=== PATIENT | female | born 1985 | race Caucasian/White ===

== ENCOUNTER 2020-12-30 22:20 | Inpatient (IN) | payer BC ==
--- NOTE | 2020-12-30 22:35 | EDM.PDOC ---
ED HPI GENERAL MEDICAL PROBLEM - General Chief Complaint: Gastrointestinal Problem Stated Complaint: THINKS HER LIVER IS FAILING Time Seen by Provider: 12/30/20 22:35 Source of Information: Reports: Patient History Limitations: Reports: No Limitations - History of Present Illness INITIAL COMMENTS - FREE TEXT/NARRATIVE: 35-year-old female presents to the ED for evaluation of diffuse abdominal discomfort particularly periumbilical right upper quadrant radiating into her back. States the back pain is 8 out of 10. Patient reports that she drinks large volumes of vodka on a daily basis and has been doing so since age 17 or so. She estimates that she drinks 20 to 30 ounces daily. She rarely drinks any other alcohols. She denies using any recreational drugs. She does smoke occasionally when she drinks usually 5 to 8 cigarettes at a time. She has been told that she has the beginnings of the cirrhosis of the liver and is on lisinopril/hydrochlorothiazide daily. She feels lightheaded dizzy and quite nauseated today with diffuse mid back pain. Lightheaded and dizzy upon standing. She states she did have a supper meal tonight which is stayed down. She usually vomits almost every morning when she first rises. She has not appreciated any hematemesis. She reports not having a bowel movement for the last 3 or 4 days. Denies any diarrhea. She has had previous bariatric surgery in 2016. She is to weigh 305 when she got down to around 145 pounds. She estimates that she has gained about 18 pounds of weight in the last 10 to 14 days. Onset: Gradual, Other (Neck daily alcohol user for almost 20 years. There is no doubt that she had would have early cirrhosis of the liver. She appreciates that her eyes are icteric.) Onset Date: 12/30/20 (Ports about 18 pound weight gain over the last 12 to 14 days) Duration: Chronic (alcoholism), Getting Worse Location: Reports: Abdomen Quality: Reports: Ache, Pressure, Other (Associated nausea) Severity: Moderate (818) Improves with: Reports: None Worsens with: Reports: Other (Significant GERD and heartburn evident.) Context: Reports: Other (Chronic alcoholic using vodka on a daily basis in high quantities 20 to 30 ounces. She is not sure if she is ever had pancreatitis.). Denies: Activity, Exercise, Lifting, Sick Contact, Trauma Associated Symptoms: Reports: Chest Pain, Cough (Retrosternal chest discomfort), Loss of Appetite, Malaise, Nausea/Vomiting. 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 Abdomen Pain Score (Numeric/FACES): 8 - Related Data Allergies Allergy/AdvReac Type Severity Reaction Status Date / Time morphine Allergy Severe Itching Verified 12/30/20 22:34 nitrofurantoin Allergy Severe Hives Verified 12/30/20 22:34 [From Macrobid] nitrofurantoin Allergy Severe Hives Verified 12/30/20 22:34 macrocrystalline [From Macrobid] tramadol AdvReac Severe Vomiting Verified 12/30/20 22:34 zolpidem tartrate AdvReac Severe Hallucinati Verified 12/30/20 22:34 [From Ambien] ons Home Meds: Home Meds Hydrochlorothiazide 25 mg PO DAILY 09/10/15 [History] Pantoprazole [ProTONIX] 40 mg PO DAILY 12/30/20 [History] clonazePAM [Clonazepam] 1 mg PO DAILY 12/30/20 [History] lisinopriL [Lisinopril] 20 mg PO DAILY 12/30/20 [History] Past Medical History - Past Health History Medical/Surgical History: Denies Medical/Surgical History Cardiovascular History: Reports: Hypertension Psychiatric History: Reports: Addiction (Chronic alcoholism.), Depression Social & Family History - Caffeine Use Caffeine Use: Reports: Soda - Living Situation & Occupation Living situation: Reports: Occupation: Unemployed ED ROS GENERAL - Review of Systems Review Of Systems: See Below Constitutional: Reports: Malaise, Weakness, Fatigue, Weight Gain (Meets 18 pound weight gain over the last 12 to 14 days.). Denies: Fever, Chills HEENT: Reports: Other (Appreciate scleral icterus.) Respiratory: Reports: Cough. Denies: Shortness of Breath, Wheezing, Pleuritic Chest Pain, Sputum, Hemoptysis (Occasional nonproductive cough) Cardiovascular: Reports: Chest Pain (Retrosternal chest discomfort from GERD.), Lightheadedness. Denies: Blood Pressure Problem, Claudication, Dyspnea on Exertion, Edema, Orthopnea, Palpitations Endocrine: Reports: Fatigue GI/Abdominal: Reports: Abdominal Pain (History of present illness.), Constipation (Good bowel movement for the last 4 days.), Decreased Appetite, Other (GERD with chronic heartburn). Denies: Diarrhea, Difficulty Swallowing : Reports: Frequency Musculoskeletal: Reports: No Symptoms Skin: Reports: Bruising, Other (He states that she bruises easily. Appreciates urine to be dark in color.) Neurological: Reports: Dizziness, Headache (Vaginal dizziness), Weakness. Denies: Confusion, Numbness, Paresthesia, Seizure, Syncope, Tingling ( occasional headaches), Tremors, Difficulty Walking, Change in Speech Psychiatric: Reports: Anxiety, Other (Chronic alcoholism.) Hematologic/Lymphatic: Reports: No Symptoms Immunologic: Reports: No Symptoms ED EXAM, GI/ABD - Physical Exam Exam: See Below Exam Limited By: No Limitations General Appearance: Alert, WD/WN, Mild Distress, Other (Patient does have scleral icterus. Mild blepharal pallor as well. Temperature is 36.0. Heart rate 109 is sinus at the bedside respiratory to 16 with O2 sats of 95% room air BP 81/58.) Eyes: Bilateral: Normal Appearance (Patient has bilateral scleral icterus and mild blepharal pallor.) Throat/Mouth: Other Head: Atraumatic (Tongue is mildly dry and coated), Normocephalic Neck: Normal Inspection, Supple, Non-Tender, Full Range of Motion. No: Lymphadenopathy (L), Lymphadenopathy (R) Respiratory/Chest: No Respiratory Distress, Lungs Clear, Normal Breath Sounds, No Accessory Muscle Use Cardiovascular: Normal Peripheral Pulses, No Edema, No Gallop, No Murmur, No Rub, Tachycardia (Sinus tachycardia at the bedside 110/min) GI/Abdominal Exam: Normal Bowel Sounds, Soft, Tender (Mild right upper quadrant of the abdomen), Other (No clinical evidence of ascites. Evidence of laparoscopic wounds from bariatric surgery.). No: Guarding, Rigid, Rebound Back Exam: Normal Inspection, Full Range of Motion. No: CVA Tenderness (L), CVA Tenderness (R) Extremities: Normal Inspection, Normal Range of Motion, Non-Tender, No Pedal Edema Neurological: Alert, Oriented, CN II-XII Intact, Normal Cognition, Normal Gait Psychiatric: Normal Affect, Normal Mood Skin Exam: Warm, Dry, Intact, Normal Color, Other (Skin has a very slight icteric tone to it.) #1 Interpretation EKG Date: 12/30/20 Time: 22:53 Rhythm: Other (Sinus tachycardia) Rate (Beats/Min): 103 [place]: Normal P-Wave: Present QRS: Normal ST-T: Other (Mild T wave flattening in leads V2 to V6 in leads III and aVF suspect metabolic abnormality) QT: Prolonged (Moderately prolonged) EKG Interpretation Comments: Abnormal ECG Course - Vital Signs Last Recorded V/S: Last Vital Signs Temp 36.0 C L 12/30/20 22:29 Pulse 99 12/31/20 06:34 Resp 16 12/31/20 06:34 BP 94/74 12/31/20 06:34 Pulse Ox 94 L 12/31/20 06:34 - Orders/Labs/Meds Orders: Active Orders 24 hr Category Date Time Status Blood Glucose Check, Bedside [RC] ONETIME Care 12/30/20 22:44 Active EKG Documentation Completion [RC] STAT Care 12/30/20 22:44 Active Abdomen Ltd [US] Stat Exams 12/31/20 05:48 Ordered Abdomen Pelvis wo Cont [CT] Stat Exams 12/30/20 22:43 Taken Chest 1V Frontal [CR] Stat Exams 12/30/20 22:46 Taken CBC WITH AUTO DIFF [HEME] Stat Lab 12/31/20 06:05 Results Dextrose 5%-0.9% NaCl [Dextrose 5%-Normal Saline] 1,000 Med 12/30/20 22:45 Active ml IV ASDIRECTED Dextrose 5%-Lactated Ringers 1,000 ml Med 12/31/20 03:30 Active IV ASDIRECTED Lactated Ringers [Ringers, Lactated] 1,000 ml Med 12/31/20 05:45 Active IV ASDIRECTED Sodium Chloride 0.9% [Normal Saline] 1,000 ml Med 12/31/20 01:30 Active IV ASDIRECTED Medication Orders Dextrose/Sodium Chloride (Dextrose 5%-Normal Saline) 1,000 mls @ 500 mls/hr IV ASDIRECTED KIAN Last Admin: 12/30/20 23:14 Dose: 500 mls/hr Documented by: FARIBAKAT Sodium Chloride (Normal Saline) 1,000 mls @ 500 mls/hr IV ASDIRECTED KIAN Last Admin: 12/31/20 01:38 Dose: 500 mls/hr Documented by: DEBI Dextrose/Lactated Ringer's (Dextrose 5%-Lactated Ringers) 1,000 mls @ 500 mls/hr IV ASDIRECTED [facility] Last Admin: 12/31/20 03:24 Dose: 500 mls/hr Documented by: DEBI Lactated Ringer's (Ringers, Lactated) 1,000 mls @ 999 mls/hr IV ASDIRECTED [facility] Last Admin: 12/31/20 06:31 Dose: 999 mls/hr Documented by: DEBI Labs: Laboratory Tests 12/30/20 12/30/20 12/30/20 Range/Units 22:30 22:30 22:30 WBC 15.70 H (3.98-10.04) K/mm3 RBC 2.56 L (3.98-5.22) M/mm3 Hgb 10.1 L D (11.2-15.7) gm/dl Hct 29.5 L (34.1-44.9) % MCV 115.2 H D (79.4-94.8) fl MCH 39.5 H (25.6-32.2) pg MCHC 34.2 (32.2-35.5) g/dl RDW Std Deviation 59.8 H (36.4-46.3) fL Plt Count 283 D (182-369) K/mm3 MPV 8.5 L (9.4-12.3) fl Neut % (Auto) 79.2 H (34.0-71.1) % Lymph % (Auto) 9.9 L (19.3-51.7) % [place] % (Auto) 10.0 (4.7-12.5) % Eos % (Auto) 0.2 L (0.7-5.8) Baso % (Auto) 0.3 (0.1-1.2) % Neut # (Auto) 12.44 H (1.56-6.13) K/mm3 Lymph # (Auto) 1.55 (1.18-3.74) K/mm3 [place] # (Auto) 1.57 H (0.24-0.36) K/mm3 Eos # (Auto) 0.03 L (0.04-0.36) K/mm3 Baso # (Auto) 0.04 (0.01-0.08) K/mm3 Manual Slide Review Abnormal smear PT 11.9 (9.7-12.0) SECONDS INR 1.11 APTT 29.7 (21.7-31.4) SECONDS Sodium 123 L D (136-145) mEq/L Potassium 3.1 L D (3.5-5.1) mEq/L Chloride 85 L D (98-107) mEq/L Carbon Dioxide 26 (21-32) mEq/L Anion Gap 15.1 H (5-15) BUN 6 L (7-18) mg/dL Creatinine 0.9 (0.55-1.02) mg/dL Est Cr Clr Drug Dosing 87.17 mL/min Estimated GFR (MDRD) > 60 (>60) mL/min BUN/Creatinine Ratio 6.7 L (14-18) Glucose 122 H (70-99) mg/dL Lactic Acid (0.4-2.0) mmol/L Calcium 8.6 (8.5-10.1) mg/dL Magnesium 2.0 (1.8-2.4) mg/dL Total Bilirubin 3.7 H (0.2-1.0) mg/dL AST 303 H (15-37) U/L ALT 84 H (14-59) U/L Alkaline Phosphatase 387 H (46-116) U/L Ammonia (11-32) umol/L C-Reactive Protein 12.5 H* (<1.0) mg/dL NT-Pro-B Natriuret Pep (0-125) pg/mL Total Protein 7.1 (6.4-8.2) g/dl Albumin 2.3 L (3.4-5.0) g/dl Globulin 4.8 gm/dL Albumin/Globulin Ratio 0.5 L (1-2) Lipase 73 (73-393) U/L HCG, Qual (NEGATIVE) Urine Color (Yellow) Urine Appearance (Clear) Urine pH (5.0-8.0) Ur Specific [place] (1.005-1.030) Urine Protein (Negative) Urine Glucose (UA) (Negative) Urine Ketones (Negative) Urine Occult Blood (Negative) Urine Nitrite (Negative) Urine Bilirubin (Negative) Urine Urobilinogen (0.2-1.0) Ur Leukocyte Esterase (Negative) Urine RBC (0-5) /hpf Urine WBC (0-5) /hpf Ur Squamous Epith Cells (0-5) /hpf Urine Bacteria (FEW) /hpf Urine Mucus (FEW) /hpf Urine Opiates Screen (QDLNFG=899) Ur Buprenorphine Scrn (CUTOFF=10) Ur Oxycodone Screen (VAO1MS=481) Urine Methadone Screen (CTIPPU=168) Ur Propoxyphene Screen (ARUYHM=022) Ur Barbiturates Screen (NWDPHU=428) Ur Tricyclics Screen (NOHNRK=419) Ur Phencyclidine Scrn (CUTOFF=25) Ur Amphetamine Screen (CJMLMC=776) U Methamphetamines Scrn (RPOVMZ=759) U Benzodiazepines Scrn (IAPPFP=494) U Cocaine Metab Screen (EVZLVN=457) U Marijuana (THC) Screen (CUTOFF=50) Ethyl Alcohol 0.19 (0.00) gm% Ketones (0.0-0.3) mM SARS-CoV-2 RNA (HUSSEIN) (NEGATIVE) 12/30/20 12/30/20 12/30/20 Range/Units 22:30 22:30 22:56 WBC (3.98-10.04) K/mm3 RBC (3.98-5.22) M/mm3 Hgb (11.2-15.7) gm/dl Hct (34.1-44.9) % MCV (79.4-94.8) fl MCH (25.6-32.2) pg MCHC (32.2-35.5) g/dl RDW Std Deviation (36.4-46.3) fL Plt Count (182-369) K/mm3 MPV (9.4-12.3) fl Neut % (Auto) (34.0-71.1) % Lymph % (Auto) (19.3-51.7) % [place] % (Auto) (4.7-12.5) % Eos % (Auto) (0.7-5.8) Baso % (Auto) (0.1-1.2) % Neut # (Auto) (1.56-6.13) K/mm3 Lymph # (Auto) (1.18-3.74) K/mm3 [place] # (Auto) (0.24-0.36) K/mm3 Eos # (Auto) (0.04-0.36) K/mm3 Baso # (Auto) (0.01-0.08) K/mm3 Manual Slide Review PT (9.7-12.0) SECONDS INR APTT (21.7-31.4) SECONDS Sodium (136-145) mEq/L Potassium (3.5-5.1) mEq/L Chloride (98-107) mEq/L Carbon Dioxide (21-32) mEq/L Anion Gap (5-15) BUN (7-18) mg/dL Creatinine (0.55-1.02) mg/dL Est Cr Clr Drug Dosing mL/min Estimated GFR (MDRD) (>60) mL/min BUN/Creatinine Ratio (14-18) Glucose (70-99) mg/dL Lactic Acid (0.4-2.0) mmol/L Calcium (8.5-10.1) mg/dL Magnesium (1.8-2.4) mg/dL Total Bilirubin (0.2-1.0) mg/dL AST (15-37) U/L ALT (14-59) U/L Alkaline Phosphatase (46-116) U/L Ammonia 30 (11-32) umol/L C-Reactive Protein (<1.0) mg/dL NT-Pro-B Natriuret Pep 285 H (0-125) pg/mL Total Protein (6.4-8.2) g/dl Albumin (3.4-5.0) g/dl Globulin gm/dL Albumin/Globulin Ratio (1-2) Lipase (73-393) U/L HCG, Qual Negative (NEGATIVE) Urine Color (Yellow) Urine Appearance (Clear) Urine pH (5.0-8.0) Ur Specific [place] (1.005-1.030) Urine Protein (Negative) Urine Glucose (UA) (Negative) Urine Ketones (Negative) Urine Occult Blood (Negative) Urine Nitrite (Negative) Urine Bilirubin (Negative) Urine Urobilinogen (0.2-1.0) Ur Leukocyte Esterase (Negative) Urine RBC (0-5) /hpf Urine WBC (0-5) /hpf Ur Squamous Epith Cells (0-5) /hpf Urine Bacteria (FEW) /hpf Urine Mucus (FEW) /hpf Urine Opiates Screen (MPEEXU=357) Ur Buprenorphine Scrn (CUTOFF=10) Ur Oxycodone Screen (PFC8VK=833) Urine Methadone Screen (LZNPLR=826) Ur Propoxyphene Screen (NGOPMD=138) Ur Barbiturates Screen (EZLKNK=526) Ur Tricyclics Screen (CRFZZL=568) Ur Phencyclidine Scrn (CUTOFF=25) Ur Amphetamine Screen (NQLWPA=383) U Methamphetamines Scrn (JHFWIA=014) U Benzodiazepines Scrn (WZMPQF=239) U Cocaine Metab Screen (AANCKH=783) U Marijuana (THC) Screen (CUTOFF=50) Ethyl Alcohol (0.00) gm% Ketones 1.54 (0.0-0.3) mM SARS-CoV-2 RNA (HUSSEIN) (NEGATIVE) 12/30/20 12/31/20 12/31/20 Range/Units 22:56 00:52 00:59 WBC (3.98-10.04) K/mm3 RBC (3.98-5.22) M/mm3 Hgb (11.2-15.7) gm/dl Hct (34.1-44.9) % MCV (79.4-94.8) fl MCH (25.6-32.2) pg MCHC (32.2-35.5) g/dl RDW Std Deviation (36.4-46.3) fL Plt Count (182-369) K/mm3 MPV (9.4-12.3) fl Neut % (Auto) (34.0-71.1) % Lymph % (Auto) (19.3-51.7) % [place] % (Auto) (4.7-12.5) % Eos % (Auto) (0.7-5.8) Baso % (Auto) (0.1-1.2) % Neut # (Auto) (1.56-6.13) K/mm3 Lymph # (Auto) (1.18-3.74) K/mm3 [place] # (Auto) (0.24-0.36) K/mm3 Eos # (Auto) (0.04-0.36) K/mm3 Baso # (Auto) (0.01-0.08) K/mm3 Manual Slide Review PT (9.7-12.0) SECONDS INR APTT (21.7-31.4) SECONDS Sodium (136-145) mEq/L Potassium (3.5-5.1) mEq/L Chloride (98-107) mEq/L Carbon Dioxide (21-32) mEq/L Anion Gap (5-15) BUN (7-18) mg/dL Creatinine (0.55-1.02) mg/dL Est Cr Clr Drug Dosing mL/min Estimated GFR (MDRD) (>60) mL/min BUN/Creatinine Ratio (14-18) Glucose (70-99) mg/dL Lactic Acid 2.7 H* (0.4-2.0) mmol/L Calcium (8.5-10.1) mg/dL Magnesium (1.8-2.4) mg/dL Total Bilirubin (0.2-1.0) mg/dL AST (15-37) U/L ALT (14-59) U/L Alkaline Phosphatase (46-116) U/L Ammonia (11-32) umol/L C-Reactive Protein (<1.0) mg/dL NT-Pro-B Natriuret Pep (0-125) pg/mL Total Protein (6.4-8.2) g/dl Albumin (3.4-5.0) g/dl Globulin gm/dL Albumin/Globulin Ratio (1-2) Lipase (73-393) U/L HCG, Qual (NEGATIVE) Urine Color Yellow (Yellow) Urine Appearance Slt cloudy H (Clear) Urine pH 6.5 (5.0-8.0) Ur Specific [place] 1.010 (1.005-1.030) Urine Protein Negative (Negative) Urine Glucose (UA) Negative (Negative) Urine Ketones Trace H (Negative) Urine Occult Blood Negative (Negative) Urine Nitrite Negative (Negative) Urine Bilirubin Negative (Negative) Urine Urobilinogen 1.0 (0.2-1.0) Ur Leukocyte Esterase Negative (Negative) Urine RBC 0-5 (0-5) /hpf Urine WBC 0-5 (0-5) /hpf Ur Squamous Epith Cells 0-5 (0-5) /hpf Urine Bacteria Moderate H (FEW) /hpf Urine Mucus Not seen (FEW) /hpf Urine Opiates Screen (NIVINO=366) Ur Buprenorphine Scrn (CUTOFF=10) Ur Oxycodone Screen (ZVB2QI=183) Urine Methadone Screen (WYKMXL=071) Ur Propoxyphene Screen (QKMXCK=391) Ur Barbiturates Screen (QLYLUD=377) Ur Tricyclics Screen (ZVZNRY=194) Ur Phencyclidine Scrn (CUTOFF=25) Ur Amphetamine Screen (DYGRKE=818) U Methamphetamines Scrn (EEPBTE=919) U Benzodiazepines Scrn (MWGLRA=656) U Cocaine Metab Screen (WEIDJJ=471) U Marijuana (THC) Screen (CUTOFF=50) Ethyl Alcohol (0.00) gm% Ketones (0.0-0.3) mM SARS-CoV-2 RNA (HUSSEIN) Negative (NEGATIVE) 12/31/20 12/31/20 12/31/20 Range/Units 00:59 01:20 04:06 WBC (3.98-10.04) K/mm3 RBC (3.98-5.22) M/mm3 Hgb (11.2-15.7) gm/dl Hct (34.1-44.9) % MCV (79.4-94.8) fl MCH (25.6-32.2) pg MCHC (32.2-35.5) g/dl RDW Std Deviation (36.4-46.3) fL Plt Count (182-369) K/mm3 MPV (9.4-12.3) fl Neut % (Auto) (34.0-71.1) % Lymph % (Auto) (19.3-51.7) % [place] % (Auto) (4.7-12.5) % Eos % (Auto) (0.7-5.8) Baso % (Auto) (0.1-1.2) % Neut # (Auto) (1.56-6.13) K/mm3 Lymph # (Auto) (1.18-3.74) K/mm3 [place] # (Auto) (0.24-0.36) K/mm3 Eos # (Auto) (0.04-0.36) K/mm3 Baso # (Auto) (0.01-0.08) K/mm3 Manual Slide Review PT (9.7-12.0) SECONDS INR APTT (21.7-31.4) SECONDS Sodium (136-145) mEq/L Potassium (3.5-5.1) mEq/L Chloride (98-107) mEq/L Carbon Dioxide (21-32) mEq/L Anion Gap (5-15) BUN (7-18) mg/dL Creatinine (0.55-1.02) mg/dL Est Cr Clr Drug Dosing mL/min Estimated GFR (MDRD) (>60) mL/min BUN/Creatinine Ratio (14-18) Glucose (70-99) mg/dL Lactic Acid 2.4 H* 2.8 H* (0.4-2.0) mmol/L Calcium (8.5-10.1) mg/dL Magnesium (1.8-2.4) mg/dL Total Bilirubin (0.2-1.0) mg/dL AST (15-37) U/L ALT (14-59) U/L Alkaline Phosphatase (46-116) U/L Ammonia (11-32) umol/L C-Reactive Protein (<1.0) mg/dL NT-Pro-B Natriuret Pep (0-125) pg/mL Total Protein (6.4-8.2) g/dl Albumin (3.4-5.0) g/dl Globulin gm/dL Albumin/Globulin Ratio (1-2) Lipase (73-393) U/L HCG, Qual (NEGATIVE) Urine Color (Yellow) Urine Appearance (Clear) Urine pH (5.0-8.0) Ur Specific [place] (1.005-1.030) Urine Protein (Negative) Urine Glucose (UA) (Negative) Urine Ketones (Negative) Urine Occult Blood (Negative) Urine Nitrite (Negative) Urine Bilirubin (Negative) Urine Urobilinogen (0.2-1.0) Ur Leukocyte Esterase (Negative) Urine RBC (0-5) /hpf Urine WBC (0-5) /hpf Ur Squamous Epith Cells (0-5) /hpf Urine Bacteria (FEW) /hpf Urine Mucus (FEW) /hpf Urine Opiates Screen Negative (YLJLNB=020) Ur Buprenorphine Scrn Negative (CUTOFF=10) Ur Oxycodone Screen Negative (CBT8SW=694) Urine Methadone Screen Negative (MJOSWG=523) Ur Propoxyphene Screen Negative (BEHXMI=162) Ur Barbiturates Screen Negative (WFTKHX=089) Ur Tricyclics Screen Negative (VTQGQI=619) Ur Phencyclidine Scrn Negative (CUTOFF=25) Ur Amphetamine Screen Negative (DSELNT=483) U Methamphetamines Scrn Negative (BZPHZM=405) U Benzodiazepines Scrn Negative (MMTZYM=944) U Cocaine Metab Screen Negative (FGSQOU=483) U Marijuana (THC) Screen Negative (CUTOFF=50) Ethyl Alcohol (0.00) gm% Ketones (0.0-0.3) mM SARS-CoV-2 RNA (HUSSEIN) (NEGATIVE) 12/31/20 12/31/20 12/31/20 Range/Units 06:05 06:05 06:05 WBC 10.42 H (3.98-10.04) K/mm3 RBC 2.02 L (3.98-5.22) M/mm3 Hgb 8.0 L D (11.2-15.7) gm/dl Hct 23.6 L (34.1-44.9) % MCV 116.8 H (79.4-94.8) fl MCH 39.6 H (25.6-32.2) pg MCHC 33.9 (32.2-35.5) g/dl RDW Std Deviation 59.7 H (36.4-46.3) fL Plt Count 206 D (182-369) K/mm3 MPV 8.4 L (9.4-12.3) fl Neut % (Auto) 78.4 H (34.0-71.1) % Lymph % (Auto) 10.7 L (19.3-51.7) % [place] % (Auto) 10.0 (4.7-12.5) % Eos % (Auto) 0.2 L (0.7-5.8) Baso % (Auto) 0.3 (0.1-1.2) % Neut # (Auto) 8.17 H (1.56-6.13) K/mm3 Lymph # (Auto) 1.12 L (1.18-3.74) K/mm3 [place] # (Auto) 1.04 H (0.24-0.36) K/mm3 Eos # (Auto) 0.02 L (0.04-0.36) K/mm3 Baso # (Auto) 0.03 (0.01-0.08) K/mm3 Manual Slide Review PT (9.7-12.0) SECONDS INR APTT (21.7-31.4) SECONDS Sodium 129 L (136-145) mEq/L Potassium 3.1 L (3.5-5.1) mEq/L Chloride 95 L (98-107) mEq/L Carbon Dioxide 23 (21-32) mEq/L Anion Gap 14.1 (5-15) BUN 4 L (7-18) mg/dL Creatinine 0.7 (0.55-1.02) mg/dL Est Cr Clr Drug Dosing 112.08 mL/min Estimated GFR (MDRD) > 60 (>60) mL/min BUN/Creatinine Ratio 5.7 L (14-18) Glucose 135 H (70-99) mg/dL Lactic Acid 3.2 H* (0.4-2.0) mmol/L Calcium 7.5 L (8.5-10.1) mg/dL Magnesium (1.8-2.4) mg/dL Total Bilirubin 2.6 H (0.2-1.0) mg/dL AST 211 H (15-37) U/L ALT 56 (14-59) U/L Alkaline Phosphatase 302 H (46-116) U/L Ammonia (11-32) umol/L C-Reactive Protein (<1.0) mg/dL NT-Pro-B Natriuret Pep (0-125) pg/mL Total Protein 5.8 L (6.4-8.2) g/dl Albumin 1.8 L (3.4-5.0) g/dl Globulin 4.0 gm/dL Albumin/Globulin Ratio 0.5 L (1-2) Lipase (73-393) U/L HCG, Qual (NEGATIVE) Urine Color (Yellow) Urine Appearance (Clear) Urine pH (5.0-8.0) Ur Specific [place] (1.005-1.030) Urine Protein (Negative) Urine Glucose (UA) (Negative) Urine Ketones (Negative) Urine Occult Blood (Negative) Urine Nitrite (Negative) Urine Bilirubin (Negative) Urine Urobilinogen (0.2-1.0) Ur Leukocyte Esterase (Negative) Urine RBC (0-5) /hpf Urine WBC (0-5) /hpf Ur Squamous Epith Cells (0-5) /hpf Urine Bacteria (FEW) /hpf Urine Mucus (FEW) /hpf Urine Opiates Screen (RMZQMJ=528) Ur Buprenorphine Scrn (CUTOFF=10) Ur Oxycodone Screen (HQD9RP=560) Urine Methadone Screen (CNZNXV=379) Ur Propoxyphene Screen (GLZVYR=935) Ur Barbiturates Screen (NIENKL=611) Ur Tricyclics Screen (OLWCVL=672) Ur Phencyclidine Scrn (CUTOFF=25) Ur Amphetamine Screen (AIGVSA=897) U Methamphetamines Scrn (SOXCAL=426) U Benzodiazepines Scrn (HBYPIK=037) U Cocaine Metab Screen (JSQKBT=668) U Marijuana (THC) Screen (CUTOFF=50) Ethyl Alcohol (0.00) gm% Ketones (0.0-0.3) mM SARS-CoV-2 RNA (HUSSEIN) (NEGATIVE) Meds: Medications Generic Name Dose Route Start Last Admin Trade Name Freq PRN Reason Stop Dose Admin Dextrose/Sodium Chloride 1,000 mls @ 500 mls/hr 12/30/20 22:45 12/30/20 23:14 Dextrose 5%-Normal Saline IV 500 mls/hr ASDIRECTED KIAN Administration Sodium Chloride 1,000 mls @ 500 mls/hr 12/31/20 01:30 12/31/20 01:38 Normal Saline IV 500 mls/hr ASDIRECTED KIAN Administration Dextrose/Lactated Ringer's 1,000 mls @ 500 mls/hr 12/31/20 03:30 12/31/20 03:24 Dextrose 5%-Lactated Ringers IV 500 mls/hr ASDIRECTED KIAN Administration Lactated Ringer's 1,000 mls @ 999 mls/hr 12/31/20 05:45 12/31/20 06:31 Ringers, Lactated IV 999 mls/hr ASDIRECTED KIAN Administration Discontinued Medications Generic Name Dose Route Start Last Admin Trade Name [place] PRN Reason Stop Dose Admin Acetaminophen 975 mg 12/31/20 01:25 12/31/20 01:40 Acetaminophen 325 Mg Tab PO 12/31/20 01:26 975 mg ONETIME ONE Administration Acetaminophen 975 mg 12/31/20 06:33 12/31/20 06:47 Acetaminophen 325 Mg Tab PO 12/31/20 06:34 975 mg ONETIME ONE Administration Al Hydroxide/Mg Hydroxide 30 ml 12/30/20 23:00 12/30/20 23:16 Aluminum Hydroxide/Magnesium Hydroxide/Simethicone Susp 30 Ml Cup PO 12/30/20 23:01 30 ml ONETIME ONE Administration Hydromorphone HCl 0.5 mg 12/30/20 22:42 12/30/20 23:15 Hydromorphone 0.5 Mg/0.5 Ml Syringe IVPUSH 12/30/20 22:43 0.5 mg ONETIME ONE Administration Hydromorphone HCl 0.5 mg 12/31/20 01:25 12/31/20 01:39 Hydromorphone 0.5 Mg/0.5 Ml Syringe IVPUSH 12/31/20 01:26 0.5 mg ONETIME ONE Administration Hydromorphone HCl 0.5 mg 12/31/20 06:33 12/31/20 06:46 Hydromorphone 0.5 Mg/0.5 Ml Syringe IVPUSH 12/31/20 06:34 0.5 mg ONETIME ONE Administration Potassium Chloride 10 meq/ 100 mls @ 100 mls/hr 12/31/20 00:15 12/31/20 02:54 Premix IV 12/31/20 03:14 100 mls/hr Q1H KIAN Administration Cefepime HCl 2 gm/ Premix 50 mls @ 100 mls/hr 12/31/20 00:58 12/31/20 01:15 IV 12/31/20 01:27 100 mls/hr ONETIME ONE Administration Metronidazole 500 mg/ Premix 100 mls @ 100 mls/hr 12/31/20 02:10 12/31/20 02:53 IV 12/31/20 03:09 100 mls/hr ONETIME ONE Administration Sodium Chloride 1,000 mls @ 999 mls/hr 12/31/20 02:40 12/31/20 03:24 Normal Saline IV 12/31/20 03:40 Not Given ONETIME ONE Lorazepam 1 mg 12/31/20 02:41 12/31/20 02:52 Lorazepam 2 Mg/Ml Sdv IVPUSH 12/31/20 02:42 1 mg ONETIME ONE Administration Metoclopramide HCl 7.5 mg 12/30/20 22:42 12/30/20 23:14 Metoclopramide 10 Mg/2 Ml Sdv IVPUSH 12/30/20 22:43 7.5 mg ONETIME ONE Administration Metoclopramide HCl 7.5 mg 12/31/20 06:34 12/31/20 06:46 Metoclopramide 10 Mg/2 Ml Sdv IVPUSH 12/31/20 06:35 7.5 mg ONETIME ONE Administration - Radiology Interpretation Free Text/Narrative:: 55-year-old female who is known to be a chronic alcoholic drinking usually 20 to 30 ounces of vodka daily. She states she drinks until she gets drunk. She drinks all day long. Usually has to drink first thing in the morning to stop the shakes. She usually vomits first thing in the morning denies hematemesis. She been told she has the beginnings of cirrhosis liver in the past. She comes to the ED tonight indicating she believes that her liver is sick. She appreciates scleral icterus. She did has diffuse epigastric abdominal pain rating through to her back concerning for possible pancreatitis. She offers no history of a pancreatitis problem. Appreciates that her urine is quite dark in color. Only abdominal surgery is that of bariatric surgery 5 years ago with weight coming down from [id number] 145 pounds. She has gained approximately 18 pounds of weight in the last 2 weeks suggestive of ascites. This is not apparent clinically. She has no peritoneal signs clinically. Plan routine labs including serum ammonia to be done. Coags to be done with serum lipase and magnesium. IV will be D5 normal saline at 500 mils an hour. Given Reglan 7.5 mg IV for nausea relief and this will be followed by 30 cc of Maalox p.o. for heartburn. Given Dilaudid 0.5 mg IV for abdominal pain rating through to her back. - Re-Assessments/Exams Free Text/Narrative Re-Assessment/Exam: 12/31/20 23:50: Chest x-ray done portably reveals an elevated right hemidiaphragm. Lung parenchyma is are clear. Cardiac silhouette normal. No pneumothorax. CT of the abdomen was completed with out any contrast. Liver appears to be enlarged with steatosis pattern. No significant intraductal dilatation. Pancreas appears normal. Spleen appears normal. Adrenal glands appear normal without any nodules. Previous gastric bypass surgery appreciated. Patient has an IUD in the uterus. There is free fluid in the pelvis compatible with mild ascites. Small and large bowels do not show anything definitive. Left kidney appears to be slightly hypertrophic in comparison to the right. No stones identified within either renal parenchyma with no ureteric obstruction. 12/31/20 00:13 White count is elevated at 15.70. There is a left shift of 79.2% neutrophils. Hemoglobin is 10.1 with hematocrit of 29.5. MCV is 115.2 compatible with chronic alcohol use. Platelet count 283,000. The smear reveals 2+ anisocytosis. 1+ micromacrocytosis and 1+ polychromasia. There is lymphopenia and monocytosis with a few neutrophilic bands cells seen. Moderate toxic granulation on the PMNs. PT is 11.9 with an INR of 1.11. PTT is 29.7. Sodium is low at 123 with a potassium of 3.1 and a chloride of 85. Bicarb is 26. Anion gap is 15.1. BUN is 6 with a creatinine of 0.9. GFR is greater than 60. Glucose is 122. Lactic acid is elevated at 2.7. Calcium is 8.6. Magnesium is 2.0. Bilirubin is elevated at 3.7 with an AST of 303 and ALT of 84. Alkaline phosphatase is 387. Serum ammonia level is is 30. C-reactive protein is elevated at 12.5. BNP elevated at 285. Total protein 7.1 with an albumin fraction of 2.3. Serum lipase is 73. hCG is negative. Blood alcohol is 0.19 g%. Serum ketones elevated 1.54. Clinically she has an infection. Awaiting a urinalysis. Will order K rider 10 mEq IV x3. Blood pressure is improved to 132 100. Heart rate is still 125 and sinus tachycardia. 12/31/20 01:24 patient has voided. I am going to go ahead and start her on antibiotic cefepime 2 g IV. Source of the infection is unclear. She is having increased back pain at this time will be repeat Dilaudid 0.5 mg IV. Has completed a liter of IV fluids and blood pressure is now 107/71. Next liter will be normal saline at 500 mils an hour. Patient has a definite fever on palpation of her facial cheeks at this time. We will give her 9 7 5 mg of Tylenol p.o. as well. 12/31/20 02:09 Analysis is slightly cloudy with trace of ketones and moderate bacteria appreciated but negative leukocyte esterase. COVID-19 screen is negative. 12/31/20 02:10 I will add Flagyl 500 mg IV to her antibiotic treatment plan until we know the source of her infection. Her gallbladder on CT exam revealed it to be contracted with thickened garcía and I thought the surrounding pericholecystic fluid would likely represented more of an ascites. No calcified stones identified. Tenderness appears to be more epigastric with no positive Rincon sign. 12/31/20 02:37 Vrad over read of her CT of the abdomen pelvis is now available. Liver shows hepatomegaly with diffuse fatty infiltration. Gallbladder wall thickening with pericholecystic inflammation evident no calcified gallstones are evident. Peripancreatic edema surrounding the head of the pancreas evident. The findings may represent acute pancreatitis. Peptic ulcer disease may also give this appearance. Please correlate with serum amylase and lipase levels. Spleen appears normal with no splenomegaly. Adrenal glands are normal with no masses. Kidneys and ureters are normal with no hydronephrosis. Colonic wall thickening involving the ascending colon hepatic flexure consistent with right- sided colitis. No evidence of appendicitis. Moderate free fluid evident in the pelvis. Unremarkable vasculature with no abdominal aortic aneurysm. Lymph nodes appear nonspecific in the retroperitoneal cavity. They measure between 1 to 1.5 cm adjacent to the head of the pancreas. Urinary bladder is unremarkable as visualized. Reproductive shows an enlarged fibroid uterus with an IUD in good position within the mid body of the uterus. Bones and joints appear unremarkable with no acute fracture. The appendix is mildly thickened measuring 9 mm. An early mild appendicitis cannot be ruled out although felt to be unlikely. The gallbladder appears minimally distended and therefore we will wait till later this morning to have his ultrasound done on her gallbladder. Plan will be to keep her in the ER overnight for IV fluids to improve her lactic acidosis and maintain her blood pressure which is currently 106 on 70. An ultrasound of her gallbladder will be ordered for later this morning. I will give her Ativan 1 mg IV to help facilitate some sleep while in the ED. Her friend will go home at this time. Her apparently will be available tomorrow when he gets off work. The plan will be to have her admitted to the hospital until source of infection has been identified. Free Text/Narrative Re-Assessment/Exam: 12/31/20 03:23 she has completed 2 L of IV fluid. Third liter will be D5 Ringer's lactate at 500 mils an hour. Current blood pressure is 103/71 with a mean arterial pressure of 81. Heart rate is 78 in sinus 12/31/20 05:40 Third lactic acid level returned at 2.8 higher than the initial lactic acid level which was 2.7. Patient has completed nearly 3 L of IV fluids. Current blood pressure is 108 on 78. Unclear of the accuracy of the lactic acid level. Fourth liter of IV fluids will be Ringer's lactate at open. Of no te the patient does have some fluid in her pelvis compared with mild ascites from cirrhosis of the liver. I will put in an order for ultrasound of the gallbladder at this time. 12/31/20 06:25: Once again she is quite uncomfortable with abdominal pain which she still states is mostly epigastric and left upper quadrant of the abdomen. I could not generate a positive Rincon sign. She once again also is starting to feel febrile and I can still smell ketones on her breath. She is currently on her fourth liter of IV fluids. Blood pressure is currently 94/74. Mean arterial pressure is 79. At this time it is unclear as to the etiology of her abdominal pain but I suspect she is third spacing good portion of the intravenous fluids we are providing her. She may well require CT of the abdomen pelvis with oral and IV contrast if gallbladder ultrasound does not identify any obvious source for infection. Does once again feel febrile. Will give Tylenol 9 7 5 mg p.o. Awaiting commercial service technician to come in at 7 and hopefully for perform her ultrasound on her gallbladder. 12/31/20 07:06 Repeat lactate labs done at 0600 hrs. and will reveal an improvement in her white count from 15.7 down to 10.42. Hemoglobin is also dropped from 10.1-8.0 and may well be dilutional after 4 L of crystalloid. Hematocrit is also down to 23.6 from 29.5. Platelet count is currently 106,000. Auto differential shows 78.4% neutrophils. Sodium is improved from 1 23-1 29. Potassium remains the same at 3.1 even after 3K riders. Chloride is improved from 85-95. Bicarb is 23. Anion gap is 14.1. Renal function remains unchanged. Her repeat lactic acid however is elevated to 3.2 which I cannot explain. Calcium is lower at 7.5 dilutional. Total bilirubin is improved from 3.7-2.6 AST is 211 ALT is 56 alkaline phosphatase improved from 387 to 382. I have spoken with Dr. Sergio Patino on-call hospitalist and he has accepted care of this patient to the [facility] surgery floor. Departure - Departure Time of Disposition: 07:07 Disposition: Admitted As Inpatient 65 Condition: Fair Clinical Impression: Chronic alcoholism, Lactic acidosis, Alcoholic ketosis, Hyponatremia, Acute febrile illness, Neutrophilic leukocytosis Abdominal pain Qualifiers: Abdominal location: left upper quadrant Qualified Code(s): R10.12 - Left upper quadrant pain Ascites Qualifiers: Ascites type: due to alcoholic cirrhosis Qualified Code(s): K70.31 - Alcoholic cirrhosis of liver with ascites Anemia Qualifiers: Anemia type: other cause - Discharge Information *PRESCRIPTION DRUG MONITORING PROGRAM REVIEWED*: Not Applicable *COPY OF PRESCRIPTION DRUG MONITORING REPORT IN PATIENT EDEN: Not Applicable Instructions: Dehydration, Adult, [id number] Referrals: Sidra Paz NP [Primary Care Provider] - Forms: ED Department Discharge Sepsis Event Note (ED) - Evaluation Sepsis Screening Result: No Definite Risk - Focused Exam Vital Signs: Vital Signs Temp Pulse Resp BP Pulse Ox 12/31/20 06:34 99 16 94/74 94 L 12/31/20 05:30 87 16 106/66 93 L 12/31/20 04:30 88 16 100/70 94 L 12/31/20 03:26 91 16 103/71 93 L 12/31/20 03:00 88 16 108/71 93 L 12/31/20 02:15 92 16 109/76 92 L 12/31/20 02:00 98 16 101/63 92 L 12/31/20 01:45 107 H 16 108/68 91 L 12/31/20 01:00 92 16 115/76 93 L 12/31/20 00:00 99 16 112/73 93 L 12/30/20 23:00 108 H 16 102/76 95 12/30/20 22:29 36.0 C L 109 H 16 81/58 L 94 L - My Orders Last 24 Hours: My Active Orders 12/30/20 22:43 Abdomen Pelvis wo Cont [CT] Stat 12/30/20 22:44 Blood Glucose Check, Bedside [RC] ONETIME EKG Documentation Completion [RC] STAT 12/30/20 22:45 Dextrose 5%-0.9% NaCl [Dextrose 5%-Normal Saline] 1,000 ml IV ASDIRECTED 12/30/20 22:46 Chest 1V Frontal [CR] Stat 12/31/20 01:30 Sodium Chloride 0.9% [Normal Saline] 1,000 ml IV ASDIRECTED 12/31/20 03:30 Dextrose 5%-Lactated Ringers 1,000 ml IV ASDIRECTED 12/31/20 05:45 Lactated Ringers [Ringers, Lactated] 1,000 ml IV ASDIRECTED 12/31/20 05:48 Abdomen Ltd [US] Stat 12/31/20 06:05 CBC WITH AUTO DIFF [HEME] Stat - Assessment/Plan Last 24 Hours: My Active Orders 12/30/20 22:43 Abdomen Pelvis wo Cont [CT] Stat 12/30/20 22:44 Blood Glucose Check, Bedside [RC] ONETIME EKG Documentation Completion [RC] STAT 12/30/20 22:45 Dextrose 5%-0.9% NaCl [Dextrose 5%-Normal Saline] 1,000 ml IV ASDIRECTED 12/30/20 22:46 Chest 1V Frontal [CR] Stat 12/31/20 01:30 Sodium Chloride 0.9% [Normal Saline] 1,000 ml IV ASDIRECTED 12/31/20 03:30 Dextrose 5%-Lactated Ringers 1,000 ml IV ASDIRECTED 12/31/20 05:45 Lactated Ringers [Ringers, Lactated] 1,000 ml IV ASDIRECTED 12/31/20 05:48 Abdomen Ltd [US] Stat 12/31/20 06:05 CBC WITH AUTO DIFF [HEME] Stat
[2020-12-30] MEDS ORDERED: HYDROmorphone 0.5 MG/0.5 ML Syringe IVPUSH ONE (22:42)
[2020-12-30] MEDS ORDERED: Metoclopramide 10 MG/2 ML SDV IVPUSH ONE (22:42)
[2020-12-30] MEDS ORDERED: Dextrose 5%-0.9% NaCl 1,000 ML IV SCH (22:45)
[2020-12-30] MEDS ORDERED: Aluminum Hydroxide/Magnesium Hydroxide/Simethicone Susp 30 ML Cup PO ONE (23:00)
[2020-12-31] MEDS: Potassium Chloride 10 MEQ in Premix Bag 1 BAG IV SCH ×3 (00:21→02:54)
[2020-12-31] MEDS ORDERED: Cefepime 2 GM in Premix Bag 1 BAG IV ONE (00:58)
[2020-12-31] MEDS ORDERED: Acetaminophen 325 MG Tab PO ONE ×2 (01:25→06:33)
[2020-12-31] MEDS ORDERED: HYDROmorphone 0.5 MG/0.5 ML Syringe IVPUSH ONE ×2 (01:25→06:33)
[2020-12-31] MEDS ORDERED: Sodium Chloride 0.9% 1,000 ML IV SCH (01:30)
[2020-12-31] MEDS ORDERED: metroNIDAZOLE/Normal Saline 500 MG in Premix Bag 1 BAG IV ONE (02:10)
[2020-12-31] MEDS ORDERED: Sodium Chloride 0.9% 1,000 ML IV ONE (02:40)
[2020-12-31] MEDS ORDERED: LORazepam 2 MG/ML SDV IVPUSH ONE (02:41)
[2020-12-31] MEDS ORDERED: Dextrose 5%-Lactated Ringers 1,000 ML IV SCH (03:30)
[2020-12-31] MEDS ORDERED: Lactated Ringers 1,000 ML IV SCH (05:45)
[2020-12-31] MEDS ORDERED: Metoclopramide 10 MG/2 ML SDV IVPUSH ONE (06:34)
--- NOTE | 2020-12-31 07:31 | CR ---
Chest: Frontal view of the chest was obtained. Comparison: Prior chest x-ray of 04/27/15. Heart size and mediastinum are normal. Elevated right hemidiaphragm is seen which appears to be chronic. Lungs are clear with no acute parenchymal change. Bony structures show nothing acute. Impression: 1. Nothing acute is seen on frontal chest x-ray. Diagnostic code #1
[2020-12-31] MEDS ORDERED: LORazepam 2 MG/ML SDV IV PRN (07:35)
[2020-12-31] MEDS ORDERED: Acetaminophen 325 MG Tab PO PRN (07:35)
[2020-12-31] MEDS ORDERED: Ketorolac 30 MG/ML SDV IV PRN (07:35)
--- NOTE | 2020-12-31 07:39 | CT ---
CT abdomen and pelvis Technique: Multiple axial sections were obtained from slightly below the top of the liver inferiorly through the pubic symphysis. Intravenous and oral contrast were not utilized. Reconstructed coronal and sagittal images were obtained. Comparison: No prior abdominal pelvic CT study is available. Visualized lung bases show either slight linear atelectasis or scarring. Liver shows prominent fatty infiltration and is increased in size. Gallbladder shows very slight haziness either incidental or due to minimal inflammation. Spleen size is normal. Prior gastric surgery is noted. There is an area of accessory splenic tissue noted off the anterior spleen. Adrenal glands show no nodule. Minimal inflammatory change is noted between the pancreatic head and duodenum. Kidneys show no abnormal calcifications. No hydronephrosis is noted. Abdominal aorta shows atherosclerotic change without aneurysm. Atherosclerotic change continues into the iliac vessels. Small retroperitoneal lymph nodes are seen which are believed to be within normal limits at this time. There is a fair amount of fluid being seen within the pelvis. IUD is noted within the endometrial cavity. Fibroid is noted off the uterus measuring approximately 2.3 cm. Appendix appears to be shortened. Appendix measures about 1.1 cm in size. Difficult at this point to exclude appendicitis if patient has correlating symptoms. There is slight inflammatory change being seen around this area although this inflammation appears to be more distal than usually expected for appendicitis. There is diffuse bowel wall thickening within the right colon and proximal transverse colon. Bone window settings were reviewed which shows mild degenerative change. No acute osseous abnormality is appreciated. Impression: 1. Thickened appendix with inflammatory change as described above. Difficult to completely exclude appendicitis. Please correlate with patient's symptoms. 2. Fair amount of nonspecific fluid within the pelvis. 3. Wall thickening within the right colon and proximal transverse colon compatible with nonspecific colitis. 4. Prominent fatty infiltration within the liver with mild enlargement. 5. Slight inflammatory change between the pancreatic head and duodenum. This may be incidental but difficult to exclude either mild pancreatitis or peptic ulcer disease. Please correlate clinically. 6. Equivocal inflammatory change around the gallbladder. Again please correlate if further imaging is needed. Diagnostic code #3 I agree with preliminary report from [facility] finalized on 12/31/20, 1:34 AM CDT, Code 1
[2020-12-31] MEDS ORDERED: Dextrose 5%-0.9% NaCl 1,000 ML IV SCH (07:45)
--- NOTE | 2020-12-31 08:07 | US ---
Limited abdominal ultrasound: Multiple real-time images of the upper right abdomen were obtained. Comparison: Prior CT abdomen and pelvis study of 12/30/20. Findings: Liver is hyperechoic compatible with fatty infiltration. Liver is also mildly enlarged. Gallbladder is not well distended. No shadowing gallstones are seen. No gallbladder wall thickening or biliary duct dilatation is seen. Right kidney shows no hydronephrosis or mass. Right kidney has a length of 11.0 cm. There is a small amount of free fluid seen next to the liver. Pancreas is poorly seen due to bowel gas. Inferior vena cava is patent. Main portal vein is difficult to visualize. Impression: 1. Fatty infiltration within the liver. 2. Mild ascites is seen next to the inferior liver. 3. No gallbladder abnormality is appreciated. 4. Pancreas is poorly seen due to bowel gas. Diagnostic code #3
[2020-12-31] MEDS ORDERED: Enoxaparin 30 MG/0.3 ML Syringe SUBCUT SCH (09:00)
[2020-12-31] MEDS: Folic Acid 1 MG Tab PO SCH (09:46)
[2020-12-31] MEDS: cefTRIAXone 2 GM in Sodium Chloride 0.9% 100 ML IV SCH (09:47)
[2020-12-31] MEDS: HYDROmorphone 0.5 MG/0.5 ML Syringe IVPUSH PRN ×4 (09:54→21:57)
[2020-12-31] MEDS: Ondansetron 4 MG Tab.DIS PO PRN (09:55)
[2020-12-31] MEDS: Sodium Chloride 0.9% 1,000 ML IV SCH ×2 (10:22→17:29)
--- NOTE | 2020-12-31 11:30 | PCM.HP.2 ---
<Stephon Gerardo M - Last Filed: 12/31/20 12:02> H&P History of Present Illness - General Date of Service: 12/31/20 Admit Problem/Dx: Admission Diagnosis/Problem Admission Diagnosis/Problem Leukocytosis Source of Information: Patient, Provider History Limitations: Reports: No Limitations - History of Present Illness Initial Comments - Free Text/Narative: 85-year-old female presents to the ER with complaints of generalized abdominal discomfort particularly in the right and left upper quadrants that radiates around her abdomen and radiating into her back. States this has been going on for the past couple of days. She states she has also noted increased abdominal distention that started about 2 days ago. She reported that her back pain was 8 out of 10. Of note, the patient does have a significant history of alcohol consumption. She states that she drinks large volumes of vodka on a daily basis as an been doing so since age of 17. She estimates that she drinks 20 to 30 ounces daily. She rarely drinks any other alcohol and denies any recreational drug use. She does smoke occasionally when she drinks which is usually 5 to 8 cigarettes at a time, so this would likely be daily. 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 She states that she does generally vomit every morning when she wakes up. However over the course the past couple of days she has had consistent nausea and vomiting throughout the day. Her appetite has been down over the course the past couple of days. She has not noted any hematemesis. She has not had a bowel movement for about 3 to 4 days. Of note, she has had previous bariatric surgery in 2016. Her initial weight was 305 and then got down to around 145 pounds however she states over the past 10 to 14 days she has gained about 18 pounds. Initial vital signs in the emergency department showed a temperature of 36.0, heart rate 109, respiratory rate 16, blood pressure 81/58 and O2 saturations 95% on room air. Labs in the ED reveal a WBC of 15.70, hemoglobin 10.1, hematocrit 29.5, MCV 115.2, platelet count 283, neutrophil percentage 79.2, pro time 11.9, INR 1.11 PTT 29.7, sodium 123, potassium 3.1, chloride 85, carbon dioxide 26, anion gap 15.1, BUN 6, creatinine 0.9, GFR greater than 60, glucose 122, magnesium 2.0, total bilirubin 3.7, AST 303, ALT 84, alk phos 387, C-reactive protein 12.5, ammonia 30, proBNP 285, lactic acid 2.7,, ketones 0.19, urinalysis reveals trace of ketones, nitrite negative, leukocyte Estrace negative, urine test was negative, Covid test is negative The patient did receive almost 4 L of IV fluids while in the emergency department and 40 mEq of potassium IV. She also received Reglan for nausea and Dilaudid for abdominal pain. Radiologist impression portable view of the chest: Nothing acute is appreciated on frontal view of the chest. The patient was started on cefepime 2 g IV as the source of infection was unclear. She was also given Flagyl [address] of the abdomen was completed. Radiologist impression:1. Thickened appendix with some inflammatory changes described. Difficult to completely exclude appendicitis. Please correlate with patient's symptoms. 2. Fair amount of nonspecific fluid within the pelvis. 3. Wall thickening within the right colon and proximal transverse colon compatible with nonspecific colitis. 4. Prominent fatty infiltration within the liver with mild enlargement. 5. Slight inflammatory change between the pancreatic head and duodenum. This may be incidental but difficult to exclude either mild pancreatitis or peptic ulcer disease. Please correlate clinically. 6. Equivocal inflammatory change around the gallbladder. Again please correlate if further imaging is needed. Subsequently, an ultrasound of the abdomen was completed to rule out gallbladder disease. Radiologist impression:1. Fatty infiltration within the liver. 2. Mild ascites is seen next to the inferior liver. 3. No gallbladder abnormality is appreciated. 4. Pancreas is poorly seen due to bowel gas. Repeat labs were done at 0600 and show WBC down to 10.42, hemoglobin down to 10.8 which is likely delusional after 4 L of fluid, hematocrit also down to 23.6. Platelet count 106,000, auto differential shows 78.4% neutrophils. Sodium has improved to 129 and potassium remains the same at 3.1. Chloride is 95 and bicarb 23. Anion gap 14.1. Renal function remains unchanged. Repeat lactic acid however is elevated to 3.2. Calcium is lower at 7.5 likely delusional. Total bilirubin is improved from 3.7-2.6, AST is 211, ALT is 56, alkaline phos improved from 3 87-3 82. Patient will be admitted to the intensive care unit at it is likely that she will go through DTs due to excessive alcohol consumption. The surgeon on-call, , will be consulted. Of note, the patient is on her menstrual cycle however she denies any retained tampons and states she is good about changing these out every few hours. Abdomen Pain Score (Numeric/FACES): 7 - Related Data Allergies/Adverse Reactions: Allergies Allergy/AdvReac Type Severity Reaction Status Date / Time nitrofurantoin Allergy Intermediate Hives Verified 12/31/20 12:52 [From Macrobid] nitrofurantoin Allergy Intermediate Hives Verified 12/31/20 12:52 macrocrystalline [From Macrobid] morphine Allergy Mild Itching Verified 12/31/20 12:52 zolpidem tartrate AdvReac Intermediate Hallucinati Verified 12/31/20 12:52 [From Ambien] ons tramadol AdvReac Mild Vomiting Verified 12/31/20 12:52 Home Medications: Home Meds Hydrochlorothiazide 25 mg PO DAILY 09/10/15 [History] Pantoprazole [ProTONIX] 40 mg PO DAILY 12/30/20 [History] clonazePAM [Clonazepam] 1 mg PO DAILY 12/30/20 [History] lisinopriL [Lisinopril] 20 mg PO DAILY 12/30/20 [History] Past Medical History - Past Health History Medical/Surgical History: Denies Medical/Surgical History HEENT History: Reports: Other (See Below) Other HEENT History: wears glasses Cardiovascular History: Reports: Hypertension Gastrointestinal History: Reports: GERD, Other (See Below) Other Gastrointestinal History: gastric sleeve Psychiatric History: Reports: Addiction, Depression Social & Family History - Tobacco Use Tobacco Use Status *Q: Light Tobacco User Years of Tobacco use: 5 Packs/Tins Daily: 0.1 Used Tobacco, but Quit: No - Caffeine Use Caffeine Use: Reports: Coffee - Alcohol Use Days Per Week of Alcohol Use: 1 Number of Drinks Per Day: 5 Total Drinks Per Week: 5 Date of Last Drink: 12/30/20 Time of Last Drink: 16:00 - Recreational Drug Use Recreational Drug Use: No - Living Situation & Occupation Living situation: Reports: Occupation: Unemployed H&P Review of Systems - Review of Systems: Review Of Systems: See Below General: Reports: Chills, Decreased Appetite, Weight Gain. Denies: Fever HEENT: Reports: No Symptoms Pulmonary: Reports: No Symptoms Cardiovascular: Reports: No Symptoms Gastrointestinal: Reports: Abdominal Pain, Constipation, Decreased Appetite, Distension, Nausea, Vomiting. Denies: Diarrhea, Hematemesis, Hematochezia Genitourinary: Reports: No Symptoms Musculoskeletal: Reports: Back Pain (Patient reports pain in the middle of her back for the past 2 days) Skin: Reports: No Symptoms Psychiatric: Reports: No Symptoms Neurological: Reports: Headache Hematologic/Lymphatic: Reports: No Symptoms Immunologic: Reports: No Symptoms Exam - Exam Exam: See Below - Vital Signs Vital Signs: Last Vital Signs Temp 97.0 F 12/31/20 10:15 Pulse 116 H 12/31/20 10:15 Resp 20 12/31/20 10:15 BP 124/74 12/31/20 10:15 Pulse Ox 90 L 12/31/20 10:15 Weight: 78.245 kg - Exam Quality Assessment: DVT Prophylaxis (Lovenox). No: Supplemental Oxygen General: Alert, Oriented, Cooperative, Mild Distress HEENT: Hearing Intact, Mucosa Moist & [place], Pupils Equal, Scleral Icterus Neck: Supple, Trachea Midline Lungs: Clear to Auscultation, Normal Respiratory Effort Cardiovascular: Regular Rate, Regular Rhythm, Normal S1, Normal S2 GI/Abdominal Exam: Non-Tender, Distended, Abnormal Bowel Sounds (Hyperactive), Other (Semifirm) (Female) Exam: Deferred Rectal (Female) Exam: Deferred Back Exam: Normal Inspection, Full Range of Motion Extremities: Normal Inspection, Normal Range of Motion, Non-Tender, No Pedal Edema, Normal Capillary Refill Peripheral Pulses: 2+: Radial (L), Radial (R) Skin: Warm, Dry, Intact Neuro Extensive - Mental Status: Alert, Oriented x3, Normal Mood/Affect, Normal Cognition, Memory Intact Psychiatric: Alert, Normal Affect, Normal Mood - Patient Data Lab Results Last 24 hrs: Laboratory Results - last 24 hr 12/30/20 12/30/20 12/30/20 Range/Units 22:30 22:30 22:30 WBC 15.70 H (3.98-10.04) K/mm3 RBC 2.56 L (3.98-5.22) M/mm3 Hgb 10.1 L D (11.2-15.7) gm/dl Hct 29.5 L (34.1-44.9) % MCV 115.2 H D (79.4-94.8) fl MCH 39.5 H (25.6-32.2) pg MCHC 34.2 (32.2-35.5) g/dl RDW Std Deviation 59.8 H (36.4-46.3) fL Plt Count 283 D (182-369) K/mm3 MPV 8.5 L (9.4-12.3) fl Neut % (Auto) 79.2 H (34.0-71.1) % Lymph % (Auto) 9.9 L (19.3-51.7) % [place] % (Auto) 10.0 (4.7-12.5) % Eos % (Auto) 0.2 L (0.7-5.8) Baso % (Auto) 0.3 (0.1-1.2) % Neut # (Auto) 12.44 H (1.56-6.13) K/mm3 Lymph # (Auto) 1.55 (1.18-3.74) K/mm3 [place] # (Auto) 1.57 H (0.24-0.36) K/mm3 Eos # (Auto) 0.03 L (0.04-0.36) K/mm3 Baso # (Auto) 0.04 (0.01-0.08) K/mm3 Manual Slide Review Abnormal smear PT 11.9 (9.7-12.0) SECONDS INR 1.11 APTT 29.7 (21.7-31.4) SECONDS Sodium 123 L D (136-145) mEq/L Potassium 3.1 L D (3.5-5.1) mEq/L Chloride 85 L D (98-107) mEq/L Carbon Dioxide 26 (21-32) mEq/L Anion Gap 15.1 H (5-15) BUN 6 L (7-18) mg/dL Creatinine 0.9 (0.55-1.02) mg/dL Est Cr Clr Drug Dosing 87.17 mL/min Estimated GFR (MDRD) > 60 (>60) mL/min BUN/Creatinine Ratio 6.7 L (14-18) Glucose 122 H (70-99) mg/dL Lactic Acid (0.4-2.0) mmol/L Calcium 8.6 (8.5-10.1) mg/dL Magnesium 2.0 (1.8-2.4) mg/dL Total Bilirubin 3.7 H (0.2-1.0) mg/dL GGT (5-55) U/L AST 303 H (15-37) U/L ALT 84 H (14-59) U/L Alkaline Phosphatase 387 H (46-116) U/L Ammonia (11-32) umol/L C-Reactive Protein 12.5 H* (<1.0) mg/dL NT-Pro-B Natriuret Pep (0-125) pg/mL Total Protein 7.1 (6.4-8.2) g/dl Albumin 2.3 L (3.4-5.0) g/dl Globulin 4.8 gm/dL Albumin/Globulin Ratio 0.5 L (1-2) Lipase 73 (73-393) U/L HCG, Qual (NEGATIVE) Urine Color (Yellow) Urine Appearance (Clear) Urine pH (5.0-8.0) Ur Specific [place] (1.005-1.030) Urine Protein (Negative) Urine Glucose (UA) (Negative) Urine Ketones (Negative) Urine Occult Blood (Negative) Urine Nitrite (Negative) Urine Bilirubin (Negative) Urine Urobilinogen (0.2-1.0) Ur Leukocyte Esterase (Negative) Urine RBC (0-5) /hpf Urine WBC (0-5) /hpf Ur Squamous Epith Cells (0-5) /hpf Urine Bacteria (FEW) /hpf Urine Mucus (FEW) /hpf Urine Opiates Screen (QVNMAX=092) Ur Buprenorphine Scrn (CUTOFF=10) Ur Oxycodone Screen (WFD6FJ=808) Urine Methadone Screen (JKVHHT=901) Ur Propoxyphene Screen (TTXZIC=342) Ur Barbiturates Screen (EVSSIN=397) Ur Tricyclics Screen (ZAGUYS=629) Ur Phencyclidine Scrn (CUTOFF=25) Ur Amphetamine Screen (IAKEJH=025) U Methamphetamines Scrn (ZAMOOH=324) U Benzodiazepines Scrn (VNDTGW=047) U Cocaine Metab Screen (YMEZAU=546) U Marijuana (THC) Screen (CUTOFF=50) Ethyl Alcohol 0.19 (0.00) gm% Ketones (0.0-0.3) mM SARS-CoV-2 RNA (HUSSEIN) (NEGATIVE) 12/30/20 12/30/20 12/30/20 Range/Units 22:30 22:30 22:56 WBC (3.98-10.04) K/mm3 RBC (3.98-5.22) M/mm3 Hgb (11.2-15.7) gm/dl Hct (34.1-44.9) % MCV (79.4-94.8) fl MCH (25.6-32.2) pg MCHC (32.2-35.5) g/dl RDW Std Deviation (36.4-46.3) fL Plt Count (182-369) K/mm3 MPV (9.4-12.3) fl Neut % (Auto) (34.0-71.1) % Lymph % (Auto) (19.3-51.7) % [place] % (Auto) (4.7-12.5) % Eos % (Auto) (0.7-5.8) Baso % (Auto) (0.1-1.2) % Neut # (Auto) (1.56-6.13) K/mm3 Lymph # (Auto) (1.18-3.74) K/mm3 [place] # (Auto) (0.24-0.36) K/mm3 Eos # (Auto) (0.04-0.36) K/mm3 Baso # (Auto) (0.01-0.08) K/mm3 Manual Slide Review PT (9.7-12.0) SECONDS INR APTT (21.7-31.4) SECONDS Sodium (136-145) mEq/L Potassium (3.5-5.1) mEq/L Chloride (98-107) mEq/L Carbon Dioxide (21-32) mEq/L Anion Gap (5-15) BUN (7-18) mg/dL Creatinine (0.55-1.02) mg/dL Est Cr Clr Drug Dosing mL/min Estimated GFR (MDRD) (>60) mL/min BUN/Creatinine Ratio (14-18) Glucose (70-99) mg/dL Lactic Acid (0.4-2.0) mmol/L Calcium (8.5-10.1) mg/dL Magnesium (1.8-2.4) mg/dL Total Bilirubin (0.2-1.0) mg/dL GGT (5-55) U/L AST (15-37) U/L ALT (14-59) U/L Alkaline Phosphatase (46-116) U/L Ammonia 30 (11-32) umol/L C-Reactive Protein (<1.0) mg/dL NT-Pro-B Natriuret Pep 285 H (0-125) pg/mL Total Protein (6.4-8.2) g/dl Albumin (3.4-5.0) g/dl Globulin gm/dL Albumin/Globulin Ratio (1-2) Lipase (73-393) U/L HCG, Qual Negative (NEGATIVE) Urine Color (Yellow) Urine Appearance (Clear) Urine pH (5.0-8.0) Ur Specific [place] (1.005-1.030) Urine Protein (Negative) Urine Glucose (UA) (Negative) Urine Ketones (Negative) Urine Occult Blood (Negative) Urine Nitrite (Negative) Urine Bilirubin (Negative) Urine Urobilinogen (0.2-1.0) Ur Leukocyte Esterase (Negative) Urine RBC (0-5) /hpf Urine WBC (0-5) /hpf Ur Squamous Epith Cells (0-5) /hpf Urine Bacteria (FEW) /hpf Urine Mucus (FEW) /hpf Urine Opiates Screen (JAEBFB=096) Ur Buprenorphine Scrn (CUTOFF=10) Ur Oxycodone Screen (YCR3FJ=489) Urine Methadone Screen (PDSSAO=913) Ur Propoxyphene Screen (NTAAIE=050) Ur Barbiturates Screen (LQFSMD=317) Ur Tricyclics Screen (FAVHEF=016) Ur Phencyclidine Scrn (CUTOFF=25) Ur Amphetamine Screen (MQMUVN=214) U Methamphetamines Scrn (WKBQNG=925) U Benzodiazepines Scrn (TVZUDC=056) U Cocaine Metab Screen (GVGLSG=817) U Marijuana (THC) Screen (CUTOFF=50) Ethyl Alcohol (0.00) gm% Ketones 1.54 (0.0-0.3) mM SARS-CoV-2 RNA (HUSSEIN) (NEGATIVE) 12/30/20 12/31/20 12/31/20 Range/Units 22:56 00:52 00:59 WBC (3.98-10.04) K/mm3 RBC (3.98-5.22) M/mm3 Hgb (11.2-15.7) gm/dl Hct (34.1-44.9) % MCV (79.4-94.8) fl MCH (25.6-32.2) pg MCHC (32.2-35.5) g/dl RDW Std Deviation (36.4-46.3) fL Plt Count (182-369) K/mm3 MPV (9.4-12.3) fl Neut % (Auto) (34.0-71.1) % Lymph % (Auto) (19.3-51.7) % [place] % (Auto) (4.7-12.5) % Eos % (Auto) (0.7-5.8) Baso % (Auto) (0.1-1.2) % Neut # (Auto) (1.56-6.13) K/mm3 Lymph # (Auto) (1.18-3.74) K/mm3 [place] # (Auto) (0.24-0.36) K/mm3 Eos # (Auto) (0.04-0.36) K/mm3 Baso # (Auto) (0.01-0.08) K/mm3 Manual Slide Review PT (9.7-12.0) SECONDS INR APTT (21.7-31.4) SECONDS Sodium (136-145) mEq/L Potassium (3.5-5.1) mEq/L Chloride (98-107) mEq/L Carbon Dioxide (21-32) mEq/L Anion Gap (5-15) BUN (7-18) mg/dL Creatinine (0.55-1.02) mg/dL Est Cr Clr Drug Dosing mL/min Estimated GFR (MDRD) (>60) mL/min BUN/Creatinine Ratio (14-18) Glucose (70-99) mg/dL Lactic Acid 2.7 H* (0.4-2.0) mmol/L Calcium (8.5-10.1) mg/dL Magnesium (1.8-2.4) mg/dL Total Bilirubin (0.2-1.0) mg/dL GGT (5-55) U/L AST (15-37) U/L ALT (14-59) U/L Alkaline Phosphatase (46-116) U/L Ammonia (11-32) umol/L C-Reactive Protein (<1.0) mg/dL NT-Pro-B Natriuret Pep (0-125) pg/mL Total Protein (6.4-8.2) g/dl Albumin (3.4-5.0) g/dl Globulin gm/dL Albumin/Globulin Ratio (1-2) Lipase (73-393) U/L HCG, Qual (NEGATIVE) Urine Color Yellow (Yellow) Urine Appearance Slt cloudy H (Clear) Urine pH 6.5 (5.0-8.0) Ur Specific [place] 1.010 (1.005-1.030) Urine Protein Negative (Negative) Urine Glucose (UA) Negative (Negative) Urine Ketones Trace H (Negative) Urine Occult Blood Negative (Negative) Urine Nitrite Negative (Negative) Urine Bilirubin Negative (Negative) Urine Urobilinogen 1.0 (0.2-1.0) Ur Leukocyte Esterase Negative (Negative) Urine RBC 0-5 (0-5) /hpf Urine WBC 0-5 (0-5) /hpf Ur Squamous Epith Cells 0-5 (0-5) /hpf Urine Bacteria Moderate H (FEW) /hpf Urine Mucus Not seen (FEW) /hpf Urine Opiates Screen (DNYOTK=312) Ur Buprenorphine Scrn (CUTOFF=10) Ur Oxycodone Screen (ACF8QP=783) Urine Methadone Screen (SMMXFB=327) Ur Propoxyphene Screen (SSBRON=233) Ur Barbiturates Screen (WPJKVL=461) Ur Tricyclics Screen (LGNDKE=728) Ur Phencyclidine Scrn (CUTOFF=25) Ur Amphetamine Screen (NIAGJH=415) U Methamphetamines Scrn (RGDORY=714) U Benzodiazepines Scrn (GWSZVA=694) U Cocaine Metab Screen (AJIIWK=127) U Marijuana (THC) Screen (CUTOFF=50) Ethyl Alcohol (0.00) gm% Ketones (0.0-0.3) mM SARS-CoV-2 RNA (HUSSEIN) Negative (NEGATIVE) 12/31/20 12/31/20 12/31/20 Range/Units 00:59 01:20 04:06 WBC (3.98-10.04) K/mm3 RBC (3.98-5.22) M/mm3 Hgb (11.2-15.7) gm/dl Hct (34.1-44.9) % MCV (79.4-94.8) fl MCH (25.6-32.2) pg MCHC (32.2-35.5) g/dl RDW Std Deviation (36.4-46.3) fL Plt Count (182-369) K/mm3 MPV (9.4-12.3) fl Neut % (Auto) (34.0-71.1) % Lymph % (Auto) (19.3-51.7) % [place] % (Auto) (4.7-12.5) % Eos % (Auto) (0.7-5.8) Baso % (Auto) (0.1-1.2) % Neut # (Auto) (1.56-6.13) K/mm3 Lymph # (Auto) (1.18-3.74) K/mm3 [place] # (Auto) (0.24-0.36) K/mm3 Eos # (Auto) (0.04-0.36) K/mm3 Baso # (Auto) (0.01-0.08) K/mm3 Manual Slide Review PT (9.7-12.0) SECONDS INR APTT (21.7-31.4) SECONDS Sodium (136-145) mEq/L Potassium (3.5-5.1) mEq/L Chloride (98-107) mEq/L Carbon Dioxide (21-32) mEq/L Anion Gap (5-15) BUN (7-18) mg/dL Creatinine (0.55-1.02) mg/dL Est Cr Clr Drug Dosing mL/min Estimated GFR (MDRD) (>60) mL/min BUN/Creatinine Ratio (14-18) Glucose (70-99) mg/dL Lactic Acid 2.4 H* 2.8 H* (0.4-2.0) mmol/L Calcium (8.5-10.1) mg/dL Magnesium (1.8-2.4) mg/dL Total Bilirubin (0.2-1.0) mg/dL GGT (5-55) U/L AST (15-37) U/L ALT (14-59) U/L Alkaline Phosphatase (46-116) U/L Ammonia (11-32) umol/L C-Reactive Protein (<1.0) mg/dL NT-Pro-B Natriuret Pep (0-125) pg/mL Total Protein (6.4-8.2) g/dl Albumin (3.4-5.0) g/dl Globulin gm/dL Albumin/Globulin Ratio (1-2) Lipase (73-393) U/L HCG, Qual (NEGATIVE) Urine Color (Yellow) Urine Appearance (Clear) Urine pH (5.0-8.0) Ur Specific [place] (1.005-1.030) Urine Protein (Negative) Urine Glucose (UA) (Negative) Urine Ketones (Negative) Urine Occult Blood (Negative) Urine Nitrite (Negative) Urine Bilirubin (Negative) Urine Urobilinogen (0.2-1.0) Ur Leukocyte Esterase (Negative) Urine RBC (0-5) /hpf Urine WBC (0-5) /hpf Ur Squamous Epith Cells (0-5) /hpf Urine Bacteria (FEW) /hpf Urine Mucus (FEW) /hpf Urine Opiates Screen Negative (CZHXDE=514) Ur Buprenorphine Scrn Negative (CUTOFF=10) Ur Oxycodone Screen Negative (MUL4RL=412) Urine Methadone Screen Negative (EABPDW=923) Ur Propoxyphene Screen Negative (XKVDRJ=648) Ur Barbiturates Screen Negative (MYFYEB=071) Ur Tricyclics Screen Negative (DPWBUI=174) Ur Phencyclidine Scrn Negative (CUTOFF=25) Ur Amphetamine Screen Negative (FKXYHK=792) U Methamphetamines Scrn Negative (YOUTQU=186) U Benzodiazepines Scrn Negative (CZGPYM=843) U Cocaine Metab Screen Negative (DNNZHE=303) U Marijuana (THC) Screen Negative (CUTOFF=50) Ethyl Alcohol (0.00) gm% Ketones (0.0-0.3) mM SARS-CoV-2 RNA (HUSSEIN) (NEGATIVE) 12/31/20 12/31/20 12/31/20 Range/Units 06:05 06:05 06:05 WBC 10.42 H (3.98-10.04) K/mm3 RBC 2.02 L (3.98-5.22) M/mm3 Hgb 8.0 L D (11.2-15.7) gm/dl Hct 23.6 L (34.1-44.9) % MCV 116.8 H (79.4-94.8) fl MCH 39.6 H (25.6-32.2) pg MCHC 33.9 (32.2-35.5) g/dl RDW Std Deviation 59.7 H (36.4-46.3) fL Plt Count 206 D (182-369) K/mm3 MPV 8.4 L (9.4-12.3) fl Neut % (Auto) 78.4 H (34.0-71.1) % Lymph % (Auto) 10.7 L (19.3-51.7) % [place] % (Auto) 10.0 (4.7-12.5) % Eos % (Auto) 0.2 L (0.7-5.8) Baso % (Auto) 0.3 (0.1-1.2) % Neut # (Auto) 8.17 H (1.56-6.13) K/mm3 Lymph # (Auto) 1.12 L (1.18-3.74) K/mm3 [place] # (Auto) 1.04 H (0.24-0.36) K/mm3 Eos # (Auto) 0.02 L (0.04-0.36) K/mm3 Baso # (Auto) 0.03 (0.01-0.08) K/mm3 Manual Slide Review Abnormal smear PT (9.7-12.0) SECONDS INR APTT (21.7-31.4) SECONDS Sodium 129 L (136-145) mEq/L Potassium 3.1 L (3.5-5.1) mEq/L Chloride 95 L (98-107) mEq/L Carbon Dioxide 23 (21-32) mEq/L Anion Gap 14.1 (5-15) BUN 4 L (7-18) mg/dL Creatinine 0.7 (0.55-1.02) mg/dL Est Cr Clr Drug Dosing 112.08 mL/min Estimated GFR (MDRD) > 60 (>60) mL/min BUN/Creatinine Ratio 5.7 L (14-18) Glucose 135 H (70-99) mg/dL Lactic Acid 3.2 H* (0.4-2.0) mmol/L Calcium 7.5 L (8.5-10.1) mg/dL Magnesium (1.8-2.4) mg/dL Total Bilirubin 2.6 H (0.2-1.0) mg/dL GGT (5-55) U/L AST 211 H (15-37) U/L ALT 56 (14-59) U/L Alkaline Phosphatase 302 H (46-116) U/L Ammonia (11-32) umol/L C-Reactive Protein (<1.0) mg/dL NT-Pro-B Natriuret Pep (0-125) pg/mL Total Protein 5.8 L (6.4-8.2) g/dl Albumin 1.8 L (3.4-5.0) g/dl Globulin 4.0 gm/dL Albumin/Globulin Ratio 0.5 L (1-2) Lipase (73-393) U/L HCG, Qual (NEGATIVE) Urine Color (Yellow) Urine Appearance (Clear) Urine pH (5.0-8.0) Ur Specific [place] (1.005-1.030) Urine Protein (Negative) Urine Glucose (UA) (Negative) Urine Ketones (Negative) Urine Occult Blood (Negative) Urine Nitrite (Negative) Urine Bilirubin (Negative) Urine Urobilinogen (0.2-1.0) Ur Leukocyte Esterase (Negative) Urine RBC (0-5) /hpf Urine WBC (0-5) /hpf Ur Squamous Epith Cells (0-5) /hpf Urine Bacteria (FEW) /hpf Urine Mucus (FEW) /hpf Urine Opiates Screen (DFROFR=203) Ur Buprenorphine Scrn (CUTOFF=10) Ur Oxycodone Screen (IHZ1DQ=854) Urine Methadone Screen (HRGKRP=886) Ur Propoxyphene Screen (TDWDAJ=500) Ur Barbiturates Screen (ZQWKNC=645) Ur Tricyclics Screen (UWTDXN=182) Ur Phencyclidine Scrn (CUTOFF=25) Ur Amphetamine Screen (SCJRUO=005) U Methamphetamines Scrn (EGWSSX=383) U Benzodiazepines Scrn (LUREQS=759) U Cocaine Metab Screen (JVULNV=240) U Marijuana (THC) Screen (CUTOFF=50) Ethyl Alcohol (0.00) gm% Ketones (0.0-0.3) mM SARS-CoV-2 RNA (HUSSEIN) (NEGATIVE) 12/31/20 12/31/20 12/31/20 Range/Units 06:05 09:12 09:12 WBC 13.88 H (3.98-10.04) K/mm3 RBC 2.33 L (3.98-5.22) M/mm3 Hgb 9.2 L (11.2-15.7) gm/dl Hct 27.4 L (34.1-44.9) % MCV 117.6 H (79.4-94.8) fl MCH 39.5 H (25.6-32.2) pg MCHC 33.6 (32.2-35.5) g/dl RDW Std Deviation 61.9 H (36.4-46.3) fL Plt Count 264 (182-369) K/mm3 MPV 8.7 L (9.4-12.3) fl Neut % (Auto) 76.9 H (34.0-71.1) % Lymph % (Auto) 13.3 L (19.3-51.7) % [place] % (Auto) 9.1 (4.7-12.5) % Eos % (Auto) 0.2 L (0.7-5.8) Baso % (Auto) 0.2 (0.1-1.2) % Neut # (Auto) 10.66 H (1.56-6.13) K/mm3 Lymph # (Auto) 1.85 (1.18-3.74) K/mm3 [place] # (Auto) 1.27 H (0.24-0.36) K/mm3 Eos # (Auto) 0.03 L (0.04-0.36) K/mm3 Baso # (Auto) 0.03 (0.01-0.08) K/mm3 Manual Slide Review Abnormal smear PT (9.7-12.0) SECONDS INR APTT (21.7-31.4) SECONDS Sodium 130 L (136-145) mEq/L Potassium 3.0 L (3.5-5.1) mEq/L Chloride 93 L (98-107) mEq/L Carbon Dioxide 27 (21-32) mEq/L Anion Gap 13.0 (5-15) BUN 4 L (7-18) mg/dL Creatinine 0.8 (0.55-1.02) mg/dL Est Cr Clr Drug Dosing 98.07 mL/min Estimated GFR (MDRD) > 60 (>60) mL/min BUN/Creatinine Ratio 5.0 L (14-18) Glucose 125 H (70-99) mg/dL Lactic Acid (0.4-2.0) mmol/L Calcium 8.3 L (8.5-10.1) mg/dL Magnesium (1.8-2.4) mg/dL Total Bilirubin 4.0 H (0.2-1.0) mg/dL GGT 1644 H (5-55) U/L AST 240 H (15-37) U/L ALT 68 H (14-59) U/L Alkaline Phosphatase 368 H (46-116) U/L Ammonia (11-32) umol/L C-Reactive Protein (<1.0) mg/dL NT-Pro-B Natriuret Pep (0-125) pg/mL Total Protein 7.2 (6.4-8.2) g/dl Albumin 2.4 L (3.4-5.0) g/dl Globulin 4.8 gm/dL Albumin/Globulin Ratio 0.5 L (1-2) Lipase (73-393) U/L HCG, Qual (NEGATIVE) Urine Color (Yellow) Urine Appearance (Clear) Urine pH (5.0-8.0) Ur Specific [place] (1.005-1.030) Urine Protein (Negative) Urine Glucose (UA) (Negative) Urine Ketones (Negative) Urine Occult Blood (Negative) Urine Nitrite (Negative) Urine Bilirubin (Negative) Urine Urobilinogen (0.2-1.0) Ur Leukocyte Esterase (Negative) Urine RBC (0-5) /hpf Urine WBC (0-5) /hpf Ur Squamous Epith Cells (0-5) /hpf Urine Bacteria (FEW) /hpf Urine Mucus (FEW) /hpf Urine Opiates Screen (DKZPTE=195) Ur Buprenorphine Scrn (CUTOFF=10) Ur Oxycodone Screen (SAG4IA=894) Urine Methadone Screen (WYCLFX=851) Ur Propoxyphene Screen (RGRAJU=474) Ur Barbiturates Screen (UFTAFB=627) Ur Tricyclics Screen (CDKUGB=270) Ur Phencyclidine Scrn (CUTOFF=25) Ur Amphetamine Screen (VGUZCN=948) U Methamphetamines Scrn (FWXIRU=542) U Benzodiazepines Scrn (ZJBWLQ=968) U Cocaine Metab Screen (TGBSSV=537) U Marijuana (THC) Screen (CUTOFF=50) Ethyl Alcohol (0.00) gm% Ketones (0.0-0.3) mM SARS-CoV-2 RNA (HUSSEIN) (NEGATIVE) 12/31/20 Range/Units 09:12 WBC (3.98-10.04) K/mm3 RBC (3.98-5.22) M/mm3 Hgb (11.2-15.7) gm/dl Hct (34.1-44.9) % MCV (79.4-94.8) fl MCH (25.6-32.2) pg MCHC (32.2-35.5) g/dl RDW Std Deviation (36.4-46.3) fL Plt Count (182-369) K/mm3 MPV (9.4-12.3) fl Neut % (Auto) (34.0-71.1) % Lymph % (Auto) (19.3-51.7) % [place] % (Auto) (4.7-12.5) % Eos % (Auto) (0.7-5.8) Baso % (Auto) (0.1-1.2) % Neut # (Auto) (1.56-6.13) K/mm3 Lymph # (Auto) (1.18-3.74) K/mm3 [place] # (Auto) (0.24-0.36) K/mm3 Eos # (Auto) (0.04-0.36) K/mm3 Baso # (Auto) (0.01-0.08) K/mm3 Manual Slide Review PT (9.7-12.0) SECONDS INR APTT (21.7-31.4) SECONDS Sodium (136-145) mEq/L Potassium (3.5-5.1) mEq/L Chloride (98-107) mEq/L Carbon Dioxide (21-32) mEq/L Anion Gap (5-15) BUN (7-18) mg/dL Creatinine (0.55-1.02) mg/dL Est Cr Clr Drug Dosing mL/min Estimated GFR (MDRD) (>60) mL/min BUN/Creatinine Ratio (14-18) Glucose (70-99) mg/dL Lactic Acid 3.2 H* (0.4-2.0) mmol/L Calcium (8.5-10.1) mg/dL Magnesium (1.8-2.4) mg/dL Total Bilirubin (0.2-1.0) mg/dL GGT (5-55) U/L AST (15-37) U/L ALT (14-59) U/L Alkaline Phosphatase (46-116) U/L Ammonia (11-32) umol/L C-Reactive Protein (<1.0) mg/dL NT-Pro-B Natriuret Pep (0-125) pg/mL Total Protein (6.4-8.2) g/dl Albumin (3.4-5.0) g/dl Globulin gm/dL Albumin/Globulin Ratio (1-2) Lipase (73-393) U/L HCG, Qual (NEGATIVE) Urine Color (Yellow) Urine Appearance (Clear) Urine pH (5.0-8.0) Ur Specific [place] (1.005-1.030) Urine Protein (Negative) Urine Glucose (UA) (Negative) Urine Ketones (Negative) Urine Occult Blood (Negative) Urine Nitrite (Negative) Urine Bilirubin (Negative) Urine Urobilinogen (0.2-1.0) Ur Leukocyte Esterase (Negative) Urine RBC (0-5) /hpf Urine WBC (0-5) /hpf Ur Squamous Epith Cells (0-5) /hpf Urine Bacteria (FEW) /hpf Urine Mucus (FEW) /hpf Urine Opiates Screen (YNNMHA=321) Ur Buprenorphine Scrn (CUTOFF=10) Ur Oxycodone Screen (GFC4JC=635) Urine Methadone Screen (MLSNCL=431) Ur Propoxyphene Screen (VNFRSY=241) Ur Barbiturates Screen (UEZKYE=793) Ur Tricyclics Screen (XWAFTD=487) Ur Phencyclidine Scrn (CUTOFF=25) Ur Amphetamine Screen (EEIGWE=497) U Methamphetamines Scrn (JCXGOE=406) U Benzodiazepines Scrn (ISBDXA=510) U Cocaine Metab Screen (GKVMDK=463) U Marijuana (THC) Screen (CUTOFF=50) Ethyl Alcohol (0.00) gm% Ketones (0.0-0.3) mM SARS-CoV-2 RNA (HUSSEIN) (NEGATIVE) Result Diagrams: 12/31/20 09:12 12/31/20 09:12 Sepsis Event Note - Evaluation Sepsis Screening Result: No Definite Risk - Focused Exam Vital Signs: Vital Signs Temp Pulse Resp BP Pulse Ox Pulse Ox 12/31/20 10:15 97.0 F 116 H 20 124/74 90 L 90 L 12/31/20 06:34 99 16 94/74 94 L 12/31/20 05:30 87 16 106/66 93 L 12/31/20 04:30 88 16 100/70 94 L 12/31/20 03:26 91 16 103/71 93 L 12/31/20 03:00 88 16 108/71 93 L 12/31/20 02:15 92 16 109/76 92 L 12/31/20 02:00 98 16 101/63 92 L 12/31/20 01:45 107 H 16 108/68 91 L 12/31/20 01:00 92 16 115/76 93 L 12/31/20 00:00 99 16 112/73 93 L - Problem List (1) Transaminitis SNOMED Code(s): 827560853, 176087714 ICD Code: R74.01 - ELEVATION OF LEVELS OF LIVER TRANSAMINASE LEVELS Status: Acute Priority: High Current Visit: Yes (2) Abdominal pain SNOMED Code(s): 51951649 ICD Code: R10.9 - UNSPECIFIED ABDOMINAL PAIN Status: Acute Priority: High Current Visit: Yes Qualifiers: Abdominal location: left upper quadrant Qualified Code(s): R10.12 - Left upper quadrant pain (3) Ascites SNOMED Code(s): 712305519 ICD Code: R18.8 - OTHER ASCITES Status: Acute Priority: High Current Visit: Yes Qualifiers: Ascites type: due to alcoholic cirrhosis Qualified Code(s): K70.31 - Alcoholic cirrhosis of liver with ascites (4) Chronic alcoholism SNOMED Code(s): 1511725 ICD Code: F10.20 - ALCOHOL DEPENDENCE, UNCOMPLICATED Status: Acute Priority: High Current Visit: Yes (5) Hyponatremia SNOMED Code(s): 68167709 ICD Code: E87.1 - HYPO-OSMOLALITY AND HYPONATREMIA Status: Acute Priority: High Current Visit: Yes (6) Lactic acidosis SNOMED Code(s): 74610228 ICD Code: E87.2 - ACIDOSIS Status: Acute Priority: High Current Visit: Yes (7) Neutrophilic leukocytosis SNOMED Code(s): 266660125, 752249101 ICD Code: D72.9 - DISORDER OF WHITE BLOOD CELLS, UNSPECIFIED Status: Acute Priority: High Current Visit: Yes (8) Back pain SNOMED Code(s): 800081850 ICD Code: M54.9 - DORSALGIA, UNSPECIFIED Status: Acute Priority: High Current Visit: Yes Qualifiers: Back pain location: thoracic back pain Chronicity: acute Back pain laterality: bilateral Qualified Code(s): M54.6 - Pain in thoracic spine Problem List Initiated/Reviewed/Updated: Yes Orders Last 24hrs: Active Orders 24 hr Category Date Time Status Patient Status [ADT] Routine ADT 12/31/20 07:35 Active Blood Glucose Check, Bedside [RC] ONETIME Care 12/30/20 22:44 Active Cardiac Monitoring [RC] CONTINUOUS Care 12/31/20 07:38 Active EKG Documentation Completion [RC] STAT Care 12/30/20 22:44 Active Height and Weight [RC] DAILY Care 12/31/20 07:35 Active Intake and Output [RC] QSHIFT Care 12/31/20 07:38 Active Notify Provider Consults [RC] ASDIRECTED Care 12/31/20 09:18 Active Oxygen Therapy [RC] PRN Care 12/31/20 07:35 Active Up ad Patricia [RC] ASDIRECTED Care 12/31/20 07:35 Active VTE/DVT Education [RC] Care 12/31/20 07:35 Active Vital Signs [RC] Q4HR Care 12/31/20 07:35 Active Consult to Case Management/Art Coordinator [CONS] Cons 12/31/20 07:35 Active Routine Consult to Physician [CONS] Routine Cons 12/31/20 09:17 Active NPO [Nothing Per Oral Diet] [DIET] Diet 12/31/20 Lunch Active BASIC METABOLIC PANEL,BMP [CHEM] Q4H Lab 12/31/20 12:00 Ordered BASIC METABOLIC PANEL,BMP [CHEM] Q4H Lab 12/31/20 16:00 Ordered BASIC METABOLIC PANEL,BMP [CHEM] Q4H Lab 12/31/20 20:00 Ordered BASIC METABOLIC PANEL,BMP [CHEM] Q4H Lab 01/01/21 00:00 Ordered BASIC METABOLIC PANEL,BMP [CHEM] Q4H Lab 01/01/21 04:00 Ordered BASIC METABOLIC PANEL,BMP [CHEM] Q4H Lab 01/01/21 08:00 Ordered BASIC METABOLIC PANEL,BMP [CHEM] Q4H Lab 01/01/21 12:00 Ordered BASIC METABOLIC PANEL,BMP [CHEM] Q4H Lab 01/01/21 16:00 Ordered BASIC METABOLIC PANEL,BMP [CHEM] Q4H Lab 01/01/21 20:00 Ordered BASIC METABOLIC PANEL,BMP [CHEM] Q4H Lab 01/02/21 00:00 Ordered BASIC METABOLIC PANEL,BMP [CHEM] Q4H Lab 01/02/21 04:00 Ordered BASIC METABOLIC PANEL,BMP [CHEM] Q4H Lab 01/02/21 08:00 Ordered BASIC METABOLIC PANEL,BMP [CHEM] Q4H Lab 01/02/21 12:00 Ordered BASIC METABOLIC PANEL,BMP [CHEM] Q4H Lab 01/02/21 16:00 Ordered BASIC METABOLIC PANEL,BMP [CHEM] Q4H Lab 01/02/21 20:00 Ordered BASIC METABOLIC PANEL,BMP [CHEM] Q4H Lab 01/03/21 00:00 Ordered BASIC METABOLIC PANEL,BMP [CHEM] Q4H Lab 01/03/21 04:00 Ordered BASIC METABOLIC PANEL,BMP [CHEM] Q4 Lab 01/03/21 08:00 Ordered BASIC METABOLIC PANEL,BMP [CHEM] Q4 Lab 01/03/21 12:00 Ordered BASIC METABOLIC PANEL,BMP [CHEM] Q4 Lab 01/03/21 16:00 Ordered BLOOD CULTURE [MREF] Stat Lab 12/31/20 09:22 Received BLOOD CULTURE [MREF] Stat Lab 12/31/20 09:22 Received CBC W/O DIFF,HEMOGRAM [HEME] AM Lab 01/01/21 05:11 Ordered CBC W/O DIFF,HEMOGRAM [HEME] AM Lab 01/02/21 05:11 Ordered CBC W/O DIFF,HEMOGRAM [HEME] AM Lab 01/03/21 05:11 Ordered COMPREHENSIVE METABOLIC PN,CMP [CHEM] DAILY Lab 01/01/21 05:11 Ordered COMPREHENSIVE METABOLIC PN,CMP [CHEM] DAILY Lab 01/02/21 05:11 Ordered COMPREHENSIVE METABOLIC PN,CMP [CHEM] DAILY Lab 01/03/21 05:11 Ordered CRP [C-REACTIVE PROTEIN] [CHEM] AM Lab 01/01/21 05:11 Ordered LACTIC ACID [CHEM] Q4 Lab 12/31/20 12:00 Ordered LACTIC ACID [CHEM] Q4 Lab 12/31/20 16:00 Ordered LACTIC ACID [CHEM] Q4 Lab 12/31/20 20:00 Ordered LACTIC ACID [CHEM] Q4 Lab 01/01/21 00:00 Ordered LACTIC ACID [CHEM] Q4 Lab 01/01/21 04:00 Ordered LACTIC ACID [CHEM] Q4 Lab 01/01/21 08:00 Ordered LACTIC ACID [CHEM] Q4 Lab 01/01/21 12:00 Ordered LACTIC ACID [CHEM] Q4 Lab 01/01/21 16:00 Ordered LACTIC ACID [CHEM] Q4 Lab 01/01/21 20:00 Ordered LACTIC ACID [CHEM] Q4 Lab 01/02/21 00:00 Ordered LACTIC ACID [CHEM] Q4 Lab 01/02/21 04:00 Ordered LACTIC ACID [CHEM] Q4 Lab 01/02/21 08:00 Ordered LACTIC ACID [CHEM] Q4 Lab 01/02/21 12:00 Ordered LACTIC ACID [CHEM] Q4 Lab 01/02/21 16:00 Ordered LACTIC ACID [CHEM] Q4 Lab 01/02/21 20:00 Ordered LACTIC ACID [CHEM] Q4 Lab 01/03/21 00:00 Ordered LACTIC ACID [CHEM] Q4 Lab 01/03/21 04:00 Ordered LACTIC ACID [CHEM] Q4 Lab 01/03/21 08:00 Ordered LACTIC ACID [CHEM] Q4 Lab 01/03/21 12:00 Ordered LACTIC ACID [CHEM] Q4 Lab 01/03/21 16:00 Ordered MAGNESIUM [CHEM] Q4 Lab 12/31/20 12:00 Ordered MAGNESIUM [CHEM] Q4 Lab 12/31/20 16:00 Ordered MAGNESIUM [CHEM] Q4 Lab 12/31/20 20:00 Ordered MAGNESIUM [CHEM] Q4 Lab 01/01/21 00:00 Ordered MAGNESIUM [CHEM] Q4 Lab 01/01/21 04:00 Ordered MAGNESIUM [CHEM] Q4 Lab 01/01/21 08:00 Ordered MAGNESIUM [CHEM] Q4 Lab 01/01/21 12:00 Ordered MAGNESIUM [CHEM] Q4 Lab 01/01/21 16:00 Ordered MAGNESIUM [CHEM] Q4 Lab 01/01/21 20:00 Ordered MAGNESIUM [CHEM] Q4 Lab 01/02/21 00:00 Ordered MAGNESIUM [CHEM] Q4 Lab 01/02/21 04:00 Ordered MAGNESIUM [CHEM] Q4 Lab 01/02/21 08:00 Ordered MAGNESIUM [CHEM] Q4 Lab 01/02/21 12:00 Ordered MAGNESIUM [CHEM] Q4 Lab 01/02/21 16:00 Ordered MAGNESIUM [CHEM] Q4 Lab 01/02/21 20:00 Ordered MAGNESIUM [CHEM] Q4 Lab 01/03/21 00:00 Ordered MAGNESIUM [CHEM] Q4 Lab 01/03/21 04:00 Ordered MAGNESIUM [CHEM] Q4 Lab 01/03/21 08:00 Ordered MAGNESIUM [CHEM] Q4 Lab 01/03/21 12:00 Ordered MAGNESIUM [CHEM] Q4 Lab 01/03/21 16:00 Ordered PHOSPHORUS [CHEM] Q4 Lab 12/31/20 12:00 Ordered PHOSPHORUS [CHEM] Q4 Lab 12/31/20 16:00 Ordered PHOSPHORUS [CHEM] Q4 Lab 12/31/20 20:00 Ordered PHOSPHORUS [CHEM] Q4 Lab 01/01/21 00:00 Ordered PHOSPHORUS [CHEM] Q4 Lab 01/01/21 04:00 Ordered PHOSPHORUS [CHEM] Q4 Lab 01/01/21 08:00 Ordered PHOSPHORUS [CHEM] Q4 Lab 01/01/21 12:00 Ordered PHOSPHORUS [CHEM] Q4 Lab 01/01/21 16:00 Ordered PHOSPHORUS [CHEM] Q4 Lab 01/01/21 20:00 Ordered PHOSPHORUS [CHEM] Q4 Lab 01/02/21 00:00 Ordered PHOSPHORUS [CHEM] Q4 Lab 01/02/21 04:00 Ordered PHOSPHORUS [CHEM] Q4 Lab 01/02/21 08:00 Ordered PHOSPHORUS [CHEM] Q4 Lab 01/02/21 12:00 Ordered PHOSPHORUS [CHEM] Q4 Lab 01/02/21 16:00 Ordered PHOSPHORUS [CHEM] Q4 Lab 01/02/21 20:00 Ordered PHOSPHORUS [CHEM] Q4 Lab 01/03/21 00:00 Ordered PHOSPHORUS [CHEM] Q4 Lab 01/03/21 04:00 Ordered PHOSPHORUS [CHEM] Q4 Lab 01/03/21 08:00 Ordered PHOSPHORUS [CHEM] Q4 Lab 01/03/21 12:00 Ordered PHOSPHORUS [CHEM] Q4 Lab 01/03/21 16:00 Ordered Acetaminophen [TylenoL] Med 12/31/20 07:35 Active 650 mg PO Q4H PRN Enoxaparin [Lovenox] Med 01/01/21 09:00 Active 40 mg SUBCUT DAILY Folic Acid Med 12/31/20 09:30 Active 1 mg PO DAILY HYDROmorphone [Dilaudid] Med 12/31/20 07:35 Active 0.5 mg IVPUSH Q2H PRN Ketorolac [Toradol] Med 12/31/20 07:35 Active 30 mg IV Q6H PRN LORazepam [Ativan] Med 12/31/20 07:35 Active 1 mg IV Q2H PRN Ondansetron [Zofran ODT] Med 12/31/20 07:35 Active 4 mg PO Q6H PRN Ondansetron [Zofran] Med 12/31/20 07:35 Active 4 mg IV Q6H PRN Sodium Chloride 0.9% [Normal Saline] 1,000 ml Med 12/31/20 10:15 Active IV ASDIRECTED Thiamine [Vitamin B-1] Med 12/31/20 21:00 Active 100 mg PO BEDTIME cefTRIAXone [Rocephin] 2 gm Med 12/31/20 10:00 Active Sodium Chloride 0.9% [Normal Saline] 100 ml IV Q24H chlordiazePOXIDE [Librium] Med 12/31/20 15:00 Active 25 mg PO TID metroNIDAZOLE/Normal Saline [Flagyl in NS 500 MG/100 ML Med 12/31/20 12:00 Active ] 500 mg Premix Bag 1 bag IV Q8H Blood Culture x2 Reflex Set [OM.PC] Stat Oth 12/31/20 07:47 Ordered Resuscitation Status Routine Resus Stat 12/31/20 07:35 Ordered Medication Orders Acetaminophen (Acetaminophen 325 Mg Tab) 650 mg PO Q4H PRN PRN Reason: Pain (Mild 1-3)/fever Chlordiazepoxide HCl (Chlordiazepoxide 25 Mg Cap) 25 mg PO TID [facility] Enoxaparin Sodium (Enoxaparin 40 Mg/0.4 Ml Syringe) 40 mg SUBCUT DAILY [facility] Folic Acid (Folic Acid 1 Mg Tab) 1 mg PO DAILY [facility] Last Admin: 12/31/20 09:46 Dose: 1 mg Documented by: CASS Hydromorphone HCl (Hydromorphone 0.5 Mg/0.5 Ml Syringe) 0.5 mg IVPUSH Q2H PRN PRN Reason: Pain (severe 7-10) Last Admin: 12/31/20 09:54 Dose: 0.5 mg Documented by: CASS Ceftriaxone Sodium 2 gm/ (Sodium Chloride) 100 mls @ 200 mls/hr IV Q24H [facility] Last Admin: 12/31/20 09:47 Dose: 200 mls/hr Documented by: CASS Sodium Chloride (Normal Saline) 1,000 mls @ 125 mls/hr IV ASDIRECTED [facility] Last Admin: 12/31/20 10:22 Dose: 125 mls/hr Documented by: CASS Metronidazole 500 mg/ Premix 100 mls @ 100 mls/hr IV Q8H [facility] Ketorolac Tromethamine (Ketorolac 30 Mg/Ml Sdv) 30 mg IV Q6H PRN PRN Reason: Pain (moderate 4-6) Lorazepam (Lorazepam 2 Mg/Ml Sdv) 1 mg IV Q2H PRN PRN Reason: Other Ondansetron HCl (Ondansetron 4 Mg Tab.Dis) 4 mg PO Q6H PRN PRN Reason: nausea, able to take PO Last Admin: 12/31/20 09:55 Dose: 4 mg Documented by: CASS Ondansetron HCl (Ondansetron 4 Mg/2 Ml Sdv) 4 mg IV Q6H PRN PRN Reason: Nausea/Vomiting Thiamine HCl (Thiamine 100 Mg Tab) 100 mg PO BEDTIME [facility] Assessment/Plan Comment:: 35-year-old female who presents the ER with complaints of abdominal pain and distention with associated nausea and vomiting. She denies any recent fever or chills. She has had a headache. She has had decreased appetite over the past 2 days. Complains of thoracic back pain associated with the abdominal pain. States the abdominal pain is right and left upper quadrant radiating around her abdomen like a belt. She states she has not had a bowel movement in about 3 to 4 days. 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 Labs were completed in the emergency department which did show neutrophilic leukocytosis, elevated lactic acid level, elevated liver functions and low potassium. CT scan of the abdomen and ultrasound of the abdomen were completed. It did show significant amount of inflammation and free fluid however nothing specific. Patient was given almost 4 L of IV fluids while in the emergency department as well as Reglan and Dilaudid. Patient was subsequently admitted to ICU as she is likely going to go into DTs. I have ordered for Dr. Sandoval, the surgeon on-call to consult. The patient was started on Rocephin 2 g IV every 24 hours. I have also ordered a repeat of labs to be drawn at 9 AM. Repeat labs at 9 AM reveal a WBC of 13.88, hemoglobin 9.2, hematocrit 27.4, MCV 117.6, platelet count 264, neutrophil percentage 76.9 Chemistry reveals a sodium of 130, potassium 3.0, chloride 93, carbon dioxide 27, anion gap 13.0, BUN 4, creatinine 0.8, GFR greater than 60, glucose 125, lactic acid 3.2, calcium 8.3, total bilirubin 4.0, GGT 1644, AST 240, ALT T 68, alkaline phosphatase 368 Patient will be started on maintenance fluids of normal saline at 125 mL's per hour. She will get daily folic acid and thiamine. I have ordered Ativan 1 mg IV as needed every 2 hours as patient likely will go into DTs. She will also receive Librium 25 mg 3 times daily. She will receive Lovenox for DVT prophylaxis. She will remain n.p.o. We will give her another 40 mEq of potassium IV over the next 4 hours. Cultures x2 have also been ordered and collected. - Mortality Measure Prognosis:: Good <Sergio Patino - Last Filed: 12/31/20 15:30> H&P History of Present Illness - General Admit Problem/Dx: Admission Diagnosis/Problem Admission Diagnosis/Problem Leukocytosis Exam - Vital Signs Vital Signs: Last Vital Signs Temp 36.2 C 12/31/20 12:00 Pulse 107 H 12/31/20 12:00 Resp 19 12/31/20 12:00 BP 106/74 12/31/20 12:00 Pulse Ox 90 L 12/31/20 12:00 - Patient Data Lab Results Last 24 hrs: Laboratory Results - last 24 hr 12/30/20 12/30/20 12/30/20 Range/Units 22:30 22:30 22:30 WBC 15.70 H (3.98-10.04) K/mm3 RBC 2.56 L (3.98-5.22) M/mm3 Hgb 10.1 L D (11.2-15.7) gm/dl Hct 29.5 L (34.1-44.9) % MCV 115.2 H D (79.4-94.8) fl MCH 39.5 H (25.6-32.2) pg MCHC 34.2 (32.2-35.5) g/dl RDW Std Deviation 59.8 H (36.4-46.3) fL Plt Count 283 D (182-369) K/mm3 MPV 8.5 L (9.4-12.3) fl Neut % (Auto) 79.2 H (34.0-71.1) % Lymph % (Auto) 9.9 L (19.3-51.7) % [place] % (Auto) 10.0 (4.7-12.5) % Eos % (Auto) 0.2 L (0.7-5.8) Baso % (Auto) 0.3 (0.1-1.2) % Neut # (Auto) 12.44 H (1.56-6.13) K/mm3 Lymph # (Auto) 1.55 (1.18-3.74) K/mm3 [place] # (Auto) 1.57 H (0.24-0.36) K/mm3 Eos # (Auto) 0.03 L (0.04-0.36) K/mm3 Baso # (Auto) 0.04 (0.01-0.08) K/mm3 Manual Slide Review Abnormal smear PT 11.9 (9.7-12.0) SECONDS INR 1.11 APTT 29.7 (21.7-31.4) SECONDS Sodium 123 L D (136-145) mEq/L Potassium 3.1 L D (3.5-5.1) mEq/L Chloride 85 L D (98-107) mEq/L Carbon Dioxide 26 (21-32) mEq/L Anion Gap 15.1 H (5-15) BUN 6 L (7-18) mg/dL Creatinine 0.9 (0.55-1.02) mg/dL Est Cr Clr Drug Dosing 87.17 mL/min Estimated GFR (MDRD) > 60 (>60) mL/min BUN/Creatinine Ratio 6.7 L (14-18) Glucose 122 H (70-99) mg/dL Lactic Acid (0.4-2.0) mmol/L Calcium 8.6 (8.5-10.1) mg/dL Phosphorus (2.6-4.7) mg/dL Magnesium 2.0 (1.8-2.4) mg/dL Total Bilirubin 3.7 H (0.2-1.0) mg/dL GGT (5-55) U/L AST 303 H (15-37) U/L ALT 84 H (14-59) U/L Alkaline Phosphatase 387 H (46-116) U/L Ammonia (11-32) umol/L C-Reactive Protein 12.5 H* (<1.0) mg/dL NT-Pro-B Natriuret Pep (0-125) pg/mL Total Protein 7.1 (6.4-8.2) g/dl Albumin 2.3 L (3.4-5.0) g/dl Globulin 4.8 gm/dL Albumin/Globulin Ratio 0.5 L (1-2) Lipase 73 (73-393) U/L HCG, Qual (NEGATIVE) Urine Color (Yellow) Urine Appearance (Clear) Urine pH (5.0-8.0) Ur Specific [place] (1.005-1.030) Urine Protein (Negative) Urine Glucose (UA) (Negative) Urine Ketones (Negative) Urine Occult Blood (Negative) Urine Nitrite (Negative) Urine Bilirubin (Negative) Urine Urobilinogen (0.2-1.0) Ur Leukocyte Esterase (Negative) Urine RBC (0-5) /hpf Urine WBC (0-5) /hpf Ur Squamous Epith Cells (0-5) /hpf Urine Bacteria (FEW) /hpf Urine Mucus (FEW) /hpf Urine Opiates Screen (ALGXUC=573) Ur Buprenorphine Scrn (CUTOFF=10) Ur Oxycodone Screen (RHT3NK=025) Urine Methadone Screen (OZEFLY=892) Ur Propoxyphene Screen (BZLSVY=725) Ur Barbiturates Screen (CFRANM=667) Ur Tricyclics Screen (IDJIVD=843) Ur Phencyclidine Scrn (CUTOFF=25) Ur Amphetamine Screen (XYDAHV=934) U Methamphetamines Scrn (YISZMX=268) U Benzodiazepines Scrn (YMVDLR=138) U Cocaine Metab Screen (ZOJRGO=546) U Marijuana (THC) Screen (CUTOFF=50) Ethyl Alcohol 0.19 (0.00) gm% Ketones (0.0-0.3) mM SARS-CoV-2 RNA (HUSSEIN) (NEGATIVE) 12/30/20 12/30/20 12/30/20 Range/Units 22:30 22:30 22:56 WBC (3.98-10.04) K/mm3 RBC (3.98-5.22) M/mm3 Hgb (11.2-15.7) gm/dl Hct (34.1-44.9) % MCV (79.4-94.8) fl MCH (25.6-32.2) pg MCHC (32.2-35.5) g/dl RDW Std Deviation (36.4-46.3) fL Plt Count (182-369) K/mm3 MPV (9.4-12.3) fl Neut % (Auto) (34.0-71.1) % Lymph % (Auto) (19.3-51.7) % [place] % (Auto) (4.7-12.5) % Eos % (Auto) (0.7-5.8) Baso % (Auto) (0.1-1.2) % Neut # (Auto) (1.56-6.13) K/mm3 Lymph # (Auto) (1.18-3.74) K/mm3 [place] # (Auto) (0.24-0.36) K/mm3 Eos # (Auto) (0.04-0.36) K/mm3 Baso # (Auto) (0.01-0.08) K/mm3 Manual Slide Review PT (9.7-12.0) SECONDS INR APTT (21.7-31.4) SECONDS Sodium (136-145) mEq/L Potassium (3.5-5.1) mEq/L Chloride (98-107) mEq/L Carbon Dioxide (21-32) mEq/L Anion Gap (5-15) BUN (7-18) mg/dL Creatinine (0.55-1.02) mg/dL Est Cr Clr Drug Dosing mL/min Estimated GFR (MDRD) (>60) mL/min BUN/Creatinine Ratio (14-18) Glucose (70-99) mg/dL Lactic Acid (0.4-2.0) mmol/L Calcium (8.5-10.1) mg/dL Phosphorus (2.6-4.7) mg/dL Magnesium (1.8-2.4) mg/dL Total Bilirubin (0.2-1.0) mg/dL GGT (5-55) U/L AST (15-37) U/L ALT (14-59) U/L Alkaline Phosphatase (46-116) U/L Ammonia 30 (11-32) umol/L C-Reactive Protein (<1.0) mg/dL NT-Pro-B Natriuret Pep 285 H (0-125) pg/mL Total Protein (6.4-8.2) g/dl Albumin (3.4-5.0) g/dl Globulin gm/dL Albumin/Globulin Ratio (1-2) Lipase (73-393) U/L HCG, Qual Negative (NEGATIVE) Urine Color (Yellow) Urine Appearance (Clear) Urine pH (5.0-8.0) Ur Specific [place] (1.005-1.030) Urine Protein (Negative) Urine Glucose (UA) (Negative) Urine Ketones (Negative) Urine Occult Blood (Negative) Urine Nitrite (Negative) Urine Bilirubin (Negative) Urine Urobilinogen (0.2-1.0) Ur Leukocyte Esterase (Negative) Urine RBC (0-5) /hpf Urine WBC (0-5) /hpf Ur Squamous Epith Cells (0-5) /hpf Urine Bacteria (FEW) /hpf Urine Mucus (FEW) /hpf Urine Opiates Screen (EKQTDU=915) Ur Buprenorphine Scrn (CUTOFF=10) Ur Oxycodone Screen (ZQD5SL=433) Urine Methadone Screen (IMGJPV=967) Ur Propoxyphene Screen (KKVTSV=901) Ur Barbiturates Screen (RIMPCO=973) Ur Tricyclics Screen (YOVGDB=394) Ur Phencyclidine Scrn (CUTOFF=25) Ur Amphetamine Screen (QVWKWC=481) U Methamphetamines Scrn (VCSZDW=155) U Benzodiazepines Scrn (OIZJBI=710) U Cocaine Metab Screen (OLKYAS=060) U Marijuana (THC) Screen (CUTOFF=50) Ethyl Alcohol (0.00) gm% Ketones 1.54 (0.0-0.3) mM SARS-CoV-2 RNA (HUSSEIN) (NEGATIVE) 12/30/20 12/31/20 12/31/20 Range/Units 22:56 00:52 00:59 WBC (3.98-10.04) K/mm3 RBC (3.98-5.22) M/mm3 Hgb (11.2-15.7) gm/dl Hct (34.1-44.9) % MCV (79.4-94.8) fl MCH (25.6-32.2) pg MCHC (32.2-35.5) g/dl RDW Std Deviation (36.4-46.3) fL Plt Count (182-369) K/mm3 MPV (9.4-12.3) fl Neut % (Auto) (34.0-71.1) % Lymph % (Auto) (19.3-51.7) % [place] % (Auto) (4.7-12.5) % Eos % (Auto) (0.7-5.8) Baso % (Auto) (0.1-1.2) % Neut # (Auto) (1.56-6.13) K/mm3 Lymph # (Auto) (1.18-3.74) K/mm3 [place] # (Auto) (0.24-0.36) K/mm3 Eos # (Auto) (0.04-0.36) K/mm3 Baso # (Auto) (0.01-0.08) K/mm3 Manual Slide Review PT (9.7-12.0) SECONDS INR APTT (21.7-31.4) SECONDS Sodium (136-145) mEq/L Potassium (3.5-5.1) mEq/L Chloride (98-107) mEq/L Carbon Dioxide (21-32) mEq/L Anion Gap (5-15) BUN (7-18) mg/dL Creatinine (0.55-1.02) mg/dL Est Cr Clr Drug Dosing mL/min Estimated GFR (MDRD) (>60) mL/min BUN/Creatinine Ratio (14-18) Glucose (70-99) mg/dL Lactic Acid 2.7 H* (0.4-2.0) mmol/L Calcium (8.5-10.1) mg/dL Phosphorus (2.6-4.7) mg/dL Magnesium (1.8-2.4) mg/dL Total Bilirubin (0.2-1.0) mg/dL GGT (5-55) U/L AST (15-37) U/L ALT (14-59) U/L Alkaline Phosphatase (46-116) U/L Ammonia (11-32) umol/L C-Reactive Protein (<1.0) mg/dL NT-Pro-B Natriuret Pep (0-125) pg/mL Total Protein (6.4-8.2) g/dl Albumin (3.4-5.0) g/dl Globulin gm/dL Albumin/Globulin Ratio (1-2) Lipase (73-393) U/L HCG, Qual (NEGATIVE) Urine Color Yellow (Yellow) Urine Appearance Slt cloudy H (Clear) Urine pH 6.5 (5.0-8.0) Ur Specific [place] 1.010 (1.005-1.030) Urine Protein Negative (Negative) Urine Glucose (UA) Negative (Negative) Urine Ketones Trace H (Negative) Urine Occult Blood Negative (Negative) Urine Nitrite Negative (Negative) Urine Bilirubin Negative (Negative) Urine Urobilinogen 1.0 (0.2-1.0) Ur Leukocyte Esterase Negative (Negative) Urine RBC 0-5 (0-5) /hpf Urine WBC 0-5 (0-5) /hpf Ur Squamous Epith Cells 0-5 (0-5) /hpf Urine Bacteria Moderate H (FEW) /hpf Urine Mucus Not seen (FEW) /hpf Urine Opiates Screen (SNQIPG=638) Ur Buprenorphine Scrn (CUTOFF=10) Ur Oxycodone Screen (RFD2PB=588) Urine Methadone Screen (QHLIEY=818) Ur Propoxyphene Screen (QHDBRE=983) Ur Barbiturates Screen (YDCUTI=569) Ur Tricyclics Screen (UYLMLA=943) Ur Phencyclidine Scrn (CUTOFF=25) Ur Amphetamine Screen (WJTPCS=910) U Methamphetamines Scrn (CFIWRN=531) U Benzodiazepines Scrn (DXWANK=676) U Cocaine Metab Screen (GQNHHT=659) U Marijuana (THC) Screen (CUTOFF=50) Ethyl Alcohol (0.00) gm% Ketones (0.0-0.3) mM SARS-CoV-2 RNA (HUSSEIN) Negative (NEGATIVE) 12/31/20 12/31/20 12/31/20 Range/Units 00:59 01:20 04:06 WBC (3.98-10.04) K/mm3 RBC (3.98-5.22) M/mm3 Hgb (11.2-15.7) gm/dl Hct (34.1-44.9) % MCV (79.4-94.8) fl MCH (25.6-32.2) pg MCHC (32.2-35.5) g/dl RDW Std Deviation (36.4-46.3) fL Plt Count (182-369) K/mm3 MPV (9.4-12.3) fl Neut % (Auto) (34.0-71.1) % Lymph % (Auto) (19.3-51.7) % [place] % (Auto) (4.7-12.5) % Eos % (Auto) (0.7-5.8) Baso % (Auto) (0.1-1.2) % Neut # (Auto) (1.56-6.13) K/mm3 Lymph # (Auto) (1.18-3.74) K/mm3 [place] # (Auto) (0.24-0.36) K/mm3 Eos # (Auto) (0.04-0.36) K/mm3 Baso # (Auto) (0.01-0.08) K/mm3 Manual Slide Review PT (9.7-12.0) SECONDS INR APTT (21.7-31.4) SECONDS Sodium (136-145) mEq/L Potassium (3.5-5.1) mEq/L Chloride (98-107) mEq/L Carbon Dioxide (21-32) mEq/L Anion Gap (5-15) BUN (7-18) mg/dL Creatinine (0.55-1.02) mg/dL Est Cr Clr Drug Dosing mL/min Estimated GFR (MDRD) (>60) mL/min BUN/Creatinine Ratio (14-18) Glucose (70-99) mg/dL Lactic Acid 2.4 H* 2.8 H* (0.4-2.0) mmol/L Calcium (8.5-10.1) mg/dL Phosphorus (2.6-4.7) mg/dL Magnesium (1.8-2.4) mg/dL Total Bilirubin (0.2-1.0) mg/dL GGT (5-55) U/L AST (15-37) U/L ALT (14-59) U/L Alkaline Phosphatase (46-116) U/L Ammonia (11-32) umol/L C-Reactive Protein (<1.0) mg/dL NT-Pro-B Natriuret Pep (0-125) pg/mL Total Protein (6.4-8.2) g/dl Albumin (3.4-5.0) g/dl Globulin gm/dL Albumin/Globulin Ratio (1-2) Lipase (73-393) U/L HCG, Qual (NEGATIVE) Urine Color (Yellow) Urine Appearance (Clear) Urine pH (5.0-8.0) Ur Specific [place] (1.005-1.030) Urine Protein (Negative) Urine Glucose (UA) (Negative) Urine Ketones (Negative) Urine Occult Blood (Negative) Urine Nitrite (Negative) Urine Bilirubin (Negative) Urine Urobilinogen (0.2-1.0) Ur Leukocyte Esterase (Negative) Urine RBC (0-5) /hpf Urine WBC (0-5) /hpf Ur Squamous Epith Cells (0-5) /hpf Urine Bacteria (FEW) /hpf Urine Mucus (FEW) /hpf Urine Opiates Screen Negative (DQXWZE=179) Ur Buprenorphine Scrn Negative (CUTOFF=10) Ur Oxycodone Screen Negative (ZXM5BI=210) Urine Methadone Screen Negative (PXWRUV=446) Ur Propoxyphene Screen Negative (JNAKJF=209) Ur Barbiturates Screen Negative (GDYGPX=903) Ur Tricyclics Screen Negative (MGPGFZ=540) Ur Phencyclidine Scrn Negative (CUTOFF=25) Ur Amphetamine Screen Negative (CSLCJV=890) U Methamphetamines Scrn Negative (ZOMIDH=134) U Benzodiazepines Scrn Negative (AESOHW=199) U Cocaine Metab Screen Negative (CMSWZM=403) U Marijuana (THC) Screen Negative (CUTOFF=50) Ethyl Alcohol (0.00) gm% Ketones (0.0-0.3) mM SARS-CoV-2 RNA (HUSSEIN) (NEGATIVE) 12/31/20 12/31/20 12/31/20 Range/Units 06:05 06:05 06:05 WBC 10.42 H (3.98-10.04) K/mm3 RBC 2.02 L (3.98-5.22) M/mm3 Hgb 8.0 L D (11.2-15.7) gm/dl Hct 23.6 L (34.1-44.9) % MCV 116.8 H (79.4-94.8) fl MCH 39.6 H (25.6-32.2) pg MCHC 33.9 (32.2-35.5) g/dl RDW Std Deviation 59.7 H (36.4-46.3) fL Plt Count 206 D (182-369) K/mm3 MPV 8.4 L (9.4-12.3) fl Neut % (Auto) 78.4 H (34.0-71.1) % Lymph % (Auto) 10.7 L (19.3-51.7) % [place] % (Auto) 10.0 (4.7-12.5) % Eos % (Auto) 0.2 L (0.7-5.8) Baso % (Auto) 0.3 (0.1-1.2) % Neut # (Auto) 8.17 H (1.56-6.13) K/mm3 Lymph # (Auto) 1.12 L (1.18-3.74) K/mm3 [place] # (Auto) 1.04 H (0.24-0.36) K/mm3 Eos # (Auto) 0.02 L (0.04-0.36) K/mm3 Baso # (Auto) 0.03 (0.01-0.08) K/mm3 Manual Slide Review Abnormal smear PT (9.7-12.0) SECONDS INR APTT (21.7-31.4) SECONDS Sodium 129 L (136-145) mEq/L Potassium 3.1 L (3.5-5.1) mEq/L Chloride 95 L (98-107) mEq/L Carbon Dioxide 23 (21-32) mEq/L Anion Gap 14.1 (5-15) BUN 4 L (7-18) mg/dL Creatinine 0.7 (0.55-1.02) mg/dL Est Cr Clr Drug Dosing 112.08 mL/min Estimated GFR (MDRD) > 60 (>60) mL/min BUN/Creatinine Ratio 5.7 L (14-18) Glucose 135 H (70-99) mg/dL Lactic Acid 3.2 H* (0.4-2.0) mmol/L Calcium 7.5 L (8.5-10.1) mg/dL Phosphorus (2.6-4.7) mg/dL Magnesium (1.8-2.4) mg/dL Total Bilirubin 2.6 H (0.2-1.0) mg/dL GGT (5-55) U/L AST 211 H (15-37) U/L ALT 56 (14-59) U/L Alkaline Phosphatase 302 H (46-116) U/L Ammonia (11-32) umol/L C-Reactive Protein (<1.0) mg/dL NT-Pro-B Natriuret Pep (0-125) pg/mL Total Protein 5.8 L (6.4-8.2) g/dl Albumin 1.8 L (3.4-5.0) g/dl Globulin 4.0 gm/dL Albumin/Globulin Ratio 0.5 L (1-2) Lipase (73-393) U/L HCG, Qual (NEGATIVE) Urine Color (Yellow) Urine Appearance (Clear) Urine pH (5.0-8.0) Ur Specific [place] (1.005-1.030) Urine Protein (Negative) Urine Glucose (UA) (Negative) Urine Ketones (Negative) Urine Occult Blood (Negative) Urine Nitrite (Negative) Urine Bilirubin (Negative) Urine Urobilinogen (0.2-1.0) Ur Leukocyte Esterase (Negative) Urine RBC (0-5) /hpf Urine WBC (0-5) /hpf Ur Squamous Epith Cells (0-5) /hpf Urine Bacteria (FEW) /hpf Urine Mucus (FEW) /hpf Urine Opiates Screen (ZRUQKI=252) Ur Buprenorphine Scrn (CUTOFF=10) Ur Oxycodone Screen (PFS1XK=713) Urine Methadone Screen (NBYQGQ=457) Ur Propoxyphene Screen (JSPSIB=484) Ur Barbiturates Screen (GTHRPY=595) Ur Tricyclics Screen (MOJDOV=367) Ur Phencyclidine Scrn (CUTOFF=25) Ur Amphetamine Screen (RPXQWS=477) U Methamphetamines Scrn (GODDSU=160) U Benzodiazepines Scrn (SXIVXO=781) U Cocaine Metab Screen (CIOECU=815) U Marijuana (THC) Screen (CUTOFF=50) Ethyl Alcohol (0.00) gm% Ketones (0.0-0.3) mM SARS-CoV-2 RNA (HUSSEIN) (NEGATIVE) 12/31/20 12/31/20 12/31/20 Range/Units 06:05 09:12 09:12 WBC 13.88 H (3.98-10.04) K/mm3 RBC 2.33 L (3.98-5.22) M/mm3 Hgb 9.2 L (11.2-15.7) gm/dl Hct 27.4 L (34.1-44.9) % MCV 117.6 H (79.4-94.8) fl MCH 39.5 H (25.6-32.2) pg MCHC 33.6 (32.2-35.5) g/dl RDW Std Deviation 61.9 H (36.4-46.3) fL Plt Count 264 (182-369) K/mm3 MPV 8.7 L (9.4-12.3) fl Neut % (Auto) 76.9 H (34.0-71.1) % Lymph % (Auto) 13.3 L (19.3-51.7) % [place] % (Auto) 9.1 (4.7-12.5) % Eos % (Auto) 0.2 L (0.7-5.8) Baso % (Auto) 0.2 (0.1-1.2) % Neut # (Auto) 10.66 H (1.56-6.13) K/mm3 Lymph # (Auto) 1.85 (1.18-3.74) K/mm3 [place] # (Auto) 1.27 H (0.24-0.36) K/mm3 Eos # (Auto) 0.03 L (0.04-0.36) K/mm3 Baso # (Auto) 0.03 (0.01-0.08) K/mm3 Manual Slide Review Abnormal smear PT (9.7-12.0) SECONDS INR APTT (21.7-31.4) SECONDS Sodium 130 L (136-145) mEq/L Potassium 3.0 L (3.5-5.1) mEq/L Chloride 93 L (98-107) mEq/L Carbon Dioxide 27 (21-32) mEq/L Anion Gap 13.0 (5-15) BUN 4 L (7-18) mg/dL Creatinine 0.8 (0.55-1.02) mg/dL Est Cr Clr Drug Dosing 98.07 mL/min Estimated GFR (MDRD) > 60 (>60) mL/min BUN/Creatinine Ratio 5.0 L (14-18) Glucose 125 H (70-99) mg/dL Lactic Acid (0.4-2.0) mmol/L Calcium 8.3 L (8.5-10.1) mg/dL Phosphorus (2.6-4.7) mg/dL Magnesium (1.8-2.4) mg/dL Total Bilirubin 4.0 H (0.2-1.0) mg/dL GGT 1644 H (5-55) U/L AST 240 H (15-37) U/L ALT 68 H (14-59) U/L Alkaline Phosphatase 368 H (46-116) U/L Ammonia (11-32) umol/L C-Reactive Protein (<1.0) mg/dL NT-Pro-B Natriuret Pep (0-125) pg/mL Total Protein 7.2 (6.4-8.2) g/dl Albumin 2.4 L (3.4-5.0) g/dl Globulin 4.8 gm/dL Albumin/Globulin Ratio 0.5 L (1-2) Lipase (73-393) U/L HCG, Qual (NEGATIVE) Urine Color (Yellow) Urine Appearance (Clear) Urine pH (5.0-8.0) Ur Specific [place] (1.005-1.030) Urine Protein (Negative) Urine Glucose (UA) (Negative) Urine Ketones (Negative) Urine Occult Blood (Negative) Urine Nitrite (Negative) Urine Bilirubin (Negative) Urine Urobilinogen (0.2-1.0) Ur Leukocyte Esterase (Negative) Urine RBC (0-5) /hpf Urine WBC (0-5) /hpf Ur Squamous Epith Cells (0-5) /hpf Urine Bacteria (FEW) /hpf Urine Mucus (FEW) /hpf Urine Opiates Screen (BGFDQJ=698) Ur Buprenorphine Scrn (CUTOFF=10) Ur Oxycodone Screen (PGX4BE=480) Urine Methadone Screen (EHBPRU=767) Ur Propoxyphene Screen (WSXAZO=706) Ur Barbiturates Screen (UEAPDX=166) Ur Tricyclics Screen (QOHXIZ=022) Ur Phencyclidine Scrn (CUTOFF=25) Ur Amphetamine Screen (WKIEPK=208) U Methamphetamines Scrn (KHENXM=892) U Benzodiazepines Scrn (KOUSSH=385) U Cocaine Metab Screen (RPIGBB=026) U Marijuana (THC) Screen (CUTOFF=50) Ethyl Alcohol (0.00) gm% Ketones (0.0-0.3) mM SARS-CoV-2 RNA (HUSSEIN) (NEGATIVE) 12/31/20 12/31/20 12/31/20 Range/Units 09:12 12:11 12:11 WBC (3.98-10.04) K/mm3 RBC (3.98-5.22) M/mm3 Hgb (11.2-15.7) gm/dl Hct (34.1-44.9) % MCV (79.4-94.8) fl MCH (25.6-32.2) pg MCHC (32.2-35.5) g/dl RDW Std Deviation (36.4-46.3) fL Plt Count (182-369) K/mm3 MPV (9.4-12.3) fl Neut % (Auto) (34.0-71.1) % Lymph % (Auto) (19.3-51.7) % [place] % (Auto) (4.7-12.5) % Eos % (Auto) (0.7-5.8) Baso % (Auto) (0.1-1.2) % Neut # (Auto) (1.56-6.13) K/mm3 Lymph # (Auto) (1.18-3.74) K/mm3 [place] # (Auto) (0.24-0.36) K/mm3 Eos # (Auto) (0.04-0.36) K/mm3 Baso # (Auto) (0.01-0.08) K/mm3 Manual Slide Review PT (9.7-12.0) SECONDS INR APTT (21.7-31.4) SECONDS Sodium 131 L (136-145) mEq/L Potassium 3.6 (3.5-5.1) mEq/L Chloride 94 L (98-107) mEq/L Carbon Dioxide 26 (21-32) mEq/L Anion Gap 14.6 (5-15) BUN 3 L (7-18) mg/dL Creatinine 0.7 (0.55-1.02) mg/dL Est Cr Clr Drug Dosing 112.08 mL/min Estimated GFR (MDRD) > 60 (>60) mL/min BUN/Creatinine Ratio 4.3 L (14-18) Glucose 159 H (70-99) mg/dL Lactic Acid 3.2 H* 2.3 H* (0.4-2.0) mmol/L Calcium 7.8 L (8.5-10.1) mg/dL Phosphorus 2.4 L (2.6-4.7) mg/dL Magnesium 1.6 L (1.8-2.4) mg/dL Total Bilirubin (0.2-1.0) mg/dL GGT (5-55) U/L AST (15-37) U/L ALT (14-59) U/L Alkaline Phosphatase (46-116) U/L Ammonia (11-32) umol/L C-Reactive Protein (<1.0) mg/dL NT-Pro-B Natriuret Pep (0-125) pg/mL Total Protein (6.4-8.2) g/dl Albumin (3.4-5.0) g/dl Globulin gm/dL Albumin/Globulin Ratio (1-2) Lipase (73-393) U/L HCG, Qual (NEGATIVE) Urine Color (Yellow) Urine Appearance (Clear) Urine pH (5.0-8.0) Ur Specific [place] (1.005-1.030) Urine Protein (Negative) Urine Glucose (UA) (Negative) Urine Ketones (Negative) Urine Occult Blood (Negative) Urine Nitrite (Negative) Urine Bilirubin (Negative) Urine Urobilinogen (0.2-1.0) Ur Leukocyte Esterase (Negative) Urine RBC (0-5) /hpf Urine WBC (0-5) /hpf Ur Squamous Epith Cells (0-5) /hpf Urine Bacteria (FEW) /hpf Urine Mucus (FEW) /hpf Urine Opiates Screen (AOYBFX=049) Ur Buprenorphine Scrn (CUTOFF=10) Ur Oxycodone Screen (WBU5MH=351) Urine Methadone Screen (ZSYAZY=040) Ur Propoxyphene Screen (VCDZJY=013) Ur Barbiturates Screen (JANDBA=468) Ur Tricyclics Screen (XZOGDT=830) Ur Phencyclidine Scrn (CUTOFF=25) Ur Amphetamine Screen (BHVEDH=340) U Methamphetamines Scrn (GASBCX=156) U Benzodiazepines Scrn (RAGJSI=072) U Cocaine Metab Screen (CEWNUA=342) U Marijuana (THC) Screen (CUTOFF=50) Ethyl Alcohol (0.00) gm% Ketones (0.0-0.3) mM SARS-CoV-2 RNA (HUSSEIN) (NEGATIVE) Result Diagrams: 12/31/20 09:12 12/31/20 12:11 Sepsis Event Note - Focused Exam Vital Signs: Vital Signs Temp Pulse Resp BP Pulse Ox Pulse Ox 12/31/20 12:00 36.2 C 107 H 19 106/74 90 L 12/31/20 10:15 36.1 C 116 H 20 124/74 90 L 90 L 12/31/20 06:34 99 16 94/74 94 L 12/31/20 05:30 87 16 106/66 93 L 12/31/20 04:30 88 16 100/70 94 L Orders Last 24hrs: Active Orders 24 hr Category Date Time Status Patient Status [ADT] Routine ADT 12/31/20 07:35 Active Cardiac Monitoring [RC] CONTINUOUS Care 12/31/20 07:38 Active Height and Weight [RC] 0400 Care 12/31/20 07:35 Active Intake and Output [RC] 04,16 Care 12/31/20 07:38 Active Oxygen Therapy [RC] PRN Care 12/31/20 07:35 Active Up ad [place]irc[place] [RC] ASDIRECTED Care 12/31/20 07:35 Active VTE/DVT Education [RC] Care 12/31/20 07:35 Active Vital Signs [RC] Q4HR Care 12/31/20 07:35 Active Consult to Case Management/Art Coordinator [CONS] Cons 12/31/20 07:35 Active Routine Consult to Physician [CONS] Routine Cons 12/31/20 09:17 Active Clear Liquid Diet [DIET] Diet 12/31/20 Dinner Active NPO [Nothing Per Oral Diet] [DIET] Diet 12/31/20 Lunch Active BASIC METABOLIC PANEL,BMP [CHEM] Q4H Lab 12/31/20 16:00 Ordered BASIC METABOLIC PANEL,BMP [CHEM] Q4H Lab 12/31/20 20:00 Ordered BASIC METABOLIC PANEL,BMP [CHEM] Q4H Lab 01/01/21 00:00 Ordered BASIC METABOLIC PANEL,BMP [CHEM] Q4H Lab 01/01/21 04:00 Ordered BASIC METABOLIC PANEL,BMP [CHEM] Q4H Lab 01/01/21 08:00 Ordered BASIC METABOLIC PANEL,BMP [CHEM] Q4H Lab 01/01/21 12:00 Ordered BASIC METABOLIC PANEL,BMP [CHEM] Q4H Lab 01/01/21 16:00 Ordered BASIC METABOLIC PANEL,BMP [CHEM] Q4H Lab 01/01/21 20:00 Ordered BASIC METABOLIC PANEL,BMP [CHEM] Q4H Lab 01/02/21 00:00 Ordered BASIC METABOLIC PANEL,BMP [CHEM] Q4H Lab 01/02/21 04:00 Ordered BASIC METABOLIC PANEL,BMP [CHEM] Q4H Lab 01/02/21 08:00 Ordered BASIC METABOLIC PANEL,BMP [CHEM] Q4H Lab 01/02/21 12:00 Ordered BASIC METABOLIC PANEL,BMP [CHEM] Q4H Lab 01/02/21 16:00 Ordered BASIC METABOLIC PANEL,BMP [CHEM] Q4H Lab 01/02/21 20:00 Ordered BASIC METABOLIC PANEL,BMP [CHEM] Q4H Lab 01/03/21 00:00 Ordered BASIC METABOLIC PANEL,BMP [CHEM] Q4H Lab 01/03/21 04:00 Ordered BASIC METABOLIC PANEL,BMP [CHEM] Q4H Lab 01/03/21 08:00 Ordered BASIC METABOLIC PANEL,BMP [CHEM] Q4H Lab 01/03/21 12:00 Ordered BASIC METABOLIC PANEL,BMP [CHEM] Q4 Lab 01/03/21 16:00 Ordered BLOOD CULTURE [MREF] Stat Lab 12/31/20 09:12 Received BLOOD CULTURE [MREF] Stat Lab 12/31/20 09:22 Received CBC W/O DIFF,HEMOGRAM [HEME] AM Lab 01/01/21 05:11 Ordered CBC W/O DIFF,HEMOGRAM [HEME] AM Lab 01/02/21 05:11 Ordered CBC W/O DIFF,HEMOGRAM [HEME] AM Lab 01/03/21 05:11 Ordered COMPREHENSIVE METABOLIC PN,CMP [CHEM] DAILY Lab 01/01/21 05:11 Ordered COMPREHENSIVE METABOLIC PN,CMP [CHEM] DAILY Lab 01/02/21 05:11 Ordered COMPREHENSIVE METABOLIC PN,CMP [CHEM] DAILY Lab 01/03/21 05:11 Ordered CRP [C-REACTIVE PROTEIN] [CHEM] AM Lab 01/01/21 05:11 Ordered LACTIC ACID [CHEM] Q4H Lab 12/31/20 16:00 Ordered LACTIC ACID [CHEM] Q4H Lab 12/31/20 20:00 Ordered LACTIC ACID [CHEM] Q4 Lab 01/01/21 00:00 Ordered LACTIC ACID [CHEM] Q4 Lab 01/01/21 04:00 Ordered LACTIC ACID [CHEM] Q4 Lab 01/01/21 08:00 Ordered LACTIC ACID [CHEM] Q4 Lab 01/01/21 12:00 Ordered LACTIC ACID [CHEM] Q4 Lab 01/01/21 16:00 Ordered LACTIC ACID [CHEM] Q4 Lab 01/01/21 20:00 Ordered LACTIC ACID [CHEM] Q4 Lab 01/02/21 00:00 Ordered LACTIC ACID [CHEM] Q4 Lab 01/02/21 04:00 Ordered LACTIC ACID [CHEM] Q4 Lab 01/02/21 08:00 Ordered LACTIC ACID [CHEM] Q4 Lab 01/02/21 12:00 Ordered LACTIC ACID [CHEM] Q4 Lab 01/02/21 16:00 Ordered LACTIC ACID [CHEM] Q4 Lab 01/02/21 20:00 Ordered LACTIC ACID [CHEM] Q4 Lab 01/03/21 00:00 Ordered LACTIC ACID [CHEM] Q4 Lab 01/03/21 04:00 Ordered LACTIC ACID [CHEM] Q4 Lab 01/03/21 08:00 Ordered LACTIC ACID [CHEM] Q4 Lab 01/03/21 12:00 Ordered LACTIC ACID [CHEM] Q4 Lab 01/03/21 16:00 Ordered MAGNESIUM [CHEM] Q4 Lab 12/31/20 16:00 Ordered MAGNESIUM [CHEM] Q4 Lab 12/31/20 20:00 Ordered MAGNESIUM [CHEM] Q4 Lab 01/01/21 00:00 Ordered MAGNESIUM [CHEM] Q4 Lab 01/01/21 04:00 Ordered MAGNESIUM [CHEM] Q4 Lab 01/01/21 08:00 Ordered MAGNESIUM [CHEM] Q4 Lab 01/01/21 12:00 Ordered MAGNESIUM [CHEM] Q4 Lab 01/01/21 16:00 Ordered MAGNESIUM [CHEM] Q4 Lab 01/01/21 20:00 Ordered MAGNESIUM [CHEM] Q4 Lab 01/02/21 00:00 Ordered MAGNESIUM [CHEM] Q4 Lab 01/02/21 04:00 Ordered MAGNESIUM [CHEM] Q4 Lab 01/02/21 08:00 Ordered MAGNESIUM [CHEM] Q4 Lab 01/02/21 12:00 Ordered MAGNESIUM [CHEM] Q4 Lab 01/02/21 16:00 Ordered MAGNESIUM [CHEM] Q4 Lab 01/02/21 20:00 Ordered MAGNESIUM [CHEM] Q4 Lab 01/03/21 00:00 Ordered MAGNESIUM [CHEM] Q4 Lab 01/03/21 04:00 Ordered MAGNESIUM [CHEM] Q4 Lab 01/03/21 08:00 Ordered MAGNESIUM [CHEM] Q4 Lab 01/03/21 12:00 Ordered MAGNESIUM [CHEM] Q4 Lab 01/03/21 16:00 Ordered PHOSPHORUS [CHEM] Q4 Lab 12/31/20 16:00 Ordered PHOSPHORUS [CHEM] Q4 Lab 12/31/20 20:00 Ordered PHOSPHORUS [CHEM] Q4 Lab 01/01/21 00:00 Ordered PHOSPHORUS [CHEM] Q4 Lab 01/01/21 04:00 Ordered PHOSPHORUS [CHEM] Q4 Lab 01/01/21 08:00 Ordered PHOSPHORUS [CHEM] Q4 Lab 01/01/21 12:00 Ordered PHOSPHORUS [CHEM] Q4 Lab 01/01/21 16:00 Ordered PHOSPHORUS [CHEM] Q4 Lab 01/01/21 20:00 Ordered PHOSPHORUS [CHEM] Q4 Lab 01/02/21 00:00 Ordered PHOSPHORUS [CHEM] Q4 Lab 01/02/21 04:00 Ordered PHOSPHORUS [CHEM] Q4 Lab 01/02/21 08:00 Ordered PHOSPHORUS [CHEM] Q4 Lab 01/02/21 12:00 Ordered PHOSPHORUS [CHEM] Q4 Lab 01/02/21 16:00 Ordered PHOSPHORUS [CHEM] Q4 Lab 01/02/21 20:00 Ordered PHOSPHORUS [CHEM] Q4 Lab 01/03/21 00:00 Ordered PHOSPHORUS [CHEM] Q4 Lab 01/03/21 04:00 Ordered PHOSPHORUS [CHEM] Q4 Lab 01/03/21 08:00 Ordered PHOSPHORUS [CHEM] Q4 Lab 01/03/21 12:00 Ordered PHOSPHORUS [CHEM] Q4 Lab 01/03/21 16:00 Ordered Acetaminophen [TylenoL] Med 12/31/20 07:35 Active 650 mg PO Q4H PRN Enoxaparin [Lovenox] Med 01/01/21 09:00 Active 40 mg SUBCUT DAILY Folic Acid Med 12/31/20 09:30 Active 1 mg PO DAILY HYDROmorphone [Dilaudid] Med 12/31/20 07:35 Active 0.5 mg IVPUSH Q2H PRN Ketorolac [Toradol] Med 12/31/20 07:35 Active 30 mg IV Q6H PRN LORazepam [Ativan] Med 12/31/20 07:35 Active 1 mg IV Q2H PRN Magnesium Sulfate/Water [Magnesium Sulfate in Water 4 Med 12/31/20 13:30 Active GM/50 ML] 4 gm Premix Bag 1 bag IV ONETIME Ondansetron [Zofran ODT] Med 12/31/20 07:35 Active 4 mg PO Q6H PRN Ondansetron [Zofran] Med 12/31/20 07:35 Active 4 mg IV Q6H PRN Pantoprazole [ProTONIX IV] Med 12/31/20 21:00 Active 40 mg IVPUSH BID Sodium Chloride 0.9% [Normal Saline] 1,000 ml Med 12/31/20 10:15 Active IV ASDIRECTED Thiamine [Vitamin B-1] Med 12/31/20 21:00 Active 100 mg PO BEDTIME cefTRIAXone [Rocephin] 2 gm Med 12/31/20 10:00 Active Sodium Chloride 0.9% [Normal Saline] 100 ml IV Q24H chlordiazePOXIDE [Librium] Med 12/31/20 15:00 Active 25 mg PO TID metroNIDAZOLE/Normal Saline [Flagyl in NS 500 MG/100 ML Med 12/31/20 12:00 Active ] 500 mg Premix Bag 1 bag IV Q8H Blood Culture x2 Reflex Set [OM.PC] Stat Oth 12/31/20 07:47 Ordered Resuscitation Status Routine Resus Stat 12/31/20 07:35 Ordered Medication Orders Acetaminophen (Acetaminophen 325 Mg Tab) 650 mg PO Q4H PRN PRN Reason: Pain (Mild 1-3)/fever Chlordiazepoxide HCl (Chlordiazepoxide 25 Mg Cap) 25 mg PO TID [facility] Last Admin: 12/31/20 14:45 Dose: 25 mg Documented by: CASS Enoxaparin Sodium (Enoxaparin 40 Mg/0.4 Ml Syringe) 40 mg SUBCUT DAILY [facility] Folic Acid (Folic Acid 1 Mg Tab) 1 mg PO DAILY [facility] Last Admin: 12/31/20 09:46 Dose: 1 mg Documented by: CASS Hydromorphone HCl (Hydromorphone 0.5 Mg/0.5 Ml Syringe) 0.5 mg IVPUSH Q2H PRN PRN Reason: Pain (severe 7-10) Last Admin: 12/31/20 14:46 Dose: 0.5 mg Documented by: Admin: 12/31/20 09:54 Dose: 0.5 mg Documented by: CASS Ceftriaxone Sodium 2 gm/ (Sodium Chloride) 100 mls @ 200 mls/hr IV Q24H [facility] Last Admin: 12/31/20 09:47 Dose: 200 mls/hr Documented by: CASS Sodium Chloride (Normal Saline) 1,000 mls @ 125 mls/hr IV ASDIRECTED [facility] Last Admin: 12/31/20 10:22 Dose: 125 mls/hr Documented by: CASS Metronidazole 500 mg/ Premix 100 mls @ 100 mls/hr IV Q8H [facility] Last Admin: 12/31/20 11:50 Dose: 100 mls/hr Documented by: CASS Magnesium Sulfate 4 gm/ Premix 50 mls @ 12.5 mls/hr IV ONETIME ONE Stop: 12/31/20 17:29 Last Admin: 12/31/20 13:04 Dose: 12.5 mls/hr Documented by: CASS Ketorolac Tromethamine (Ketorolac 30 Mg/Ml Sdv) 30 mg IV Q6H PRN PRN Reason: Pain (moderate 4-6) Lorazepam (Lorazepam 2 Mg/Ml Sdv) 1 mg IV Q2H PRN PRN Reason: Other Ondansetron HCl (Ondansetron 4 Mg Tab.Dis) 4 mg PO Q6H PRN PRN Reason: nausea, able to take PO Last Admin: 12/31/20 09:55 Dose: 4 mg Documented by: CASS Ondansetron HCl (Ondansetron 4 Mg/2 Ml Sdv) 4 mg IV Q6H PRN PRN Reason: Nausea/Vomiting Pantoprazole Sodium (Pantoprazole 40 Mg Vial) 40 mg IVPUSH BID [facility] Thiamine HCl (Thiamine 100 Mg Tab) 100 mg PO BEDTIME [facility] Assessment/Plan Comment:: I have seen and examined the patient independently of Stephon Gerardo CNP, and I have discussed the case with her. I have reviewed the plan of care for this patient as outlined by her. Please see orders.
[2020-12-31] MEDS: metroNIDAZOLE/Normal Saline 500 MG in Premix Bag 1 BAG IV SCH ×2 (11:50→19:58)
[2020-12-31] MEDS ORDERED: Potassium Chloride 10 MEQ in Premix Bag 1 BAG IV SCH ×2 (12:00→13:00)
--- NOTE | 2020-12-31 12:44 | PCM.CONS ---
H&P History of Present Illness - General Date of Service: 12/31/20 Admit Problem/Dx: Admission Diagnosis/Problem Admission Diagnosis/Problem Leukocytosis Source of Information: Patient, Provider History Limitations: Reports: No Limitations - History of Present Illness Initial Comments - Free Text/Narative: The patient is a 35 y/o lady who presents for her abdominal concerns. She states she has "not been feeling good for a while," described as general malaise with nausea/ vomiting and food intolerance for the last few months. She had abdominal bloating in the last 3-4 days, with new pain. She presented to the ED for fear of liver failure. She has been Vomiting in am daily, small amount. She reports having aq subjective fever 1 day ago, also dyspnea due to abdominal fullness. She has a history of a sleeve gastrectomy 4 y ago, and drinks a large quantity of ETOH daily. she reports her last BM was small and passed yesterday. She denies any hematochezia/melena Abdomen Pain Score (Numeric/FACES): 5 - Related Data Allergies/Adverse Reactions: Allergies Allergy/AdvReac Type Severity Reaction Status Date / Time nitrofurantoin Allergy Intermediate Hives Verified 12/31/20 12:52 [From Macrobid] nitrofurantoin Allergy Intermediate Hives Verified 12/31/20 12:52 macrocrystalline [From Macrobid] morphine Allergy Mild Itching Verified 12/31/20 12:52 zolpidem tartrate AdvReac Intermediate Hallucinati Verified 12/31/20 12:52 [From Ambien] ons tramadol AdvReac Mild Vomiting Verified 12/31/20 12:52 Home Medications: Home Meds Hydrochlorothiazide 25 mg PO DAILY 09/10/15 [History] Pantoprazole [ProTONIX] 40 mg PO DAILY 12/30/20 [History] clonazePAM [Clonazepam] 1 mg PO DAILY 12/30/20 [History] lisinopriL [Lisinopril] 20 mg PO DAILY 12/30/20 [History] Past Medical History - Past Health History Medical/Surgical History: Denies Medical/Surgical History HEENT History: Reports: Other (See Below) Other HEENT History: wears glasses Cardiovascular History: Reports: Hypertension Gastrointestinal History: Reports: GERD, Other (See Below) Other Gastrointestinal History: gastric sleeve Psychiatric History: Reports: Addiction - Past Surgical History Other GI Surgeries/Procedures: sleeve gastrectomy 2017 Social & Family History - Family History Cardiac: Reports: Hypertension Psychiatric: Reports: Anxiety, Depression - Tobacco Use Tobacco Use Status *Q: Light Tobacco User Years of Tobacco use: 5 Packs/Tins Daily: 0.1 Used Tobacco, but Quit: No - Caffeine Use Caffeine Use: Reports: Coffee - Alcohol Use Days Per Week of Alcohol Use: 1 Number of Drinks Per Day: 5 Total Drinks Per Week: 5 Date of Last Drink: 12/30/20 Time of Last Drink: 16:00 - Recreational Drug Use Recreational Drug Use: No - Living Situation & Occupation Living situation: Reports: Occupation: Unemployed H&P Review of Systems - Review of Systems: Review Of Systems: See Below General: Reports: Fever (subjective), Weakness, Fatigue HEENT: Reports: No Symptoms, Glasses Pulmonary: Reports: Shortness of Breath, Cough (dry, started 3-4d ago) Cardiovascular: Reports: Chest Pain Gastrointestinal: Reports: Abdominal Pain Genitourinary: Reports: No Symptoms Musculoskeletal: Reports: No Symptoms Skin: Reports: No Symptoms Neurological: Reports: Headache Hematologic/Lymphatic: Reports: No Symptoms Exam - Exam Exam: See Below - Vital Signs Vital Signs: Last Vital Signs Temp 36.2 C 12/31/20 12:00 Pulse 107 H 12/31/20 12:00 Resp 19 12/31/20 12:00 BP 106/74 12/31/20 12:00 Pulse Ox 90 L 12/31/20 12:00 Weight: 78.245 kg - Patient Data Lab Results Last 24 hrs: Laboratory Results - last 24 hr 12/30/20 12/30/20 12/30/20 Range/Units 22:30 22:30 22:30 WBC 15.70 H (3.98-10.04) K/mm3 RBC 2.56 L (3.98-5.22) M/mm3 Hgb 10.1 L D (11.2-15.7) gm/dl Hct 29.5 L (34.1-44.9) % MCV 115.2 H D (79.4-94.8) fl MCH 39.5 H (25.6-32.2) pg MCHC 34.2 (32.2-35.5) g/dl RDW Std Deviation 59.8 H (36.4-46.3) fL Plt Count 283 D (182-369) K/mm3 MPV 8.5 L (9.4-12.3) fl Neut % (Auto) 79.2 H (34.0-71.1) % Lymph % (Auto) 9.9 L (19.3-51.7) % [facility] % (Auto) 10.0 (4.7-12.5) % Eos % (Auto) 0.2 L (0.7-5.8) Baso % (Auto) 0.3 (0.1-1.2) % Neut # (Auto) 12.44 H (1.56-6.13) K/mm3 Lymph # (Auto) 1.55 (1.18-3.74) K/mm3 [facility] # (Auto) 1.57 H (0.24-0.36) K/mm3 Eos # (Auto) 0.03 L (0.04-0.36) K/mm3 Baso # (Auto) 0.04 (0.01-0.08) K/mm3 Manual Slide Review Abnormal smear PT 11.9 (9.7-12.0) SECONDS INR 1.11 APTT 29.7 (21.7-31.4) SECONDS Sodium 123 L D (136-145) mEq/L Potassium 3.1 L D (3.5-5.1) mEq/L Chloride 85 L D (98-107) mEq/L Carbon Dioxide 26 (21-32) mEq/L Anion Gap 15.1 H (5-15) BUN 6 L (7-18) mg/dL Creatinine 0.9 (0.55-1.02) mg/dL Est Cr Clr Drug Dosing 87.17 mL/min Estimated GFR (MDRD) > 60 (>60) mL/min BUN/Creatinine Ratio 6.7 L (14-18) Glucose 122 H (70-99) mg/dL Lactic Acid (0.4-2.0) mmol/L Calcium 8.6 (8.5-10.1) mg/dL Magnesium 2.0 (1.8-2.4) mg/dL Total Bilirubin 3.7 H (0.2-1.0) mg/dL GGT (5-55) U/L AST 303 H (15-37) U/L ALT 84 H (14-59) U/L Alkaline Phosphatase 387 H (46-116) U/L Ammonia (11-32) umol/L C-Reactive Protein 12.5 H* (<1.0) mg/dL NT-Pro-B Natriuret Pep (0-125) pg/mL Total Protein 7.1 (6.4-8.2) g/dl Albumin 2.3 L (3.4-5.0) g/dl Globulin 4.8 gm/dL Albumin/Globulin Ratio 0.5 L (1-2) Lipase 73 (73-393) U/L HCG, Qual (NEGATIVE) Urine Color (Yellow) Urine Appearance (Clear) Urine pH (5.0-8.0) Ur Specific [place] (1.005-1.030) Urine Protein (Negative) Urine Glucose (UA) (Negative) Urine Ketones (Negative) Urine Occult Blood (Negative) Urine Nitrite (Negative) Urine Bilirubin (Negative) Urine Urobilinogen (0.2-1.0) Ur Leukocyte Esterase (Negative) Urine RBC (0-5) /hpf Urine WBC (0-5) /hpf Ur Squamous Epith Cells (0-5) /hpf Urine Bacteria (FEW) /hpf Urine Mucus (FEW) /hpf Urine Opiates Screen (HRRYSW=223) Ur Buprenorphine Scrn (CUTOFF=10) Ur Oxycodone Screen (LSR6CR=884) Urine Methadone Screen (UXUVSB=590) Ur Propoxyphene Screen (RUESRB=311) Ur Barbiturates Screen (RFGINS=565) Ur Tricyclics Screen (UXOTWN=337) Ur Phencyclidine Scrn (CUTOFF=25) Ur Amphetamine Screen (IGWQEW=259) U Methamphetamines Scrn (MSFPTX=138) U Benzodiazepines Scrn (BNUYRS=678) U Cocaine Metab Screen (OXTGEH=792) U Marijuana (THC) Screen (CUTOFF=50) Ethyl Alcohol 0.19 (0.00) gm% Ketones (0.0-0.3) mM SARS-CoV-2 RNA (HUSSEIN) (NEGATIVE) 12/30/20 12/30/20 12/30/20 Range/Units 22:30 22:30 22:56 WBC (3.98-10.04) K/mm3 RBC (3.98-5.22) M/mm3 Hgb (11.2-15.7) gm/dl Hct (34.1-44.9) % MCV (79.4-94.8) fl MCH (25.6-32.2) pg MCHC (32.2-35.5) g/dl RDW Std Deviation (36.4-46.3) fL Plt Count (182-369) K/mm3 MPV (9.4-12.3) fl Neut % (Auto) (34.0-71.1) % Lymph % (Auto) (19.3-51.7) % [facility] % (Auto) (4.7-12.5) % Eos % (Auto) (0.7-5.8) Baso % (Auto) (0.1-1.2) % Neut # (Auto) (1.56-6.13) K/mm3 Lymph # (Auto) (1.18-3.74) K/mm3 [facility] # (Auto) (0.24-0.36) K/mm3 Eos # (Auto) (0.04-0.36) K/mm3 Baso # (Auto) (0.01-0.08) K/mm3 Manual Slide Review PT (9.7-12.0) SECONDS INR APTT (21.7-31.4) SECONDS Sodium (136-145) mEq/L Potassium (3.5-5.1) mEq/L Chloride (98-107) mEq/L Carbon Dioxide (21-32) mEq/L Anion Gap (5-15) BUN (7-18) mg/dL Creatinine (0.55-1.02) mg/dL Est Cr Clr Drug Dosing mL/min Estimated GFR (MDRD) (>60) mL/min BUN/Creatinine Ratio (14-18) Glucose (70-99) mg/dL Lactic Acid (0.4-2.0) mmol/L Calcium (8.5-10.1) mg/dL Magnesium (1.8-2.4) mg/dL Total Bilirubin (0.2-1.0) mg/dL GGT (5-55) U/L AST (15-37) U/L ALT (14-59) U/L Alkaline Phosphatase (46-116) U/L Ammonia 30 (11-32) umol/L C-Reactive Protein (<1.0) mg/dL NT-Pro-B Natriuret Pep 285 H (0-125) pg/mL Total Protein (6.4-8.2) g/dl Albumin (3.4-5.0) g/dl Globulin gm/dL Albumin/Globulin Ratio (1-2) Lipase (73-393) U/L HCG, Qual Negative (NEGATIVE) Urine Color (Yellow) Urine Appearance (Clear) Urine pH (5.0-8.0) Ur Specific [place] (1.005-1.030) Urine Protein (Negative) Urine Glucose (UA) (Negative) Urine Ketones (Negative) Urine Occult Blood (Negative) Urine Nitrite (Negative) Urine Bilirubin (Negative) Urine Urobilinogen (0.2-1.0) Ur Leukocyte Esterase (Negative) Urine RBC (0-5) /hpf Urine WBC (0-5) /hpf Ur Squamous Epith Cells (0-5) /hpf Urine Bacteria (FEW) /hpf Urine Mucus (FEW) /hpf Urine Opiates Screen (PRFPYB=732) Ur Buprenorphine Scrn (CUTOFF=10) Ur Oxycodone Screen (HZH4AY=015) Urine Methadone Screen (BTDYOG=078) Ur Propoxyphene Screen (KTNQMG=019) Ur Barbiturates Screen (ERZOJZ=407) Ur Tricyclics Screen (MMKWVN=118) Ur Phencyclidine Scrn (CUTOFF=25) Ur Amphetamine Screen (VQZNQL=228) U Methamphetamines Scrn (EOETID=508) U Benzodiazepines Scrn (KTWIFV=739) U Cocaine Metab Screen (YCDCFI=456) U Marijuana (THC) Screen (CUTOFF=50) Ethyl Alcohol (0.00) gm% Ketones 1.54 (0.0-0.3) mM SARS-CoV-2 RNA (HUSSEIN) (NEGATIVE) 12/30/20 12/31/20 12/31/20 Range/Units 22:56 00:52 00:59 WBC (3.98-10.04) K/mm3 RBC (3.98-5.22) M/mm3 Hgb (11.2-15.7) gm/dl Hct (34.1-44.9) % MCV (79.4-94.8) fl MCH (25.6-32.2) pg MCHC (32.2-35.5) g/dl RDW Std Deviation (36.4-46.3) fL Plt Count (182-369) K/mm3 MPV (9.4-12.3) fl Neut % (Auto) (34.0-71.1) % Lymph % (Auto) (19.3-51.7) % [facility] % (Auto) (4.7-12.5) % Eos % (Auto) (0.7-5.8) Baso % (Auto) (0.1-1.2) % Neut # (Auto) (1.56-6.13) K/mm3 Lymph # (Auto) (1.18-3.74) K/mm3 [facility] # (Auto) (0.24-0.36) K/mm3 Eos # (Auto) (0.04-0.36) K/mm3 Baso # (Auto) (0.01-0.08) K/mm3 Manual Slide Review PT (9.7-12.0) SECONDS INR APTT (21.7-31.4) SECONDS Sodium (136-145) mEq/L Potassium (3.5-5.1) mEq/L Chloride (98-107) mEq/L Carbon Dioxide (21-32) mEq/L Anion Gap (5-15) BUN (7-18) mg/dL Creatinine (0.55-1.02) mg/dL Est Cr Clr Drug Dosing mL/min Estimated GFR (MDRD) (>60) mL/min BUN/Creatinine Ratio (14-18) Glucose (70-99) mg/dL Lactic Acid 2.7 H* (0.4-2.0) mmol/L Calcium (8.5-10.1) mg/dL Magnesium (1.8-2.4) mg/dL Total Bilirubin (0.2-1.0) mg/dL GGT (5-55) U/L AST (15-37) U/L ALT (14-59) U/L Alkaline Phosphatase (46-116) U/L Ammonia (11-32) umol/L C-Reactive Protein (<1.0) mg/dL NT-Pro-B Natriuret Pep (0-125) pg/mL Total Protein (6.4-8.2) g/dl Albumin (3.4-5.0) g/dl Globulin gm/dL Albumin/Globulin Ratio (1-2) Lipase (73-393) U/L HCG, Qual (NEGATIVE) Urine Color Yellow (Yellow) Urine Appearance Slt cloudy H (Clear) Urine pH 6.5 (5.0-8.0) Ur Specific [place] 1.010 (1.005-1.030) Urine Protein Negative (Negative) Urine Glucose (UA) Negative (Negative) Urine Ketones Trace H (Negative) Urine Occult Blood Negative (Negative) Urine Nitrite Negative (Negative) Urine Bilirubin Negative (Negative) Urine Urobilinogen 1.0 (0.2-1.0) Ur Leukocyte Esterase Negative (Negative) Urine RBC 0-5 (0-5) /hpf Urine WBC 0-5 (0-5) /hpf Ur Squamous Epith Cells 0-5 (0-5) /hpf Urine Bacteria Moderate H (FEW) /hpf Urine Mucus Not seen (FEW) /hpf Urine Opiates Screen (KHCNBQ=101) Ur Buprenorphine Scrn (CUTOFF=10) Ur Oxycodone Screen (DTB8GR=302) Urine Methadone Screen (MWGTPQ=631) Ur Propoxyphene Screen (BGXVJB=458) Ur Barbiturates Screen (JLFVBH=940) Ur Tricyclics Screen (SWOQNX=764) Ur Phencyclidine Scrn (CUTOFF=25) Ur Amphetamine Screen (IVAVPG=585) U Methamphetamines Scrn (CQBTSD=378) U Benzodiazepines Scrn (UNXMZN=646) U Cocaine Metab Screen (JCEMCR=239) U Marijuana (THC) Screen (CUTOFF=50) Ethyl Alcohol (0.00) gm% Ketones (0.0-0.3) mM SARS-CoV-2 RNA (HUSSEIN) Negative (NEGATIVE) 12/31/20 12/31/20 12/31/20 Range/Units 00:59 01:20 04:06 WBC (3.98-10.04) K/mm3 RBC (3.98-5.22) M/mm3 Hgb (11.2-15.7) gm/dl Hct (34.1-44.9) % MCV (79.4-94.8) fl MCH (25.6-32.2) pg MCHC (32.2-35.5) g/dl RDW Std Deviation (36.4-46.3) fL Plt Count (182-369) K/mm3 MPV (9.4-12.3) fl Neut % (Auto) (34.0-71.1) % Lymph % (Auto) (19.3-51.7) % [facility] % (Auto) (4.7-12.5) % Eos % (Auto) (0.7-5.8) Baso % (Auto) (0.1-1.2) % Neut # (Auto) (1.56-6.13) K/mm3 Lymph # (Auto) (1.18-3.74) K/mm3 [facility] # (Auto) (0.24-0.36) K/mm3 Eos # (Auto) (0.04-0.36) K/mm3 Baso # (Auto) (0.01-0.08) K/mm3 Manual Slide Review PT (9.7-12.0) SECONDS INR APTT (21.7-31.4) SECONDS Sodium (136-145) mEq/L Potassium (3.5-5.1) mEq/L Chloride (98-107) mEq/L Carbon Dioxide (21-32) mEq/L Anion Gap (5-15) BUN (7-18) mg/dL Creatinine (0.55-1.02) mg/dL Est Cr Clr Drug Dosing mL/min Estimated GFR (MDRD) (>60) mL/min BUN/Creatinine Ratio (14-18) Glucose (70-99) mg/dL Lactic Acid 2.4 H* 2.8 H* (0.4-2.0) mmol/L Calcium (8.5-10.1) mg/dL Magnesium (1.8-2.4) mg/dL Total Bilirubin (0.2-1.0) mg/dL GGT (5-55) U/L AST (15-37) U/L ALT (14-59) U/L Alkaline Phosphatase (46-116) U/L Ammonia (11-32) umol/L C-Reactive Protein (<1.0) mg/dL NT-Pro-B Natriuret Pep (0-125) pg/mL Total Protein (6.4-8.2) g/dl Albumin (3.4-5.0) g/dl Globulin gm/dL Albumin/Globulin Ratio (1-2) Lipase (73-393) U/L HCG, Qual (NEGATIVE) Urine Color (Yellow) Urine Appearance (Clear) Urine pH (5.0-8.0) Ur Specific [place] (1.005-1.030) Urine Protein (Negative) Urine Glucose (UA) (Negative) Urine Ketones (Negative) Urine Occult Blood (Negative) Urine Nitrite (Negative) Urine Bilirubin (Negative) Urine Urobilinogen (0.2-1.0) Ur Leukocyte Esterase (Negative) Urine RBC (0-5) /hpf Urine WBC (0-5) /hpf Ur Squamous Epith Cells (0-5) /hpf Urine Bacteria (FEW) /hpf Urine Mucus (FEW) /hpf Urine Opiates Screen Negative (GOYXFB=347) Ur Buprenorphine Scrn Negative (CUTOFF=10) Ur Oxycodone Screen Negative (DEV6JD=742) Urine Methadone Screen Negative (CCEFSO=706) Ur Propoxyphene Screen Negative (MKHTKC=036) Ur Barbiturates Screen Negative (NDPJZQ=289) Ur Tricyclics Screen Negative (OCLXSX=309) Ur Phencyclidine Scrn Negative (CUTOFF=25) Ur Amphetamine Screen Negative (EXDKXW=395) U Methamphetamines Scrn Negative (YWQWAM=357) U Benzodiazepines Scrn Negative (JDSMTK=077) U Cocaine Metab Screen Negative (UIIHKD=644) U Marijuana (THC) Screen Negative (CUTOFF=50) Ethyl Alcohol (0.00) gm% Ketones (0.0-0.3) mM SARS-CoV-2 RNA (HUSSEIN) (NEGATIVE) 12/31/20 12/31/20 12/31/20 Range/Units 06:05 06:05 06:05 WBC 10.42 H (3.98-10.04) K/mm3 RBC 2.02 L (3.98-5.22) M/mm3 Hgb 8.0 L D (11.2-15.7) gm/dl Hct 23.6 L (34.1-44.9) % MCV 116.8 H (79.4-94.8) fl MCH 39.6 H (25.6-32.2) pg MCHC 33.9 (32.2-35.5) g/dl RDW Std Deviation 59.7 H (36.4-46.3) fL Plt Count 206 D (182-369) K/mm3 MPV 8.4 L (9.4-12.3) fl Neut % (Auto) 78.4 H (34.0-71.1) % Lymph % (Auto) 10.7 L (19.3-51.7) % [facility] % (Auto) 10.0 (4.7-12.5) % Eos % (Auto) 0.2 L (0.7-5.8) Baso % (Auto) 0.3 (0.1-1.2) % Neut # (Auto) 8.17 H (1.56-6.13) K/mm3 Lymph # (Auto) 1.12 L (1.18-3.74) K/mm3 [facility] # (Auto) 1.04 H (0.24-0.36) K/mm3 Eos # (Auto) 0.02 L (0.04-0.36) K/mm3 Baso # (Auto) 0.03 (0.01-0.08) K/mm3 Manual Slide Review Abnormal smear PT (9.7-12.0) SECONDS INR APTT (21.7-31.4) SECONDS Sodium 129 L (136-145) mEq/L Potassium 3.1 L (3.5-5.1) mEq/L Chloride 95 L (98-107) mEq/L Carbon Dioxide 23 (21-32) mEq/L Anion Gap 14.1 (5-15) BUN 4 L (7-18) mg/dL Creatinine 0.7 (0.55-1.02) mg/dL Est Cr Clr Drug Dosing 112.08 mL/min Estimated GFR (MDRD) > 60 (>60) mL/min BUN/Creatinine Ratio 5.7 L (14-18) Glucose 135 H (70-99) mg/dL Lactic Acid 3.2 H* (0.4-2.0) mmol/L Calcium 7.5 L (8.5-10.1) mg/dL Magnesium (1.8-2.4) mg/dL Total Bilirubin 2.6 H (0.2-1.0) mg/dL GGT (5-55) U/L AST 211 H (15-37) U/L ALT 56 (14-59) U/L Alkaline Phosphatase 302 H (46-116) U/L Ammonia (11-32) umol/L C-Reactive Protein (<1.0) mg/dL NT-Pro-B Natriuret Pep (0-125) pg/mL Total Protein 5.8 L (6.4-8.2) g/dl Albumin 1.8 L (3.4-5.0) g/dl Globulin 4.0 gm/dL Albumin/Globulin Ratio 0.5 L (1-2) Lipase (73-393) U/L HCG, Qual (NEGATIVE) Urine Color (Yellow) Urine Appearance (Clear) Urine pH (5.0-8.0) Ur Specific [place] (1.005-1.030) Urine Protein (Negative) Urine Glucose (UA) (Negative) Urine Ketones (Negative) Urine Occult Blood (Negative) Urine Nitrite (Negative) Urine Bilirubin (Negative) Urine Urobilinogen (0.2-1.0) Ur Leukocyte Esterase (Negative) Urine RBC (0-5) /hpf Urine WBC (0-5) /hpf Ur Squamous Epith Cells (0-5) /hpf Urine Bacteria (FEW) /hpf Urine Mucus (FEW) /hpf Urine Opiates Screen (IZCQTK=738) Ur Buprenorphine Scrn (CUTOFF=10) Ur Oxycodone Screen (XCS9TL=749) Urine Methadone Screen (GIUGYD=993) Ur Propoxyphene Screen (OQHXCP=436) Ur Barbiturates Screen (DBIJBR=035) Ur Tricyclics Screen (HMCDWM=539) Ur Phencyclidine Scrn (CUTOFF=25) Ur Amphetamine Screen (MVXUKH=476) U Methamphetamines Scrn (TGEQQH=567) U Benzodiazepines Scrn (OLIMLM=966) U Cocaine Metab Screen (RTBBDN=909) U Marijuana (THC) Screen (CUTOFF=50) Ethyl Alcohol (0.00) gm% Ketones (0.0-0.3) mM SARS-CoV-2 RNA (HUSSEIN) (NEGATIVE) 12/31/20 12/31/20 12/31/20 Range/Units 06:05 09:12 09:12 WBC 13.88 H (3.98-10.04) K/mm3 RBC 2.33 L (3.98-5.22) M/mm3 Hgb 9.2 L (11.2-15.7) gm/dl Hct 27.4 L (34.1-44.9) % MCV 117.6 H (79.4-94.8) fl MCH 39.5 H (25.6-32.2) pg MCHC 33.6 (32.2-35.5) g/dl RDW Std Deviation 61.9 H (36.4-46.3) fL Plt Count 264 (182-369) K/mm3 MPV 8.7 L (9.4-12.3) fl Neut % (Auto) 76.9 H (34.0-71.1) % Lymph % (Auto) 13.3 L (19.3-51.7) % [facility] % (Auto) 9.1 (4.7-12.5) % Eos % (Auto) 0.2 L (0.7-5.8) Baso % (Auto) 0.2 (0.1-1.2) % Neut # (Auto) 10.66 H (1.56-6.13) K/mm3 Lymph # (Auto) 1.85 (1.18-3.74) K/mm3 [facility] # (Auto) 1.27 H (0.24-0.36) K/mm3 Eos # (Auto) 0.03 L (0.04-0.36) K/mm3 Baso # (Auto) 0.03 (0.01-0.08) K/mm3 Manual Slide Review Abnormal smear PT (9.7-12.0) SECONDS INR APTT (21.7-31.4) SECONDS Sodium 130 L (136-145) mEq/L Potassium 3.0 L (3.5-5.1) mEq/L Chloride 93 L (98-107) mEq/L Carbon Dioxide 27 (21-32) mEq/L Anion Gap 13.0 (5-15) BUN 4 L (7-18) mg/dL Creatinine 0.8 (0.55-1.02) mg/dL Est Cr Clr Drug Dosing 98.07 mL/min Estimated GFR (MDRD) > 60 (>60) mL/min BUN/Creatinine Ratio 5.0 L (14-18) Glucose 125 H (70-99) mg/dL Lactic Acid (0.4-2.0) mmol/L Calcium 8.3 L (8.5-10.1) mg/dL Magnesium (1.8-2.4) mg/dL Total Bilirubin 4.0 H (0.2-1.0) mg/dL GGT 1644 H (5-55) U/L AST 240 H (15-37) U/L ALT 68 H (14-59) U/L Alkaline Phosphatase 368 H (46-116) U/L Ammonia (11-32) umol/L C-Reactive Protein (<1.0) mg/dL NT-Pro-B Natriuret Pep (0-125) pg/mL Total Protein 7.2 (6.4-8.2) g/dl Albumin 2.4 L (3.4-5.0) g/dl Globulin 4.8 gm/dL Albumin/Globulin Ratio 0.5 L (1-2) Lipase (73-393) U/L HCG, Qual (NEGATIVE) Urine Color (Yellow) Urine Appearance (Clear) Urine pH (5.0-8.0) Ur Specific [place] (1.005-1.030) Urine Protein (Negative) Urine Glucose (UA) (Negative) Urine Ketones (Negative) Urine Occult Blood (Negative) Urine Nitrite (Negative) Urine Bilirubin (Negative) Urine Urobilinogen (0.2-1.0) Ur Leukocyte Esterase (Negative) Urine RBC (0-5) /hpf Urine WBC (0-5) /hpf Ur Squamous Epith Cells (0-5) /hpf Urine Bacteria (FEW) /hpf Urine Mucus (FEW) /hpf Urine Opiates Screen (PBLHFW=772) Ur Buprenorphine Scrn (CUTOFF=10) Ur Oxycodone Screen (CJL5XE=699) Urine Methadone Screen (PWEQDJ=019) Ur Propoxyphene Screen (NEUCXV=205) Ur Barbiturates Screen (AKCAUF=755) Ur Tricyclics Screen (RCXTJC=181) Ur Phencyclidine Scrn (CUTOFF=25) Ur Amphetamine Screen (FPBRAN=458) U Methamphetamines Scrn (XKWQIV=685) U Benzodiazepines Scrn (XRSHRY=613) U Cocaine Metab Screen (ORUCGO=559) U Marijuana (THC) Screen (CUTOFF=50) Ethyl Alcohol (0.00) gm% Ketones (0.0-0.3) mM SARS-CoV-2 RNA (HUSSEIN) (NEGATIVE) 12/31/20 Range/Units 09:12 WBC (3.98-10.04) K/mm3 RBC (3.98-5.22) M/mm3 Hgb (11.2-15.7) gm/dl Hct (34.1-44.9) % MCV (79.4-94.8) fl MCH (25.6-32.2) pg MCHC (32.2-35.5) g/dl RDW Std Deviation (36.4-46.3) fL Plt Count (182-369) K/mm3 MPV (9.4-12.3) fl Neut % (Auto) (34.0-71.1) % Lymph % (Auto) (19.3-51.7) % [place] % (Auto) (4.7-12.5) % Eos % (Auto) (0.7-5.8) Baso % (Auto) (0.1-1.2) % Neut # (Auto) (1.56-6.13) K/mm3 Lymph # (Auto) (1.18-3.74) K/mm3 [place] # (Auto) (0.24-0.36) K/mm3 Eos # (Auto) (0.04-0.36) K/mm3 Baso # (Auto) (0.01-0.08) K/mm3 Manual Slide Review PT (9.7-12.0) SECONDS INR APTT (21.7-31.4) SECONDS Sodium (136-145) mEq/L Potassium (3.5-5.1) mEq/L Chloride (98-107) mEq/L Carbon Dioxide (21-32) mEq/L Anion Gap (5-15) BUN (7-18) mg/dL Creatinine (0.55-1.02) mg/dL Est Cr Clr Drug Dosing mL/min Estimated GFR (MDRD) (>60) mL/min BUN/Creatinine Ratio (14-18) Glucose (70-99) mg/dL Lactic Acid 3.2 H* (0.4-2.0) mmol/L Calcium (8.5-10.1) mg/dL Magnesium (1.8-2.4) mg/dL Total Bilirubin (0.2-1.0) mg/dL GGT (5-55) U/L AST (15-37) U/L ALT (14-59) U/L Alkaline Phosphatase (46-116) U/L Ammonia (11-32) umol/L C-Reactive Protein (<1.0) mg/dL NT-Pro-B Natriuret Pep (0-125) pg/mL Total Protein (6.4-8.2) g/dl Albumin (3.4-5.0) g/dl Globulin gm/dL Albumin/Globulin Ratio (1-2) Lipase (73-393) U/L HCG, Qual (NEGATIVE) Urine Color (Yellow) Urine Appearance (Clear) Urine pH (5.0-8.0) Ur Specific [place] (1.005-1.030) Urine Protein (Negative) Urine Glucose (UA) (Negative) Urine Ketones (Negative) Urine Occult Blood (Negative) Urine Nitrite (Negative) Urine Bilirubin (Negative) Urine Urobilinogen (0.2-1.0) Ur Leukocyte Esterase (Negative) Urine RBC (0-5) /hpf Urine WBC (0-5) /hpf Ur Squamous Epith Cells (0-5) /hpf Urine Bacteria (FEW) /hpf Urine Mucus (FEW) /hpf Urine Opiates Screen (ZRTWBA=435) Ur Buprenorphine Scrn (CUTOFF=10) Ur Oxycodone Screen (HYG2VA=202) Urine Methadone Screen (SCUKJW=041) Ur Propoxyphene Screen (PVXUAH=065) Ur Barbiturates Screen (HYMQZL=177) Ur Tricyclics Screen (UNPRXB=976) Ur Phencyclidine Scrn (CUTOFF=25) Ur Amphetamine Screen (JXDCNT=192) U Methamphetamines Scrn (QLTQLX=916) U Benzodiazepines Scrn (DKSPVZ=000) U Cocaine Metab Screen (CQLBJB=166) U Marijuana (THC) Screen (CUTOFF=50) Ethyl Alcohol (0.00) gm% Ketones (0.0-0.3) mM SARS-CoV-2 RNA (HUSSEIN) (NEGATIVE) Result Diagrams: 01/01/21 04:05 01/01/21 04:05 Sepsis Event Note - Evaluation Sepsis Screening Result: No Definite Risk - Focused Exam Vital Signs: Vital Signs Temp Pulse Resp BP Pulse Ox Pulse Ox 12/31/20 12:00 36.2 C 107 H 19 106/74 90 L 12/31/20 10:15 36.1 C 116 H 20 124/74 90 L 90 L 12/31/20 06:34 99 16 94/74 94 L 12/31/20 05:30 87 16 106/66 93 L 12/31/20 04:30 88 16 100/70 94 L 12/31/20 03:26 91 16 103/71 93 L 12/31/20 03:00 88 16 108/71 93 L 12/31/20 02:15 92 16 109/76 92 L 12/31/20 02:00 98 16 101/63 92 L 12/31/20 01:45 107 H 16 108/68 91 L 12/31/20 01:00 92 16 115/76 93 L *Q Meaningful Use (ADM) - VTE Risk Assess *Q Each Risk Factor Represents 1 Point: Obesity ( BMI > 25 kg/m2), Sepsis Total Score 1 Point Risk Factors: 2 Consult PN Assessment/Plan Procedures: Procedures ASSAY OF MAGNESIUM (07/14/14) ASSAY OF PHOSPHORUS (07/14/14) ASSAY OF SERUM POTASSIUM (07/14/14) ASSAY THYROID STIM HORMONE (04/17/16) C-REACTIVE PROTEIN (01/01/14) CHEST X-RAY 2VW FRONTAL&LATL (04/27/15) CHORIONIC GONADOTROPIN ASSAY (03/19/15) COMPLETE CBC W/AUTO DIFF WBC (04/17/16) COMPREHEN METABOLIC PANEL (04/17/16) ELECTROCARDIOGRAM TRACING (04/27/15) EMERGENCY DEPT VISIT (04/27/16) EMERGENCY DEPT VISIT (12/14/15) EMERGENCY DEPT VISIT (09/10/15) EMERGENCY DEPT VISIT (04/27/15) EMERGENCY DEPT VISIT (02/19/15) EMERGENCY DEPT VISIT (11/29/14) EMERGENCY DEPT VISIT (10/28/14) EMERGENCY DEPT VISIT (10/13/14) EMERGENCY DEPT VISIT (08/07/14) EMERGENCY DEPT VISIT (08/04/14) EMERGENCY DEPT VISIT (07/14/14) EMERGENCY DEPT VISIT (07/05/14) EMERGENCY DEPT VISIT (05/18/14) EXTREMITY STUDY (10/28/14) HYDRATE IV INFUSION ADD-ON (07/14/14) HYDRATION IV INFUSION INIT (07/14/14) METABOLIC PANEL TOTAL CA (11/29/14) MRI LUMBAR SPINE W/O DYE (02/17/14) NJX AA&/STRD TRIGEMINAL NRV (05/18/14) PROTHROMBIN TIME (10/28/14) ROUTINE VENIPUNCTURE (04/17/16) THER/PROPH/DIAG INJ IV PUSH (11/29/14) THER/PROPH/DIAG INJ SC/IM (04/27/16) URINALYSIS AUTO W/SCOPE (11/29/14) URINE TEST (11/29/14) US EXAM PELVIC COMPLETE (03/19/15) X-RAY EXAM OF ANKLE (10/20/14) X-RAY EXAM OF FOOT (10/20/14) (1) Colitis SNOMED Code(s): 07376466 Code(s): K52.9 - NONINFECTIVE GASTROENTERITIS AND COLITIS, UNSPECIFIED Current Visit: Yes (2) Abdominal pain SNOMED Code(s): 34308255 Code(s): R10.9 - UNSPECIFIED ABDOMINAL PAIN Priority: High Current Visit: Yes Qualifiers: Abdominal location: right upper quadrant Qualified Code(s): R10.11 - Right upper quadrant pain (3) Acute febrile illness SNOMED Code(s): 718788509 Code(s): R50.9 - FEVER, UNSPECIFIED Current Visit: Yes (4) Alcoholic ketosis SNOMED Code(s): 85872328 Code(s): E87.2 - ACIDOSIS Current Visit: Yes (5) Anemia SNOMED Code(s): 560849818 Code(s): D64.9 - ANEMIA, UNSPECIFIED Current Visit: Yes Qualifiers: Anemia type: folate deficiency Folate deficiency anemia type: other folate deficiency Qualified Code(s): D52.8 - Other folate deficiency anemias (6) Ascites SNOMED Code(s): 996790518 Code(s): R18.8 - OTHER ASCITES Priority: High Current Visit: Yes Qualifiers: Ascites type: due to alcoholic cirrhosis Qualified Code(s): K70.31 - Alcoholic cirrhosis of liver with ascites (7) Chronic alcoholism SNOMED Code(s): 5444782 Code(s): F10.20 - ALCOHOL DEPENDENCE, UNCOMPLICATED Priority: High Current Visit: Yes Problem List Initiated/Reviewed/Updated: Yes My Orders Last 24 Hours: My Active Orders 12/31/20 Lunch NPO [Nothing Per Oral Diet] [DIET] 12/31/20 12:00 metroNIDAZOLE/Normal Saline [Flagyl in NS 500 MG/100 ML] 500 mg Premix Bag 1 bag IV Q8H Plan: 35 y/o lady with multiple medical comorbidities, now with colitis on CT abdomen/pelvis - no acute surgical intervention. Recommend EGD and colonoscopy in 4-6wks - IV protonix for gastritis, possible marginal ulcer - IV ceftriaxone and metronidazole for colitis. Recommend continued medical treatment for colitis - medical management per primary - [place] assessments for ETOH withdrawal. No surgical intervention at this time. Please call with any surgical change in the patient's condition. Kaylin Casiano MD General surgery
[2020-12-31] MEDS ORDERED: Magnesium Sulfate/Water 4 GM in Premix Bag 1 BAG IV ONE (13:30)
[2020-12-31] MEDS: chlordiazePOXIDE 25 MG Cap PO SCH ×2 (14:45→20:05)
[2020-12-31] MEDS: Ondansetron 4 MG/2 ML SDV IV PRN (19:55)
[2020-12-31] MEDS: Thiamine 100 MG Tab PO SCH (20:04)
[2020-12-31] MEDS: Pantoprazole 40 MG Vial IVPUSH SCH (20:05)
[2020-12-31] MEDS: traZODone 50 MG Tab PO PRN (22:34)
[2021-01-01] MEDS: HYDROmorphone 0.5 MG/0.5 ML Syringe IVPUSH PRN ×4 (00:35→10:13)
[2021-01-01] MEDS: Sodium Chloride 0.9% 1,000 ML IV SCH (01:18)
[2021-01-01] MEDS: metroNIDAZOLE/Normal Saline 500 MG in Premix Bag 1 BAG IV SCH ×4 (04:10→19:54)
--- NOTE | 2021-01-01 06:59 | PCM.PN ---
- General Info Date of Service: 01/01/21 Admission Dx/Problem (Free Text): Admission Diagnosis/Problem Admission Diagnosis/Problem generalized abdominal pain, alcohol use Subjective Update: The patient is a 35-year-old lady who had presented to the emergency department complaining of diffuse abdominal discomfort that had radiated to her right upper quadrant and into her back. The patient is a heavy drinker of hard liquor and apparently drinks 1 L/day. The patient had been placed in the intensive care unit for close monitoring due to her possible withdrawal symptoms. The patient today says that she is feeling somewhat better she is still having abdominal pa in. She is breathing better. She has been on clear liquid diets and has been tolerating this. Her CIWA score was 0. Functional Status: Reports: Pain Controlled, Tolerating Diet (On clear liquids) - Review of Systems General: Reports: Weakness HEENT: Reports: No Symptoms Pulmonary: Reports: No Symptoms Cardiovascular: Reports: No Symptoms Gastrointestinal: Reports: Abdominal Pain, Nausea. Denies: Vomiting Genitourinary: Reports: No Symptoms Musculoskeletal: Reports: Back Pain Skin: Reports: No Symptoms Neurological: Reports: No Symptoms Psychiatric: Reports: No Symptoms - Patient Data Vitals - Most Recent: Last Vital Signs Temp 36.8 C 01/01/21 04:00 Pulse 103 H 12/31/20 16:00 Resp 18 01/01/21 04:00 BP 100/63 01/01/21 04:00 Pulse Ox 94 L 01/01/21 04:00 Weight - Most Recent: 77.7 kg I&O - Last 24 Hours: Intake & Output 12/31/20 12/31/20 01/01/21 14:59 22:59 06:59 Intake Total 1516 2585 Output Total 500 200 Balance 1016 0525 Lab Results Last 24 Hours: Laboratory Results - last 24 hr 12/31/20 12/31/20 12/31/20 Range/Units 06:05 06:05 09:12 WBC 13.88 H (3.98-10.04) K/mm3 RBC 2.33 L (3.98-5.22) M/mm3 Hgb 9.2 L (11.2-15.7) gm/dl Hct 27.4 L (34.1-44.9) % MCV 117.6 H (79.4-94.8) fl MCH 39.5 H (25.6-32.2) pg MCHC 33.6 (32.2-35.5) g/dl RDW Std Deviation 61.9 H (36.4-46.3) fL Plt Count 264 (182-369) K/mm3 MPV 8.7 L (9.4-12.3) fl Neut % (Auto) 76.9 H (34.0-71.1) % Lymph % (Auto) 13.3 L (19.3-51.7) % [place] % (Auto) 9.1 (4.7-12.5) % Eos % (Auto) 0.2 L (0.7-5.8) Baso % (Auto) 0.2 (0.1-1.2) % Neut # (Auto) 10.66 H (1.56-6.13) K/mm3 Lymph # (Auto) 1.85 (1.18-3.74) K/mm3 [place] # (Auto) 1.27 H (0.24-0.36) K/mm3 Eos # (Auto) 0.03 L (0.04-0.36) K/mm3 Baso # (Auto) 0.03 (0.01-0.08) K/mm3 Manual Slide Review Abnormal smear Abnormal smear Sodium (136-145) mEq/L Potassium (3.5-5.1) mEq/L Chloride (98-107) mEq/L Carbon Dioxide (21-32) mEq/L Anion Gap (5-15) BUN (7-18) mg/dL Creatinine (0.55-1.02) mg/dL Est Cr Clr Drug Dosing mL/min Estimated GFR (MDRD) (>60) mL/min BUN/Creatinine Ratio (14-18) Glucose (70-99) mg/dL Lactic Acid (0.4-2.0) mmol/L Calcium (8.5-10.1) mg/dL Phosphorus (2.6-4.7) mg/dL Magnesium (1.8-2.4) mg/dL Total Bilirubin (0.2-1.0) mg/dL GGT 1644 H (5-55) U/L AST (15-37) U/L ALT (14-59) U/L Alkaline Phosphatase (46-116) U/L C-Reactive Protein (<1.0) mg/dL Total Protein (6.4-8.2) g/dl Albumin (3.4-5.0) g/dl Globulin gm/dL Albumin/Globulin Ratio (1-2) 12/31/20 12/31/20 12/31/20 Range/Units 09:12 09:12 12:11 WBC (3.98-10.04) K/mm3 RBC (3.98-5.22) M/mm3 Hgb (11.2-15.7) gm/dl Hct (34.1-44.9) % MCV (79.4-94.8) fl MCH (25.6-32.2) pg MCHC (32.2-35.5) g/dl RDW Std Deviation (36.4-46.3) fL Plt Count (182-369) K/mm3 MPV (9.4-12.3) fl Neut % (Auto) (34.0-71.1) % Lymph % (Auto) (19.3-51.7) % [place] % (Auto) (4.7-12.5) % Eos % (Auto) (0.7-5.8) Baso % (Auto) (0.1-1.2) % Neut # (Auto) (1.56-6.13) K/mm3 Lymph # (Auto) (1.18-3.74) K/mm3 [place] # (Auto) (0.24-0.36) K/mm3 Eos # (Auto) (0.04-0.36) K/mm3 Baso # (Auto) (0.01-0.08) K/mm3 Manual Slide Review Sodium 130 L 131 L (136-145) mEq/L Potassium 3.0 L 3.6 (3.5-5.1) mEq/L Chloride 93 L 94 L (98-107) mEq/L Carbon Dioxide 27 26 (21-32) mEq/L Anion Gap 13.0 14.6 (5-15) BUN 4 L 3 L (7-18) mg/dL Creatinine 0.8 0.7 (0.55-1.02) mg/dL Est Cr Clr Drug Dosing 98.07 112.08 mL/min Estimated GFR (MDRD) > 60 > 60 (>60) mL/min BUN/Creatinine Ratio 5.0 L 4.3 L (14-18) Glucose 125 H 159 H (70-99) mg/dL Lactic Acid 3.2 H* (0.4-2.0) mmol/L Calcium 8.3 L 7.8 L (8.5-10.1) mg/dL Phosphorus 2.4 L (2.6-4.7) mg/dL Magnesium 1.6 L (1.8-2.4) mg/dL Total Bilirubin 4.0 H (0.2-1.0) mg/dL GGT (5-55) U/L AST 240 H (15-37) U/L ALT 68 H (14-59) U/L Alkaline Phosphatase 368 H (46-116) U/L C-Reactive Protein (<1.0) mg/dL Total Protein 7.2 (6.4-8.2) g/dl Albumin 2.4 L (3.4-5.0) g/dl Globulin 4.8 gm/dL Albumin/Globulin Ratio 0.5 L (1-2) 12/31/20 12/31/20 12/31/20 Range/Units 12:11 15:58 15:58 WBC (3.98-10.04) K/mm3 RBC (3.98-5.22) M/mm3 Hgb (11.2-15.7) gm/dl Hct (34.1-44.9) % MCV (79.4-94.8) fl MCH (25.6-32.2) pg MCHC (32.2-35.5) g/dl RDW Std Deviation (36.4-46.3) fL Plt Count (182-369) K/mm3 MPV (9.4-12.3) fl Neut % (Auto) (34.0-71.1) % Lymph % (Auto) (19.3-51.7) % [place] % (Auto) (4.7-12.5) % Eos % (Auto) (0.7-5.8) Baso % (Auto) (0.1-1.2) % Neut # (Auto) (1.56-6.13) K/mm3 Lymph # (Auto) (1.18-3.74) K/mm3 [place] # (Auto) (0.24-0.36) K/mm3 Eos # (Auto) (0.04-0.36) K/mm3 Baso # (Auto) (0.01-0.08) K/mm3 Manual Slide Review Sodium 132 L (136-145) mEq/L Potassium 3.6 (3.5-5.1) mEq/L Chloride 98 (98-107) mEq/L Carbon Dioxide 26 (21-32) mEq/L Anion Gap 11.6 (5-15) BUN 3 L (7-18) mg/dL Creatinine 0.8 (0.55-1.02) mg/dL Est Cr Clr Drug Dosing 98.07 mL/min Estimated GFR (MDRD) > 60 (>60) mL/min BUN/Creatinine Ratio 3.8 L (14-18) Glucose 161 H (70-99) mg/dL Lactic Acid 2.3 H* 2.4 H* (0.4-2.0) mmol/L Calcium 7.6 L (8.5-10.1) mg/dL Phosphorus 2.3 L (2.6-4.7) mg/dL Magnesium 2.9 H (1.8-2.4) mg/dL Total Bilirubin (0.2-1.0) mg/dL GGT (5-55) U/L AST (15-37) U/L ALT (14-59) U/L Alkaline Phosphatase (46-116) U/L C-Reactive Protein (<1.0) mg/dL Total Protein (6.4-8.2) g/dl Albumin (3.4-5.0) g/dl Globulin gm/dL Albumin/Globulin Ratio (1-2) 12/31/20 12/31/20 01/01/21 Range/Units 20:10 20:10 00:15 WBC (3.98-10.04) K/mm3 RBC (3.98-5.22) M/mm3 Hgb (11.2-15.7) gm/dl Hct (34.1-44.9) % MCV (79.4-94.8) fl MCH (25.6-32.2) pg MCHC (32.2-35.5) g/dl RDW Std Deviation (36.4-46.3) fL Plt Count (182-369) K/mm3 MPV (9.4-12.3) fl Neut % (Auto) (34.0-71.1) % Lymph % (Auto) (19.3-51.7) % [place] % (Auto) (4.7-12.5) % Eos % (Auto) (0.7-5.8) Baso % (Auto) (0.1-1.2) % Neut # (Auto) (1.56-6.13) K/mm3 Lymph # (Auto) (1.18-3.74) K/mm3 [place] # (Auto) (0.24-0.36) K/mm3 Eos # (Auto) (0.04-0.36) K/mm3 Baso # (Auto) (0.01-0.08) K/mm3 Manual Slide Review Sodium 132 L 133 L (136-145) mEq/L Potassium 3.5 3.4 L (3.5-5.1) mEq/L Chloride 99 99 (98-107) mEq/L Carbon Dioxide 25 27 (21-32) mEq/L Anion Gap 11.5 10.4 (5-15) BUN 3 L 3 L (7-18) mg/dL Creatinine 0.7 0.8 (0.55-1.02) mg/dL Est Cr Clr Drug Dosing 112.08 98.07 mL/min Estimated GFR (MDRD) > 60 > 60 (>60) mL/min BUN/Creatinine Ratio 4.3 L 3.8 L (14-18) Glucose 141 H 113 H (70-99) mg/dL Lactic Acid 2.6 H* (0.4-2.0) mmol/L Calcium 7.5 L 7.5 L (8.5-10.1) mg/dL Phosphorus 1.8 L 1.9 L (2.6-4.7) mg/dL Magnesium 2.8 H (1.8-2.4) mg/dL Total Bilirubin (0.2-1.0) mg/dL GGT (5-55) U/L AST (15-37) U/L ALT (14-59) U/L Alkaline Phosphatase (46-116) U/L C-Reactive Protein (<1.0) mg/dL Total Protein (6.4-8.2) g/dl Albumin (3.4-5.0) g/dl Globulin gm/dL Albumin/Globulin Ratio (1-2) 01/01/21 01/01/21 01/01/21 Range/Units 00:15 04:05 04:05 WBC 11.31 H (3.98-10.04) K/mm3 RBC 1.90 L (3.98-5.22) M/mm3 Hgb 7.5 L D (11.2-15.7) gm/dl Hct 23.2 L (34.1-44.9) % MCV 122.1 H D (79.4-94.8) fl MCH 39.5 H (25.6-32.2) pg MCHC 32.3 (32.2-35.5) g/dl RDW Std Deviation 68.1 H (36.4-46.3) fL Plt Count 199 (182-369) K/mm3 MPV 8.5 L (9.4-12.3) fl Neut % (Auto) (34.0-71.1) % Lymph % (Auto) (19.3-51.7) % [place] % (Auto) (4.7-12.5) % Eos % (Auto) (0.7-5.8) Baso % (Auto) (0.1-1.2) % Neut # (Auto) (1.56-6.13) K/mm3 Lymph # (Auto) (1.18-3.74) K/mm3 [place] # (Auto) (0.24-0.36) K/mm3 Eos # (Auto) (0.04-0.36) K/mm3 Baso # (Auto) (0.01-0.08) K/mm3 Manual Slide Review Sodium 134 L (136-145) mEq/L Potassium 3.5 (3.5-5.1) mEq/L Chloride 100 (98-107) mEq/L Carbon Dioxide 27 (21-32) mEq/L Anion Gap 10.5 (5-15) BUN 2 L (7-18) mg/dL Creatinine 0.6 (0.55-1.02) mg/dL Est Cr Clr Drug Dosing 130.76 mL/min Estimated GFR (MDRD) > 60 (>60) mL/min BUN/Creatinine Ratio 3.3 L (14-18) Glucose 112 H (70-99) mg/dL Lactic Acid 2.1 H* (0.4-2.0) mmol/L Calcium 7.4 L (8.5-10.1) mg/dL Phosphorus (2.6-4.7) mg/dL Magnesium (1.8-2.4) mg/dL Total Bilirubin 3.5 H (0.2-1.0) mg/dL GGT (5-55) U/L AST 158 H (15-37) U/L ALT 43 (14-59) U/L Alkaline Phosphatase 244 H (46-116) U/L C-Reactive Protein 12.6 H* (<1.0) mg/dL Total Protein 5.7 L (6.4-8.2) g/dl Albumin 1.8 L (3.4-5.0) g/dl Globulin 3.9 gm/dL Albumin/Globulin Ratio 0.5 L (1-2) 01/01/21 01/01/21 Range/Units 04:05 04:05 WBC (3.98-10.04) K/mm3 RBC (3.98-5.22) M/mm3 Hgb (11.2-15.7) gm/dl Hct (34.1-44.9) % MCV (79.4-94.8) fl MCH (25.6-32.2) pg MCHC (32.2-35.5) g/dl RDW Std Deviation (36.4-46.3) fL Plt Count (182-369) K/mm3 MPV (9.4-12.3) fl Neut % (Auto) (34.0-71.1) % Lymph % (Auto) (19.3-51.7) % [place] % (Auto) (4.7-12.5) % Eos % (Auto) (0.7-5.8) Baso % (Auto) (0.1-1.2) % Neut # (Auto) (1.56-6.13) K/mm3 Lymph # (Auto) (1.18-3.74) K/mm3 [place] # (Auto) (0.24-0.36) K/mm3 Eos # (Auto) (0.04-0.36) K/mm3 Baso # (Auto) (0.01-0.08) K/mm3 Manual Slide Review Sodium (136-145) mEq/L Potassium (3.5-5.1) mEq/L Chloride (98-107) mEq/L Carbon Dioxide (21-32) mEq/L Anion Gap (5-15) BUN (7-18) mg/dL Creatinine (0.55-1.02) mg/dL Est Cr Clr Drug Dosing mL/min Estimated GFR (MDRD) (>60) mL/min BUN/Creatinine Ratio (14-18) Glucose (70-99) mg/dL Lactic Acid 1.5 (0.4-2.0) mmol/L Calcium (8.5-10.1) mg/dL Phosphorus 1.7 L (2.6-4.7) mg/dL Magnesium (1.8-2.4) mg/dL Total Bilirubin (0.2-1.0) mg/dL GGT (5-55) U/L AST (15-37) U/L ALT (14-59) U/L Alkaline Phosphatase (46-116) U/L C-Reactive Protein (<1.0) mg/dL Total Protein (6.4-8.2) g/dl Albumin (3.4-5.0) g/dl Globulin gm/dL Albumin/Globulin Ratio (1-2) Med Orders - Current: Current Medications Acetaminophen (Acetaminophen 325 Mg Tab) 650 mg PO Q4H PRN PRN Reason: Pain (Mild 1-3)/fever Chlordiazepoxide HCl (Chlordiazepoxide 25 Mg Cap) 25 mg PO TID [facility] Last Admin: 12/31/20 20:05 Dose: 25 mg Documented by: Enoxaparin Sodium (Enoxaparin 40 Mg/0.4 Ml Syringe) 40 mg SUBCUT DAILY [facility] Folic Acid (Folic Acid 1 Mg Tab) 1 mg PO DAILY [facility] Last Admin: 12/31/20 09:46 Dose: 1 mg Documented by: Hydromorphone HCl (Hydromorphone 0.5 Mg/0.5 Ml Syringe) 0.5 mg IVPUSH Q2H PRN PRN Reason: Pain (severe 7-10) Last Admin: 01/01/21 04:06 Dose: 0.5 mg Documented by: Ceftriaxone Sodium 2 gm/ (Sodium Chloride) 100 mls @ 200 mls/hr IV Q24H [facility] Last Admin: 12/31/20 09:47 Dose: 200 mls/hr Documented by: Sodium Chloride (Normal Saline) 1,000 mls @ 125 mls/hr IV ASDIRECTED [facility] Last Admin: 01/01/21 01:18 Dose: 125 mls/hr Documented by: Metronidazole 500 mg/ Premix 100 mls @ 100 mls/hr IV Q8H [facility] Last Admin: 01/01/21 04:10 Dose: 100 mls/hr Documented by: Ketorolac Tromethamine (Ketorolac 30 Mg/Ml Sdv) 30 mg IV Q6H PRN PRN Reason: Pain (moderate 4-6) Lorazepam (Lorazepam 2 Mg/Ml Sdv) 1 mg IV Q2H PRN PRN Reason: Other Ondansetron HCl (Ondansetron 4 Mg Tab.Dis) 4 mg PO Q6H PRN PRN Reason: nausea, able to take PO Last Admin: 12/31/20 09:55 Dose: 4 mg Documented by: Ondansetron HCl (Ondansetron 4 Mg/2 Ml Sdv) 4 mg IV Q6H PRN PRN Reason: Nausea/Vomiting Last Admin: 12/31/20 19:55 Dose: 4 mg Documented by: Pantoprazole Sodium (Pantoprazole 40 Mg Vial) 40 mg IVPUSH BID [facility] Last Admin: 12/31/20 20:05 Dose: 40 mg Documented by: Thiamine HCl (Thiamine 100 Mg Tab) 100 mg PO BEDTIME [facility] Last Admin: 12/31/20 20:04 Dose: 100 mg Documented by: Trazodone HCl (Trazodone 50 Mg Tab) 50 mg PO BEDTIME PRN PRN Reason: Sleep Last Admin: 12/31/20 22:34 Dose: 50 mg Documented by: Discontinued Medications Acetaminophen (Acetaminophen 325 Mg Tab) 975 mg PO ONETIME ONE Stop: 12/31/20 01:26 Last Admin: 12/31/20 01:40 Dose: 975 mg Documented by: Acetaminophen (Acetaminophen 325 Mg Tab) 975 mg PO ONETIME ONE Stop: 12/31/20 06:34 Last Admin: 12/31/20 06:47 Dose: 975 mg Documented by: Al Hydroxide/Mg Hydroxide (Aluminum Hydroxide/Magnesium Hydroxide/Simethicone Susp 30 Ml Cup) 30 ml PO ONETIME ONE Stop: 12/30/20 23:01 Last Admin: 12/30/20 23:16 Dose: 30 ml Documented by: Enoxaparin Sodium (Enoxaparin 30 Mg/0.3 Ml Syringe) 30 mg SUBCUT DAILY [facility] Last Admin: 12/31/20 09:46 Dose: 30 mg Documented by: Hydromorphone HCl (Hydromorphone 0.5 Mg/0.5 Ml Syringe) 0.5 mg IVPUSH ONETIME ONE Stop: 12/30/20 22:43 Last Admin: 12/30/20 23:15 Dose: 0.5 mg Documented by: Hydromorphone HCl (Hydromorphone 0.5 Mg/0.5 Ml Syringe) 0.5 mg IVPUSH ONETIME ONE Stop: 12/31/20 01:26 Last Admin: 12/31/20 01:39 Dose: 0.5 mg Documented by: Hydromorphone HCl (Hydromorphone 0.5 Mg/0.5 Ml Syringe) 0.5 mg IVPUSH ONETIME ONE Stop: 12/31/20 06:34 Last Admin: 12/31/20 06:46 Dose: 0.5 mg Documented by: Dextrose/Sodium Chloride (Dextrose 5%-Normal Saline) 1,000 mls @ 500 mls/hr IV ASDIRECTED [facility] Last Admin: 12/30/20 23:14 Dose: 500 mls/hr Documented by: Potassium Chloride 10 meq/ (Premix) 100 mls @ 100 mls/hr IV Q1H [facility] Stop: 12/31/20 03:14 Last Admin: 12/31/20 02:54 Dose: 100 mls/hr Documented by: Cefepime HCl 2 gm/ Premix 50 mls @ 100 mls/hr IV ONETIME ONE Stop: 12/31/20 01:27 Last Admin: 12/31/20 01:15 Dose: 100 mls/hr Documented by: Sodium Chloride (Normal Saline) 1,000 mls @ 500 mls/hr IV ASDIRECTED [facility] Last Admin: 12/31/20 01:38 Dose: 500 mls/hr Documented by: Metronidazole 500 mg/ Premix 100 mls @ 100 mls/hr IV ONETIME ONE Stop: 12/31/20 03:09 Last Admin: 12/31/20 02:53 Dose: 100 mls/hr Documented by: Sodium Chloride (Normal Saline) 1,000 mls @ 999 mls/hr IV ONETIME ONE Stop: 12/31/20 03:40 Last Admin: 12/31/20 03:24 Dose: Not Given Documented by: Dextrose/Lactated Ringer's (Dextrose 5%-Lactated Ringers) 1,000 mls @ 500 mls/hr IV ASDIRECTED [facility] Last Admin: 12/31/20 03:24 Dose: 500 mls/hr Documented by: Lactated Ringer's (Ringers, Lactated) 1,000 mls @ 999 mls/hr IV ASDIRECTED [facility] Last Admin: 12/31/20 06:31 Dose: 999 mls/hr Documented by: Dextrose/Sodium Chloride (Dextrose 5%-Normal Saline) 1,000 mls @ 150 mls/hr IV ASDIRECTED [facility] Potassium Chloride 10 meq/ (Premix) 100 mls @ 100 mls/hr IV Q1H [facility] Stop: 12/31/20 16:59 Magnesium Sulfate 4 gm/ Premix 50 mls @ 12.5 mls/hr IV ONETIME ONE Stop: 12/31/20 17:29 Last Admin: 12/31/20 13:04 Dose: 12.5 mls/hr Documented by: Lorazepam (Lorazepam 2 Mg/Ml Sdv) 1 mg IVPUSH ONETIME ONE Stop: 12/31/20 02:42 Last Admin: 12/31/20 02:52 Dose: 1 mg Documented by: Metoclopramide HCl (Metoclopramide 10 Mg/2 Ml Sdv) 7.5 mg IVPUSH ONETIME ONE Stop: 12/30/20 22:43 Last Admin: 12/30/20 23:14 Dose: 7.5 mg Documented by: Metoclopramide HCl (Metoclopramide 10 Mg/2 Ml Sdv) 7.5 mg IVPUSH ONETIME ONE Stop: 12/31/20 06:35 Last Admin: 12/31/20 06:46 Dose: 7.5 mg Documented by: - Exam Quality Assessment: DVT Prophylaxis. No: Supplemental Oxygen General: Alert, Oriented, Cooperative, No Acute Distress HEENT: Pupils Equal, Pupils Reactive, EOMI, Mucous Membr. Moist/[place] Neck: Supple, Trachea Midline Lungs: Clear to Auscultation, Normal Respiratory Effort Cardiovascular: Regular Rate, Regular Rhythm GI/Abdominal Exam: Normal Bowel Sounds, Soft, Distended, Tender (Periumbilical right upper quadrant). No: Guarding, Rigid, Rebound (Female) Exam: Deferred Back Exam: Normal Inspection, Full Range of Motion Extremities: Normal Inspection, Normal Range of Motion, No Pedal Edema Skin: Warm, Dry, Intact Neurological: No New Focal Deficit Psy/Mental Status: Alert, Normal Affect, Normal Mood - Patient Data Lab Results Last 24 hrs: Laboratory Results - last 24 hr 12/31/20 12/31/20 12/31/20 Range/Units 06:05 06:05 09:12 WBC 13.88 H (3.98-10.04) K/mm3 RBC 2.33 L (3.98-5.22) M/mm3 Hgb 9.2 L (11.2-15.7) gm/dl Hct 27.4 L (34.1-44.9) % MCV 117.6 H (79.4-94.8) fl MCH 39.5 H (25.6-32.2) pg MCHC 33.6 (32.2-35.5) g/dl RDW Std Deviation 61.9 H (36.4-46.3) fL Plt Count 264 (182-369) K/mm3 MPV 8.7 L (9.4-12.3) fl Neut % (Auto) 76.9 H (34.0-71.1) % Lymph % (Auto) 13.3 L (19.3-51.7) % [place] % (Auto) 9.1 (4.7-12.5) % Eos % (Auto) 0.2 L (0.7-5.8) Baso % (Auto) 0.2 (0.1-1.2) % Neut # (Auto) 10.66 H (1.56-6.13) K/mm3 Lymph # (Auto) 1.85 (1.18-3.74) K/mm3 [place] # (Auto) 1.27 H (0.24-0.36) K/mm3 Eos # (Auto) 0.03 L (0.04-0.36) K/mm3 Baso # (Auto) 0.03 (0.01-0.08) K/mm3 Manual Slide Review Abnormal smear Abnormal smear Sodium (136-145) mEq/L Potassium (3.5-5.1) mEq/L Chloride (98-107) mEq/L Carbon Dioxide (21-32) mEq/L Anion Gap (5-15) BUN (7-18) mg/dL Creatinine (0.55-1.02) mg/dL Est Cr Clr Drug Dosing mL/min Estimated GFR (MDRD) (>60) mL/min BUN/Creatinine Ratio (14-18) Glucose (70-99) mg/dL Lactic Acid (0.4-2.0) mmol/L Calcium (8.5-10.1) mg/dL Phosphorus (2.6-4.7) mg/dL Magnesium (1.8-2.4) mg/dL Total Bilirubin (0.2-1.0) mg/dL GGT 1644 H (5-55) U/L AST (15-37) U/L ALT (14-59) U/L Alkaline Phosphatase (46-116) U/L C-Reactive Protein (<1.0) mg/dL Total Protein (6.4-8.2) g/dl Albumin (3.4-5.0) g/dl Globulin gm/dL Albumin/Globulin Ratio (1-2) 12/31/20 12/31/20 12/31/20 Range/Units 09:12 09:12 12:11 WBC (3.98-10.04) K/mm3 RBC (3.98-5.22) M/mm3 Hgb (11.2-15.7) gm/dl Hct (34.1-44.9) % MCV (79.4-94.8) fl MCH (25.6-32.2) pg MCHC (32.2-35.5) g/dl RDW Std Deviation (36.4-46.3) fL Plt Count (182-369) K/mm3 MPV (9.4-12.3) fl Neut % (Auto) (34.0-71.1) % Lymph % (Auto) (19.3-51.7) % [place] % (Auto) (4.7-12.5) % Eos % (Auto) (0.7-5.8) Baso % (Auto) (0.1-1.2) % Neut # (Auto) (1.56-6.13) K/mm3 Lymph # (Auto) (1.18-3.74) K/mm3 [place] # (Auto) (0.24-0.36) K/mm3 Eos # (Auto) (0.04-0.36) K/mm3 Baso # (Auto) (0.01-0.08) K/mm3 Manual Slide Review Sodium 130 L 131 L (136-145) mEq/L Potassium 3.0 L 3.6 (3.5-5.1) mEq/L Chloride 93 L 94 L (98-107) mEq/L Carbon Dioxide 27 26 (21-32) mEq/L Anion Gap 13.0 14.6 (5-15) BUN 4 L 3 L (7-18) mg/dL Creatinine 0.8 0.7 (0.55-1.02) mg/dL Est Cr Clr Drug Dosing 98.07 112.08 mL/min Estimated GFR (MDRD) > 60 > 60 (>60) mL/min BUN/Creatinine Ratio 5.0 L 4.3 L (14-18) Glucose 125 H 159 H (70-99) mg/dL Lactic Acid 3.2 H* (0.4-2.0) mmol/L Calcium 8.3 L 7.8 L (8.5-10.1) mg/dL Phosphorus 2.4 L (2.6-4.7) mg/dL Magnesium 1.6 L (1.8-2.4) mg/dL Total Bilirubin 4.0 H (0.2-1.0) mg/dL GGT (5-55) U/L AST 240 H (15-37) U/L ALT 68 H (14-59) U/L Alkaline Phosphatase 368 H (46-116) U/L C-Reactive Protein (<1.0) mg/dL Total Protein 7.2 (6.4-8.2) g/dl Albumin 2.4 L (3.4-5.0) g/dl Globulin 4.8 gm/dL Albumin/Globulin Ratio 0.5 L (1-2) 12/31/20 12/31/20 12/31/20 Range/Units 12:11 15:58 15:58 WBC (3.98-10.04) K/mm3 RBC (3.98-5.22) M/mm3 Hgb (11.2-15.7) gm/dl Hct (34.1-44.9) % MCV (79.4-94.8) fl MCH (25.6-32.2) pg MCHC (32.2-35.5) g/dl RDW Std Deviation (36.4-46.3) fL Plt Count (182-369) K/mm3 MPV (9.4-12.3) fl Neut % (Auto) (34.0-71.1) % Lymph % (Auto) (19.3-51.7) % [place] % (Auto) (4.7-12.5) % Eos % (Auto) (0.7-5.8) Baso % (Auto) (0.1-1.2) % Neut # (Auto) (1.56-6.13) K/mm3 Lymph # (Auto) (1.18-3.74) K/mm3 [place] # (Auto) (0.24-0.36) K/mm3 Eos # (Auto) (0.04-0.36) K/mm3 Baso # (Auto) (0.01-0.08) K/mm3 Manual Slide Review Sodium 132 L (136-145) mEq/L Potassium 3.6 (3.5-5.1) mEq/L Chloride 98 (98-107) mEq/L Carbon Dioxide 26 (21-32) mEq/L Anion Gap 11.6 (5-15) BUN 3 L (7-18) mg/dL Creatinine 0.8 (0.55-1.02) mg/dL Est Cr Clr Drug Dosing 98.07 mL/min Estimated GFR (MDRD) > 60 (>60) mL/min BUN/Creatinine Ratio 3.8 L (14-18) Glucose 161 H (70-99) mg/dL Lactic Acid 2.3 H* 2.4 H* (0.4-2.0) mmol/L Calcium 7.6 L (8.5-10.1) mg/dL Phosphorus 2.3 L (2.6-4.7) mg/dL Magnesium 2.9 H (1.8-2.4) mg/dL Total Bilirubin (0.2-1.0) mg/dL GGT (5-55) U/L AST (15-37) U/L ALT (14-59) U/L Alkaline Phosphatase (46-116) U/L C-Reactive Protein (<1.0) mg/dL Total Protein (6.4-8.2) g/dl Albumin (3.4-5.0) g/dl Globulin gm/dL Albumin/Globulin Ratio (1-2) 12/31/20 12/31/20 01/01/21 Range/Units 20:10 20:10 00:15 WBC (3.98-10.04) K/mm3 RBC (3.98-5.22) M/mm3 Hgb (11.2-15.7) gm/dl Hct (34.1-44.9) % MCV (79.4-94.8) fl MCH (25.6-32.2) pg MCHC (32.2-35.5) g/dl RDW Std Deviation (36.4-46.3) fL Plt Count (182-369) K/mm3 MPV (9.4-12.3) fl Neut % (Auto) (34.0-71.1) % Lymph % (Auto) (19.3-51.7) % [place] % (Auto) (4.7-12.5) % Eos % (Auto) (0.7-5.8) Baso % (Auto) (0.1-1.2) % Neut # (Auto) (1.56-6.13) K/mm3 Lymph # (Auto) (1.18-3.74) K/mm3 [place] # (Auto) (0.24-0.36) K/mm3 Eos # (Auto) (0.04-0.36) K/mm3 Baso # (Auto) (0.01-0.08) K/mm3 Manual Slide Review Sodium 132 L 133 L (136-145) mEq/L Potassium 3.5 3.4 L (3.5-5.1) mEq/L Chloride 99 99 (98-107) mEq/L Carbon Dioxide 25 27 (21-32) mEq/L Anion Gap 11.5 10.4 (5-15) BUN 3 L 3 L (7-18) mg/dL Creatinine 0.7 0.8 (0.55-1.02) mg/dL Est Cr Clr Drug Dosing 112.08 98.07 mL/min Estimated GFR (MDRD) > 60 > 60 (>60) mL/min BUN/Creatinine Ratio 4.3 L 3.8 L (14-18) Glucose 141 H 113 H (70-99) mg/dL Lactic Acid 2.6 H* (0.4-2.0) mmol/L Calcium 7.5 L 7.5 L (8.5-10.1) mg/dL Phosphorus 1.8 L 1.9 L (2.6-4.7) mg/dL Magnesium 2.8 H (1.8-2.4) mg/dL Total Bilirubin (0.2-1.0) mg/dL GGT (5-55) U/L AST (15-37) U/L ALT (14-59) U/L Alkaline Phosphatase (46-116) U/L C-Reactive Protein (<1.0) mg/dL Total Protein (6.4-8.2) g/dl Albumin (3.4-5.0) g/dl Globulin gm/dL Albumin/Globulin Ratio (1-2) 01/01/21 01/01/21 01/01/21 Range/Units 00:15 04:05 04:05 WBC 11.31 H (3.98-10.04) K/mm3 RBC 1.90 L (3.98-5.22) M/mm3 Hgb 7.5 L D (11.2-15.7) gm/dl Hct 23.2 L (34.1-44.9) % MCV 122.1 H D (79.4-94.8) fl MCH 39.5 H (25.6-32.2) pg MCHC 32.3 (32.2-35.5) g/dl RDW Std Deviation 68.1 H (36.4-46.3) fL Plt Count 199 (182-369) K/mm3 MPV 8.5 L (9.4-12.3) fl Neut % (Auto) (34.0-71.1) % Lymph % (Auto) (19.3-51.7) % [place] % (Auto) (4.7-12.5) % Eos % (Auto) (0.7-5.8) Baso % (Auto) (0.1-1.2) % Neut # (Auto) (1.56-6.13) K/mm3 Lymph # (Auto) (1.18-3.74) K/mm3 [place] # (Auto) (0.24-0.36) K/mm3 Eos # (Auto) (0.04-0.36) K/mm3 Baso # (Auto) (0.01-0.08) K/mm3 Manual Slide Review Sodium 134 L (136-145) mEq/L Potassium 3.5 (3.5-5.1) mEq/L Chloride 100 (98-107) mEq/L Carbon Dioxide 27 (21-32) mEq/L Anion Gap 10.5 (5-15) BUN 2 L (7-18) mg/dL Creatinine 0.6 (0.55-1.02) mg/dL Est Cr Clr Drug Dosing 130.76 mL/min Estimated GFR (MDRD) > 60 (>60) mL/min BUN/Creatinine Ratio 3.3 L (14-18) Glucose 112 H (70-99) mg/dL Lactic Acid 2.1 H* (0.4-2.0) mmol/L Calcium 7.4 L (8.5-10.1) mg/dL Phosphorus (2.6-4.7) mg/dL Magnesium (1.8-2.4) mg/dL Total Bilirubin 3.5 H (0.2-1.0) mg/dL GGT (5-55) U/L AST 158 H (15-37) U/L ALT 43 (14-59) U/L Alkaline Phosphatase 244 H (46-116) U/L C-Reactive Protein 12.6 H* (<1.0) mg/dL Total Protein 5.7 L (6.4-8.2) g/dl Albumin 1.8 L (3.4-5.0) g/dl Globulin 3.9 gm/dL Albumin/Globulin Ratio 0.5 L (1-2) 01/01/21 01/01/21 Range/Units 04:05 04:05 WBC (3.98-10.04) K/mm3 RBC (3.98-5.22) M/mm3 Hgb (11.2-15.7) gm/dl Hct (34.1-44.9) % MCV (79.4-94.8) fl MCH (25.6-32.2) pg MCHC (32.2-35.5) g/dl RDW Std Deviation (36.4-46.3) fL Plt Count (182-369) K/mm3 MPV (9.4-12.3) fl Neut % (Auto) (34.0-71.1) % Lymph % (Auto) (19.3-51.7) % [place] % (Auto) (4.7-12.5) % Eos % (Auto) (0.7-5.8) Baso % (Auto) (0.1-1.2) % Neut # (Auto) (1.56-6.13) K/mm3 Lymph # (Auto) (1.18-3.74) K/mm3 [place] # (Auto) (0.24-0.36) K/mm3 Eos # (Auto) (0.04-0.36) K/mm3 Baso # (Auto) (0.01-0.08) K/mm3 Manual Slide Review Sodium (136-145) mEq/L Potassium (3.5-5.1) mEq/L Chloride (98-107) mEq/L Carbon Dioxide (21-32) mEq/L Anion Gap (5-15) BUN (7-18) mg/dL Creatinine (0.55-1.02) mg/dL Est Cr Clr Drug Dosing mL/min Estimated GFR (MDRD) (>60) mL/min BUN/Creatinine Ratio (14-18) Glucose (70-99) mg/dL Lactic Acid 1.5 (0.4-2.0) mmol/L Calcium (8.5-10.1) mg/dL Phosphorus 1.7 L (2.6-4.7) mg/dL Magnesium (1.8-2.4) mg/dL Total Bilirubin (0.2-1.0) mg/dL GGT (5-55) U/L AST (15-37) U/L ALT (14-59) U/L Alkaline Phosphatase (46-116) U/L C-Reactive Protein (<1.0) mg/dL Total Protein (6.4-8.2) g/dl Albumin (3.4-5.0) g/dl Globulin gm/dL Albumin/Globulin Ratio (1-2) Result Diagrams: 01/01/21 04:05 01/01/21 04:05 Sepsis Event Note - Evaluation Sepsis Screening Result: Severe Sepsis Risk - Focused Exam Vital Signs: Vital Signs Temp Resp BP Pulse Ox 01/01/21 04:00 36.8 C 18 100/63 94 L 01/01/21 00:00 36.4 C 16 103/72 95 12/31/20 20:00 36.6 C 16 107/71 100 - Problem List & Annotations (1) Abdominal pain SNOMED Code(s): 83880049 Code(s): R10.9 - UNSPECIFIED ABDOMINAL PAIN Status: Acute Priority: High Current Visit: Yes Qualifiers: Abdominal location: right upper quadrant Qualified Code(s): R10.11 - Right upper quadrant pain (2) Anemia SNOMED Code(s): 795372492 Code(s): D64.9 - ANEMIA, UNSPECIFIED Status: Chronic Current Visit: Yes Qualifiers: Anemia type: folate deficiency Folate deficiency anemia type: other folate deficiency Qualified Code(s): D52.8 - Other folate deficiency anemias (3) Ascites SNOMED Code(s): 124554910 Code(s): R18.8 - OTHER ASCITES Status: Chronic Priority: High Current Visit: Yes Qualifiers: Ascites type: due to alcoholic cirrhosis Qualified Code(s): K70.31 - Alcoholic cirrhosis of liver with ascites (4) Chronic alcoholism SNOMED Code(s): 3738757 Code(s): F10.20 - ALCOHOL DEPENDENCE, UNCOMPLICATED Status: Chronic Priority: High Current Visit: Yes (5) Transaminitis SNOMED Code(s): 270607835, 059469119 Code(s): R74.01 - ELEVATION OF LEVELS OF LIVER TRANSAMINASE LEVELS Status: Chronic Priority: High Current Visit: Yes (6) Hypertension SNOMED Code(s): 46520615 Code(s): I10 - ESSENTIAL (PRIMARY) HYPERTENSION Status: Chronic Priority: Medium Current Visit: Yes Qualifiers: Hypertension type: primary hypertension Qualified Code(s): I10 - Essential (primary) hypertension - Problem List Review Problem List Initiated/Reviewed/Updated: Yes - My Orders Last 24 Hours: My Active Orders 12/31/20 10:15 Sodium Chloride 0.9% [Normal Saline] 1,000 ml IV ASDIRECTED 12/31/20 Dinner Clear Liquid Diet [DIET] 12/31/20 22:14 traZODone 50 mg PO BEDTIME PRN 01/01/21 08:00 BASIC METABOLIC PANEL,BMP [CHEM] Q4H LACTIC ACID [CHEM] Q4H 01/01/21 12:00 BASIC METABOLIC PANEL,BMP [CHEM] Q4H LACTIC ACID [CHEM] Q4H 01/01/21 16:00 BASIC METABOLIC PANEL,BMP [CHEM] Q4H LACTIC ACID [CHEM] Q4H 01/01/21 20:00 BASIC METABOLIC PANEL,BMP [CHEM] Q4H LACTIC ACID [CHEM] Q4H 01/02/21 00:00 BASIC METABOLIC PANEL,BMP [CHEM] Q4H LACTIC ACID [CHEM] Q4H 01/02/21 04:00 BASIC METABOLIC PANEL,BMP [CHEM] Q4H LACTIC ACID [CHEM] Q4H 01/02/21 08:00 BASIC METABOLIC PANEL,BMP [CHEM] Q4H LACTIC ACID [CHEM] Q4H 01/02/21 12:00 BASIC METABOLIC PANEL,BMP [CHEM] Q4H LACTIC ACID [CHEM] Q4H 01/02/21 16:00 BASIC METABOLIC PANEL,BMP [CHEM] Q4H LACTIC ACID [CHEM] Q4H 01/02/21 20:00 BASIC METABOLIC PANEL,BMP [CHEM] Q4H LACTIC ACID [CHEM] Q4H 01/03/21 00:00 BASIC METABOLIC PANEL,BMP [CHEM] Q4H LACTIC ACID [CHEM] Q4H 01/03/21 04:00 BASIC METABOLIC PANEL,BMP [CHEM] Q4H LACTIC ACID [CHEM] Q4H 01/03/21 08:00 BASIC METABOLIC PANEL,BMP [CHEM] Q4H LACTIC ACID [CHEM] Q4H 01/03/21 12:00 BASIC METABOLIC PANEL,BMP [CHEM] Q4H LACTIC ACID [CHEM] Q4H 01/03/21 16:00 BASIC METABOLIC PANEL,BMP [CHEM] Q4H LACTIC ACID [CHEM] Q4H - Assessment Assessment:: The patient has been doing well while in the intensive care unit. She has been downgraded from intensive care. The patient has had a drop in her hemoglobin down to 7.5 g/dL. The patient will be transfused if her hemoglobin continues to drop below 7.0 g/dL. I have advised the patient of the risk, alternatives and benefits of blood and blood products. The patient reportedly had been previously hypertensive but she will be monitored and her medications will be adjusted her blood pressure has remained on the low side ranging around 103 to 107 mmHg. Repeat laboratory studies have been ordered for the morning. She is currently on ceftriaxone and cultures are currently pending. The patient also has been on Librium and she has been tolerating this well. She is currently an ticoagulated with the use of Lovenox. The patient also has been started on folic acid and thiamine. The patient has been encouraged to ambulate. - Plan Plan:: I have seen and examined the patient independently of Stephon Gerardo CNP, and I have discussed the case with her. I have reviewed the plan of care for this patient as outlined by her. Please see orders.
[2021-01-01] MEDS ORDERED: Phosphorus #1 250 MG Tab PO ONE (07:11)
[2021-01-01] MEDS: Ondansetron 4 MG/2 ML SDV IV PRN ×2 (07:55→13:54)
[2021-01-01] MEDS: Folic Acid 1 MG Tab PO SCH (08:01)
[2021-01-01] MEDS: chlordiazePOXIDE 25 MG Cap PO SCH ×3 (08:02→20:03)
[2021-01-01] MEDS: Enoxaparin 40 MG/0.4 ML Syringe SUBCUT SCH (08:02)
[2021-01-01] MEDS: Pantoprazole 40 MG Vial IVPUSH SCH (08:02)
[2021-01-01] MEDS: cefTRIAXone 2 GM in Sodium Chloride 0.9% 100 ML IV SCH (10:08)
[2021-01-01] MEDS: oxyCODONE 5 MG Tab PO PRN ×2 (18:41→23:13)
[2021-01-01] MEDS: Ondansetron 4 MG Tab.DIS PO PRN (18:41)
[2021-01-01] MEDS: Thiamine 100 MG Tab PO SCH (20:03)
[2021-01-01] MEDS: traZODone 50 MG Tab PO PRN (20:03)
[2021-01-02] MEDS: oxyCODONE 5 MG Tab PO PRN ×4 (03:42→18:37)
[2021-01-02] MEDS: metroNIDAZOLE/Normal Saline 500 MG in Premix Bag 1 BAG IV SCH ×3 (03:43→19:57)
[2021-01-02] MEDS: Ondansetron 4 MG Tab.DIS PO PRN (08:04)
[2021-01-02] MEDS: Lisinopril 20 MG Tab PO SCH (08:05)
[2021-01-02] MEDS: Hydrochlorothiazide 25 MG Tab PO SCH (08:05)
[2021-01-02] MEDS: Folic Acid 1 MG Tab PO SCH (08:05)
[2021-01-02] MEDS: chlordiazePOXIDE 25 MG Cap PO SCH ×3 (08:05→20:10)
[2021-01-02] MEDS: Pantoprazole 40 MG Tab.CR PO SCH (08:05)
[2021-01-02] MEDS: Enoxaparin 40 MG/0.4 ML Syringe SUBCUT SCH (08:06)
--- NOTE | 2021-01-02 08:20 | PCM.PN ---
- General Info Date of Service: 01/02/21 Admission Dx/Problem (Free Text): Admission Diagnosis/Problem Admission Diagnosis/Problem Leukocytosis Subjective Update: The patient is a 35-year-old lady who had been admitted to the intensive care unit on December 31, 2020 due to generalized abdominal discomfort with leukocytosis and possible alcohol withdrawal. Patient has been on clear liquid diet. She does not feel she can go home. The patient also said that she has not been able to tolerate her diet. She still has abdominal pain but overall is improved. She has not had a bowel movement yet. Functional Status: Reports: Pain Controlled, Tolerating Diet - Review of Systems General: Reports: Weakness HEENT: Reports: No Symptoms Pulmonary: Reports: No Symptoms Cardiovascular: Reports: No Symptoms Gastrointestinal: Reports: Abdominal Pain Genitourinary: Reports: No Symptoms Musculoskeletal: Reports: No Symptoms Skin: Reports: No Symptoms Neurological: Reports: No Symptoms Psychiatric: Reports: No Symptoms - Patient Data Vitals - Most Recent: Last Vital Signs Temp 36.7 C 01/02/21 03:49 Pulse 116 H 01/01/21 04:17 Resp 18 01/02/21 03:49 BP 103/68 01/02/21 08:05 Pulse Ox 96 01/02/21 03:49 Weight - Most Recent: 79.288 kg I&O - Last 24 Hours: Intake & Output 01/01/21 01/02/21 01/02/21 22:59 06:59 14:59 Intake Total 1800 900 Balance 1800 900 Lab Results Last 24 Hours: Laboratory Results - last 24 hr 01/02/21 01/02/21 Range/Units 05:35 05:35 WBC 11.79 H (3.98-10.04) K/mm3 RBC 1.79 L (3.98-5.22) M/mm3 Hgb 8.0 L (11.2-15.7) gm/dl Hct 22.5 L (34.1-44.9) % MCV 125.7 H D (79.4-94.8) fl MCH 44.7 H (25.6-32.2) pg MCHC 35.6 H (32.2-35.5) g/dl RDW Std Deviation 71.7 H (36.4-46.3) fL Plt Count 176 L (182-369) K/mm3 MPV 8.8 L (9.4-12.3) fl Neut % (Auto) 68.8 (34.0-71.1) % Lymph % (Auto) 14.3 L (19.3-51.7) % Grimes % (Auto) 15.0 H (4.7-12.5) % Eos % (Auto) 1.2 (0.7-5.8) Baso % (Auto) 0.4 (0.1-1.2) % Neut # (Auto) 8.10 H (1.56-6.13) K/mm3 Lymph # (Auto) 1.69 (1.18-3.74) K/mm3 Grimes # (Auto) 1.77 H (0.24-0.36) K/mm3 Eos # (Auto) 0.14 (0.04-0.36) K/mm3 Baso # (Auto) 0.05 (0.01-0.08) K/mm3 Manual Slide Review Abnormal smear Sodium 135 L (136-145) mEq/L Potassium 3.8 (3.5-5.1) mEq/L Chloride 100 (98-107) mEq/L Carbon Dioxide 25 (21-32) mEq/L Anion Gap 13.8 (5-15) BUN 3 L (7-18) mg/dL Creatinine 0.7 (0.55-1.02) mg/dL Est Cr Clr Drug Dosing 112.08 mL/min Estimated GFR (MDRD) > 60 (>60) mL/min BUN/Creatinine Ratio 4.3 L (14-18) Glucose 98 (70-99) mg/dL Calcium 7.4 L (8.5-10.1) mg/dL Phosphorus 1.5 L (2.6-4.7) mg/dL Magnesium 2.4 (1.8-2.4) mg/dL Total Bilirubin 3.7 H (0.2-1.0) mg/dL AST 146 H (15-37) U/L ALT 38 (14-59) U/L Alkaline Phosphatase 213 H (46-116) U/L Total Protein 5.8 L (6.4-8.2) g/dl Albumin 1.8 L (3.4-5.0) g/dl Globulin 4.0 gm/dL Albumin/Globulin Ratio 0.5 L (1-2) Dc Results Last 24 Hours: Microbiology 12/31/20 09:22 Blood Culture - Preliminary Blood - Arm, Right 12/31/20 09:12 Blood Culture - Preliminary Blood - Arm, Left Med Orders - Current: Current Medications Acetaminophen (Acetaminophen 325 Mg Tab) 650 mg PO Q4H PRN PRN Reason: Pain (Mild 1-3)/fever Chlordiazepoxide HCl (Chlordiazepoxide 25 Mg Cap) 25 mg PO TID [facility] Last Admin: 01/02/21 08:05 Dose: 25 mg Documented by: Enoxaparin Sodium (Enoxaparin 40 Mg/0.4 Ml Syringe) 40 mg SUBCUT DAILY [facility] Last Admin: 01/02/21 08:06 Dose: 40 mg Documented by: Folic Acid (Folic Acid 1 Mg Tab) 1 mg PO DAILY [facility] Last Admin: 01/02/21 08:05 Dose: 1 mg Documented by: Hydrochlorothiazide (Hydrochlorothiazide 25 Mg Tab) 25 mg PO DAILY [facility] Last Admin: 01/02/21 08:05 Dose: 25 mg Documented by: Ceftriaxone Sodium 2 gm/ (Sodium Chloride) 100 mls @ 200 mls/hr IV Q24H [facility] Last Admin: 01/01/21 10:08 Dose: 200 mls/hr Documented by: Metronidazole 500 mg/ Premix 100 mls @ 100 mls/hr IV Q8H [facility] Last Admin: 01/02/21 03:43 Dose: 100 mls/hr Documented by: Ketorolac Tromethamine (Ketorolac 30 Mg/Ml Sdv) 30 mg IV Q6H PRN PRN Reason: Pain (moderate 4-6) Lisinopril (Lisinopril 20 Mg Tab) 20 mg PO DAILY [facility] Last Admin: 01/02/21 08:05 Dose: 20 mg Documented by: Lorazepam (Lorazepam 2 Mg/Ml Sdv) 1 mg IV Q2H PRN PRN Reason: Other Ondansetron HCl (Ondansetron 4 Mg Tab.Dis) 4 mg PO Q6H PRN PRN Reason: nausea, able to take PO Last Admin: 01/02/21 08:04 Dose: 4 mg Documented by: Ondansetron HCl (Ondansetron 4 Mg/2 Ml Sdv) 4 mg IV Q6H PRN PRN Reason: Nausea/Vomiting Last Admin: 01/01/21 13:54 Dose: 4 mg Documented by: Oxycodone HCl (Oxycodone 5 Mg Tab) 5 mg PO Q4H PRN PRN Reason: Pain (severe 7-10) Last Admin: 01/02/21 08:05 Dose: 5 mg Documented by: Pantoprazole Sodium (Pantoprazole 40 Mg Tab.Cr) 40 mg PO DAILY [facility] Last Admin: 01/02/21 08:05 Dose: 40 mg Documented by: Thiamine HCl (Thiamine 100 Mg Tab) 100 mg PO BEDTIME [facility] Last Admin: 01/01/21 20:03 Dose: 100 mg Documented by: Trazodone HCl (Trazodone 50 Mg Tab) 50 mg PO BEDTIME PRN PRN Reason: Sleep Last Admin: 01/01/21 20:03 Dose: 50 mg Documented by: Discontinued Medications Acetaminophen (Acetaminophen 325 Mg Tab) 975 mg PO ONETIME ONE Stop: 12/31/20 01:26 Last Admin: 12/31/20 01:40 Dose: 975 mg Documented by: Acetaminophen (Acetaminophen 325 Mg Tab) 975 mg PO ONETIME ONE Stop: 12/31/20 06:34 Last Admin: 12/31/20 06:47 Dose: 975 mg Documented by: Al Hydroxide/Mg Hydroxide (Aluminum Hydroxide/Magnesium Hydroxide/Simethicone Susp 30 Ml Cup) 30 ml PO ONETIME ONE Stop: 12/30/20 23:01 Last Admin: 12/30/20 23:16 Dose: 30 ml Documented by: Enoxaparin Sodium (Enoxaparin 30 Mg/0.3 Ml Syringe) 30 mg SUBCUT DAILY [facility] Last Admin: 12/31/20 09:46 Dose: 30 mg Documented by: Hydromorphone HCl (Hydromorphone 0.5 Mg/0.5 Ml Syringe) 0.5 mg IVPUSH ONETIME ONE Stop: 12/30/20 22:43 Last Admin: 12/30/20 23:15 Dose: 0.5 mg Documented by: Hydromorphone HCl (Hydromorphone 0.5 Mg/0.5 Ml Syringe) 0.5 mg IVPUSH ONETIME ONE Stop: 12/31/20 01:26 Last Admin: 12/31/20 01:39 Dose: 0.5 mg Documented by: Hydromorphone HCl (Hydromorphone 0.5 Mg/0.5 Ml Syringe) 0.5 mg IVPUSH ONETIME ONE Stop: 12/31/20 06:34 Last Admin: 12/31/20 06:46 Dose: 0.5 mg Documented by: Hydromorphone HCl (Hydromorphone 0.5 Mg/0.5 Ml Syringe) 0.5 mg IVPUSH Q2H PRN PRN Reason: Pain (severe 7-10) Last Admin: 01/01/21 10:13 Dose: 0.5 mg Documented by: Dextrose/Sodium Chloride (Dextrose 5%-Normal Saline) 1,000 mls @ 500 [facility]ls[facility] Last Admin: 12/30/20 23:14 Dose: 500 mls/hr Documented by: Potassium Chloride 10 meq/ (Premix) 100 mls @ 100 mls/hr IV Q1H [facility] Stop: 12/31/20 03:14 Last Admin: 12/31/20 02:54 Dose: 100 mls/hr Documented by: Cefepime HCl 2 gm/ Premix 50 mls @ 100 mls/hr IV ONETIME ONE Stop: 12/31/20 01:27 Last Admin: 12/31/20 01:15 Dose: 100 mls/hr Documented by: Sodium Chloride (Normal Saline) 1,000 mls @ 500 [facility] Last Admin: 12/31/20 01:38 Dose: 500 mls/hr Documented by: Metronidazole 500 mg/ Premix 100 mls @ 100 mls/hr IV ONETIME ONE Stop: 12/31/20 03:09 Last Admin: 12/31/20 02:53 Dose: 100 mls/hr Documented by: Sodium Chloride (Normal Saline) 1,000 mls @ 999 mls/hr IV ONETIME ONE Stop: 12/31/20 03:40 Last Admin: 12/31/20 03:24 Dose: Not Given Documented by: Dextrose/Lactated Ringer's (Dextrose 5%-Lactated Ringers) 1,000 mls @ 500 mls[facility] Last Admin: 12/31/20 03:24 Dose: 500 mls/hr Documented by: Lactated Ringer's (Ringers, Lactated) 1,000 mls @ 999 mls[facility] Last Admin: 12/31/20 06:31 Dose: 999 mls/hr Documented by: Dextrose/Sodium Chloride (Dextrose 5%-Normal Saline) 1,000 mls @ 150 mls/hr IV ASDIRECTED [facility] Sodium Chloride (Normal Saline) 1,000 mls @ 125 mls/hr IV ASDIRECTED [facility] Last Admin: 01/01/21 01:18 Dose: 125 mls/hr Documented by: Potassium Chloride 10 meq/ (Premix) 100 mls @ 100 mls/hr IV Q1H [facility] Stop: 12/31/20 16:59 Magnesium Sulfate 4 gm/ Premix 50 mls @ 12.5 mls/hr IV ONETIME ONE Stop: 12/31/20 17:29 Last Admin: 12/31/20 13:04 Dose: 12.5 mls/hr Documented by: Lorazepam (Lorazepam 2 Mg/Ml Sdv) 1 mg IVPUSH ONETIME ONE Stop: 12/31/20 02:42 Last Admin: 12/31/20 02:52 Dose: 1 mg Documented by: Metoclopramide HCl (Metoclopramide 10 Mg/2 Ml Sdv) 7.5 mg IVPUSH ONETIME ONE Stop: 12/30/20 22:43 Last Admin: 12/30/20 23:14 Dose: 7.5 mg Documented by: Metoclopramide HCl (Metoclopramide 10 Mg/2 Ml Sdv) 7.5 mg IVPUSH ONETIME ONE Stop: 12/31/20 06:35 Last Admin: 12/31/20 06:46 Dose: 7.5 mg Documented by: Pantoprazole Sodium (Pantoprazole 40 Mg Vial) 40 mg IVPUSH BID [facility] Last Admin: 01/01/21 08:02 Dose: 40 mg Documented by: Sodium Phosphate (Phosphorus #1 250 Mg Tab) 250 mg PO ONETIME ONE Stop: 01/01/21 07:12 Last Admin: 01/01/21 07:55 Dose: 250 mg Documented by: - Exam Quality Assessment: DVT Prophylaxis. No: Supplemental Oxygen General: Alert, Oriented, Cooperative HEENT: Pupils Equal, Pupils Reactive Neck: Supple, Trachea Midline Lungs: Clear to Auscultation, Normal Respiratory Effort Cardiovascular: Regular Rate, Regular Rhythm GI/Abdominal Exam: Normal Bowel Sounds, Tender (Lower abdomen), Other (Ascites) (Female) Exam: Deferred Back Exam: Normal Inspection, Full Range of Motion Extremities: Normal Inspection, No Pedal Edema Skin: Warm, Dry, Intact Neurological: No New Focal Deficit, Normal Gait Psy/Mental Status: Alert, Normal Affect, Normal Mood - Patient Data Lab Results Last 24 hrs: Laboratory Results - last 24 hr 01/02/21 01/02/21 Range/Units 05:35 05:35 WBC 11.79 H (3.98-10.04) K/mm3 RBC 1.79 L (3.98-5.22) M/mm3 Hgb 8.0 L (11.2-15.7) gm/dl Hct 22.5 L (34.1-44.9) % MCV 125.7 H D (79.4-94.8) fl MCH 44.7 H (25.6-32.2) pg MCHC 35.6 H (32.2-35.5) g/dl RDW Std Deviation 71.7 H (36.4-46.3) fL Plt Count 176 L (182-369) K/mm3 MPV 8.8 L (9.4-12.3) fl Neut % (Auto) 68.8 (34.0-71.1) % Lymph % (Auto) 14.3 L (19.3-51.7) % Grimes % (Auto) 15.0 H (4.7-12.5) % Eos % (Auto) 1.2 (0.7-5.8) Baso % (Auto) 0.4 (0.1-1.2) % Neut # (Auto) 8.10 H (1.56-6.13) K/mm3 Lymph # (Auto) 1.69 (1.18-3.74) K/mm3 Grimes # (Auto) 1.77 H (0.24-0.36) K/mm3 Eos # (Auto) 0.14 (0.04-0.36) K/mm3 Baso # (Auto) 0.05 (0.01-0.08) K/mm3 Manual Slide Review Abnormal smear Sodium 135 L (136-145) mEq/L Potassium 3.8 (3.5-5.1) mEq/L Chloride 100 (98-107) mEq/L Carbon Dioxide 25 (21-32) mEq/L Anion Gap 13.8 (5-15) BUN 3 L (7-18) mg/dL Creatinine 0.7 (0.55-1.02) mg/dL Est Cr Clr Drug Dosing 112.08 mL/min Estimated GFR (MDRD) > 60 (>60) mL/min BUN/Creatinine Ratio 4.3 L (14-18) Glucose 98 (70-99) mg/dL Calcium 7.4 L (8.5-10.1) mg/dL Phosphorus 1.5 L (2.6-4.7) mg/dL Magnesium 2.4 (1.8-2.4) mg/dL Total Bilirubin 3.7 H (0.2-1.0) mg/dL AST 146 H (15-37) U/L ALT 38 (14-59) U/L Alkaline Phosphatase 213 H (46-116) U/L Total Protein 5.8 L (6.4-8.2) g/dl Albumin 1.8 L (3.4-5.0) g/dl Globulin 4.0 gm/dL Albumin/Globulin Ratio 0.5 L (1-2) Result Diagrams: 01/02/21 05:35 01/02/21 05:35 Dc Results Last 24 hrs: Microbiology 12/31/20 09:22 Blood Culture - Preliminary Blood - Arm, Right 12/31/20 09:12 Blood Culture - Preliminary Blood - Arm, Left Sepsis Event Note - Evaluation Sepsis Screening Result: No Definite Risk - Focused Exam Vital Signs: Vital Signs Temp Resp BP BP Pulse Ox 01/02/21 08:05 103/68 01/02/21 03:49 36.7 C 18 101/64 96 01/01/21 23:19 36.5 C 16 105/72 96 - Problem List & Annotations (1) Abdominal pain SNOMED Code(s): 36512842 Code(s): R10.9 - UNSPECIFIED ABDOMINAL PAIN Status: Acute Priority: High Current Visit: Yes Qualifiers: Abdominal location: right upper quadrant Qualified Code(s): R10.11 - Right upper quadrant pain (2) Anemia SNOMED Code(s): 599985437 Code(s): D64.9 - ANEMIA, UNSPECIFIED Status: Chronic Current Visit: Yes Qualifiers: Anemia type: folate deficiency Folate deficiency anemia type: other folate deficiency Qualified Code(s): D52.8 - Other folate deficiency anemias (3) Ascites SNOMED Code(s): 412276427 Code(s): R18.8 - OTHER ASCITES Status: Chronic Priority: High Current Visit: Yes Qualifiers: Ascites type: due to alcoholic cirrhosis Qualified Code(s): K70.31 - Alcoholic cirrhosis of liver with ascites (4) Chronic alcoholism SNOMED Code(s): 5345839 Code(s): F10.20 - ALCOHOL DEPENDENCE, UNCOMPLICATED Status: Chronic Priority: High Current Visit: Yes (5) Transaminitis SNOMED Code(s): 399069084, 620663361 Code(s): R74.01 - ELEVATION OF LEVELS OF LIVER TRANSAMINASE LEVELS Status: Chronic Priority: High Current Visit: Yes (6) Hypertension SNOMED Code(s): 99723786 Code(s): I10 - ESSENTIAL (PRIMARY) HYPERTENSION Status: Chronic Priority: Medium Current Visit: Yes Qualifiers: Hypertension type: primary hypertension Qualified Code(s): I10 - Essential (primary) hypertension - Problem List Review Problem List Initiated/Reviewed/Updated: Yes - My Orders Last 24 Hours: My Active Orders 01/01/21 10:01 Patient Status [ADT] Routine 01/01/21 15:18 oxyCODONE 5 mg PO Q4H PRN 01/02/21 09:00 Pantoprazole [ProTONIX] 40 mg PO DAILY hydroCHLOROthiazide 25 mg PO DAILY lisinopriL [Prinivil] 20 mg PO DAILY - Assessment Assessment:: The patient has been doing well while in the intensive care unit. She has been downgraded from intensive care. The patient has had a drop in her hemoglobin down to 7.5 g/dL. The patient will be transfused if her hemoglobin continues to drop below 7.0 g/dL. I have advised the patient of the risk, alternatives and benefits of blood and blood products. The patient reportedly had been previously hypertensive but she will be monitored and her medications will be adjusted her blood pressure has remained on the low side ranging around 103 to 107 mmHg. Repeat laboratory studies have been ordered for the morning. She is currently on ceftriaxone and cultures are currently pending. The patient also has been on Librium and she has been tolerating this well. She is currently anticoagulated with the use of Lovenox. The patient also has been started on folic acid and thiamine. The patient has been encouraged to ambulate. 01/02/2021 The patient is a 35-year-old lady who was downgraded yesterday from ICU status. There was concern about her hemoglobin and this has risen to 8.0 g/dL. Transfusions will not be made necessary yet. Patient says that she does not feel like she can go home. She is currently on antibiotics and these will be continued. Patient has been DVT prophylaxis and has been ambulating. The patient also had been started on folic acid and thiamine due to her ma crocytosis. She has been recommended for discharge likely tomorrow. Repeat laboratory studies have also been ordered for the morning. - Plan Plan:: I have seen and examined the patient independently of Stephon Gerardo CNP, and I have discussed the case with her. I have reviewed the plan of care for this patient as outlined by her. Please see orders.
[2021-01-02] MEDS: cefTRIAXone 2 GM in Sodium Chloride 0.9% 100 ML IV SCH (09:39)
[2021-01-02] MEDS ORDERED: Polyethylene Glycol 3350 Powder 17 GM Packet PO PRN (11:08)
[2021-01-02] MEDS: Ondansetron 4 MG/2 ML SDV IV PRN (20:07)
[2021-01-02] MEDS: Thiamine 100 MG Tab PO SCH (20:10)
[2021-01-02] MEDS: traZODone 50 MG Tab PO PRN (20:10)
[2021-01-03] MEDS: oxyCODONE 5 MG Tab PO PRN ×2 (03:11→08:27)
[2021-01-03] MEDS: Ondansetron 4 MG/2 ML SDV IV PRN (03:12)
[2021-01-03] MEDS: metroNIDAZOLE/Normal Saline 500 MG in Premix Bag 1 BAG IV SCH ×2 (04:07→11:31)
[2021-01-03] MEDS: chlordiazePOXIDE 25 MG Cap PO SCH (08:26)
[2021-01-03] MEDS: Ondansetron 4 MG Tab.DIS PO PRN (08:27)
[2021-01-03] MEDS: Folic Acid 1 MG Tab PO SCH (08:28)
[2021-01-03] MEDS: Lisinopril 20 MG Tab PO SCH (08:28)
[2021-01-03] MEDS: Hydrochlorothiazide 25 MG Tab PO SCH (08:28)
[2021-01-03] MEDS: Enoxaparin 40 MG/0.4 ML Syringe SUBCUT SCH (08:29)
[2021-01-03] MEDS: Pantoprazole 40 MG Tab.CR PO SCH (08:29)
--- NOTE | 2021-01-03 08:40 | PCM.PN ---
- General Info Date of Service: 01/03/21 Admission Dx/Problem (Free Text): Admission Diagnosis/Problem Admission Diagnosis/Problem Leukocytosis - Patient Data Vitals - Most Recent: Last Vital Signs Temp 98 F 01/03/21 03:23 Pulse 88 01/03/21 03:23 Resp 16 01/03/21 03:23 BP 96/65 01/03/21 08:28 Pulse Ox 93 L 01/03/21 03:23 Weight - Most Recent: 174 lb 9.6 oz I&O - Last 24 Hours: Intake & Output 01/02/21 01/03/21 01/03/21 22:59 06:59 14:59 Intake Total 1420 700 Balance 1420 700 Lab Results Last 24 Hours: Laboratory Results - last 24 hr 01/03/21 01/03/21 01/03/21 Range/Units 05:00 05:00 07:26 WBC 13.00 H (3.98-10.04) K/mm3 RBC 2.02 L (3.98-5.22) M/mm3 Hgb 8.1 L (11.2-15.7) gm/dl Hct 25.6 L (34.1-44.9) % MCV 126.7 H (79.4-94.8) fl MCH 40.1 H (25.6-32.2) pg MCHC 31.6 L (32.2-35.5) g/dl RDW Std Deviation 76.4 H (36.4-46.3) fL Plt Count 229 (182-369) K/mm3 MPV 8.6 L (9.4-12.3) fl Neut % (Auto) 70.5 (34.0-71.1) % Lymph % (Auto) 12.8 L (19.3-51.7) % Ralls % (Auto) 14.2 H (4.7-12.5) % Eos % (Auto) 1.2 (0.7-5.8) Baso % (Auto) 0.5 (0.1-1.2) % Neut # (Auto) 9.16 H (1.56-6.13) K/mm3 Lymph # (Auto) 1.67 (1.18-3.74) K/mm3 Ralls # (Auto) 1.85 H (0.24-0.36) K/mm3 Eos # (Auto) 0.16 (0.04-0.36) K/mm3 Baso # (Auto) 0.06 (0.01-0.08) K/mm3 Manual Slide Review Abnormal smear PT 15.6 H D (9.7-12.0) SECONDS INR 1.47 Sodium 136 (136-145) mEq/L Potassium 3.5 (3.5-5.1) mEq/L Chloride 101 (98-107) mEq/L Carbon Dioxide 26 (21-32) mEq/L Anion Gap 12.5 (5-15) BUN 8 (7-18) mg/dL Creatinine 0.7 (0.55-1.02) mg/dL Est Cr Clr Drug Dosing 112.08 mL/min Estimated GFR (MDRD) > 60 (>60) mL/min BUN/Creatinine Ratio 11.4 L (14-18) Glucose 104 H (70-99) mg/dL Calcium 7.3 L (8.5-10.1) mg/dL Total Bilirubin 4.0 H (0.2-1.0) mg/dL AST 136 H (15-37) U/L ALT 34 (14-59) U/L Alkaline Phosphatase 202 H (46-116) U/L Total Protein 5.5 L (6.4-8.2) g/dl Albumin 1.6 L (3.4-5.0) g/dl Globulin 3.9 gm/dL Albumin/Globulin Ratio 0.4 L (1-2) Med Orders - Current: Current Medications Acetaminophen (Acetaminophen 325 Mg Tab) 650 mg PO Q4H PRN PRN Reason: Pain (Mild 1-3)/fever Chlordiazepoxide HCl (Chlordiazepoxide 25 Mg Cap) 25 mg PO TID [facility] Last Admin: 01/03/21 08:26 Dose: 25 mg Documented by: Enoxaparin Sodium (Enoxaparin 40 Mg/0.4 Ml Syringe) 40 mg SUBCUT DAILY [facility] Last Admin: 01/03/21 08:29 Dose: 40 mg Documented by: Folic Acid (Folic Acid 1 Mg Tab) 1 mg PO DAILY [facility] Last Admin: 01/03/21 08:28 Dose: 1 mg Documented by: Hydrochlorothiazide (Hydrochlorothiazide 25 Mg Tab) 25 mg PO DAILY [facility] Last Admin: 07/26/21 08:28 Dose: 25 mg Documented by: Ceftriaxone Sodium 2 gm/ (Sodium Chloride) 100 mls @ 200 mls/hr IV Q24H [facility] Last Admin: 01/02/21 09:39 Dose: 200 mls/hr Documented by: Metronidazole 500 mg/ Premix 100 mls @ 100 mls/hr IV Q8H [facility] Last Admin: 01/03/21 04:07 Dose: 100 mls/hr Documented by: Ketorolac Tromethamine (Ketorolac 30 Mg/Ml Sdv) 30 mg IV Q6H PRN PRN Reason: Pain (moderate 4-6) Lisinopril (Lisinopril 20 Mg Tab) 20 mg PO DAILY [facility] Last Admin: 01/03/21 08:28 Dose: Not Given Documented by: Lorazepam (Lorazepam 2 Mg/Ml Sdv) 1 mg IV Q2H PRN PRN Reason: Other Ondansetron HCl (Ondansetron 4 Mg Tab.Dis) 4 mg PO Q6H PRN PRN Reason: nausea, able to take PO Last Admin: 01/03/21 08:27 Dose: 4 mg Documented by: Ondansetron HCl (Ondansetron 4 Mg/2 Ml Sdv) 4 mg IV Q6H PRN PRN Reason: Nausea/Vomiting Last Admin: 01/03/21 03:12 Dose: 4 mg Documented by: Oxycodone HCl (Oxycodone 5 Mg Tab) 5 mg PO Q4H PRN PRN Reason: Pain (severe 7-10) Last Admin: 01/03/21 08:27 Dose: 5 mg Documented by: Pantoprazole Sodium (Pantoprazole 40 Mg Tab.Cr) 40 mg PO DAILY [facility] Last Admin: 01/03/21 08:29 Dose: 40 mg Documented by: Polyethylene Glycol (Polyethylene Glycol 3350 Powder 17 Gm Packet) 17 gm PO BID PRN PRN Reason: Constipation Last Admin: 01/02/21 11:13 Dose: 17 gm Documented by: Thiamine HCl (Thiamine 100 Mg Tab) 100 mg PO BEDTIME [facility] Last Admin: 01/02/21 20:10 Dose: 100 mg Documented by: Trazodone HCl (Trazodone 50 Mg Tab) 50 mg PO BEDTIME PRN PRN Reason: Sleep Last Admin: 01/02/21 20:10 Dose: 50 mg Documented by: Discontinued Medications Acetaminophen (Acetaminophen 325 Mg Tab) 975 mg PO ONETIME ONE Stop: 12/31/20 01:26 Last Admin: 12/31/20 01:40 Dose: 975 mg Documented by: Acetaminophen (Acetaminophen 325 Mg Tab) 975 mg PO ONETIME ONE Stop: 12/31/20 06:34 Last Admin: 12/31/20 06:47 Dose: 975 mg Documented by: Al Hydroxide/Mg Hydroxide (Aluminum Hydroxide/Magnesium Hydroxide/Simethicone Susp 30 Ml Cup) 30 ml PO ONETIME ONE Stop: 12/30/20 23:01 Last Admin: 12/30/20 23:16 Dose: 30 ml Documented by: Enoxaparin Sodium (Enoxaparin 30 Mg/0.3 Ml Syringe) 30 mg SUBCUT DAILY [facility] Last Admin: 12/31/20 09:46 Dose: 30 mg Documented by: Hydromorphone HCl (Hydromorphone 0.5 Mg/0.5 Ml Syringe) 0.5 mg IVPUSH ONETIME ONE Stop: 12/30/20 22:43 Last Admin: 12/30/20 23:15 Dose: 0.5 mg Documented by: Hydromorphone HCl (Hydromorphone 0.5 Mg/0.5 Ml Syringe) 0.5 mg IVPUSH ONETIME ONE Stop: 12/31/20 01:26 Last Admin: 12/31/20 01:39 Dose: 0.5 mg Documented by: Hydromorphone HCl (Hydromorphone 0.5 Mg/0.5 Ml Syringe) 0.5 mg IVPUSH ONETIME ONE Stop: 12/31/20 06:34 Last Admin: 12/31/20 06:46 Dose: 0.5 mg Documented by: Hydromorphone HCl (Hydromorphone 0.5 Mg/0.5 Ml Syringe) 0.5 mg IVPUSH Q2H PRN PRN Reason: Pain (severe 7-10) Last Admin: 01/01/21 10:13 Dose: 0.5 mg Documented by: Dextrose/Sodium Chloride (Dextrose 5%-Normal Saline) 1,000 mls @ 500 mls/hr IV ASDIRECTED [facility] Last Admin: 12/30/20 23:14 Dose: 500 mls/hr Documented by: Potassium Chloride 10 meq/ (Premix) 100 mls @ 100 mls/hr IV Q1H [facility] Stop: 12/31/20 03:14 Last Admin: 12/31/20 02:54 Dose: 100 mls/hr Documented by: Cefepime HCl 2 gm/ Premix 50 mls @ 100 mls/hr IV ONETIME ONE Stop: 12/31/20 01:27 Last Admin: 12/31/20 01:15 Dose: 100 mls/hr Documented by: Sodium Chloride (Normal Saline) 1,000 mls @ 500 mls/hr IV ASDIRECTED [facility] Last Admin: 12/31/20 01:38 Dose: 500 mls/hr Documented by: Metronidazole 500 mg/ Premix 100 mls @ 100 mls/hr IV ONETIME ONE Stop: 12/31/20 03:09 Last Admin: 12/31/20 02:53 Dose: 100 mls/hr Documented by: Sodium Chloride (Normal Saline) 1,000 mls @ 999 mls/hr IV ONETIME ONE Stop: 12/31/20 03:40 Last Admin: 12/31/20 03:24 Dose: Not Given Documented by: Dextrose/Lactated Ringer's (Dextrose 5%-Lactated Ringers) 1,000 mls @ 500 mls/hr IV ASDIRECTED [facility] Last Admin: 12/31/20 03:24 Dose: 500 mls/hr Documented by: Lactated Ringer's (Ringers, Lactated) 1,000 mls @ 999 mls/hr IV ASDIRECTED [facility] Last Admin: 12/31/20 06:31 Dose: 999 mls/hr Documented by: Dextrose/Sodium Chloride (Dextrose 5%-Normal Saline) 1,000 mls @ 150 mls/hr IV ASDIRECTED [facility] Sodium Chloride (Normal Saline) 1,000 mls @ 125 mls/hr IV ASDIRECTED [facility] Last Admin: 01/01/21 01:18 Dose: 125 mls/hr Documented by: Potassium Chloride 10 meq/ (Premix) 100 mls @ 100 mls/hr IV Q1H [facility] Stop: 12/31/20 16:59 Magnesium Sulfate 4 gm/ Premix 50 mls @ 12.5 mls/hr IV ONETIME ONE Stop: 12/31/20 17:29 Last Admin: 12/31/20 13:04 Dose: 12.5 mls/hr Documented by: Lorazepam (Lorazepam 2 Mg/Ml Sdv) 1 mg IVPUSH ONETIME ONE Stop: 12/31/20 02:42 Last Admin: 12/31/20 02:52 Dose: 1 mg Documented by: Metoclopramide HCl (Metoclopramide 10 Mg/2 Ml Sdv) 7.5 mg IVPUSH ONETIME ONE Stop: 12/30/20 22:43 Last Admin: 12/30/20 23:14 Dose: 7.5 mg Documented by: Metoclopramide HCl (Metoclopramide 10 Mg/2 Ml Sdv) 7.5 mg IVPUSH ONETIME ONE Stop: 12/31/20 06:35 Last Admin: 12/31/20 06:46 Dose: 7.5 mg Documented by: Pantoprazole Sodium (Pantoprazole 40 Mg Vial) 40 mg IVPUSH BID [facility] Last Admin: 01/01/21 08:02 Dose: 40 mg Documented by: Sodium Phosphate (Phosphorus #1 250 Mg Tab) 250 mg PO ONETIME ONE Stop: 01/01/21 07:12 Last Admin: 01/01/21 07:55 Dose: 250 mg Documented by: - Patient Data Lab Results Last 24 hrs: Laboratory Results - last 24 hr 01/03/21 01/03/21 01/03/21 Range/Units 05:00 05:00 07:26 WBC 13.00 H (3.98-10.04) K/mm3 RBC 2.02 L (3.98-5.22) M/mm3 Hgb 8.1 L (11.2-15.7) gm/dl Hct 25.6 L (34.1-44.9) % MCV 126.7 H (79.4-94.8) fl MCH 40.1 H (25.6-32.2) pg MCHC 31.6 L (32.2-35.5) g/dl RDW Std Deviation 76.4 H (36.4-46.3) fL Plt Count 229 (182-369) K/mm3 MPV 8.6 L (9.4-12.3) fl Neut % (Auto) 70.5 (34.0-71.1) % Lymph % (Auto) 12.8 L (19.3-51.7) % Ralls % (Auto) 14.2 H (4.7-12.5) % Eos % (Auto) 1.2 (0.7-5.8) Baso % (Auto) 0.5 (0.1-1.2) % Neut # (Auto) 9.16 H (1.56-6.13) K/mm3 Lymph # (Auto) 1.67 (1.18-3.74) K/mm3 Ralls # (Auto) 1.85 H (0.24-0.36) K/mm3 Eos # (Auto) 0.16 (0.04-0.36) K/mm3 Baso # (Auto) 0.06 (0.01-0.08) K/mm3 Manual Slide Review Abnormal smear PT 15.6 H D (9.7-12.0) SECONDS INR 1.47 Sodium 136 (136-145) mEq/L Potassium 3.5 (3.5-5.1) mEq/L Chloride 101 (98-107) mEq/L Carbon Dioxide 26 (21-32) mEq/L Anion Gap 12.5 (5-15) BUN 8 (7-18) mg/dL Creatinine 0.7 (0.55-1.02) mg/dL Est Cr Clr Drug Dosing 112.08 mL/min Estimated GFR (MDRD) > 60 (>60) mL/min BUN/Creatinine Ratio 11.4 L (14-18) Glucose 104 H (70-99) mg/dL Calcium 7.3 L (8.5-10.1) mg/dL Total Bilirubin 4.0 H (0.2-1.0) mg/dL AST 136 H (15-37) U/L ALT 34 (14-59) U/L Alkaline Phosphatase 202 H (46-116) U/L Total Protein 5.5 L (6.4-8.2) g/dl Albumin 1.6 L (3.4-5.0) g/dl Globulin 3.9 gm/dL Albumin/Globulin Ratio 0.4 L (1-2) Result Diagrams: 01/03/21 05:00 01/03/21 05:00 Sepsis Event Note - Evaluation Sepsis Screening Result: No Definite Risk - Focused Exam Vital Signs: Vital Signs Temp Pulse Resp BP BP Pulse Ox 01/03/21 08:28 96/65 01/03/21 03:23 98 F 88 16 100/66 93 L - Problem List Review Problem List Initiated/Reviewed/Updated: Yes - Assessment Assessment:: 12/31/2020 35-year-old female who presents the ER with complaints of abdominal pain and distention with associated nausea and vomiting. She denies any recent fever or chills. She has had a headache. She has had decreased appetite over the past 2 days. Complains of thoracic back pain associated with the abdominal pain. States the abdominal pain is right and left upper quadrant radiating around her abdomen like a belt. She states she has not had a bowel movement in about 3 to 4 days. 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 Labs were completed in the emergency department which did show neutrophilic leukocytosis, elevated lactic acid level, elevated liver functions and low potassium. CT scan of the abdomen and ultrasound of the abdomen were completed. It did show sig nificant amount of inflammation and free fluid however nothing specific. Patient was given almost 4 L of IV fluids while in the emergency department as well as Reglan and Dilaudid. Patient was subsequently admitted to ICU as she is likely going to go into DTs. I have ordered for Dr. Sandoval, the surgeon on-call to consult. The patient was started on Rocephin 2 g IV every 24 hours. I have also ordered a repeat of labs to be drawn at 9 AM. Repeat labs at 9 AM reveal a WBC of 13.88, hemoglobin 9.2, hematocrit 27.4, MCV 117.6, platelet count 264, neutrophil percentage 76.9 Chemistry reveals a sodium of 130, potassium 3.0, chloride 93, carbon dioxide 27, anion gap 13.0, BUN 4, creatinine 0.8, GFR greater than 60, glucose 125, lactic acid 3.2, calcium 8.3, total bilirubin 4.0, GGT 1644, AST 240, ALT T 68, alkaline phosphatase 368 Patient will be started on maintenance fluids of normal saline at 125 mL's per hour. She will get daily folic acid and thiamine. I have ordered Ativan 1 mg IV as needed every 2 hours as patient likely will go into DTs. She will also receive Librium 25 mg 3 times daily. She will receive Lovenox for DVT prophylaxis. She will remain n.p.o. We will give her another 40 mEq of potassium IV over the next 4 hours. Cultures x2 have also been ordered and co llected. 01/01/2021 The patient has been doing well while in the intensive care unit. She has been downgraded from intensive care. The patient has had a drop in her hemoglobin down to 7.5 g/dL. The patient will be transfused if her hemoglobin continues to drop below 7.0 g/dL. I have advised the patient of the risk, alternatives and benefits of blood and blood products. The patient reportedly had been previously hypertensive but she will be monitored and her medications will be adjusted her blood pressure has remained on the low side ranging around 103 to 107 mmHg. Repeat laboratory studies have been ordered for the morning. She is currently on ceftriaxone and cultures are currently pending. The patient also has been on Librium and she has been tolerating this well. She is currently anticoagulated with the use of Lovenox. The patient also has been started on folic acid and thiamine. The patient has been encouraged to ambulate. 01/02/2021 The patient is a 35-year-old lady who was downgraded yesterday from ICU status. There was concern about her hemoglobin and this has risen to 8.0 g/dL. Transfusions will not be made necessary yet. Patient says that she does not feel like she can go home. She is currently on antibiotics and these will be continued. Patient has been DVT prophylaxis and has been ambulating. The pat ient also had been started on folic acid and thiamine due to her macrocytosis. She has been recommended for discharge likely tomorrow. Repeat laboratory studies have also been ordered for the morning. 01/03/2021
[2021-01-03] MEDS: cefTRIAXone 2 GM in Sodium Chloride 0.9% 100 ML IV SCH (09:38)
--- NOTE | 2021-01-03 11:12 | PCM.DCSUM1 ---
<Mitul Ureña - Last Filed: 01/03/21 12:02> Discharge Summary - Hospital Course HPI Initial Comments: 35-year-old female presents to the ER with complaints of generalized abdominal discomfort particularly in the right and left upper quadrants that radiates around her abdomen and radiating into her back. States this has been going on for the past couple of days. She states she has also noted increased abdominal distention that started about 2 days ago. She reported that her back pain was 8 out of 10. Of note, the patient does have a significant history of alcohol consumption. She states that she drinks large volumes of vodka on a daily basis as an been doing so since age of 17. She estimates that she drinks 20 to 30 ounces daily. She rarely drinks any other alcohol and denies any recreational drug use. She does smoke occasionally when she drinks which is usually 5 to 8 cigarettes at a time, so this would likely be daily. 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 She states that she does generally vomit every morning when she wakes up. However over the course the past couple of days she has had consistent nausea and vomiting throughout the day. Her appetite has been down over the course the past couple of days. She has not noted any hematemesis. She has not had a bowel movement for about 3 to 4 days. Of note, she has had previous bariatric surgery in 2016. Her initial weight was 305 and then got down to around 145 pounds however she states over the past 10 to 14 days she has gained about 18 pounds. Initial vital signs in the emergency department showed a temperature of 36.0, heart rate 109, respiratory rate 16, blood pressure 81/58 and O2 saturations 95% on room air. Labs in the ED reveal a WBC of 15.70, hemoglobin 10.1, hematocrit 29.5, MCV 115.2, platelet count 283, neutrophil percentage 79.2, pro time 11.9, INR 1.11 PTT 29.7, sodium 123, potassium 3.1, chloride 85, carbon dioxide 26, anion gap 15.1, BUN 6, creatinine 0.9, GFR greater than 60, glucose 122, magnesium 2.0, total bilirubin 3.7, AST 303, ALT 84, alk phos 387, C-reactive protein 12.5, ammonia 30, proBNP 285, lactic acid 2.7,, ketones 0.19, urinalysis reveals trace of ketones, nitrite negative, leukocyte Estrace negative, urine test was negative, Covid test is negative The patient did receive almost 4 L of IV fluids while in the emergency department and 40 mEq of potassium IV. She also received Reglan for nausea and Dilaudid for abdominal pain. Radiologist impression portable view of the chest: Nothing acute is appreciated on frontal view of the chest. The patient was started on cefepime 2 g IV as the source of infection was unclear. She was also given Flagyl [address] of the abdomen was completed. Radiologist impression:1. Thickened appendix with some inflammatory changes described. Difficult to completely exclude appendicitis. Please correlate with patient's symptoms. 2. Fair amount of nonspecific fluid within the pelvis. 3. Wall thickening within the right colon and proximal transverse colon compatible with nonspecific colitis. 4. Prominent fatty infiltration within the liver with mild enlargement. 5. Slight inflammatory change between the pancreatic head and duodenum. This may be incidental but difficult to exclude either mild pancreatitis or peptic ulcer disease. Please correlate clinically. 6. Equivocal inflammatory change around the gallbladder. Again please correlate if further imaging is needed. Subsequently, an ultrasound of the abdomen was completed to rule out gallbladder disease. Radiologist impression:1. Fatty infiltration within the liver. 2. Mild ascites is seen next to the inferior liver. 3. No gallbladder abnormality is appreciated. 4. Pancreas is poorly seen due to bowel gas. Repeat labs were done at 0600 and show WBC down to 10.42, hemoglobin down to 10.8 which is likely delusional after 4 L of fluid, hematocrit also down to 23.6. Platelet count 106,000, auto differential shows 78.4% neutrophils. Sodium has improved to 129 and potassium remains the same at 3.1. Chloride is 95 and bicarb 23. Anion gap 14.1. Renal function remains unchanged. Repeat lactic acid however is elevated to 3.2. Calcium is lower at 7.5 likely delusional. Total bilirubin is improved from 3.7-2.6, AST is 211, ALT is 56, alkaline phos improved from 3 87-3 82. Patient will be admitted to the intensive care unit at it is likely that she will go through DTs due to excessive alcohol consumption. The surgeon on-call, , will be consulted. Of note, the patient is on her menstrual cycle however she denies any retained tampons and states she is good about changing these out every few hours. Diagnosis: Stroke: No - Discharge Data Discharge Date: 01/03/21 (Admit date: 12/31/2020) Discharge Disposition: Home, Self-Care 01 Condition: Good - Referral to Home Health Primary Care Physician: Sidra Paz PULMONARY FELLOW - Discharge Diagnosis/Problem(s) (1) Abdominal pain SNOMED Code(s): 90601695 ICD Code: R10.9 - UNSPECIFIED ABDOMINAL PAIN Status: Resolved Priority: High Current Visit: Yes Qualifiers: Abdominal location: right upper quadrant Qualified Code(s): R10.11 - Right upper quadrant pain (2) Anemia SNOMED Code(s): 126281303 ICD Code: D64.9 - ANEMIA, UNSPECIFIED Status: Chronic Current Visit: Yes Qualifiers: Anemia type: folate deficiency Folate deficiency anemia type: other folate deficiency Qualified Code(s): D52.8 - Other folate deficiency anemias (3) Ascites SNOMED Code(s): 651160871 ICD Code: R18.8 - OTHER ASCITES Status: Chronic Priority: High Current Visit: Yes Qualifiers: Ascites type: due to alcoholic cirrhosis Qualified Code(s): K70.31 - Alcoholic cirrhosis of liver with ascites (4) Chronic alcoholism SNOMED Code(s): 4428411 ICD Code: F10.20 - ALCOHOL DEPENDENCE, UNCOMPLICATED Status: Chronic Priority: High Current Visit: Yes (5) Hypertension SNOMED Code(s): 37349097 ICD Code: I10 - ESSENTIAL (PRIMARY) HYPERTENSION Status: Chronic Priority: Medium Current Visit: Yes Qualifiers: Hypertension type: primary hypertension Qualified Code(s): I10 - Essential (primary) hypertension (6) Transaminitis SNOMED Code(s): 075911337, 770804359 ICD Code: R74.01 - ELEVATION OF LEVELS OF LIVER TRANSAMINASE LEVELS Status: Chronic Priority: High Current Visit: Yes - Patient Summary/Data Consults: Consultations 12/31/20 07:35 Consult to Case Management/Hog Feeder [CONS] Routine 12/31/20 09:17 Consult to Physician [CONS] Routine Labs Pending at D/C: None Recommended Follow-up Testing/Procedures: Follow-up with primary care provider within 5 to 7 days of discharge, sooner if needed. * Patient was given a short 3-day course of Librium on discharge. * Patient was also given 5-day course of 300 mg every 6 hour clindamycin for SBP prophylaxis * Prescribed daily thiamine and folic acid supplementation. Please monitor this. * Patient reports she is a smoker and did request nicotine patches at discharge. Please follow-up with this. * Recommend repeat CBC, CMP, and magnesium at follow-up. Follow-up with Dr. Lawson, GI specialist, as scheduled. Recommend follow-up EGD/Colonoscopy within 4-6 weeks after discharge. Hospital Course: This is a 35-year-old female who presented to ED on 12-30-2020 with abdominal discomfort and 8 out of 10 pain. Patient is a alcoholic who drinks 20 to 30 ounces of vodka daily. She is on lisinopril and hydrochlorothiazide daily due to liver cirrhosis. She also occasionally smokes. She reports daily nausea and vomiting. She also has a history of bariatric surgery in 2016. She reports 18 pounds of weight gain over 1 to 2 weeks prior to admission. CT of the abdomen and pelvis was obtained which showed a thickened appendix with inflammatory change and nonspecific fluid within the pelvis. There is wall thickening within the right colon and proximal transverse colon compatible with nonspecific colitis and fatty infiltration within the liver with mild enlargement. There is inflammatory change noted between the pancreatic head and duodenum along with equivocal inflammatory change noted around the gallbladder. Chest x-ray is obtained showing nothing acute. Abdominal ultrasound was obtained showing fatty infiltration within the liver and mild ascites next to the inferior liver. There is no gallbladder abnormality appreciated and the pancreas was poorly visualized. She is admitted to the intensive care unit as there was concern that the patient may withdrawal from her chronic alcohol abuse. She was started on CIWA protocol and scheduled Librium was initiated. At her worst CIWA was 3 on admission and this did decrease to 0. She was noted to have lactic acidosis on admission and this resolved as well. She was started on cefepime in the ED and this was switched to metronidazole and Rocephin on the floor. She was seen by Dr. Sandoval, general surgeon who reported no acute surgical intervention is necessary but recommended EGD and colonoscopy in 4 to 6 weeks. Continue Protonix and antibiotics for colitis. Throughout her stay her abdominal pain has improved and her diet has been advanced without issue. Social work did meet with the patient and recommended treatment, however the patient is refusing this at this time and states she can do this herself. She was advised to follow-up with these facilities directly if she needs help after discharge. Will be discharged on 300 mg p.o. every 6 hours clindamycin. She was also started on 1 mg daily folic acid and 100 mg daily thiamine supplementation and this will be continued at discharge. We discussed her smoking and she stated that she would like nicotine patches at discharge. She reports she smokes intermittently 4 to 5 cigarettes a day I will prescribe 7 mg Transderm daily patches. PCP should follow-up with this. Patient was given contact information for [place] [facility] and the [facility] tobacco cessation program. She will be prescribed three 25 mg Librium tablets to take daily at discharge. While hospitalized attending hospitalist Dr. Patino did contact Dr. Lawson, specialist in [place] would like to see the patient in 2 weeks. Case management has arranged an appointment. Recommend patient follow-up with primary care provider within 5 to 7 days of discharge, sooner if needed. Recommend repeat CBC, CMP, and magnesium at that appointment. We did discuss abstinence and avoiding alcohol prior to discharge. Recommend patient follow-up with endoscopy as directed within 4-6 weeks. - Patient Instructions Diet: Usual Diet as Tolerated, No Alcoholic Beverages Activity: As Tolerated Driving: Do Not Drive Showering/Bathing: May Shower Notify Provider of: Fever, Increased Pain, Nausea and/or Vomiting Other/Special Instructions: Up with primary care provider within 5 to 7 days of discharge, sooner if needed. Follow-up with Dr. Lawson, GI specialist, as scheduled. You need to stop drinking alcohol. This will only further hurt your liver. As we discussed, we are recommending an inpatient treatment program for alcohol abuse, but you have been refusing. Should you find you are having difficulty at home with avoiding alcohol you may contact one of these treatment facilities yourself for admission into their program. You were prescribed a few days of Librium for withdrawal symptoms. You should take this daily. Do not take this while operating machinery or driving. You were prescribed an an tibiotic at discharge. Please take this as prescribed until completed, even if you feel 100% better. You were prescribed folic acid and thiamine supplementation at discharge. Please take these as prescribed. You were prescribed a nicotine patch at discharge. Apply this daily as directed. You will need to discuss this further with your primary care provider as dosing adjustments will be needed in the future. You were also provided contact information for cessation assistance services such as the [facility] tobacco cessation program and [place] [facility]. Please utilize these services if you are interested. Should symptoms return or worsen contact primary care provider return the emergency room. - Discharge Plan *PRESCRIPTION DRUG MONITORING PROGRAM REVIEWED*: Not Applicable *COPY OF PRESCRIPTION DRUG MONITORING REPORT IN PATIENT EDEN: Not Applicable Prescriptions/Med Rec: clindamycin HCL [Cleocin HCl] 300 mg PO Q6H #20 capsule Folic Acid 1 mg PO DAILY #20 tablet chlordiazePOXIDE [Librium] 25 mg PO DAILY #3 cap Nicotine [Nicoderm CQ] 7 mg TD DAILY #2 box Thiamine [Vitamin B-1] 100 mg PO BEDTIME #20 tablet Tobacco Cessation Medication: Prescription Given Home Medications: Home Meds Hydrochlorothiazide 25 mg PO DAILY 09/10/15 [History] Pantoprazole [ProTONIX] 40 mg PO DAILY 12/30/20 [History] clonazePAM [Clonazepam] 1 mg PO DAILY 12/30/20 [History] lisinopriL [Lisinopril] 20 mg PO DAILY 12/30/20 [History] Folic Acid 1 mg PO DAILY #20 tablet 01/03/21 [Rx] Nicotine [Nicoderm CQ] 7 mg TD DAILY #2 box 01/03/21 [Rx] Thiamine [Vitamin B-1] 100 mg PO BEDTIME #20 tablet 01/03/21 [Rx] chlordiazePOXIDE [Librium] 25 mg PO DAILY #3 cap 01/03/21 [Rx] clindamycin HCL [Cleocin HCl] 300 mg PO Q6H #20 capsule 01/03/21 [Rx] Oxygen Therapy Mode: Room Air Patient Handouts: Alcohol Use Disorder, Gastritis, Adult, [id number], Dehydration, Adult, [id number], Steps to Quit Smoking, Sepsis, Self Care, Adult Forms: ED Department Discharge Referrals: Sidra Paz NP [Primary Care Provider] - 01/13/21 11:30 am (this is your check in time for and 11:45 appointment. Discuss withyour provider the recommendation for an esophogastroduedonoscopy and colonoscopy) Ralf Lawson MD [Ordering Only Provider] - 02/09/21 9:00 am (Please arrive at least 15 minutes prior to the appointment. This time is [place] time) - Discharge Summary/Plan Comment DC Time >30 min.: Yes (45 mins ) - General Info Date of Service: 01/03/21 Admission Dx/Problem (Free Text: Admission Diagnosis/Problem Admission Diagnosis/Problem Leukocytosis Functional Status: Reports: Pain Controlled, Tolerating Diet, Ambulating, Urinating. Denies: New Symptoms - Review of Systems General: Reports: Weakness, Fatigue. Denies: Fever, Malaise, Chills HEENT: Reports: No Symptoms. Denies: Headaches, Sore Throat Pulmonary: Reports: No Symptoms. Denies: Shortness of Breath, Cough, Sputum, Wheezing Cardiovascular: Reports: No Symptoms. Denies: Chest Pain, Palpitations, Dyspnea on Exertion, Edema Gastrointestinal: Reports: Abdominal Pain (improved ). Denies: Constipation, Diarrhea, Nausea, Vomiting Genitourinary: Reports: No Symptoms. Denies: Pain Musculoskeletal: Reports: No Symptoms Skin: Reports: No Symptoms. Denies: Cyanosis Neurological: Reports: No Symptoms. Denies: Confusion Psychiatric: Reports: No Symptoms - Patient Data Vitals - Most Recent: Last Vital Signs Temp 96.9 F 01/03/21 09:18 Pulse 95 01/03/21 09:18 Resp 18 01/03/21 09:18 BP 96/65 01/03/21 09:18 Pulse Ox 99 01/03/21 09:18 Weight - Most Recent: 79.197 kg I&O - Last 24 hours: Intake & Output 01/02/21 01/03/21 01/03/21 22:59 06:59 14:59 Intake Total 1420 700 Balance 1420 700 Lab Results - Last 24 hrs: Laboratory Results - last 24 hr 01/03/21 01/03/21 01/03/21 Range/Units 05:00 05:00 : WBC 13.00 H (3.98-10.04) K/mm3 RBC 2.02 L (3.98-5.22) M/mm3 Hgb 8.1 L (11.2-15.7) gm/dl Hct 25.6 L (34.1-44.9) % MCV 126.7 H (79.4-94.8) fl MCH 40.1 H (25.6-32.2) pg MCHC 31.6 L (32.2-35.5) g/dl RDW Std Deviation 76.4 H (36.4-46.3) fL Plt Count 229 (182-369) K/mm3 MPV 8.6 L (9.4-12.3) fl Neut % (Auto) 70.5 (34.0-71.1) % Lymph % (Auto) 12.8 L (19.3-51.7) % Rolette % (Auto) 14.2 H (4.7-12.5) % Eos % (Auto) 1.2 (0.7-5.8) Baso % (Auto) 0.5 (0.1-1.2) % Neut # (Auto) 9.16 H (1.56-6.13) K/mm3 Lymph # (Auto) 1.67 (1.18-3.74) K/mm3 Rolette # (Auto) 1.85 H (0.24-0.36) K/mm3 Eos # (Auto) 0.16 (0.04-0.36) K/mm3 Baso # (Auto) 0.06 (0.01-0.08) K/mm3 Manual Slide Review Abnormal smear PT 15.6 H D (9.7-12.0) SECONDS INR 1.47 Sodium 136 (136-145) mEq/L Potassium 3.5 (3.5-5.1) mEq/L Chloride 101 (98-107) mEq/L Carbon Dioxide 26 (21-32) mEq/L Anion Gap 12.5 (5-15) BUN 8 (7-18) mg/dL Creatinine 0.7 (0.55-1.02) mg/dL Est Cr Clr Drug Dosing 112.08 mL/min Estimated GFR (MDRD) > 60 (>60) mL/min BUN/Creatinine Ratio 11.4 L (14-18) Glucose 104 H (70-99) mg/dL Calcium 7.3 L (8.5-10.1) mg/dL Total Bilirubin 4.0 H (0.2-1.0) mg/dL AST 136 H (15-37) U/L ALT 34 (14-59) U/L Alkaline Phosphatase 202 H (46-116) U/L Total Protein 5.5 L (6.4-8.2) g/dl Albumin 1.6 L (3.4-5.0) g/dl Globulin 3.9 gm/dL Albumin/Globulin Ratio 0.4 L (1-2) Med Orders - Current: Current Medications Acetaminophen (Acetaminophen 325 Mg Tab) 650 mg PO Q4H PRN PRN Reason: Pain (Mild 1-3)/fever Chlordiazepoxide HCl (Chlordiazepoxide 25 Mg Cap) 25 mg PO BID [facility] Enoxaparin Sodium (Enoxaparin 40 Mg/0.4 Ml Syringe) 40 mg SUBCUT DAILY [facility] Last Admin: 01/03/21 08:29 Dose: 40 mg Documented by: Folic Acid (Folic Acid 1 Mg Tab) 1 mg PO DAILY [facility] Last Admin: 01/03/21 08:28 Dose: 1 mg Documented by: Hydrochlorothiazide (Hydrochlorothiazide 25 Mg Tab) 25 mg PO DAILY [facility] Last Admin: 01/03/21 08:28 Dose: 25 mg Documented by: Ceftriaxone Sodium 2 gm/ (Sodium Chloride) 100 mls @ 200 mls/hr IV Q24H [facility] Last Admin: 01/03/21 09:38 Dose: 200 mls/hr Documented by: Metronidazole 500 mg/ Premix 100 mls @ 100 mls/hr IV Q8H [facility] Last Admin: 01/03/21 04:07 Dose: 100 mls/hr Documented by: Ketorolac Tromethamine (Ketorolac 30 Mg/Ml Sdv) 30 mg IV Q6H PRN PRN Reason: Pain (moderate 4-6) Lisinopril (Lisinopril 20 Mg Tab) 20 mg PO DAILY [facility] Last Admin: 01/03/21 08:28 Dose: Not Given Documented by: Lorazepam (Lorazepam 2 Mg/Ml Sdv) 1 mg IV Q2H PRN PRN Reason: Other Ondansetron HCl (Ondansetron 4 Mg Tab.Dis) 4 mg PO Q6H PRN PRN Reason: nausea, able to take PO Last Admin: 01/03/21 08:27 Dose: 4 mg Documented by: Ondansetron HCl (Ondansetron 4 Mg/2 Ml Sdv) 4 mg IV Q6H PRN PRN Reason: Nausea/Vomiting Last Admin: 01/03/21 03:12 Dose: 4 mg Documented by: Oxycodone HCl (Oxycodone 5 Mg Tab) 5 mg PO Q4H PRN PRN Reason: Pain (severe 7-10) Last Admin: 01/03/21 08:27 Dose: 5 mg Documented by: Pantoprazole Sodium (Pantoprazole 40 Mg Tab.Cr) 40 mg PO DAILY [facility] Last Admin: 01/03/21 08:29 Dose: 40 mg Documented by: Polyethylene Glycol (Polyethylene Glycol 3350 Powder 17 Gm Packet) 17 gm PO BID PRN PRN Reason: Constipation Last Admin: 01/02/21 11:13 Dose: 17 gm Documented by: Thiamine HCl (Thiamine 100 Mg Tab) 100 mg PO BEDTIME [facility] Last Admin: 01/02/21 20:10 Dose: 100 mg Documented by: Trazodone HCl (Trazodone 50 Mg Tab) 50 mg PO BEDTIME PRN PRN Reason: Sleep Last Admin: 01/02/21 20:10 Dose: 50 mg Documented by: Discontinued Medications Acetaminophen (Acetaminophen 325 Mg Tab) 975 mg PO ONETIME ONE Stop: 12/31/20 01:26 Last Admin: 12/31/20 01:40 Dose: 975 mg Documented by: Acetaminophen (Acetaminophen 325 Mg Tab) 975 mg PO ONETIME ONE Stop: 12/31/20 06:34 Last Admin: 12/31/20 06:47 Dose: 975 mg Documented by: Al Hydroxide/Mg Hydroxide (Aluminum Hydroxide/Magnesium Hydroxide/Simethicone Susp 30 Ml Cup) 30 ml PO ONETIME ONE Stop: 12/30/20 23:01 Last Admin: 12/30/20 23:16 Dose: 30 ml Documented by: Chlordiazepoxide HCl (Chlordiazepoxide 25 Mg Cap) 25 mg PO TID [facility] Last Admin: 01/03/21 08:26 Dose: 25 mg Documented by: Enoxaparin Sodium (Enoxaparin 30 Mg/0.3 Ml Syringe) 30 mg SUBCUT DAILY [facility] Last Admin: 12/31/20 09:46 Dose: 30 mg Documented by: Hydromorphone HCl (Hydromorphone 0.5 Mg/0.5 Ml Syringe) 0.5 mg IVPUSH ONETIME ONE Stop: 12/30/20 22:43 Last Admin: 12/30/20 23:15 Dose: 0.5 mg Documented by: Hydromorphone HCl (Hydromorphone 0.5 Mg/0.5 Ml Syringe) 0.5 mg IVPUSH ONETIME ONE Stop: 12/31/20 01:26 Last Admin: 12/31/20 01:39 Dose: 0.5 mg Documented by: Hydromorphone HCl (Hydromorphone 0.5 Mg/0.5 Ml Syringe) 0.5 mg IVPUSH ONETIME ONE Stop: 12/31/20 06:34 Last Admin: 12/31/20 06:46 Dose: 0.5 mg Documented by: Hydromorphone HCl (Hydromorphone 0.5 Mg/0.5 Ml Syringe) 0.5 mg IVPUSH Q2H PRN PRN Reason: Pain (severe 7-10) Last Admin: 01/01/21 10:13 Dose: 0.5 mg Documented by: Dextrose/Sodium Chloride (Dextrose 5%-Normal Saline) 1,000 mls @ 500 mls/hr IV ASDIRECTED [facility] Last Admin: 12/30/20 23:14 Dose: 500 mls/hr Documented by: Potassium Chloride 10 meq/ (Premix) 100 mls @ 100 mls/hr IV Q1H [facility] Stop: 12/31/20 03:14 Last Admin: 12/31/20 02:54 Dose: 100 mls/hr Documented by: Cefepime HCl 2 gm/ Premix 50 mls @ 100 mls/hr IV ONETIME ONE Stop: 12/31/20 01:27 Last Admin: 12/31/20 01:15 Dose: 100 mls/hr Documented by: Sodium Chloride (Normal Saline) 1,000 mls @ 500 mls/hr IV ASDIRECTED [facility] Last Admin: 12/31/20 01:38 Dose: 500 mls/hr Documented by: Metronidazole 500 mg/ Premix 100 mls @ 100 mls/hr IV ONETIME ONE Stop: 12/31/20 03:09 Last Admin: 12/31/20 02:53 Dose: 100 mls/hr Documented by: Sodium Chloride (Normal Saline) 1,000 mls @ 999 mls/hr IV ONETIME ONE Stop: 12/31/20 03:40 Last Admin: 12/31/20 03:24 Dose: Not Given Documented by: Dextrose/Lactated Ringer's (Dextrose 5%-Lactated Ringers) 1,000 mls @ 500 ml s/hr IV ASDIRECTED [facility] Last Admin: 12/31/20 03:24 Dose: 500 mls/hr Documented by: Lactated Ringer's (Ringers, Lactated) 1,000 mls @ 999 mls/hr IV ASDIRECTED [facility] Last Admin: 12/31/20 06:31 Dose: 999 mls/hr Documented by: Dextrose/Sodium Chloride (Dextrose 5%-Normal Saline) 1,000 mls @ 150 mls/hr IV ASDIRECTED [facility] Sodium Chloride (Normal Saline) 1,000 mls @ 125 mls/hr IV ASDIRECTED [facility] Last Admin: 01/01/21 01:18 Dose: 125 mls/hr Documented by: Potassium Chloride 10 meq/ (Premix) 100 mls @ 100 mls/hr IV Q1H [facility] Stop: 12/31/20 16:59 Magnesium Sulfate 4 gm/ Premix 50 mls @ 12.5 mls/hr IV ONETIME ONE Stop: 12/31/20 17:29 Last Admin: 12/31/20 13:04 Dose: 12.5 mls/hr Documented by: Lorazepam (Lorazepam 2 Mg/Ml Sdv) 1 mg IVPUSH ONETIME ONE Stop: 12/31/20 02:42 Last Admin: 12/31/20 02:52 Dose: 1 mg Documented by: Metoclopramide HCl (Metoclopramide 10 Mg/2 Ml Sdv) 7.5 mg IVPUSH ONETIME ONE Stop: 12/30/20 22:43 Last Admin: 12/30/20 23:14 Dose: 7.5 mg Documented by: Metoclopramide HCl (Metoclopramide 10 Mg/2 Ml Sdv) 7.5 mg IVPUSH ONETIME ONE Stop: 12/31/20 06:35 Last Admin: 12/31/20 06:46 Dose: 7.5 mg Documented by: Pantoprazole Sodium (Pantoprazole 40 Mg Vial) 40 mg IVPUSH BID [facility] Last Admin: 01/01/21 08:02 Dose: 40 mg Documented by: Sodium Phosphate (Phosphorus #1 250 Mg Tab) 250 mg PO ONETIME ONE Stop: 01/01/21 07:12 Last Admin: 01/01/21 07:55 Dose: 250 mg Documented by: - Exam Quality Assessment: Reports: DVT Prophylaxis. Denies: Supplemental Oxygen, Urine Catheter General: Reports: Alert, Oriented, Cooperative, No Acute Distress HEENT: Reports: Pupils Equal, Pupils Reactive, Mucous Membr. Moist/[place] Neck: Reports: Supple, Trachea Midline Lungs: Reports: Clear to Auscultation, Normal Respiratory Effort Cardiovascular: Reports: Regular Rate, Regular Rhythm GI/Abdominal Exam: Normal Bowel Sounds, Soft, Non-Tender, No Distention, Distended (mildly ), Other (Abdominal ascites noted) (Female) Exam: Deferred Rectal (Female) Exam: Deferred Back Exam: Reports: Normal Inspection, Full Range of Motion Extremities: Normal Inspection, Normal Range of Motion, Non-Tender, Normal Capillary Refill, Pedal Edema (Trace ) Skin: Reports: Warm, Dry, Intact Neurological: Reports: No New Focal Deficit Psy/Mental Status: Reports: Alert. Denies: Normal Affect (Flat affect) <CareySergio bagley - Last Filed: 01/03/21 14:57> Discharge Summary - Referral to [facility] Primary Care Physician: Sidra Paz NP - Discharge Diagnosis/Problem(s) (1) Abdominal pain SNOMED Code(s): 76897624 ICD Code: R10.9 - UNSPECIFIED ABDOMINAL PAIN Status: Resolved Priority: High Current Visit: Yes Qualifiers: Abdominal location: right upper quadrant Qualified Code(s): R10.11 - Right upper quadrant pain (2) Anemia SNOMED Code(s): 945746896 ICD Code: D64.9 - ANEMIA, UNSPECIFIED Status: Chronic Current Visit: Yes Qualifiers: Anemia type: folate deficiency Folate deficiency anemia type: other folate deficiency Qualified Code(s): D52.8 - Other folate deficiency anemias (3) Ascites SNOMED Code(s): 767212570 ICD Code: R18.8 - OTHER ASCITES Status: Chronic Priority: High Current Visit: Yes Qualifiers: Ascites type: due to alcoholic cirrhosis Qualified Code(s): K70.31 - Alcoholic cirrhosis of liver with ascites (4) Chronic alcoholism SNOMED Code(s): 2518262 ICD Code: F10.20 - ALCOHOL DEPENDENCE, UNCOMPLICATED Status: Chronic Priority: High Current Visit: Yes (5) Transaminitis SNOMED Code(s): 135927109, 846410252 ICD Code: R74.01 - ELEVATION OF LEVELS OF LIVER TRANSAMINASE LEVELS Status: Chronic Priority: High Current Visit: Yes (6) Hypertension SNOMED Code(s): 56246597 ICD Code: I10 - ESSENTIAL (PRIMARY) HYPERTENSION Status: Chronic Priority: Medium Current Visit: Yes Qualifiers: Hypertension type: primary hypertension Qualified Code(s): I10 - Essential (primary) hypertension - Patient Summary/Data Consults: Consultations 12/31/20 07:35 Consult to Case Management/Hog Feeder [CONS] Routine 12/31/20 09:17 Consult to Physician [CONS] Routine Hospital Course: I have seen and examined the patient independently of physician housing assistant property manager Mitul Ureña and have discussed the case with him. I have reviewed and agree with the plan of care as outlined by him for this patient. Please see orders. - Patient Data Vitals - Most Recent: Last Vital Signs Temp 36.1 C 01/03/21 09:18 Pulse 95 01/03/21 09:18 Resp 18 01/03/21 09:18 BP 96/65 01/03/21 09:18 Pulse Ox 99 01/03/21 09:18 I&O - Last 24 hours: Intake & Output 01/02/21 01/03/21 01/03/21 22:59 06:59 14:59 Intake Total 1420 700 Balance 1420 700 Lab Results - Last 24 hrs: Laboratory Results - last 24 hr 01/03/21 01/03/21 01/03/21 Range/Units 05:00 05:00 07:26 WBC 13.00 H (3.98-10.04) K/mm3 RBC 2.02 L (3.98-5.22) M/mm3 Hgb 8.1 L (11.2-15.7) gm/dl Hct 25.6 L (34.1-44.9) % MCV 126.7 H (79.4-94.8) fl MCH 40.1 H (25.6-32.2) pg MCHC 31.6 L (32.2-35.5) g/dl RDW Std Deviation 76.4 H (36.4-46.3) fL Plt Count 229 (182-369) K/mm3 MPV 8.6 L (9.4-12.3) fl Neut % (Auto) 70.5 (34.0-71.1) % Lymph % (Auto) 12.8 L (19.3-51.7) % Rolette % (Auto) 14.2 H (4.7-12.5) % Eos % (Auto) 1.2 (0.7-5.8) Baso % (Auto) 0.5 (0.1-1.2) % Neut # (Auto) 9.16 H (1.56-6.13) K/mm3 Lymph # (Auto) 1.67 (1.18-3.74) K/mm3 Rolette # (Auto) 1.85 H (0.24-0.36) K/mm3 Eos # (Auto) 0.16 (0.04-0.36) K/mm3 Baso # (Auto) 0.06 (0.01-0.08) K/mm3 Manual Slide Review Abnormal smear PT 15.6 H D (9.7-12.0) SECONDS INR 1.47 Sodium 136 (136-145) mEq/L Potassium 3.5 (3.5-5.1) mEq/L Chloride 101 (98-107) mEq/L Carbon Dioxide 26 (21-32) mEq/L Anion Gap 12.5 (5-15) BUN 8 (7-18) mg/dL Creatinine 0.7 (0.55-1.02) mg/dL Est Cr Clr Drug Dosing 112.08 mL/min Estimated GFR (MDRD) > 60 (>60) mL/min BUN/Creatinine Ratio 11.4 L (14-18) Glucose 104 H (70-99) mg/dL Calcium 7.3 L (8.5-10.1) mg/dL Total Bilirubin 4.0 H (0.2-1.0) mg/dL AST 136 H (15-37) U/L ALT 34 (14-59) U/L Alkaline Phosphatase 202 H (46-116) U/L Total Protein 5.5 L (6.4-8.2) g/dl Albumin 1.6 L (3.4-5.0) g/dl Globulin 3.9 gm/dL Albumin/Globulin Ratio 0.4 L (1-2) Med Orders - Current: Current Medications Acetaminophen (Acetaminophen 325 Mg Tab) 650 mg PO Q4H PRN PRN Reason: Pain (Mild 1-3)/fever Chlordiazepoxide HCl (Chlordiazepoxide 25 Mg Cap) 25 mg PO BID KIAN Enoxaparin Sodium (Enoxaparin 40 Mg/0.4 Ml Syringe) 40 mg SUBCUT DAILY [facility] Last Admin: 01/03/21 08:29 Dose: 40 mg Documented by: Folic Acid (Folic Acid 1 Mg Tab) 1 mg PO DAILY [facility] Last Admin: 01/03/21 08:28 Dose: 1 mg Documented by: Hydrochlorothiazide (Hydrochlorothiazide 25 Mg Tab) 25 mg PO DAILY [facility] Last Admin: 01/03/21 08:28 Dose: 25 mg Documented by: Ceftriaxone Sodium 2 gm/ (Sodium Chloride) 100 mls @ 200 mls/hr IV Q24H [facility] Last Admin: 01/03/21 09:38 Dose: 200 mls/hr Documented by: Metronidazole 500 mg/ Premix 100 mls @ 100 mls/hr IV Q8H [facility] Last Admin: 01/03/21 11:31 Dose: Not Given Documented by: Ketorolac Tromethamine (Ketorolac 30 Mg/Ml Sdv) 30 mg IV Q6H PRN PRN Reason: Pain (moderate 4-6) Lisinopril (Lisinopril 20 Mg Tab) 20 mg PO DAILY [facility] Last Admin: 01/03/21 08:28 Dose: Not Given Documented by: Lorazepam (Lorazepam 2 Mg/Ml Sdv) 1 mg IV Q2H PRN PRN Reason: Other Ondansetron HCl (Ondansetron 4 Mg Tab.Dis) 4 mg PO Q6H PRN PRN Reason: nausea, able to take PO Last Admin: 01/03/21 08:27 Dose: 4 mg Documented by: Ondansetron HCl (Ondansetron 4 Mg/2 Ml Sdv) 4 mg IV Q6H PRN PRN Reason: Nausea/Vomiting Last Admin: 01/03/21 03:12 Dose: 4 mg Documented by: Oxycodone HCl (Oxycodone 5 Mg Tab) 5 mg PO Q4H PRN PRN Reason: Pain (severe 7-10) Last Admin: 01/03/21 08:27 Dose: 5 mg Documented by: Pantoprazole Sodium (Pantoprazole 40 Mg Tab.Cr) 40 mg PO DAILY [facility] Last Admin: 01/03/21 08:29 Dose: 40 mg Documented by: Polyethylene Glycol (Polyethylene Glycol 3350 Powder 17 Gm Packet) 17 gm PO BID PRN PRN Reason: Constipation Last Admin: 01/02/21 11:13 Dose: 17 gm Documented by: Thiamine HCl (Thiamine 100 Mg Tab) 100 mg PO BEDTIME [facility] Last Admin: 01/02/21 20:10 Dose: 100 mg Documented by: Trazodone HCl (Trazodone 50 Mg Tab) 50 mg PO BEDTIME PRN PRN Reason: Sleep Last Admin: 01/02/21 20:10 Dose: 50 mg Documented by: Discontinued Medications Acetaminophen (Acetaminophen 325 Mg Tab) 975 mg PO ONETIME ONE Stop: 12/31/20 01:26 Last Admin: 12/31/20 01:40 Dose: 975 mg Documented by: Acetaminophen (Acetaminophen 325 Mg Tab) 975 mg PO ONETIME ONE Stop: 12/31/20 06:34 Last Admin: 12/31/20 06:47 Dose: 975 mg Documented by: Al Hydroxide/Mg Hydroxide (Aluminum Hydroxide/Magnesium Hydroxide/Simethicone Susp 30 Ml Cup) 30 ml PO ONETIME ONE Stop: 12/30/20 23:01 Last Admin: 12/30/20 23:16 Dose: 30 ml Documented by: Chlordiazepoxide HCl (Chlordiazepoxide 25 Mg Cap) 25 mg PO TID [facility] Last Admin: 01/03/21 08:26 Dose: 25 mg Documented by: Enoxaparin Sodium (Enoxaparin 30 Mg/0.3 Ml Syringe) 30 mg SUBCUT DAILY [facility] Last Admin: 12/31/20 09:46 Dose: 30 mg Documented by: Hydromorphone HCl (Hydromorphone 0.5 Mg/0.5 Ml Syringe) 0.5 mg IVPUSH ONETIME ONE Stop: 12/30/20 22:43 Last Admin: 12/30/20 23:15 Dose: 0.5 mg Documented by: Hydromorphone HCl (Hydromorphone 0.5 Mg/0.5 Ml Syringe) 0.5 mg IVPUSH ONETIME ONE Stop: 12/31/20 01:26 Last Admin: 12/31/20 01:39 Dose: 0.5 mg Documented by: Hydromorphone HCl (Hydromorphone 0.5 Mg/0.5 Ml Syringe) 0.5 mg IVPUSH ONETIME ONE Stop: 12/31/20 06:34 Last Admin: 12/31/20 06:46 Dose: 0.5 mg Documented by: Hydromorphone HCl (Hydromorphone 0.5 Mg/0.5 Ml Syringe) 0.5 mg IVPUSH Q2H PRN PRN Reason: Pain (severe 7-10) Last Admin: 01/01/21 10:13 Dose: 0.5 mg Documented by: Dextrose/Sodium Chloride (Dextrose 5%-Normal Saline) 1,000 mls @ 500 mls/hr IV ASDIRECTED [facility] Last Admin: 12/30/20 23:14 Dose: 500 mls/hr Documented by: Potassium Chloride 10 meq/ (Premix) 100 mls @ 100 mls/hr IV Q1H [facility] Stop: 12/31/20 03:14 Last Admin: 12/31/20 02:54 Dose: 100 mls/hr Documented by: Cefepime HCl 2 gm/ Premix 50 mls @ 100 mls/hr IV ONETIME ONE Stop: 12/31/20 01:27 Last Admin: 12/31/20 01:15 Dose: 100 mls/hr Documented by: Sodium Chloride (Normal Saline) 1,000 mls @ 500 mls/hr IV ASDIRECTED [facility] Last Admin: 12/31/20 01:38 Dose: 500 mls/hr Documented by: Metronidazole 500 mg/ Premix 100 mls @ 100 mls/hr IV ONETIME ONE Stop: 12/31/20 03:09 Last Admin: 12/31/20 02:53 Dose: 100 mls/hr Documented by: Sodium Chloride (Normal Saline) 1,000 mls @ 999 mls/hr IV ONETIME ONE Stop: 12/31/20 03:40 Last Admin: 12/31/20 03:24 Dose: Not Given Documented by: Dextrose/Lactated Ringer's (Dextrose 5%-Lactated Ringers) 1,000 mls @ 500 mls/hr IV ASDIRECTED [facility] Last Admin: 12/31/20 03:24 Dose: 500 mls/hr Documented by: Lactated Ringer's (Ringers, Lactated) 1,000 mls @ 999 mls/hr IV ASDIRECTED [facility] Last Admin: 12/31/20 06:31 Dose: 999 mls/hr Documented by: Dextrose/Sodium Chloride (Dextrose 5%-Normal Saline) 1,000 mls @ 150 mls/hr IV ASDIRECTED [facility] Sodium Chloride (Normal Saline) 1,000 mls @ 125 mls/hr IV ASDIRECTED [facility] Last Admin: 01/01/21 01:18 Dose: 125 mls/hr Documented by: Potassium Chloride 10 meq/ (Premix) 100 mls @ 100 mls/hr IV Q1H [facility] Stop: 12/31/20 16:59 Magnesium Sulfate 4 gm/ Premix 50 mls @ 12.5 mls/hr IV ONETIME ONE Stop: 12/31/20 17:29 Last Admin: 12/31/20 13:04 Dose: 12.5 mls/hr Documented by: Lorazepam (Lorazepam 2 Mg/Ml Sdv) 1 mg IVPUSH ONETIME ONE Stop: 12/31/20 02:42 Last Admin: 12/31/20 02:52 Dose: 1 mg Documented by: Metoclopramide HCl (Metoclopramide 10 Mg/2 Ml Sdv) 7.5 mg IVPUSH ONETIME ONE Stop: 12/30/20 22:43 Last Admin: 12/30/20 23:14 Dose: 7.5 mg Documented by: Metoclopramide HCl (Metoclopramide 10 Mg/2 Ml Sdv) 7.5 mg IVPUSH ONETIME ONE Stop: 12/31/20 06:35 Last Admin: 12/31/20 06:46 Dose: 7.5 mg Documented by: Pantoprazole Sodium (Pantoprazole 40 Mg Vial) 40 mg IVPUSH BID [facility] Last Admin: 01/01/21 08:02 Dose: 40 mg Documented by: Sodium Phosphate (Phosphorus #1 250 Mg Tab) 250 mg PO ONETIME ONE Stop: 01/01/21 07:12 Last Admin: 01/01/21 07:55 Dose: 250 mg Documented by:
[2021-01-03 16:07] VITALS: BP 95/67; PULSE 82
[2021-01-03] MEDS ORDERED: chlordiazePOXIDE 25 MG Cap PO SCH (21:00)
== END 2021-01-03 16:00 | disposition home or self-care (01) | DRG 280 ==
LOC: JD.ED 22:20 → JD.ICU 12-31 07:35
PROVIDERS: ADMIT Internal Medicine; ATTEND Internal Medicine
DX: K70.31 Alcoholic cirrhosis of liver with ascites (principal); F10.239 Alcohol dependence with withdrawal, unspecified; D52.8 Other folate deficiency anemias; I10 Essential (primary) hypertension; R74.01 Elevation of levels of liver transaminase levels; F17.210 Nicotine dependence, cigarettes, uncomplicated; E87.2 Acidosis; Z20.822 Contact with and (suspected) exposure to COVID-19; H54.7 Unspecified visual loss; K21.9 Gastro-esophageal reflux disease without esophagitis; F32.9 Major depressive disorder, single episode, unspecified; K52.9 Noninfective gastroenteritis and colitis, unspecified; E87.1 Hypo-osmolality and hyponatremia; Z98.84 Bariatric surgery status; Z79.899 Other long term (current) drug therapy; Z88.1 Allergy status to other antibiotic agents; Z88.8 Allergy status to other drugs, medicaments and biological substances; Z88.5 Allergy status to narcotic agent
CPT/HCPCS: 36415; 71045; 71045-26; 74176; 74176-26; 76705; 76705-26; 80048; 80053; 80306; 80307; 81001; 82009; 82140; 82977; 83605; 83690; 83735; 83880; 84100; 84703; 85025; 85027; 85610; 85730; 86140; 87040; 93005; 93010; 96365; 96367; 96368; 96375; 96376; 99222; 99233; 99239; 99285; 99285-25; A9270-GY; C9113; J0692; J0696; J1170; J1650; J2060; J2405; J2765; J3475; J3480; J3490; J7030; J7042; J7120; J7121; U0002

== ENCOUNTER 2021-01-08 14:54 | Emergency (ER) | payer BC ==
[2021-01-08 15:11] VITALS: BP 88/62; PULSE 93
[2021-01-08] MEDS ORDERED: Sodium Chloride 0.9% 10 ML Syringe FLUSH PRN (15:24)
[2021-01-08] MEDS ORDERED: Sodium Chloride 0.9% 1,000 ML IV ONE (15:26)
--- NOTE | 2021-01-08 15:34 | EDM.PDOC ---
ED HPI GENERAL MEDICAL PROBLEM - General Chief Complaint: Abdominal Pain Stated Complaint: SWELLING IN BOTH LEGS Time Seen by Provider: 01/08/21 15:06 Source of Information: Reports: Patient History Limitations: Reports: No Limitations - History of Present Illness INITIAL COMMENTS - FREE TEXT/NARRATIVE: 35-year-old female presents the emergency department today with complaints of worsening ascites and swelling to her bilateral feet. Of note patient was recently hospitalized here and discharged to home 4 days ago. At that time she was hospitalized for abdominal pain, anemia, ascites, chronic alcoholism, hypertension and transaminitis. Patient had been drinking large volumes of vodka since the age of 17 up to 20 to 30 ounces daily. She states that since being discharged from the hospital 4 days ago she has not drank any alcohol and has only been able to consume some Jell-O here and there. She states she has not had much of an appetite however she states she has been trying to drink plenty of water. She also is complaining of worsening abdominal distention, abdominal pain and low back pain. She denies any recent fever or chills, she denies nausea vomiting or diarrhea. She denies any urinary symptoms. She does have a friend at the bedside with her who informs us that the patient's children say that she has been much more confused over the last couple of days. Patient reports difficulty with ambulation as she states she feels so weak she can barely ambulate and when she does she is dizzy. Abdominal Pain Score (Numeric/FACES): 7 - Related Data Allergies Allergy/AdvReac Type Severity Reaction Status Date / Time nitrofurantoin Allergy Intermediate Hives Verified 01/08/21 15:11 [From Macrobid] nitrofurantoin Allergy Intermediate Hives Verified 01/08/21 15:11 macrocrystalline [From Macrobid] morphine Allergy Mild Itching Verified 01/08/21 15:11 zolpidem tartrate AdvReac Intermediate Hallucinati Verified 01/08/21 15:11 [From Ambien] ons tramadol AdvReac Mild Vomiting Verified 01/08/21 15:11 Home Meds: Home Meds Hydrochlorothiazide 25 mg PO DAILY 09/10/15 [History] Pantoprazole [ProTONIX] 40 mg PO DAILY 12/30/20 [History] clonazePAM [Clonazepam] 1 mg PO DAILY 12/30/20 [History] lisinopriL [Lisinopril] 20 mg PO DAILY 12/30/20 [History] Folic Acid 1 mg PO DAILY #20 tablet 01/03/21 [Rx] Nicotine [Nicoderm CQ] 7 mg TD DAILY #2 box 01/03/21 [Rx] Thiamine [Vitamin B-1] 100 mg PO BEDTIME #20 tablet 01/03/21 [Rx] chlordiazePOXIDE [Librium] 25 mg PO DAILY #3 cap 01/03/21 [Rx] clindamycin HCL [Cleocin HCl] 300 mg PO Q6H #20 capsule 01/03/21 [Rx] Past Medical History - Past Health History Medical/Surgical History: Denies Medical/Surgical History HEENT History: Reports: Other (See Below) Other HEENT History: wears glasses Cardiovascular History: Reports: Hypertension Gastrointestinal History: Reports: GERD, Other (See Below) Other Gastrointestinal History: gastric sleeve Psychiatric History: Reports: Addiction - Infectious Disease History Infectious Disease History: Reports: Chicken Pox - Past Surgical History Other GI Surgeries/Procedures: sleeve gastrectomy 2016 Social & Family History - Family History Cardiac: Reports: Hypertension Psychiatric: Reports: Anxiety, Depression - Tobacco Use Tobacco Use Status *Q: Former Tobacco User Used Tobacco, but Quit: Yes Month/Year Tobacco Last Used: 12/2020 - Caffeine Use Caffeine Use: Reports: None - Recreational Drug Use Recreational Drug Use: No - Living Situation & Occupation Living situation: Reports: Occupation: Unemployed ED ROS GENERAL - Review of Systems Review Of Systems: See Below Constitutional: Reports: Weakness, Decreased Appetite. Denies: Fever, Chills HEENT: Reports: No Symptoms Respiratory: Reports: Shortness of Breath. Denies: Pleuritic Chest Pain, Cough, Sputum Cardiovascular: Reports: Edema, Lightheadedness, Orthopnea. Denies: Chest Pain, Palpitations Endocrine: Reports: Fatigue GI/Abdominal: Reports: Abdominal Pain, Anorexia, Decreased Appetite, Distension. Denies: Black Stool, Bloody Stool, Nausea, Vomiting : Reports: No Symptoms Musculoskeletal: Reports: Back Pain (Lumbar) Skin: Reports: Jaundice Neurological: Reports: Confusion, Dizziness, Difficulty Walking, Weakness Psychiatric: Reports: Confusion Hematologic/Lymphatic: Reports: No Symptoms Immunologic: Reports: No Symptoms ED EXAM, GENERAL - Physical Exam Exam: See Below Exam Limited By: No Limitations General Appearance: Alert, Lethargic, Moderate Distress Eye Exam: Bilateral Eye: PERRL, Other (scleral icterus) Ears: Normal External Exam, Hearing Grossly Normal Nose: Normal Inspection Throat/Mouth: Normal Inspection, Normal Lips, Normal Voice, No Airway Compromise Head: Atraumatic Neck: Normal Inspection, Supple Respiratory/Chest: No Respiratory Distress, Lungs Clear, Normal Breath Sounds, No Accessory Muscle Use, Chest Non-Tender Cardiovascular: Normal Peripheral Pulses, Regular Rate, Rhythm, No Murmur. No: No Edema (2+ pitting) Peripheral Pulses: 2+: Radial (L), Radial (R), Dorsalis Pedis (L), Dorsalis Pedis (R) GI/Abdominal: Normal Bowel Sounds, Distended, Tender (Generalized tenderness with percussion), Other (Tympanic with percussion). No: Rigid (Semifirm) (Female) Exam: Deferred Rectal (Female) Exam: Deferred Back Exam: Normal Inspection, Full Range of Motion Extremities: Normal Inspection, Normal Range of Motion, Pedal Edema (2+ pitting) Neurological: Oriented, Slow to Respond, Abnormal Gait (Due to generalized weakness) Psychiatric: Flat Affect Lymphatic: No Adenopathy #1 Interpretation EKG Date: 01/08/21 Time: 16:40 Rhythm: NSR Rate (Beats/Min): 90 [place]: Normal P-Wave: Present QRS: Normal ST-T: Normal QT: Normal EKG Interpretation Comments: Per Dr. Harris interpretation: Sinus rhythm at 90 bpm; decreased voltage, precordial leads; otherwise normal EKG Course - Vital Signs Text/Narrative:: As stated above 35-year-old female presents with worsening ascites, confusion, worsening abdominal and lumbar back pain, decreased appetite and pedal edema. Patient was discharged from the hospital 4 days ago. She was to be taking clindamycin every 6 hours for colitis. She was also taking hydrochlorothiazide. Upon assessment the patient is lethargic but she is oriented. She does have jaundice and scleral icterus. States she is having difficulty walking due to weakness and dizziness. Abdomen is very distended and semifirm. Complains of tenderness with percussion. Denies any nausea or vomiting. Has not had diarrhea. Denies any urinary symptoms. She does have 2+ pitting edema to her bilateral feet. I have ordered labs to include a CBC, CMP, C-reactive protein, magnesium level, ammonia level, proBNP, lactic acid level, urinalysis with micro and culture if indicated. Will obtain a CT of the abdomen pelvis with IV contrast to evaluate ascites. We will insert an IV and give her a liter normal saline wide open as her systolic blood pressure at the time of triage was in the 80s. Patient is also requesting something for abdominal pain, will medicate her with half milligram Dilaudid IV once we obtain IV access and get some IV fluids started. Last Recorded V/S: Last Vital Signs Temp 97.3 F 01/08/21 15:07 Pulse 93 01/08/21 15:07 Resp 18 01/08/21 15:07 BP 88/62 L 01/08/21 15:07 Pulse Ox 93 L 01/08/21 15:07 - Orders/Labs/Meds Orders: Active Orders 24 hr Category Date Time Status EKG Documentation Completion [RC] STAT Care 01/08/21 15:24 Active Chest 1V Frontal [CR] Routine Exams 01/08/21 16:55 Ordered BLOOD CULTURE [MREF] Stat Lab 01/08/21 16:19 Received BLOOD CULTURE [MREF] Stat Lab 01/08/21 16:29 Received UA RFX YENNY AND CULT IF INDIC [URIN] Stat Lab 01/08/21 15:24 Ordered Sodium Chloride 0.9% [Saline Flush] Med 01/08/21 15:24 Active 10 ml FLUSH ASDIRECTED PRN Blood Culture x2 Reflex Set [OM.PC] Stat Oth 01/08/21 15:49 Ordered Saline Lock Insert [OM.PC] Stat Oth 01/08/21 15:24 Ordered Medication Orders Sodium Chloride (Sodium Chloride 0.9% 10 Ml Syringe) 10 ml FLUSH ASDIRECTED PRN PRN Reason: Keep Vein Open Last Admin: 01/08/21 15:38 Dose: 10 ml Documented by: HERMMIC Labs: Laboratory Tests 01/08/21 01/08/21 01/08/21 Range/Units 15:10 15:10 15:10 WBC 30.11 H (3.98-10.04) K/mm3 RBC 2.63 L (3.98-5.22) M/mm3 Hgb 10.4 L D (11.2-15.7) gm/dl Hct 32.1 L (34.1-44.9) % MCV 122.1 H D (79.4-94.8) fl MCH 39.5 H (25.6-32.2) pg MCHC 32.4 (32.2-35.5) g/dl RDW Std Deviation 79.9 H (36.4-46.3) fL Plt Count 391 H D (182-369) K/mm3 MPV 9.1 L (9.4-12.3) fl Neut % (Auto) 80.2 H (34.0-71.1) % Lymph % (Auto) 7.6 L (19.3-51.7) % [place] % (Auto) 9.1 (4.7-12.5) % Eos % (Auto) 0.5 L (0.7-5.8) Baso % (Auto) 0.4 (0.1-1.2) % Neut # (Auto) 24.14 H (1.56-6.13) K/mm3 Lymph # (Auto) 2.30 (1.18-3.74) K/mm3 [place] # (Auto) 2.73 H (0.24-0.36) K/mm3 Eos # (Auto) 0.16 (0.04-0.36) K/mm3 Baso # (Auto) 0.13 H (0.01-0.08) K/mm3 Manual Slide Review Abnormal smear Sodium 130 L (136-145) mEq/L Potassium 3.5 (3.5-5.1) mEq/L Chloride 95 L (98-107) mEq/L Carbon Dioxide 22 (21-32) mEq/L Anion Gap 16.5 H (5-15) BUN 38 H D (7-18) mg/dL Creatinine 2.5 H D (0.55-1.02) mg/dL Est Cr Clr Drug Dosing 31.38 mL/min Estimated GFR (MDRD) 22 (>60) mL/min BUN/Creatinine Ratio 15.2 (14-18) Glucose 117 H (70-99) mg/dL Lactic Acid (0.4-2.0) mmol/L Calcium 8.0 L (8.5-10.1) mg/dL Magnesium 3.1 H (1.8-2.4) mg/dL Total Bilirubin 7.8 H (0.2-1.0) mg/dL AST 194 H (15-37) U/L ALT 41 (14-59) U/L Alkaline Phosphatase 417 H (46-116) U/L Ammonia (11-32) umol/L C-Reactive Protein 14.8 H* (<1.0) mg/dL NT-Pro-B Natriuret Pep (0-125) pg/mL Total Protein 6.6 (6.4-8.2) g/dl Albumin 1.7 L (3.4-5.0) g/dl Globulin 4.9 gm/dL Albumin/Globulin Ratio 0.4 L (1-2) Amylase (25-115) U/L Lipase 25 L (73-393) U/L Ethyl Alcohol 0.00 (0.00) gm% SARS-CoV-2 RNA (HUSSEIN) (NEGATIVE) 01/08/21 01/08/21 01/08/21 Range/Units 15:10 15:10 15:10 WBC (3.98-10.04) K/mm3 RBC (3.98-5.22) M/mm3 Hgb (11.2-15.7) gm/dl Hct (34.1-44.9) % MCV (79.4-94.8) fl MCH (25.6-32.2) pg MCHC (32.2-35.5) g/dl RDW Std Deviation (36.4-46.3) fL Plt Count (182-369) K/mm3 MPV (9.4-12.3) fl Neut % (Auto) (34.0-71.1) % Lymph % (Auto) (19.3-51.7) % [place] % (Auto) (4.7-12.5) % Eos % (Auto) (0.7-5.8) Baso % (Auto) (0.1-1.2) % Neut # (Auto) (1.56-6.13) K/mm3 Lymph # (Auto) (1.18-3.74) K/mm3 [place] # (Auto) (0.24-0.36) K/mm3 Eos # (Auto) (0.04-0.36) K/mm3 Baso # (Auto) (0.01-0.08) K/mm3 Manual Slide Review Sodium (136-145) mEq/L Potassium (3.5-5.1) mEq/L Chloride (98-107) mEq/L Carbon Dioxide (21-32) mEq/L Anion Gap (5-15) BUN (7-18) mg/dL Creatinine (0.55-1.02) mg/dL Est Cr Clr Drug Dosing mL/min Estimated GFR (MDRD) (>60) mL/min BUN/Creatinine Ratio (14-18) Glucose (70-99) mg/dL Lactic Acid 1.0 (0.4-2.0) mmol/L Calcium (8.5-10.1) mg/dL Magnesium (1.8-2.4) mg/dL Total Bilirubin (0.2-1.0) mg/dL AST (15-37) U/L ALT (14-59) U/L Alkaline Phosphatase (46-116) U/L Ammonia (11-32) umol/L C-Reactive Protein (<1.0) mg/dL NT-Pro-B Natriuret Pep 714 H (0-125) pg/mL Total Protein (6.4-8.2) g/dl Albumin (3.4-5.0) g/dl Globulin gm/dL Albumin/Globulin Ratio (1-2) Amylase 26 (25-115) U/L Lipase (73-393) U/L Ethyl Alcohol (0.00) gm% SARS-CoV-2 RNA (HUSSEIN) (NEGATIVE) 01/08/21 01/08/21 Range/Units 15:27 15:48 WBC (3.98-10.04) K/mm3 RBC (3.98-5.22) M/mm3 Hgb (11.2-15.7) gm/dl Hct (34.1-44.9) % MCV (79.4-94.8) fl MCH (25.6-32.2) pg MCHC (32.2-35.5) g/dl RDW Std Deviation (36.4-46.3) fL Plt Count (182-369) K/mm3 MPV (9.4-12.3) fl Neut % (Auto) (34.0-71.1) % Lymph % (Auto) (19.3-51.7) % [place] % (Auto) (4.7-12.5) % Eos % (Auto) (0.7-5.8) Baso % (Auto) (0.1-1.2) % Neut # (Auto) (1.56-6.13) K/mm3 Lymph # (Auto) (1.18-3.74) K/mm3 [place] # (Auto) (0.24-0.36) K/mm3 Eos # (Auto) (0.04-0.36) K/mm3 Baso # (Auto) (0.01-0.08) K/mm3 Manual Slide Review Sodium (136-145) mEq/L Potassium (3.5-5.1) mEq/L Chloride (98-107) mEq/L Carbon Dioxide (21-32) mEq/L Anion Gap (5-15) BUN (7-18) mg/dL Creatinine (0.55-1.02) mg/dL Est Cr Clr Drug Dosing mL/min Estimated GFR (MDRD) (>60) mL/min BUN/Creatinine Ratio (14-18) Glucose (70-99) mg/dL Lactic Acid (0.4-2.0) mmol/L Calcium (8.5-10.1) mg/dL Magnesium (1.8-2.4) mg/dL Total Bilirubin (0.2-1.0) mg/dL AST (15-37) U/L ALT (14-59) U/L Alkaline Phosphatase (46-116) U/L Ammonia < 10 L (11-32) umol/L C-Reactive Protein (<1.0) mg/dL NT-Pro-B Natriuret Pep (0-125) pg/mL Total Protein (6.4-8.2) g/dl Albumin (3.4-5.0) g/dl Globulin gm/dL Albumin/Globulin Ratio (1-2) Amylase (25-115) U/L Lipase (73-393) U/L Ethyl Alcohol (0.00) gm% SARS-CoV-2 RNA (HUSSEIN) Negative (NEGATIVE) Meds: Medications Generic Name Dose Route Start Last Admin Trade Name Freq PRN Reason Stop Dose Admin Sodium Chloride 10 ml 01/08/21 15:24 01/08/21 15:38 Sodium Chloride 0.9% 10 Ml Syringe FLUSH 10 ml ASDIRECTED PRN Administration Keep Vein Open Discontinued Medications Generic Name Dose Route Start Last Admin Trade Name [place] PRN Reason Stop Dose Admin Sodium Chloride 1,000 mls @ 999 mls/hr 01/08/21 15:26 01/08/21 15:38 Normal Saline IV 01/08/21 16:26 999 mls/hr ONETIME ONE Administration Cefepime HCl 1 gm/ Premix 50 mls @ 100 mls/hr 01/08/21 16:14 01/08/21 16:31 IV 01/08/21 16:43 100 mls/hr ONETIME ONE Administration Albumin Human 12.5 gm in 50 mls @ 100 mls/hr 01/08/21 16:53 Flexbumin 25% IV 01/08/21 17:22 ONETIME ONE Albumin Human 12.5 gm in 50 mls @ 100 mls/hr 01/08/21 16:54 Flexbumin 25% IV 01/08/21 17:23 ONETIME ONE Ondansetron HCl 4 mg 01/08/21 17:04 01/08/21 17:25 Ondansetron 4 Mg/2 Ml Sdv IVPUSH 01/08/21 17:05 4 mg ONETIME ONE Administration - Re-Assessments/Exams Free Text/Narrative Re-Assessment/Exam: 01/08/21 15:54 Lab called to notify me that the patient's white blood cell count is 30,000. I have ordered blood cultures x2. After discussion with Dr. Harris I will start her on cefepime. 01/08/21 16:30 Hematology reveals a WBC of 30.11, hemoglobin 10.4, hematocrit 32.1, platelet count 391, neutrophil percentage 80.2 with 20% bands Chemistry reveals a sodium of 130, potassium 3.5, chloride 95, carbon dioxide 22, anion gap 16.5, BUN 38, creatinine 2.5, glucose 117, lactic acid 1.0, calcium 8.0, magnesium 3.1, total bilirubin 7.8, AST 194, ALT 41, alk phos 417, ammonia level less than 10, C-reactive protein 14.8, proBNP 714, total protein 6.6, albumin 1.7, amylase 26, lipase 25 Toxicology reveals an ethyl alcohol of 0.00 Serology reveals SARS Covid negative I have counseled the CT scan as the patient's renal function is so poor. I feel that this patient likely needs to be transported to [place] for specialty services. Discussed this with the patient and she requests that I send her to [facility] in [place]. I have paged them and spoken with the mortgage manager, Dr. Johnston, and he has accepted care of this patient. He requests that I stop the normal saline from infusing and start albumin 100 mL of 25%. Patient is requesting something for nausea so I have ordered for her to receive Zofran 4 mg IV. I have also ordered a CT of the chest to rule out pleural effusions. Departure - Departure Time of Disposition: 17:34 Disposition: DC/Tfer to [facility] 02 Condition: Fair Clinical Impression: Acute renal failure Qualifiers: Acute renal failure type: unspecified Qualified Code(s): N17.9 - Acute kidney failure, unspecified Hypotension Qualifiers: Hypotension type: unspecified hypotension type Qualified Code(s): I95.9 - Hypotension, unspecified Ascites Qualifiers: Ascites type: due to alcoholic cirrhosis Qualified Code(s): K70.31 - Alcoholic cirrhosis of liver with ascites - Discharge Information Referrals: Sidra Paz NP [Primary Care Provider] - Forms: ED Department Discharge Sepsis Event Note (ED) - Evaluation Sepsis Screening Result: No Definite Risk - Focused Exam Vital Signs: Vital Signs Temp Pulse Resp BP Pulse Ox 01/08/21 15:07 97.3 F 93 18 88/62 L 93 L - My Orders Last 24 Hours: My Active Orders 01/08/21 15:24 EKG Documentation Completion [RC] STAT UA RFX YENNY AND CULT IF INDIC [URIN] Stat Sodium Chloride 0.9% [Saline Flush] 10 ml FLUSH ASDIRECTED PRN Saline Lock Insert [OM.PC] Stat 01/08/21 15:49 Blood Culture x2 Reflex Set [OM.PC] Stat 01/08/21 16:19 BLOOD CULTURE [MREF] Stat 01/08/21 16:29 BLOOD CULTURE [MREF] Stat 01/08/21 16:55 Chest 1V Frontal [CR] Routine - Assessment/Plan Last 24 Hours: My Active Orders 01/08/21 15:24 EKG Documentation Completion [RC] STAT UA RFX YENNY AND CULT IF INDIC [URIN] Stat Sodium Chloride 0.9% [Saline Flush] 10 ml FLUSH ASDIRECTED PRN Saline Lock Insert [OM.PC] Stat 01/08/21 15:49 Blood Culture x2 Reflex Set [OM.PC] Stat 01/08/21 16:19 BLOOD CULTURE [MREF] Stat 01/08/21 16:29 BLOOD CULTURE [MREF] Stat 01/08/21 16:55 Chest 1V Frontal [CR] Routine
[2021-01-08] MEDS ORDERED: Cefepime 1 GM in Premix Bag 1 BAG IV ONE (16:14)
[2021-01-08] MEDS ORDERED: Albumin 25% 12.5 GM/50 ML BAG IV ONE ×2 (16:53→16:54)
[2021-01-08] MEDS ORDERED: Ondansetron 4 MG/2 ML SDV IVPUSH ONE (17:04)
--- NOTE | 2021-01-09 13:57 | CR ---
Chest: Portable view of the chest was obtained. Comparison: Prior chest x-ray of 12/30/20. Limited inspiratory effort is seen causing slight atelectasis within the left lung base. Lungs otherwise are grossly clear. Heart size and mediastinum are normal. Bony structures show nothing acute. Impression: 1. Poor inspiratory effort resulting in atelectasis within the left lung base. 2. Nothing acute is otherwise seen on portable chest x-ray. Diagnostic code #2
== END 2021-01-08 17:38 ==
LOC: JD.ED 14:54
DX: K70.31 Alcoholic cirrhosis of liver with ascites (principal); I95.9 Hypotension, unspecified; N17.9 Acute kidney failure, unspecified; K21.9 Gastro-esophageal reflux disease without esophagitis; I10 Essential (primary) hypertension; R60.0 Localized edema; Z87.891 Personal history of nicotine dependence; Z79.899 Other long term (current) drug therapy; Z88.5 Allergy status to narcotic agent; Z88.1 Allergy status to other antibiotic agents; Z20.822 Contact with and (suspected) exposure to COVID-19
CPT/HCPCS: 36415; 71045; 80053; 80307; 82140; 82150; 83605; 83690; 83735; 83880; 85025; 86140; 87040; 87635; 93005; 96365; 96375; 99285; J0692; J2405; J7030; P9047; 93010; U0002

== ENCOUNTER 2021-01-23 23:37 | Emergency (ER) | payer BC ==
[2021-01-23 23:57] VITALS: BP 124/86; PULSE 78
[2021-01-24] MEDS ORDERED: Sodium Chloride 0.9% 10 ML Syringe FLUSH PRN (00:12)
--- NOTE | 2021-01-24 00:12 | EDM.PDOC ---
ED HPI GENERAL MEDICAL PROBLEM - General Chief Complaint: General Stated Complaint: LEGS SWELLING Time Seen by Provider: 01/24/21 00:04 Source of Information: Reports: Patient History Limitations: Reports: No Limitations - History of Present Illness INITIAL COMMENTS - FREE TEXT/NARRATIVE: 35-year-old female presents to the ED with chief complaint of increased swelling abdomen and both lower extremities particularly below the knees. Of note the patient was seen here in the emergency room on January 08 with severe jaundice and a markedly elevated white blood cell count at 30,000 suggestive of an underlying infective process. Her CT of the abdomen pelvis at that time suggested there might be inflammation of the right and transverse colon combined with a nonspecific colitis. She had fluid within her pelvis. She was noted to have fatty liver disease and early signs of cirrhosis of the liver. She was transferred to [facility] in [place] where she has remained for 2 weeks getting out of the hospital on January 20. Most of her medications given in the hospital were IV. Since getting home she is appreciated a dramatic increase in the mild swelling particularily in her lower extremities. She was discharged on Lasix 40 mg daily and Aldactone 100 mg daily. She does not feel dyspneic. She states she cannot be very active due to the pain in her legs. She was up and about outside today for short period of time. She has not been drinking any alcohol for the last 2-1/2 weeks. She is on lactulose once daily and she states it will go through her very quickly causing her to have diarrhea and sometimes loss of bowel control. Denies any fever or chills. She is alert and oriented at this time. She states her weight while in hospital went from 1 45-170 and she did require paracentesis of 3 L of fluid on 3 separate occasions over the last 2 weeks. Onset: Gradual Onset Date: 01/20/21 (Since getting out of [facility] in [place] January 20) Duration: Day(s):, Constant, Getting Worse (Increased swelling both lower extremities up to the knees bilaterally.) Location: Reports: Abdomen (Increased abdominal distention), Lower Extremity, Left, Lower Extremity, Right (Increased dependent edema both lower extremities) Quality: Reports: Ache, Throbbing, Other (Tickly noted in both legs.) Severity: Moderate (70 8 out of 10) Improves with: Reports: None Worsens with: Reports: Other Context: Reports: Other (Made worse by activity such as walking. Alcoholic cirrhosis with development of ascites and marked lower extremity edema.). Denies: Activity, Exercise, Lifting, Sick Contact, Trauma Associated Symptoms: Reports: Loss of Appetite, Malaise, Nausea/Vomiting, Shortness of Breath, Weakness. Denies: Confusion, Chest Pain, Cough, cough w sputum, Diaphoresis, Fever/Chills, Headaches, Rash (Nausea at times.), Seizure, Syncope Treatments [employer]: Reports: Other (see below) Bilateral Leg Pain Score (Numeric/FACES): 8 - Related Data Allergies Allergy/AdvReac Type Severity Reaction Status Date / Time nitrofurantoin Allergy Intermediate Hives Verified 01/23/21 23:58 [From Macrobid] nitrofurantoin Allergy Intermediate Hives Verified 01/23/21 23:58 macrocrystalline [From Macrobid] morphine Allergy Mild Itching Verified 01/23/21 23:58 zolpidem tartrate AdvReac Intermediate Hallucinati Verified 01/23/21 23:58 [From Ambien] ons tramadol AdvReac Mild Vomiting Verified 01/23/21 23:58 Home Meds: Home Meds Cyanocobalamin (Vitamin B-12) [Vitamin B-12] 1,000 mcg PO DAILY 01/24/21 [History] Folic Acid 1 mg PO DAILY 01/24/21 [History] Furosemide 40 mg PO DAILY 01/24/21 [History] Furosemide [Lasix] 40 mg PO BID #60 tab 01/24/21 [Rx] Hydrocodone/Acetaminophen [HYDROcodone-Acetaminophen 5-325 MG] 1 tab PO Q6H PRN 01/24/21 [History] Lactulose [Chronulac] 30 ml PO DAILY 01/24/21 [History] Naloxone HCl [Narcan] 1 spray NS ASDIRECTED PRN 01/24/21 [History] Ondansetron [Zofran ODT] 4 mg PO Q6H PRN 01/24/21 [History] Pantoprazole [ProTONIX] 40 mg PO DAILY 01/24/21 [History] Rifaximin [Xifaxan] 550 mg PO BID 01/24/21 [History] Spironolactone [Aldactone] 100 mg PO DAILY 01/24/21 [History] Thiamine HCl [Vitamin B-1] 100 mg PO DAILY 01/24/21 [History] oxyCODONE HCl [Roxicodone] 5 mg PO Q6H PRN #24 tablet 01/24/21 [Rx] predniSONE [Prednisone] 40 mg PO DAILY 01/24/21 [History] Past Medical History - Past Health History Medical/Surgical History: Denies Medical/Surgical History HEENT History: Reports: Other (See Below) Other HEENT History: wears glasses Cardiovascular History: Reports: Hypertension Gastrointestinal History: Reports: Cirrhosis (Confirmation of diagnosis of the cirrhosis of the liver 01/08/2021 with need for paracentesis x3 from January 08 to 01/20/2021.), GERD, Other (See Below) Other Gastrointestinal History: gastric sleeve Psychiatric History: Reports: Addiction - Infectious Disease History Infectious Disease History: Reports: Chicken Pox - Past Surgical History GI Surgical History: Reports: Other (See Below) (Recent development of her current confirmation of development of cirrhosis of liver with ascites dev elopment. Paracentesis x3 while admitted to [facility] from July 11 01/20/2021.) Other GI Surgeries/Procedures: sleeve gastrectomy 2017 Social & Family History - Family History Cardiac: Reports: Hypertension Psychiatric: Reports: Anxiety, Depression - Caffeine Use Caffeine Use: Reports: None - Living Situation & Occupation Living situation: Reports: Occupation: Unemployed ED ROS GENERAL - Review of Systems Review Of Systems: See Below Constitutional: Reports: Malaise, Weakness, Fatigue, Decreased Appetite, Weight Gain (She has gained weight since discharge from the hospital I believe since switch from intravenous diuretics to orals.). Denies: Fever, Chills HEENT: Reports: No Symptoms Respiratory: Reports: Shortness of Breath, Cough. Denies: Wheezing, Pleuritic Chest Pain, Sputum, Hemoptysis Cardiovascular: Reports: Dyspnea on Exertion, Edema (Development of severe lower extremity edema bilaterally worsened since discharge from hospital 3 days ago.), Orthopnea. Denies: Chest Pain, Blood Pressure Problem, Claudication, Lightheadedness (Occasional orthopnea.), Palpitations Endocrine: Reports: Fatigue GI/Abdominal: Reports: Abdominal Pain (Diffuse abdominal discomfort due to ascites.), Diarrhea (Taking lactulose daily and has loose diarrhea stools sometimes without warning.) : Reports: Frequency Musculoskeletal: Reports: Back Pain, Other (Bilateral lower extremity pain.) Skin: Reports: No Symptoms Neurological: Reports: Dizziness (Occasional dizzy spells.). Denies: Confusion, Headache, Numbness, Tingling Psychiatric: Reports: Anxiety, Depression Hematologic/Lymphatic: Reports: No Symptoms Immunologic: Reports: No Symptoms ED EXAM, GENERAL - Physical Exam Exam: See Below Exam Limited By: No Limitations General Appearance: Alert, WD/WN, Mild Distress, Other (Her legs are very swollen. Temperature is 36.9 degrees. Heart rate 78 in sinus respiratory was 17 with O2 sats 100% room air. BP was 124/86) Eye Exam: Bilateral Eye: Normal Inspection (Patient has bilateral scleral icterus. No blepharal pallor.), PERRL (No nystagmus.) Throat/Mouth: Normal Inspection, Normal Lips, Normal Oropharynx, Other (Tongue is mildly dry.). No: Normal Teeth Head: Atraumatic, Normocephalic Neck: Normal Inspection, Supple, Non-Tender, Full Range of Motion. No: Carotid Bruit, Lymphadenopathy (L), Lymphadenopathy (R) Respiratory/Chest: No Respiratory Distress, Lungs Clear, Normal Breath Sounds, No Accessory Muscle Use. No: Rales, Rhonchi, Wheezing Cardiovascular: Normal Peripheral Pulses, Regular Rate, Rhythm, No Gallop, No Murmur, No Rub Peripheral Pulses: 0: Posterior Tibial (L) (Ulcers in her lower extremities are not able to be palpated due to severe dependent edema.), Posterior Tibial (R), Dorsalis Pedis (L), Dorsalis Pedis (R), 3+: Carotid (L), Carotid (R) GI/Abdominal: Normal Bowel Sounds, Soft, Non-Tender, No Organomegaly, No Mass, Pelvis Stable, Distended (She does have some distention particular lower abdomen and clinically has some degree of ascites. Puncture wounds evident from recent paracenteses.) Back Exam: Normal Inspection, Decreased Range of Motion, Vertebral Tenderness (Lumbar spine). No: Full Range of Motion, CVA Tenderness (L), CVA Tenderness (R) Extremities: Pedal Edema (Plus pitting edema both lower extremities up to her knees bilaterally. No effusions in the knees.) Neurological: Alert, Oriented ( No skin breakdown in the lower extremities), CN II-XII Intact, Normal Cognition Psychiatric: Other (She is frustrated by her current medical condition.) Skin Exam: Jaundice (Patient is diffusely jaundiced.) Course - Vital Signs Last Recorded V/S: Last Vital Signs Temp 36.9 C 01/23/21 23:55 Pulse 78 01/23/21 23:55 Resp 17 01/23/21 23:55 BP 124/86 01/23/21 23:55 Pulse Ox 100 01/23/21 23:55 - Orders/Labs/Meds Orders: Active Orders 24 hr Category Date Time Status Peripheral IV Care [RC] . DIRECTED Care 01/24/21 00:13 Active Sodium Chloride 0.9% [Saline Flush] Med 01/24/21 00:12 Active 10 ml FLUSH ASDIRECTED PRN Peripheral IV Insertion Adult [OM.PC] Stat Oth 01/24/21 00:12 Ordered Medication Orders Sodium Chloride (Sodium Chloride 0.9% 10 Ml Syringe) 10 ml FLUSH ASDIRECTED PRN PRN Reason: Keep Vein Open Last Admin: 01/24/21 00:56 Dose: 10 ml Documented by: ANA Labs: Laboratory Tests 01/24/21 01/24/21 01/24/21 Range/Units 00:55 00:55 00:55 WBC 28.75 H (3.98-10.04) K/mm3 RBC 2.35 L (3.98-5.22) M/mm3 Hgb 8.9 L D (11.2-15.7) gm/dl Hct 28.0 L (34.1-44.9) % MCV 119.1 H D (79.4-94.8) fl MCH 37.9 H (25.6-32.2) pg MCHC 31.8 L (32.2-35.5) g/dl RDW Std Deviation 65.9 H (36.4-46.3) fL Plt Count 295 D (182-369) K/mm3 MPV 9.3 L (9.4-12.3) fl Neut % (Auto) 86.0 H (34.0-71.1) % Lymph % (Auto) 5.8 L (19.3-51.7) % Jay % (Auto) 7.4 (4.7-12.5) % Eos % (Auto) 0.2 L (0.7-5.8) Baso % (Auto) 0.1 (0.1-1.2) % Neut # (Auto) 24.72 H (1.56-6.13) K/mm3 Lymph # (Auto) 1.68 (1.18-3.74) K/mm3 Jay # (Auto) 2.13 H (0.24-0.36) K/mm3 Eos # (Auto) 0.05 (0.04-0.36) K/mm3 Baso # (Auto) 0.02 (0.01-0.08) K/mm3 Manual Slide Review Abnormal smear PT 15.0 H (9.7-12.0) SECONDS INR 1.41 APTT 31.0 (21.7-31.4) SECONDS Sodium 137 (136-145) mEq/L Potassium 4.6 (3.5-5.1) mEq/L Chloride 101 (98-107) mEq/L Carbon Dioxide 26 (21-32) mEq/L Anion Gap 14.6 (5-15) BUN 14 (7-18) mg/dL Creatinine 0.7 D (0.55-1.02) mg/dL Est Cr Clr Drug Dosing 112.08 mL/min Estimated GFR (MDRD) > 60 (>60) mL/min BUN/Creatinine Ratio 20.0 H (14-18) Glucose 107 H (70-99) mg/dL Calcium 8.9 (8.5-10.1) mg/dL Magnesium 1.8 (1.8-2.4) mg/dL Total Bilirubin 3.2 H (0.2-1.0) mg/dL GGT 1244 H (5-55) U/L AST 131 H (15-37) U/L ALT 79 H (14-59) U/L Alkaline Phosphatase 502 H (46-116) U/L Total Protein 6.8 (6.4-8.2) g/dl Albumin 2.9 L (3.4-5.0) g/dl Globulin 3.9 gm/dL Albumin/Globulin Ratio 0.7 L (1-2) Meds: Medications Generic Name Dose Route Start Last Admin Trade Name Freq PRN Reason Stop Dose Admin Sodium Chloride 10 ml 01/24/21 00:12 01/24/21 00:56 Sodium Chloride 0.9% 10 Ml Syringe FLUSH 10 ml ASDIRECTED PRN Administration Keep Vein Open Discontinued Medications Generic Name Dose Route Start Last Admin Trade Name [place] PRN Reason Stop Dose Admin Furosemide 40 mg 01/24/21 00:13 01/24/21 00:44 Furosemide 40 Mg/4 Ml Vial IVPUSH 01/24/21 00:14 40 mg NOW ONE Administration Hydromorphone HCl 1 mg 01/24/21 00:13 01/24/21 00:42 Hydromorphone 1 Mg/Ml Syringe IVPUSH 01/24/21 00:14 1 mg ONETIME ONE Administration Albumin Human 12.5 gm in 50 mls @ 100 mls/hr 01/24/21 00:14 01/24/21 00:55 Flexbumin 25% IV 01/24/21 00:43 100 mls/hr ONETIME ONE Administration Ondansetron HCl 4 mg 01/24/21 00:13 01/24/21 00:40 Ondansetron 4 Mg/2 Ml Sdv IVPUSH 01/24/21 00:14 4 mg ONETIME ONE Administration - Radiology Interpretation Free Text/Narrative:: 35-year-old female presents to the ED in accompaniment of her friend. She was seen last here on January 08 with a markedly elevated white count of 30,[address] suggest that she may have a nonspecific colitis involving the right hemicolon and transverse colon. Associated large liver with marked hyperbilirubinemia and jaundice. Patient is known to be a chronic alcohol user and is felt to be in the early stages of cirrhosis of the liver. She did have some fluid within her pelvis compatible with ascites development. She was treated with cefepime 1 g intravenously here and was subsequently transferred to [facility] in [place] where she remained up until January 20. She reports that her weight went from 145 to 170 pounds while there. She did have paracentesis x3 done well there with removal of approximately 3 L of fluid on each occasion. She is no longer on hydrochlorothiazide and is currently on Lasix 40 mg daily in the morning and Aldactone 100 mg daily. Since getting out of the hospital she is appreciated increased swelling of her lower extremities to the point that the legs actually hurt. Difficulty walking. She is also aware of some increased swelling in her abdomen as well. This may be due from change from intravenous diuretics to orals. She is also on lactulose 20 g once daily. Plan she will have a saline lock started. Labs will be obtained. We she will be given Lasix 40 mg IV now and albumin 25gm per 50 mils IV. Nurses will try and motivate her with compression stockings. - Re-Assessments/Exams Free Text/Narrative Re-Assessment/Exam: 01/24/21 01:28 White count remains elevated at 28.75. Differential was 86% neutrophils. Hemoglobin is 8.9 with hematocrit of 28.0. MCV markedly elevated at 119.1 compatible with chronic alcohol use. Platelet count 295,000. Chemistry is pending. 01/24/21 01:46 PT is 15.0 with an INR of 1.41. PTT is 31.0. Sodium 137 with potassium of 4.6. Chloride 101 with a bicarb of 26. Anion gap is 14.6. BUN is 14 with a creatinine of 0.7. Estimated GFR is greater than 60. Glucose is 107 with a calcium of 8.9. Magnesium is 1.8. Total bilirubin is 3.2. GGT is 1244. AST is 131 with a ALT of 79 and an alkaline phosphatase of 502. Total protein is 6.8 with an albumin fraction of 2.9. The plan will be to increase her Lasix to 40 mg twice daily at least temporarily until we can get better control of fluid retention. I will not increase her Aldactone at this time but this certainly could be increased up to maximum 200 mg a day. I am going to give her Roxicodone 5 mg tablets to be used intermittently for pain relief. No Tylenol. Departure - Departure Time of Disposition: 01:50 Disposition: Home, Self-Care 01 Condition: Fair Clinical Impression: Dependent edema Cirrhosis of liver Qualifiers: Hepatic cirrhosis type: alcoholic cirrhosis Ascites presence: with ascites Qualified Code(s): K70.31 - Alcoholic cirrhosis of liver with ascites Chronic pain Qualifiers: Chronic pain type: other chronic pain Qualified Code(s): G89.29 - Other chronic pain - Discharge Information *PRESCRIPTION DRUG MONITORING PROGRAM REVIEWED*: Not Applicable *COPY OF PRESCRIPTION DRUG MONITORING REPORT IN PATIENT EDEN: Not Applicable Prescriptions: Furosemide [Lasix] 40 mg PO BID #60 tab oxyCODONE HCl [Roxicodone] 5 mg PO Q6H PRN #24 tablet PRN Reason: Pain relief Instructions: Cirrhosis Referrals: Sidra Paz NP [Primary Care Provider] - Forms: ED Department Discharge Additional Instructions: Evaluation in the emergency room tonight in regards to increasing swelling of both lower extremities and also in the abdomen due to fluid retention. The abdominal fluid retention is called ascites and is secondary to cirrhosis of the liver. The lower extremity edema is also due to cirrhosis which make you retain fluid due lack of the liver to function normally. The liver makes a protein called albumin which circulates in her bloodstream and helps keeps the fluid within the bloodstream keeps fluid from leaking out of the blood vessels into the abdominal cavity and your legs. The leg swell due to gravity effect. Wear compression stockings above knees bilaterally as placed in the ED. I did give you a dose of intravenous albumin or protein to help reduce fluid losses. You were given an extra dose of Lasix early this morning as well. Lab tests reveal it is okay for us to increase your Lasix dose to 40 mg twice daily morning and mid afternoon to help reduce fluid retention. Continue the spironolactone 100 mg every morning. This dosage may be increased in 5 days time to 50 mg in the afternoon if you are still continue to have increased swelling. If you can try and step on the scale at home every morning when you get up and write down the numbers so that we can tell if you were actually making some headway in terms of losing fluid weight. You may use Roxicodone tablets 5 mg strength 1 every 6 hours as necessary for pain relief. Follow-up with your primary care provider care provider later this week as planned. Sepsis Event Note (ED) - Focused Exam Vital Signs: Vital Signs Temp Pulse Resp BP Pulse Ox 01/23/21 23:55 36.9 C 78 17 124/86 100 - My Orders Last 24 Hours: My Active Orders 01/24/21 00:12 Sodium Chloride 0.9% [Saline Flush] 10 ml FLUSH ASDIRECTED PRN Peripheral IV Insertion Adult [OM.PC] Stat 01/24/21 00:13 Peripheral IV Care [RC] . DIRECTED - Assessment/Plan Last 24 Hours: My Active Orders 01/24/21 00:12 Sodium Chloride 0.9% [Saline Flush] 10 ml FLUSH ASDIRECTED PRN Peripheral IV Insertion Adult [OM.PC] Stat 01/24/21 00:13 Peripheral IV Care [RC] . DIRECTED
[2021-01-24] MEDS ORDERED: HYDROmorphone 1 MG/ML Syringe IVPUSH ONE (00:13)
[2021-01-24] MEDS ORDERED: Ondansetron 4 MG/2 ML SDV IVPUSH ONE (00:13)
[2021-01-24] MEDS ORDERED: Furosemide 40 MG/4 ML VIAL IVPUSH ONE (00:13)
[2021-01-24] MEDS ORDERED: Albumin 25% 12.5 GM/50 ML BAG IV ONE (00:14)
== END 2021-01-24 02:15 | disposition home or self-care (01) ==
LOC: JD.ED 23:37
DX: K70.31 Alcoholic cirrhosis of liver with ascites (principal); R60.0 Localized edema; I10 Essential (primary) hypertension; Z79.899 Other long term (current) drug therapy; Z88.1 Allergy status to other antibiotic agents; Z88.5 Allergy status to narcotic agent; Z88.8 Allergy status to other drugs, medicaments and biological substances
CPT/HCPCS: 36415; 80053; 82977; 83735; 85025; 85610; 85730; 96365; 96375; 99284; J1170; J1940; J2405; P9047

== ENCOUNTER 2021-04-14 20:34 | Emergency (ER) | payer BC ==
[2021-04-14 22:10] VITALS: BP 126/84; PULSE 83
[2021-04-14] MEDS ORDERED: Sodium Chloride 0.9% 10 ML Syringe FLUSH PRN (22:19)
[2021-04-14] MEDS ORDERED: LORazepam 2 MG/ML SDV IVPUSH ONE (22:21)
--- NOTE | 2021-04-15 01:01 | EDM.PDOCBH ---
ED HPI GENERAL MEDICAL PROBLEM - General Chief Complaint: Behavioral/Psych Stated Complaint: NOT WELL Time Seen by Provider: 04/14/21 22:08 Source of Information: Reports: Patient, Family History Limitations: Reports: Intoxication - History of Present Illness INITIAL COMMENTS - FREE TEXT/NARRATIVE: The patient presents for anxiety. She has a history of anxiety and alcohol depe ndence. She also has liver disease from the alcohol. She did get into some alcohol yesterday and today. She says her has her alprazolam locked up. He also has all the alcohol locked up. She got into it. She is slurring her words. She had to be hospitalized in [facility] for fluid on her abdomen and liver failure. She has no fever, chills or cough. She does have some left sided chest pain. Onset: Gradual Duration: Day(s): Severity: Moderate Improves with: Reports: None Worsens with: Reports: None Associated Symptoms: Reports: No Other Symptoms Generalized Pain Score (Numeric/FACES): 8 - Related Data Allergies Allergy/AdvReac Type Severity Reaction Status Date / Time nitrofurantoin Allergy Intermediate Hives Verified 01/23/21 23:58 [From Macrobid] nitrofurantoin Allergy Intermediate Hives Verified 01/23/21 23:58 macrocrystalline [From Macrobid] morphine Allergy Mild Itching Verified 01/23/21 23:58 zolpidem tartrate AdvReac Intermediate Hallucinati Verified 01/23/21 23:58 [From Ambien] ons tramadol AdvReac Mild Vomiting Verified 01/23/21 23:58 Home Meds: Home Meds Cyanocobalamin (Vitamin B-12) [Vitamin B-12] 1,000 mcg PO DAILY 01/24/21 [History] Folic Acid 1 mg PO DAILY 01/24/21 [History] Furosemide 40 mg PO DAILY 01/24/21 [History] Furosemide [Lasix] 40 mg PO BID #60 tab 01/24/21 [Rx] Hydrocodone/Acetaminophen [HYDROcodone-Acetaminophen 5-325 MG] 1 tab PO Q6H PRN 01/24/21 [History] Lactulose [Chronulac] 30 ml PO DAILY 01/24/21 [History] Naloxone HCl [Narcan] 1 spray NS ASDIRECTED PRN 01/24/21 [History] Ondansetron [Zofran ODT] 4 mg PO Q6H PRN 01/24/21 [History] Pantoprazole [ProTONIX] 40 mg PO DAILY 01/24/21 [History] Rifaximin [Xifaxan] 550 mg PO BID 01/24/21 [History] Spironolactone [Aldactone] 100 mg PO DAILY 01/24/21 [History] Thiamine HCl [Vitamin B-1] 100 mg PO DAILY 01/24/21 [History] oxyCODONE HCl [Roxicodone] 5 mg PO Q6H PRN #24 tablet 01/24/21 [Rx] predniSONE [Prednisone] 40 mg PO DAILY 01/24/21 [History] Past Medical History - Past Health History Medical/Surgical History: Denies Medical/Surgical History HEENT History: Reports: Other (See Below) Other HEENT History: wears glasses Cardiovascular History: Reports: Hypertension Gastrointestinal History: Reports: Cirrhosis, GERD, Other (See Below) Other Gastrointestinal History: gastric sleeve Psychiatric History: Reports: Addiction Other Psychiatric History: alcohol - Infectious Disease History Infectious Disease History: Reports: Chicken Pox - Past Surgical History GI Surgical History: Reports: Other (See Below) Other GI Surgeries/Procedures: sleeve gastrectomy 2017, paracentesis Social & Family History - Family History Cardiac: Reports: Hypertension Psychiatric: Reports: Anxiety, Depression - Tobacco Use Tobacco Use Status *Q: Current Every Day Tobacco User Years of Tobacco use: 10 Packs/Tins Daily: 0.2 - Caffeine Use Caffeine Use: Reports: None - Recreational Drug Use Recreational Drug Use: No - Living Situation & Occupation Living situation: Reports: Occupation: Unemployed ED ROS GENERAL - Review of Systems Review Of Systems: See Below Constitutional: Reports: No Symptoms HEENT: Reports: No Symptoms Respiratory: Reports: No Symptoms Cardiovascular: Reports: Chest Pain (left side) Endocrine: Reports: No Symptoms GI/Abdominal: Reports: No Symptoms : Reports: No Symptoms Musculoskeletal: Reports: No Symptoms ED EXAM, BEHAVIORAL HEALTH - Physical Exam Exam: See Below Exam Limited By: No Limitations General Appearance: Alert, No Apparent Distress Ears: Normal External Exam Nose: Normal Inspection Head: Atraumatic, Normocephalic Neck: Normal Inspection Respiratory/Chest: No Respiratory Distress, Lungs Clear, Normal Breath Sounds Cardiovascular: Regular Rate, Rhythm, No Edema, No Murmur GI/Abdominal: Soft, Non-Tender, No Organomegaly, No Mass Back Exam: Normal Inspection Extremities: Normal Inspection #1 Interpretation EKG Date: 04/14/21 Time: 22:36 Rhythm: NSR Rate (Beats/Min): 76 [place]: Normal P-Wave: Present QRS: Normal ST-T: Normal QT: Normal COURSE, BEHAVIORAL HEALTH COMP - Course Vital Signs: Last Vital Signs Temp 97.1 F 04/14/21 22:09 Pulse 83 04/14/21 22:09 Resp 20 04/14/21 22:09 BP 126/84 04/14/21 22:09 Pulse Ox 98 04/14/21 22:09 Orders, Labs, Meds: Active Orders 24 hr Category Date Time Status Cardiac Monitoring [RC] . DIRECTED Care 04/14/21 22:19 Active Peripheral IV Care [RC] . DIRECTED Care 04/14/21 22:20 Active Chest 1V Frontal [CR] Stat Exams 04/14/21 22:20 Taken Sodium Chloride 0.9% [Saline Flush] Med 04/14/21 22:19 Active 10 ml FLUSH ASDIRECTED PRN Peripheral IV Insertion Adult [OM.PC] Stat Oth 04/14/21 22:19 Ordered Medication Orders Sodium Chloride (Sodium Chloride 0.9% 10 Ml Syringe) 10 ml FLUSH ASDIRECTED PRN PRN Reason: Keep Vein Open Last Admin: 04/14/21 23:20 Dose: 10 ml Documented by: [id number] Laboratory Tests 04/14/21 04/14/21 04/14/21 Range/Units 23:15 23:15 23:15 WBC 13.57 H (3.98-10.04) K/mm3 RBC 3.80 L (3.98-5.22) M/mm3 Hgb 10.5 L D (11.2-15.7) gm/dl Hct 32.9 L (34.1-44.9) % MCV 86.6 D (79.4-94.8) fl MCH 27.6 (25.6-32.2) pg MCHC 31.9 L (32.2-35.5) g/dl RDW Std Deviation 73.9 H (36.4-46.3) fL Plt Count 89 L D (182-369) K/mm3 MPV 9.0 L (9.4-12.3) fl Neut % (Auto) 73.0 H (34.0-71.1) % Lymph % (Auto) 19.8 (19.3-51.7) % [place] % (Auto) 6.2 (4.7-12.5) % Eos % (Auto) 0.2 L (0.7-5.8) Baso % (Auto) 0.4 (0.1-1.2) % Neut # (Auto) 9.89 H (1.56-6.13) K/mm3 Lymph # (Auto) 2.69 (1.18-3.74) K/mm3 [place] # (Auto) 0.84 H (0.24-0.36) K/mm3 Eos # (Auto) 0.03 L (0.04-0.36) K/mm3 Baso # (Auto) 0.06 (0.01-0.08) K/mm3 Manual Slide Review Abnormal smear PT 13.1 H (9.7-12.0) SECONDS INR 1.19 APTT 29.4 (21.7-31.4) SECONDS Sodium 142 (136-145) mEq/L Potassium 3.6 (3.5-5.1) mEq/L Chloride 104 (98-107) mEq/L Carbon Dioxide 25 (21-32) mEq/L Anion Gap 16.6 H (5-15) BUN 1 L (7-18) mg/dL Creatinine 0.6 (0.55-1.02) mg/dL Est Cr Clr Drug Dosing 120.66 mL/min Estimated GFR (MDRD) > 60 (>60) mL/min BUN/Creatinine Ratio 1.7 L (14-18) Glucose 91 (70-99) mg/dL Calcium 8.4 L (8.5-10.1) mg/dL Magnesium 1.4 L (1.8-2.4) mg/dL Total Bilirubin 3.0 H (0.2-1.0) mg/dL AST 372 H (15-37) U/L ALT 48 (14-59) U/L Alkaline Phosphatase 388 H (46-116) U/L Troponin I < 0.017 (0.00-0.056) ng/mL Total Protein 8.7 H (6.4-8.2) g/dl Albumin 2.6 L (3.4-5.0) g/dl Globulin 6.1 gm/dL Albumin/Globulin Ratio 0.4 L (1-2) Ethyl Alcohol 0.40 (0.00) gm% Medications Generic Name Dose Route Start Last Admin Trade Name [employer] PRN Reason Stop Dose Admin Sodium Chloride 10 ml 04/14/21 22:19 04/14/21 23:20 Sodium Chloride 0.9% 10 Ml Syringe FLUSH 10 ml ASDIRECTED PRN Administration Keep Vein Open Discontinued Medications Generic Name Dose Route Start Last Admin Trade Name [employer] PRN Reason Stop Dose Admin Lorazepam 0.5 mg 04/14/21 22:21 04/14/21 23:18 Lorazepam 2 Mg/Ml Sdv IVPUSH 04/14/21 22:22 0.5 mg ONETIME ONE Administration Re-Assessment/Re-Exam: I ordered an IV saline lock, EKG, CXR and labs. I also ordered ativan 0.5mg IV. Her EKG shows a NSR with no acute changes. Her CXR looks good. Her WBC was elevated at 13.57. Her Hgb was low at 10.5. Her platelets were low at 84. Her PT was slightly elevated at 13.1. Her anion gap was elevated at 16.6. Her Ca was low at 8.4. Her magnesium was low at 1.4. Her AST was elevated at 372. Her ALT was normal. Her alk phos was elevated at 388. Her troponin is negative. Her ETOH was 0.4. I explained to her that she cannot drink any more. It will kill you. I will discharge her home. Departure - Departure Time of Disposition: 01:10 Disposition: Home, Self-Care 01 Condition: Good Clinical Impression: Elevated liver enzymes Alcohol intoxication Qualifiers: Complication of substance-induced condition: uncomplicated Qualified Code(s): F10.920 - Alcohol use, unspecified with intoxication, uncomplicated - Discharge Information *PRESCRIPTION DRUG MONITORING PROGRAM REVIEWED*: Not Applicable *COPY OF PRESCRIPTION DRUG MONITORING REPORT IN PATIENT EDEN: Not Applicable Referrals: Sidra Paz NP [Primary Care Provider] - 1 Week Additional Instructions: Go home and rest. Do not drink anymore alcohol. It will damage your liver more and you will of liver failure. Follow up with Shae Paz within a week. Please return if you are worse. Sepsis Event Note (ED) - Focused Exam Vital Signs: Vital Signs Temp Pulse Resp BP Pulse Ox 04/14/21 22:09 97.1 F 83 20 126/84 98 - My Orders Last 24 Hours: My Active Orders 04/14/21 22:19 Cardiac Monitoring [RC] . DIRECTED Sodium Chloride 0.9% [Saline Flush] 10 ml FLUSH ASDIRECTED PRN Peripheral IV Insertion Adult [OM.PC] Stat 04/14/21 22:20 Peripheral IV Care [RC] . DIRECTED Chest 1V Frontal [CR] Stat - Assessment/Plan Last 24 Hours: My Active Orders 04/14/21 22:19 Cardiac Monitoring [RC] . DIRECTED Sodium Chloride 0.9% [Saline Flush] 10 ml FLUSH ASDIRECTED PRN Peripheral IV Insertion Adult [OM.PC] Stat 04/14/21 22:20 Peripheral IV Care [RC] . DIRECTED Chest 1V Frontal [CR] Stat
--- NOTE | 2021-04-15 05:57 | CR ---
Chest: Portable view of the chest was obtained. Comparison: Prior chest x-ray of 01/08/21 and 12/30/20. Slight atelectasis is seen within the lateral left costophrenic angle. Lungs otherwise are clear with no acute parenchymal change. Heart size and mediastinum are normal. Bony structures show nothing acute. Impression: 1. Slight atelectasis within the left lateral costophrenic angle. 2. Nothing acute is otherwise seen on portable chest x-ray. Diagnostic code #2
== END 2021-04-15 01:35 | disposition home or self-care (01) ==
LOC: JD.ED 20:34
DX: F10.120 Alcohol abuse with intoxication, uncomplicated (principal); R74.8 Abnormal levels of other serum enzymes; I10 Essential (primary) hypertension; K21.9 Gastro-esophageal reflux disease without esophagitis; Y90.0 Blood alcohol level of less than 20 mg/100 ml; Z72.0 Tobacco use; Z88.1 Allergy status to other antibiotic agents; Z88.5 Allergy status to narcotic agent; Z88.8 Allergy status to other drugs, medicaments and biological substances; Z79.899 Other long term (current) drug therapy
CPT/HCPCS: 36415; 71045; 80053; 80307; 83735; 84484; 85025; 85610; 85730; 93005; 96374; 99285; J2060; 93010; 99284

== ENCOUNTER 2021-06-22 08:58 | Emergency (ER) | payer BC ==
[2021-06-22 09:20] VITALS: BP 135/75; PULSE 88
[2021-06-22] MEDS ORDERED: HYDROmorphone 1 MG/ML Syringe IM ONE (09:44)
[2021-06-22] MEDS ORDERED: Cyclobenzaprine 10 MG Tab PO ONE (09:46)
== END 2021-06-22 11:53 | disposition home or self-care (01) ==
LOC: JD.ED 08:58
DX: M54.6 Pain in thoracic spine (principal); I10 Essential (primary) hypertension; K21.9 Gastro-esophageal reflux disease without esophagitis; Z88.8 Allergy status to other drugs, medicaments and biological substances; Z88.5 Allergy status to narcotic agent; Z88.1 Allergy status to other antibiotic agents; Z79.899 Other long term (current) drug therapy
CPT/HCPCS: 72100; 72220; 96372; 99283; A9270; J1170; 99284

== ENCOUNTER 2021-07-16 07:08 | Emergency (ER) | payer BC ==
[2021-07-16 07:22] VITALS: BP 170/110; PULSE 92
[2021-07-16] MEDS ORDERED: LORazepam 1 MG Tab PO ONE (07:28)
[2021-07-16] MEDS ORDERED: Ondansetron 4 MG Tab.DIS PO ONE (07:29)
[2021-07-16] MEDS ORDERED: Acetaminophen 325 MG Tab PO ONE (08:08)
== END 2021-07-16 09:00 | disposition home or self-care (01) ==
LOC: JD.ED 07:08
DX: F10.129 Alcohol abuse with intoxication, unspecified (principal); E87.6 Hypokalemia; R11.0 Nausea; K21.9 Gastro-esophageal reflux disease without esophagitis; I10 Essential (primary) hypertension; Z88.1 Allergy status to other antibiotic agents; Z88.5 Allergy status to narcotic agent; Z88.8 Allergy status to other drugs, medicaments and biological substances
CPT/HCPCS: 36415; 80053; 83690; 85025; 85610; 85730; 99283; A9270; 99284

== ENCOUNTER 2022-01-24 10:38 | Inpatient (IN) | payer BC ==
[2022-01-24] MEDS ORDERED: Sodium Chloride 0.9% 10 ML Syringe FLUSH PRN (11:22)
[2022-01-24] MEDS ORDERED: Ondansetron 4 MG/2 ML SDV IVPUSH ONE (11:22)
[2022-01-24] MEDS ORDERED: LORazepam 2 MG/ML SDV IVPUSH ONE (11:27)
[2022-01-24] MEDS ORDERED: Sodium Chloride 0.9% 10 ML Syringe FLUSH ONE (11:29)
[2022-01-24] MEDS ORDERED: Iopamidol 612 MG/ML 100 ML Bottle IVPUSH ONE (11:29)
[2022-01-24] MEDS ORDERED: Sodium Chloride 0.9% 1,000 ML IV SCH (11:30)
[2022-01-24] MEDS ORDERED: Ketorolac 30 MG/ML SDV IVPUSH ONE (12:44)
[2022-01-24] MEDS ORDERED: Sodium Chloride 0.9% 1,000 ML IV ONE (13:06)
[2022-01-24] MEDS ORDERED: HYDROmorphone 0.5 MG/0.5 ML Syringe IVPUSH ONE (13:38)
[2022-01-24 14:26] LABS: CORONAVIRUS COVID-19 NAA NEGATIVE (NEGATIVE)
[2022-01-24] MEDS ORDERED: Thiamine 200 MG/2 ML MDV IVPUSH ONE (15:30)
[2022-01-24] MEDS ORDERED: Lactated Ringers 1,000 ML IV SCH (15:30)
[2022-01-24] MEDS ORDERED: Morphine 2 MG/ML SYRINGE IVPUSH PRN (15:30)
[2022-01-24] MEDS: cefTRIAXone 1 GM in Sodium Chloride 0.9% 100 ML IV SCH (15:59)
[2022-01-24] MEDS: Pantoprazole 40 MG Tab.CR PO SCH (16:00)
[2022-01-24] MEDS: Folic Acid 1 MG Tab PO SCH (16:00)
[2022-01-24] MEDS ORDERED: Thiamine 500 MG in Sodium Chloride 0.9% 100 ML IV ONE (16:00)
[2022-01-24] MEDS: LORazepam 2 MG/ML SDV IV SCH ×2 (16:19→17:19)
[2022-01-24] MEDS: Potassium Chloride 10 MEQ in Premix Bag 1 BAG IV SCH ×4 (16:43→20:00)
[2022-01-24] MEDS: Ketorolac 30 MG/ML SDV IVPUSH PRN (18:55)
[2022-01-24] MEDS: oxyCODONE 5 MG Tab PO PRN (20:28)
[2022-01-24] MEDS: Multivitamin Tab PO SCH (20:28)
[2022-01-24] MEDS ORDERED: traZODone 50 MG Tab PO ONE (22:57)
[2022-01-25] MEDS: oxyCODONE 5 MG Tab PO PRN ×4 (03:01→21:39)
[2022-01-25] MEDS: LORazepam 2 MG/ML SDV IV SCH ×9 (03:15→23:16)
[2022-01-25] MEDS: Thiamine 100 MG Tab PO SCH (08:02)
[2022-01-25] MEDS: Folic Acid 1 MG Tab PO SCH (08:02)
[2022-01-25] MEDS: Pantoprazole 40 MG Tab.CR PO SCH (08:02)
[2022-01-25] MEDS: Nicotine 14 MG/24 Hr Patch TRDERM SCH (08:03)
[2022-01-25] MEDS ORDERED: Magnesium Sulfate/Water 4 GM in Premix Bag 1 BAG IV ONE (09:00)
[2022-01-25] MEDS: busPIRone 5 MG Tab PO SCH (09:06)
[2022-01-25] MEDS: Lactulose Soln 10 GM/15 ML 30 ML UD Cup PO SCH ×2 (09:06→20:36)
[2022-01-25] MEDS: Cyanocobalamin (Vitamin B12) 1,000 MCG Tab PO SCH (09:07)
[2022-01-25] MEDS: Citalopram 20 MG Tab PO SCH (09:07)
[2022-01-25] MEDS: Ondansetron 4 MG/2 ML SDV IV PRN (09:17)
[2022-01-25] MEDS: Ketorolac 30 MG/ML SDV IVPUSH PRN ×2 (12:22→18:17)
[2022-01-25] MEDS ORDERED: Sodium Phosphate 30 MMOLE in Sodium Chloride 0.9% 250 ML IV ONE (13:00)
[2022-01-25] MEDS: cefTRIAXone 1 GM in Sodium Chloride 0.9% 100 ML IV SCH (16:08)
[2022-01-25] MEDS: Multivitamin Tab PO SCH (20:35)
[2022-01-26] MEDS: LORazepam 2 MG/ML SDV IV SCH ×5 (00:49→22:25)
[2022-01-26] MEDS: Ketorolac 30 MG/ML SDV IVPUSH PRN (05:20)
[2022-01-26] MEDS: Ondansetron 4 MG/2 ML SDV IV PRN (05:20)
[2022-01-26] MEDS: oxyCODONE 5 MG Tab PO PRN ×3 (06:22→18:38)
[2022-01-26] MEDS ORDERED: Magnesium Sulfate/Water 2 GM in Premix Bag 1 BAG IV ONE (08:00)
[2022-01-26] MEDS: busPIRone 5 MG Tab PO SCH (08:05)
[2022-01-26] MEDS: Thiamine 100 MG Tab PO SCH (08:05)
[2022-01-26] MEDS: Citalopram 20 MG Tab PO SCH (08:05)
[2022-01-26] MEDS: Lactulose Soln 10 GM/15 ML 30 ML UD Cup PO SCH ×2 (08:05→20:59)
[2022-01-26] MEDS: Cyanocobalamin (Vitamin B12) 1,000 MCG Tab PO SCH (08:05)
[2022-01-26] MEDS: Pantoprazole 40 MG Tab.CR PO SCH (08:05)
[2022-01-26] MEDS: Folic Acid 1 MG Tab PO SCH (08:05)
[2022-01-26] MEDS: Potassium Bicarbonate/Cit Ac 20 MEQ Effervescent Tab PO SCH ×2 (08:06→20:59)
[2022-01-26] MEDS: Nicotine 14 MG/24 Hr Patch TRDERM SCH (08:17)
[2022-01-26] MEDS ORDERED: Potassium Chloride 20 MEQ Tab.ER PO SCH (09:00)
[2022-01-26] MEDS ORDERED: Phytonadione 10 MG in Sodium Chloride 0.9% 50 ML IV ONE (10:15)
[2022-01-26] MEDS: cefTRIAXone 1 GM in Sodium Chloride 0.9% 100 ML IV SCH (15:30)
[2022-01-26] MEDS: Multivitamin Tab PO SCH (20:59)
[2022-01-27] MEDS: oxyCODONE 5 MG Tab PO PRN ×3 (02:06→18:26)
[2022-01-27] MEDS ORDERED: Sodium Chloride 0.9% 1,000 ML IV SCH (08:15)
[2022-01-27] MEDS: Lactulose Soln 10 GM/15 ML 30 ML UD Cup PO SCH ×3 (08:32→20:55)
[2022-01-27] MEDS: Potassium Chloride 10 MEQ in Premix Bag 1 BAG IV SCH ×4 (08:32→12:47)
[2022-01-27] MEDS: Magnesium Oxide 400 MG Tab PO SCH (08:33)
[2022-01-27] MEDS: Thiamine 100 MG Tab PO SCH (08:33)
[2022-01-27] MEDS: Cyanocobalamin (Vitamin B12) 1,000 MCG Tab PO SCH (08:33)
[2022-01-27] MEDS: Nicotine 14 MG/24 Hr Patch TRDERM SCH (08:35)
[2022-01-27] MEDS: Pantoprazole 40 MG Tab.CR PO SCH (08:35)
[2022-01-27] MEDS: busPIRone 5 MG Tab PO SCH (08:35)
[2022-01-27] MEDS: Citalopram 20 MG Tab PO SCH (08:35)
[2022-01-27] MEDS ORDERED: Phytonadione 5 MG in Sodium Chloride 0.9% 50 ML IV ONE (09:30)
[2022-01-27] MEDS: Ondansetron 4 MG/2 ML SDV IV PRN ×2 (11:33→18:26)
[2022-01-27] MEDS: cefTRIAXone 1 GM in Sodium Chloride 0.9% 100 ML IV SCH (15:07)
[2022-01-27] MEDS: Multivitamin Tab PO SCH (20:55)
[2022-01-28] MEDS: Ondansetron 4 MG/2 ML SDV IV PRN ×2 (01:22→14:32)
[2022-01-28] MEDS: oxyCODONE 5 MG Tab PO PRN ×3 (01:22→18:09)
[2022-01-28] MEDS: Lactulose Soln 10 GM/15 ML 30 ML UD Cup PO SCH ×3 (08:38→21:26)
[2022-01-28] MEDS: Pantoprazole 40 MG Tab.CR PO SCH (08:39)
[2022-01-28] MEDS: Magnesium Oxide 400 MG Tab PO SCH (08:39)
[2022-01-28] MEDS: Citalopram 20 MG Tab PO SCH (08:39)
[2022-01-28] MEDS: busPIRone 5 MG Tab PO SCH (08:39)
[2022-01-28] MEDS: Thiamine 100 MG Tab PO SCH (08:39)
[2022-01-28] MEDS: Nicotine 14 MG/24 Hr Patch TRDERM SCH (08:40)
[2022-01-28] MEDS: Cyanocobalamin (Vitamin B12) 1,000 MCG Tab PO SCH (08:40)
[2022-01-28] MEDS: cefTRIAXone 1 GM in Sodium Chloride 0.9% 100 ML IV SCH (14:34)
[2022-01-28] MEDS: LORazepam 0.5 MG Tab PO PRN (21:26)
[2022-01-28] MEDS: Multivitamin Tab PO SCH (21:26)
[2022-01-29] MEDS: oxyCODONE 5 MG Tab PO PRN ×3 (03:24→18:28)
[2022-01-29] MEDS: Lactulose Soln 10 GM/15 ML 30 ML UD Cup PO SCH ×3 (08:43→20:23)
[2022-01-29] MEDS: Ondansetron 4 MG/2 ML SDV IV PRN ×3 (08:44→20:21)
[2022-01-29] MEDS: Cyanocobalamin (Vitamin B12) 1,000 MCG Tab PO SCH (08:47)
[2022-01-29] MEDS: Citalopram 20 MG Tab PO SCH (08:47)
[2022-01-29] MEDS: Thiamine 100 MG Tab PO SCH (08:48)
[2022-01-29] MEDS: busPIRone 5 MG Tab PO SCH ×2 (08:48→20:21)
[2022-01-29] MEDS: Magnesium Oxide 400 MG Tab PO SCH (08:48)
[2022-01-29] MEDS: Pantoprazole 40 MG Tab.CR PO SCH (08:48)
[2022-01-29] MEDS: Nicotine 14 MG/24 Hr Patch TRDERM SCH (10:05)
[2022-01-29] MEDS ORDERED: Phytonadione 5 MG in Sodium Chloride 0.9% 50 ML IV ONE ×2 (10:16→11:30)
[2022-01-29] MEDS: Folic Acid 1 MG Tab PO SCH (10:19)
[2022-01-29] MEDS: Topiramate 25 MG Tab PO SCH ×2 (14:21→20:21)
[2022-01-29] MEDS: Multivitamin Tab PO SCH (20:21)
[2022-01-29] MEDS: QUEtiapine 25 MG Tab PO SCH (20:22)
[2022-01-30] MEDS: oxyCODONE 5 MG Tab PO PRN ×4 (00:17→20:41)
[2022-01-30] MEDS: Ondansetron 4 MG/2 ML SDV IV PRN (06:48)
[2022-01-30] MEDS: busPIRone 5 MG Tab PO SCH ×2 (08:50→20:41)
[2022-01-30] MEDS: Citalopram 20 MG Tab PO SCH (08:51)
[2022-01-30] MEDS: Folic Acid 1 MG Tab PO SCH (08:52)
[2022-01-30] MEDS: Lactulose Soln 10 GM/15 ML 30 ML UD Cup PO SCH ×3 (08:52→20:42)
[2022-01-30] MEDS: Magnesium Oxide 400 MG Tab PO SCH (08:53)
[2022-01-30] MEDS: Nicotine 14 MG/24 Hr Patch TRDERM SCH (08:53)
[2022-01-30] MEDS: Pantoprazole 40 MG Tab.CR PO SCH (08:54)
[2022-01-30] MEDS: Topiramate 25 MG Tab PO SCH ×3 (08:55→20:42)
[2022-01-30] MEDS: Thiamine 100 MG Tab PO SCH (08:56)
[2022-01-30] MEDS: Cyanocobalamin (Vitamin B12) 1,000 MCG Tab PO SCH (08:56)
[2022-01-30] MEDS ORDERED: Rifaximin 550 MG Tab PO SCH (09:00)
[2022-01-30] MEDS ORDERED: Dexamethasone 6 MG TABLET PO SCH (09:00)
[2022-01-30] MEDS ORDERED: Phytonadione 10 MG in Sodium Chloride 0.9% 50 ML IV ONE (10:00)
[2022-01-30] MEDS: prednisoLONE Soln 15 MG/5 ML UD Cup PO SCH (10:00)
[2022-01-30] MEDS: LORazepam 0.5 MG Tab PO PRN ×2 (10:15→21:47)
[2022-01-30] MEDS: Multivitamin Tab PO SCH (20:41)
[2022-01-30] MEDS: QUEtiapine 25 MG Tab PO SCH (20:41)
[2022-01-31] MEDS: oxyCODONE 5 MG Tab PO PRN ×3 (09:52→18:29)
[2022-01-31] MEDS: LORazepam 0.5 MG Tab PO PRN ×2 (09:53→21:30)
[2022-01-31] MEDS: prednisoLONE Soln 15 MG/5 ML UD Cup PO SCH (09:56)
[2022-01-31] MEDS: Lactulose Soln 10 GM/15 ML 30 ML UD Cup PO SCH ×3 (09:57→21:30)
[2022-01-31] MEDS: busPIRone 5 MG Tab PO SCH ×2 (09:58→21:30)
[2022-01-31] MEDS: Thiamine 100 MG Tab PO SCH (09:58)
[2022-01-31] MEDS: Cyanocobalamin (Vitamin B12) 1,000 MCG Tab PO SCH (09:58)
[2022-01-31] MEDS: Topiramate 25 MG Tab PO SCH ×3 (09:58→21:30)
[2022-01-31] MEDS: Pantoprazole 40 MG Tab.CR PO SCH (09:59)
[2022-01-31] MEDS: Citalopram 20 MG Tab PO SCH (09:59)
[2022-01-31] MEDS: Folic Acid 1 MG Tab PO SCH (09:59)
[2022-01-31] MEDS: Magnesium Oxide 400 MG Tab PO SCH (09:59)
[2022-01-31] MEDS: Nicotine 14 MG/24 Hr Patch TRDERM SCH (10:04)
[2022-01-31] MEDS ORDERED: Phytonadione 10 MG in Sodium Chloride 0.9% 50 ML IV ONE (13:00)
[2022-01-31] MEDS: Multivitamin Tab PO SCH (21:30)
[2022-01-31] MEDS: QUEtiapine 25 MG Tab PO SCH (21:30)
[2022-02-01] MEDS: oxyCODONE 5 MG Tab PO PRN ×3 (04:43→20:12)
[2022-02-01] MEDS: Citalopram 20 MG Tab PO SCH (08:22)
[2022-02-01] MEDS: Pantoprazole 40 MG Tab.CR PO SCH (08:22)
[2022-02-01] MEDS: Folic Acid 1 MG Tab PO SCH (08:22)
[2022-02-01] MEDS: Cyanocobalamin (Vitamin B12) 1,000 MCG Tab PO SCH (08:22)
[2022-02-01] MEDS: busPIRone 5 MG Tab PO SCH ×2 (08:22→20:11)
[2022-02-01] MEDS: Topiramate 25 MG Tab PO SCH ×3 (08:22→20:12)
[2022-02-01] MEDS: Thiamine 100 MG Tab PO SCH (08:22)
[2022-02-01] MEDS: Lactulose Soln 10 GM/15 ML 30 ML UD Cup PO SCH ×3 (08:22→20:11)
[2022-02-01] MEDS: Magnesium Oxide 400 MG Tab PO SCH (08:22)
[2022-02-01] MEDS: Nicotine 14 MG/24 Hr Patch TRDERM SCH ×2 (08:22→09:45)
[2022-02-01] MEDS: prednisoLONE Soln 15 MG/5 ML UD Cup PO SCH (08:23)
[2022-02-01] MEDS: Megestrol Susp 40 MG/ML 10 ML UD Cup PO SCH (12:42)
[2022-02-01] MEDS: Potassium Chloride 10 MEQ in Premix Bag 1 BAG IV SCH ×4 (15:03→18:09)
[2022-02-01] MEDS: LORazepam 0.5 MG Tab PO PRN ×2 (15:07→20:12)
[2022-02-01] MEDS ORDERED: Sodium Chloride 0.9% 1,000 ML ONE (15:11)
[2022-02-01] MEDS ORDERED: Sodium Chloride 0.9% 1,000 ML IV SCH (16:30)
[2022-02-01] MEDS: QUEtiapine 25 MG Tab PO SCH (20:11)
[2022-02-01] MEDS: Multivitamin Tab PO SCH (20:11)
[2022-02-02] MEDS: oxyCODONE 5 MG Tab PO PRN ×5 (03:05→21:37)
[2022-02-02] MEDS: LORazepam 0.5 MG Tab PO PRN (06:17)
[2022-02-02] MEDS: Thiamine 100 MG Tab PO SCH (08:00)
[2022-02-02] MEDS: busPIRone 5 MG Tab PO SCH ×2 (08:00→21:29)
[2022-02-02] MEDS: Magnesium Oxide 400 MG Tab PO SCH (08:00)
[2022-02-02] MEDS: Topiramate 25 MG Tab PO SCH ×3 (08:00→21:29)
[2022-02-02] MEDS: Folic Acid 1 MG Tab PO SCH (08:00)
[2022-02-02] MEDS: Pantoprazole 40 MG Tab.CR PO SCH (08:00)
[2022-02-02] MEDS: Cyanocobalamin (Vitamin B12) 1,000 MCG Tab PO SCH (08:00)
[2022-02-02] MEDS: Citalopram 20 MG Tab PO SCH (08:00)
[2022-02-02] MEDS: prednisoLONE Soln 15 MG/5 ML UD Cup PO SCH (08:01)
[2022-02-02] MEDS: Megestrol Susp 40 MG/ML 10 ML UD Cup PO SCH (08:01)
[2022-02-02] MEDS: Lactulose Soln 10 GM/15 ML 30 ML UD Cup PO SCH ×3 (08:01→21:29)
[2022-02-02] MEDS: Nicotine 14 MG/24 Hr Patch TRDERM SCH (08:05)
[2022-02-02] MEDS: Potassium Chloride 10 MEQ in Premix Bag 1 BAG IV SCH ×4 (08:15→12:15)
[2022-02-02] MEDS: QUEtiapine 25 MG Tab PO SCH (21:29)
[2022-02-02] MEDS: Multivitamin Tab PO SCH (21:29)
[2022-02-03] MEDS: oxyCODONE 5 MG Tab PO PRN ×3 (03:42→13:49)
[2022-02-03] MEDS: Megestrol Susp 40 MG/ML 10 ML UD Cup PO SCH (08:28)
[2022-02-03] MEDS: prednisoLONE Soln 15 MG/5 ML UD Cup PO SCH (08:29)
[2022-02-03] MEDS: Lactulose Soln 10 GM/15 ML 30 ML UD Cup PO SCH ×3 (08:29→21:09)
[2022-02-03] MEDS: Cyanocobalamin (Vitamin B12) 1,000 MCG Tab PO SCH (08:29)
[2022-02-03] MEDS: busPIRone 5 MG Tab PO SCH ×2 (08:29→21:08)
[2022-02-03] MEDS: Thiamine 100 MG Tab PO SCH (08:31)
[2022-02-03] MEDS: Citalopram 20 MG Tab PO SCH (08:31)
[2022-02-03] MEDS: Folic Acid 1 MG Tab PO SCH (08:31)
[2022-02-03] MEDS: Pantoprazole 40 MG Tab.CR PO SCH (08:31)
[2022-02-03] MEDS: Magnesium Oxide 400 MG Tab PO SCH (08:31)
[2022-02-03] MEDS: Topiramate 25 MG Tab PO SCH ×3 (08:31→21:10)
[2022-02-03] MEDS: Nicotine 14 MG/24 Hr Patch TRDERM SCH (08:39)
[2022-02-03] MEDS ORDERED: Phytonadione 10 MG in Sodium Chloride 0.9% 50 ML IV ONE (09:30)
[2022-02-03] MEDS: Potassium Chloride 10 MEQ in Premix Bag 1 BAG IV SCH ×4 (09:40→13:17)
[2022-02-03] MEDS: LORazepam 0.5 MG Tab PO PRN (13:49)
[2022-02-03] MEDS: QUEtiapine 25 MG Tab PO SCH (21:09)
[2022-02-03] MEDS: Multivitamin Tab PO SCH (21:10)
[2022-02-04] MEDS: oxyCODONE 5 MG Tab PO PRN ×3 (00:10→21:33)
[2022-02-04] MEDS: Pantoprazole 40 MG Tab.CR PO SCH (09:00)
[2022-02-04] MEDS: Folic Acid 1 MG Tab PO SCH (09:01)
[2022-02-04] MEDS: Magnesium Oxide 400 MG Tab PO SCH (09:01)
[2022-02-04] MEDS: Cyanocobalamin (Vitamin B12) 1,000 MCG Tab PO SCH (09:01)
[2022-02-04] MEDS: Topiramate 25 MG Tab PO SCH ×3 (09:02→21:31)
[2022-02-04] MEDS: Thiamine 100 MG Tab PO SCH (09:02)
[2022-02-04] MEDS: busPIRone 5 MG Tab PO SCH ×2 (09:03→21:32)
[2022-02-04] MEDS: LORazepam 0.5 MG Tab PO PRN (09:03)
[2022-02-04] MEDS: Citalopram 20 MG Tab PO SCH (09:03)
[2022-02-04] MEDS: prednisoLONE Soln 15 MG/5 ML UD Cup PO SCH (09:06)
[2022-02-04] MEDS: Megestrol Susp 40 MG/ML 10 ML UD Cup PO SCH (09:12)
[2022-02-04] MEDS: Lactulose Soln 10 GM/15 ML 30 ML UD Cup PO SCH ×3 (09:13→21:30)
[2022-02-04] MEDS: Nicotine 14 MG/24 Hr Patch TRDERM SCH (15:10)
[2022-02-04] MEDS: Multivitamin Tab PO SCH (21:30)
[2022-02-04] MEDS: QUEtiapine 25 MG Tab PO SCH (21:32)
[2022-02-05] MEDS: oxyCODONE 5 MG Tab PO PRN ×3 (05:46→20:26)
[2022-02-05] MEDS: Topiramate 25 MG Tab PO SCH ×3 (08:29→20:25)
[2022-02-05] MEDS: Magnesium Oxide 400 MG Tab PO SCH (08:29)
[2022-02-05] MEDS: Citalopram 20 MG Tab PO SCH (08:29)
[2022-02-05] MEDS: Cyanocobalamin (Vitamin B12) 1,000 MCG Tab PO SCH (08:29)
[2022-02-05] MEDS: busPIRone 5 MG Tab PO SCH ×2 (08:29→20:24)
[2022-02-05] MEDS: Pantoprazole 40 MG Tab.CR PO SCH (08:29)
[2022-02-05] MEDS: Thiamine 100 MG Tab PO SCH (08:29)
[2022-02-05] MEDS: Folic Acid 1 MG Tab PO SCH (08:29)
[2022-02-05] MEDS: prednisoLONE Soln 15 MG/5 ML UD Cup PO SCH (08:30)
[2022-02-05] MEDS: Lactulose Soln 10 GM/15 ML 30 ML UD Cup PO SCH ×3 (08:30→20:25)
[2022-02-05] MEDS: Megestrol Susp 40 MG/ML 10 ML UD Cup PO SCH (08:30)
[2022-02-05] MEDS ORDERED: Phytonadione 10 MG in Sodium Chloride 0.9% 50 ML IV ONE (08:35)
[2022-02-05] MEDS: LORazepam 0.5 MG Tab PO PRN (08:38)
[2022-02-05] MEDS: Multivitamin Tab PO SCH (20:24)
[2022-02-05] MEDS: QUEtiapine 25 MG Tab PO SCH (20:25)
[2022-02-06] MEDS: oxyCODONE 5 MG Tab PO PRN ×4 (04:40→20:45)
[2022-02-06] MEDS: LORazepam 0.5 MG Tab PO PRN (04:40)
[2022-02-06] MEDS: prednisoLONE Soln 15 MG/5 ML UD Cup PO SCH (08:16)
[2022-02-06] MEDS: Pantoprazole 40 MG Tab.CR PO SCH (08:17)
[2022-02-06] MEDS: Cyanocobalamin (Vitamin B12) 1,000 MCG Tab PO SCH (08:17)
[2022-02-06] MEDS: Topiramate 25 MG Tab PO SCH ×3 (08:17→20:39)
[2022-02-06] MEDS: Megestrol Susp 40 MG/ML 10 ML UD Cup PO SCH (08:17)
[2022-02-06] MEDS: busPIRone 5 MG Tab PO SCH ×2 (08:17→20:39)
[2022-02-06] MEDS: Lactulose Soln 10 GM/15 ML 30 ML UD Cup PO SCH ×3 (08:17→20:38)
[2022-02-06] MEDS: Folic Acid 1 MG Tab PO SCH (08:17)
[2022-02-06] MEDS: Citalopram 20 MG Tab PO SCH (08:17)
[2022-02-06] MEDS: Magnesium Oxide 400 MG Tab PO SCH (08:17)
[2022-02-06] MEDS: Thiamine 100 MG Tab PO SCH (08:17)
[2022-02-06] MEDS ORDERED: AA 5%/Calcium/D20W/Lytes 1,000 ML IV SCH (14:30)
[2022-02-06] MEDS: Fat Emulsion 500 ML IV SCH ×2 (14:32→23:20)
[2022-02-06] MEDS: QUEtiapine 25 MG Tab PO SCH (20:39)
[2022-02-06] MEDS: Multivitamin Tab PO SCH (20:39)
[2022-02-07] MEDS: oxyCODONE 5 MG Tab PO PRN ×3 (00:48→20:43)
[2022-02-07] MEDS ORDERED: Non-Formulary Medication 1 EACH ONE ×2 (02:30→14:30)
[2022-02-07 07:18] LABS: ESTIMATED GFR 114 mL/min (>60)
[2022-02-07] MEDS: Lactulose Soln 10 GM/15 ML 30 ML UD Cup PO SCH ×3 (08:30→20:44)
[2022-02-07] MEDS: Citalopram 20 MG Tab PO SCH (08:31)
[2022-02-07] MEDS: Folic Acid 1 MG Tab PO SCH (08:32)
[2022-02-07] MEDS: busPIRone 5 MG Tab PO SCH ×2 (08:32→20:41)
[2022-02-07] MEDS: Thiamine 100 MG Tab PO SCH (08:32)
[2022-02-07] MEDS: Cyanocobalamin (Vitamin B12) 1,000 MCG Tab PO SCH (08:33)
[2022-02-07] MEDS: Pantoprazole 40 MG Tab.CR PO SCH (08:33)
[2022-02-07] MEDS: Topiramate 25 MG Tab PO SCH ×3 (08:33→20:42)
[2022-02-07] MEDS: Magnesium Oxide 400 MG Tab PO SCH (08:33)
[2022-02-07] MEDS: Megestrol Susp 40 MG/ML 10 ML UD Cup PO SCH (08:34)
[2022-02-07] MEDS: prednisoLONE Soln 15 MG/5 ML UD Cup PO SCH (08:34)
[2022-02-07] MEDS: Potassium Chloride 10 MEQ in Premix Bag 1 BAG IV SCH ×4 (11:23→14:38)
[2022-02-07] MEDS ORDERED: Potassium Chloride 20 MEQ Tab.ER PO ONE (12:00)
[2022-02-07] MEDS: LORazepam 0.5 MG Tab PO PRN (14:00)
[2022-02-07] MEDS: Potassium Chloride 20 MEQ Tab.ER PO SCH ×2 (14:00→20:41)
[2022-02-07] MEDS ORDERED: AA 5%/Calcium/D20W/Lytes 1,000 ML IV SCH (14:30)
[2022-02-07] MEDS: Insulin Lispro 100 Unit/ML 3 ML KwikPen SUBCUT SCH ×2 (17:27→22:13)
[2022-02-07] MEDS: Multivitamin Tab PO SCH (20:42)
[2022-02-07] MEDS: QUEtiapine 25 MG Tab PO SCH (20:43)
[2022-02-08] MEDS ORDERED: Non-Formulary Medication 1 EACH ONE (02:30)
[2022-02-08] MEDS: Insulin Lispro 100 Unit/ML 3 ML KwikPen SUBCUT SCH ×4 (04:43→23:29)
[2022-02-08] MEDS: oxyCODONE 5 MG Tab PO PRN ×2 (06:33→23:28)
[2022-02-08] MEDS: Thiamine 100 MG Tab PO SCH (08:57)
[2022-02-08] MEDS: Folic Acid 1 MG Tab PO SCH (08:57)
[2022-02-08] MEDS: Pantoprazole 40 MG Tab.CR PO SCH (08:57)
[2022-02-08] MEDS: Citalopram 20 MG Tab PO SCH (08:58)
[2022-02-08] MEDS: Lactulose Soln 10 GM/15 ML 30 ML UD Cup PO SCH ×3 (08:58→20:41)
[2022-02-08] MEDS: Phosphorus #1 250 MG Tab PO SCH ×2 (08:58→20:40)
[2022-02-08] MEDS: Megestrol Susp 40 MG/ML 10 ML UD Cup PO SCH (08:58)
[2022-02-08] MEDS: busPIRone 5 MG Tab PO SCH ×2 (08:58→20:39)
[2022-02-08] MEDS: Magnesium Oxide 400 MG Tab PO SCH (08:58)
[2022-02-08] MEDS: Topiramate 25 MG Tab PO SCH ×3 (08:58→20:39)
[2022-02-08] MEDS: Cyanocobalamin (Vitamin B12) 1,000 MCG Tab PO SCH (08:58)
[2022-02-08] MEDS: prednisoLONE Soln 15 MG/5 ML UD Cup PO SCH (08:59)
[2022-02-08] MEDS ORDERED: Potassium Chloride 20 MEQ Tab.ER PO ONE (09:00)
[2022-02-08] MEDS: LORazepam 0.5 MG Tab PO PRN (10:18)
[2022-02-08] MEDS: AA 5%/Calcium/D20W/Lytes 1,000 ML IV SCH (10:23)
[2022-02-08] MEDS: Fat Emulsion 500 ML IV SCH (10:24)
[2022-02-08] MEDS: QUEtiapine 25 MG Tab PO SCH (20:38)
[2022-02-08] MEDS: Multivitamin Tab PO SCH (20:40)
[2022-02-09] MEDS: Insulin Lispro 100 Unit/ML 3 ML KwikPen SUBCUT SCH ×4 (04:42→22:58)
[2022-02-09] MEDS: AA 5%/Calcium/D20W/Lytes 1,000 ML IV SCH ×2 (04:48→23:48)
[2022-02-09] MEDS: Topiramate 25 MG Tab PO SCH ×4 (07:49→21:00)
[2022-02-09] MEDS: Cyanocobalamin (Vitamin B12) 1,000 MCG Tab PO SCH ×2 (07:49→08:02)
[2022-02-09] MEDS: busPIRone 5 MG Tab PO SCH ×3 (07:49→20:43)
[2022-02-09] MEDS: Folic Acid 1 MG Tab PO SCH ×2 (07:50→08:01)
[2022-02-09] MEDS: oxyCODONE 5 MG Tab PO PRN ×2 (07:50→16:14)
[2022-02-09] MEDS: Citalopram 20 MG Tab PO SCH ×2 (07:51→08:01)
[2022-02-09] MEDS: Thiamine 100 MG Tab PO SCH ×2 (07:51→08:02)
[2022-02-09] MEDS: Magnesium Oxide 400 MG Tab PO SCH ×2 (07:51→08:01)
[2022-02-09] MEDS: Pantoprazole 40 MG Tab.CR PO SCH ×2 (07:51→08:02)
[2022-02-09] MEDS: Megestrol Susp 40 MG/ML 10 ML UD Cup PO SCH ×2 (07:52→08:01)
[2022-02-09] MEDS: prednisoLONE Soln 15 MG/5 ML UD Cup PO SCH ×2 (07:54→08:02)
[2022-02-09] MEDS: Lactulose Soln 10 GM/15 ML 30 ML UD Cup PO SCH ×3 (08:03→20:44)
[2022-02-09] MEDS: Potassium Chloride 20 MEQ Tab.ER PO SCH ×2 (09:48→20:40)
[2022-02-09] MEDS: QUEtiapine 25 MG Tab PO SCH (20:43)
[2022-02-09] MEDS: Multivitamin Tab PO SCH (20:43)
[2022-02-10] MEDS: oxyCODONE 5 MG Tab PO PRN ×2 (00:04→17:17)
[2022-02-10] MEDS: Insulin Lispro 100 Unit/ML 3 ML KwikPen SUBCUT SCH ×4 (04:25→23:31)
[2022-02-10] MEDS ORDERED: Potassium Chloride 20 MEQ Tab.ER PO ONE (09:00)
[2022-02-10] MEDS: Folic Acid 1 MG Tab PO SCH (09:57)
[2022-02-10] MEDS: Thiamine 100 MG Tab PO SCH (09:57)
[2022-02-10] MEDS: Citalopram 20 MG Tab PO SCH (09:57)
[2022-02-10] MEDS: Magnesium Oxide 400 MG Tab PO SCH (09:58)
[2022-02-10] MEDS: busPIRone 5 MG Tab PO SCH ×2 (09:58→21:15)
[2022-02-10] MEDS: Topiramate 25 MG Tab PO SCH ×3 (09:59→21:15)
[2022-02-10] MEDS: Pantoprazole 40 MG Tab.CR PO SCH (10:00)
[2022-02-10] MEDS: Spironolactone 25 MG Tab PO SCH ×2 (10:00→21:11)
[2022-02-10] MEDS: Cyanocobalamin (Vitamin B12) 1,000 MCG Tab PO SCH (10:00)
[2022-02-10] MEDS: prednisoLONE Soln 15 MG/5 ML UD Cup PO SCH (10:02)
[2022-02-10] MEDS: Propranolol 10 MG Tab PO SCH ×2 (10:04→21:12)
[2022-02-10] MEDS: Megestrol Susp 40 MG/ML 10 ML UD Cup PO SCH (10:06)
[2022-02-10] MEDS: Lactulose Soln 10 GM/15 ML 30 ML UD Cup PO SCH ×3 (10:06→21:16)
[2022-02-10] MEDS: Fat Emulsion 500 ML IV SCH (10:07)
[2022-02-10] MEDS: LORazepam 0.5 MG Tab PO PRN (10:44)
[2022-02-10] MEDS: Dronabinol 2.5 MG Cap PO SCH ×2 (12:45→17:02)
[2022-02-10] MEDS: AA 5%/Calcium/D20W/Lytes 1,000 ML IV SCH (17:06)
[2022-02-10] MEDS: QUEtiapine 25 MG Tab PO SCH (21:11)
[2022-02-10] MEDS: Multivitamin Tab PO SCH (21:12)
[2022-02-11] MEDS: Insulin Lispro 100 Unit/ML 3 ML KwikPen SUBCUT SCH ×3 (05:34→17:54)
[2022-02-11] MEDS: Dronabinol 2.5 MG Cap PO SCH ×2 (05:35→17:41)
[2022-02-11] MEDS: LORazepam 0.5 MG Tab PO PRN ×2 (06:13→17:42)
[2022-02-11] MEDS ORDERED: Magnesium Sulfate/Water 2 GM in Premix Bag 1 BAG IV ONE (09:15)
[2022-02-11] MEDS ORDERED: Magnesium Sulfate (4.06 MEQ/ML) 5 GM/10 ML SDV IV ONE (10:00)
[2022-02-11] MEDS: Spironolactone 25 MG Tab PO SCH ×2 (10:27→21:17)
[2022-02-11] MEDS: Citalopram 20 MG Tab PO SCH (10:28)
[2022-02-11] MEDS: Pantoprazole 40 MG Tab.CR PO SCH (10:29)
[2022-02-11] MEDS: Magnesium Oxide 400 MG Tab PO SCH (10:30)
[2022-02-11] MEDS: Topiramate 25 MG Tab PO SCH ×3 (10:30→21:16)
[2022-02-11] MEDS: busPIRone 5 MG Tab PO SCH ×2 (10:30→21:16)
[2022-02-11] MEDS: Thiamine 100 MG Tab PO SCH (10:31)
[2022-02-11] MEDS: Propranolol 10 MG Tab PO SCH ×2 (10:31→21:27)
[2022-02-11] MEDS: Cyanocobalamin (Vitamin B12) 1,000 MCG Tab PO SCH (10:31)
[2022-02-11] MEDS: Lactulose Soln 10 GM/15 ML 30 ML UD Cup PO SCH ×3 (10:34→21:17)
[2022-02-11] MEDS: prednisoLONE Soln 15 MG/5 ML UD Cup PO SCH (10:41)
[2022-02-11] MEDS: Ondansetron 4 MG/2 ML SDV IV PRN ×2 (10:45→14:33)
[2022-02-11] MEDS: Folic Acid 1 MG Tab PO SCH (11:47)
[2022-02-11] MEDS: AA 5%/Calcium/D20W/Lytes 1,000 ML IV SCH (12:17)
[2022-02-11] MEDS ORDERED: Prochlorperazine 5 MG Tab PO PRN (14:30)
[2022-02-11] MEDS: oxyCODONE 5 MG Tab PO PRN ×2 (14:33→21:33)
[2022-02-11] MEDS ORDERED: Ondansetron 4 MG/2 ML SDV IV SCH (16:30)
[2022-02-11] MEDS: Ondansetron 8 MG in Sodium Chloride 0.9% 50 ML IV SCH (17:42)
[2022-02-11] MEDS: Multivitamin Tab PO SCH (21:17)
[2022-02-11] MEDS: QUEtiapine 25 MG Tab PO SCH (21:17)
[2022-02-12] MEDS: Insulin Lispro 100 Unit/ML 3 ML KwikPen SUBCUT SCH ×5 (00:48→22:11)
[2022-02-12] MEDS: AA 5%/Calcium/D20W/Lytes 1,000 ML IV SCH ×2 (05:45→23:39)
[2022-02-12] MEDS: Dronabinol 2.5 MG Cap PO SCH ×2 (06:29→17:09)
[2022-02-12] MEDS: Ondansetron 8 MG in Sodium Chloride 0.9% 50 ML IV SCH ×3 (06:29→17:11)
[2022-02-12] MEDS: Cyanocobalamin (Vitamin B12) 1,000 MCG Tab PO SCH (09:27)
[2022-02-12] MEDS: Citalopram 20 MG Tab PO SCH (09:27)
[2022-02-12] MEDS: Propranolol 10 MG Tab PO SCH ×2 (09:28→20:26)
[2022-02-12] MEDS: Magnesium Oxide 400 MG Tab PO SCH (09:28)
[2022-02-12] MEDS: busPIRone 5 MG Tab PO SCH ×2 (09:30→20:25)
[2022-02-12] MEDS: Pantoprazole 40 MG Tab.CR PO SCH (09:30)
[2022-02-12] MEDS: Thiamine 100 MG Tab PO SCH (09:30)
[2022-02-12] MEDS: Lactulose Soln 10 GM/15 ML 30 ML UD Cup PO SCH ×3 (09:30→20:26)
[2022-02-12] MEDS: Folic Acid 1 MG Tab PO SCH (09:30)
[2022-02-12] MEDS: prednisoLONE Soln 15 MG/5 ML UD Cup PO SCH (09:30)
[2022-02-12] MEDS: Spironolactone 25 MG Tab PO SCH ×2 (09:30→20:25)
[2022-02-12] MEDS: Topiramate 25 MG Tab PO SCH ×3 (09:30→20:25)
[2022-02-12] MEDS: oxyCODONE 5 MG Tab PO PRN (17:09)
[2022-02-12] MEDS: LORazepam 0.5 MG Tab PO PRN (17:09)
[2022-02-12] MEDS ORDERED: Ondansetron 8 MG in Sodium Chloride 0.9% 50 ML IV SCH (17:30)
[2022-02-12] MEDS: QUEtiapine 25 MG Tab PO SCH (20:25)
[2022-02-12] MEDS: Multivitamin Tab PO SCH (20:26)
[2022-02-13] MEDS: Insulin Lispro 100 Unit/ML 3 ML KwikPen SUBCUT SCH ×4 (05:13→23:08)
[2022-02-13] MEDS: Dronabinol 2.5 MG Cap PO SCH ×2 (05:14→15:07)
[2022-02-13] MEDS ORDERED: Magnesium Sulfate/Water 4 GM in Premix Bag 1 BAG IV ONE ×2 (07:45→08:30)
[2022-02-13] MEDS: Cyanocobalamin (Vitamin B12) 1,000 MCG Tab PO SCH (08:40)
[2022-02-13] MEDS: Thiamine 100 MG Tab PO SCH (08:41)
[2022-02-13] MEDS: busPIRone 5 MG Tab PO SCH ×2 (08:41→20:51)
[2022-02-13] MEDS: Propranolol 10 MG Tab PO SCH ×2 (08:41→20:51)
[2022-02-13] MEDS: Spironolactone 25 MG Tab PO SCH ×2 (08:41→20:52)
[2022-02-13] MEDS: Topiramate 25 MG Tab PO SCH ×3 (08:41→20:51)
[2022-02-13] MEDS: Folic Acid 1 MG Tab PO SCH (08:41)
[2022-02-13] MEDS: Pantoprazole 40 MG Tab.CR PO SCH (08:42)
[2022-02-13] MEDS: Citalopram 20 MG Tab PO SCH (08:42)
[2022-02-13] MEDS: prednisoLONE Soln 15 MG/5 ML UD Cup PO SCH (08:42)
[2022-02-13] MEDS: Magnesium Oxide 400 MG Tab PO SCH (08:42)
[2022-02-13] MEDS: Lactulose Soln 10 GM/15 ML 30 ML UD Cup PO SCH ×3 (08:42→20:50)
[2022-02-13] MEDS ORDERED: Magnesium Sulfate (4.06 MEQ/ML) 5 GM/10 ML SDV IV ONE (10:00)
[2022-02-13] MEDS: LORazepam 0.5 MG Tab PO PRN (11:25)
[2022-02-13] MEDS: Fat Emulsion 500 ML IV SCH (13:56)
[2022-02-13] MEDS: AA 5%/Calcium/D20W/Lytes 1,000 ML IV SCH (19:55)
[2022-02-13] MEDS: Multivitamin Tab PO SCH (20:51)
[2022-02-13] MEDS: QUEtiapine 25 MG Tab PO SCH (20:52)
[2022-02-13] MEDS: oxyCODONE 5 MG Tab PO PRN (22:20)
[2022-02-14] MEDS: Insulin Lispro 100 Unit/ML 3 ML KwikPen SUBCUT SCH ×4 (05:45→23:18)
[2022-02-14] MEDS: Dronabinol 2.5 MG Cap PO SCH (05:46)
[2022-02-14] MEDS: Cyanocobalamin (Vitamin B12) 1,000 MCG Tab PO SCH (09:32)
[2022-02-14] MEDS: Thiamine 100 MG Tab PO SCH (09:32)
[2022-02-14] MEDS: Magnesium Oxide 400 MG Tab PO SCH (09:32)
[2022-02-14] MEDS: Propranolol 10 MG Tab PO SCH ×2 (09:33→20:10)
[2022-02-14] MEDS: Topiramate 25 MG Tab PO SCH ×3 (09:34→20:10)
[2022-02-14] MEDS: Folic Acid 1 MG Tab PO SCH (09:35)
[2022-02-14] MEDS: busPIRone 5 MG Tab PO SCH ×2 (09:35→20:09)
[2022-02-14] MEDS: Pantoprazole 40 MG Tab.CR PO SCH (09:36)
[2022-02-14] MEDS: Spironolactone 25 MG Tab PO SCH ×2 (09:36→20:10)
[2022-02-14] MEDS: prednisoLONE Soln 15 MG/5 ML UD Cup PO SCH (09:36)
[2022-02-14] MEDS: Lactulose Soln 10 GM/15 ML 30 ML UD Cup PO SCH ×3 (09:39→20:09)
[2022-02-14] MEDS: Citalopram 20 MG Tab PO SCH (09:40)
[2022-02-14] MEDS: LORazepam 0.5 MG Tab PO PRN (14:21)
[2022-02-14] MEDS: AA 5%/Calcium/D20W/Lytes 1,000 ML IV SCH (14:22)
[2022-02-14] MEDS: Multivitamin Tab PO SCH (20:09)
[2022-02-14] MEDS: oxyCODONE 5 MG Tab PO PRN (20:10)
[2022-02-14] MEDS: QUEtiapine 25 MG Tab PO SCH (20:10)
[2022-02-15] MEDS: Insulin Lispro 100 Unit/ML 3 ML KwikPen SUBCUT SCH ×4 (05:06→22:21)
[2022-02-15] MEDS: busPIRone 5 MG Tab PO SCH ×2 (10:20→20:16)
[2022-02-15] MEDS: Topiramate 25 MG Tab PO SCH (10:21)
[2022-02-15] MEDS: Magnesium Oxide 400 MG Tab PO SCH (10:21)
[2022-02-15] MEDS: Citalopram 20 MG Tab PO SCH (10:21)
[2022-02-15] MEDS: Pantoprazole 40 MG Tab.CR PO SCH (10:21)
[2022-02-15] MEDS: Cyanocobalamin (Vitamin B12) 1,000 MCG Tab PO SCH (10:22)
[2022-02-15] MEDS: Spironolactone 25 MG Tab PO SCH ×2 (10:30→20:16)
[2022-02-15] MEDS: Folic Acid 1 MG Tab PO SCH (10:30)
[2022-02-15] MEDS: Propranolol 10 MG Tab PO SCH ×2 (10:31→20:16)
[2022-02-15] MEDS: Thiamine 100 MG Tab PO SCH (10:31)
[2022-02-15] MEDS: prednisoLONE Soln 15 MG/5 ML UD Cup PO SCH (10:32)
[2022-02-15] MEDS: Lactulose Soln 10 GM/15 ML 30 ML UD Cup PO SCH ×3 (10:33→20:17)
[2022-02-15] MEDS: AA 5%/Calcium/D20W/Lytes 1,000 ML IV SCH (11:32)
[2022-02-15] MEDS: oxyCODONE 5 MG Tab PO PRN (11:35)
[2022-02-15] MEDS ORDERED: Magnesium Sulfate/Water 2 GM in Premix Bag 1 BAG IV ONE (12:00)
[2022-02-15] MEDS ORDERED: Magnesium Oxide 400 MG Tab PO ONE (12:33)
[2022-02-15] MEDS: Fat Emulsion 500 ML IV SCH (13:09)
[2022-02-15] MEDS: LORazepam 0.5 MG Tab PO PRN (15:20)
[2022-02-15] MEDS: Multivitamin Tab PO SCH (20:16)
[2022-02-15] MEDS: QUEtiapine 25 MG Tab PO SCH (20:16)
[2022-02-16] MEDS: Insulin Lispro 100 Unit/ML 3 ML KwikPen SUBCUT SCH ×4 (04:28→23:16)
[2022-02-16] MEDS: LORazepam 0.5 MG Tab PO PRN (04:46)
[2022-02-16] MEDS: Magnesium Oxide 400 MG Tab PO SCH (08:56)
[2022-02-16] MEDS: Dronabinol 2.5 MG Cap PO SCH ×2 (08:56→15:13)
[2022-02-16] MEDS: Pantoprazole 40 MG Tab.CR PO SCH (08:57)
[2022-02-16] MEDS: Cyanocobalamin (Vitamin B12) 1,000 MCG Tab PO SCH (08:57)
[2022-02-16] MEDS: busPIRone 5 MG Tab PO SCH ×2 (08:57→20:48)
[2022-02-16] MEDS: Folic Acid 1 MG Tab PO SCH (08:57)
[2022-02-16] MEDS: Citalopram 20 MG Tab PO SCH (08:58)
[2022-02-16] MEDS: Thiamine 100 MG Tab PO SCH (08:58)
[2022-02-16] MEDS: prednisoLONE Soln 15 MG/5 ML UD Cup PO SCH (08:59)
[2022-02-16] MEDS: Propranolol 10 MG Tab PO SCH ×2 (08:59→20:49)
[2022-02-16] MEDS: Lactulose Soln 10 GM/15 ML 30 ML UD Cup PO SCH ×3 (09:00→20:49)
[2022-02-16] MEDS: Spironolactone 25 MG Tab PO SCH ×2 (09:01→20:48)
[2022-02-16] MEDS: AA 5%/Calcium/D20W/Lytes 1,000 ML IV SCH (09:34)
[2022-02-16] MEDS: oxyCODONE 5 MG Tab PO PRN (14:39)
[2022-02-16] MEDS: QUEtiapine 25 MG Tab PO SCH (20:48)
[2022-02-16] MEDS: Multivitamin Tab PO SCH (20:48)
[2022-02-17] MEDS: AA 5%/Calcium/D20W/Lytes 1,000 ML IV SCH ×2 (01:58→19:23)
[2022-02-17] MEDS: LORazepam 0.5 MG Tab PO PRN ×2 (02:17→20:15)
[2022-02-17] MEDS: Insulin Lispro 100 Unit/ML 3 ML KwikPen SUBCUT SCH ×4 (05:23→22:58)
[2022-02-17] MEDS: Dronabinol 2.5 MG Cap PO SCH (05:24)
[2022-02-17] MEDS: oxyCODONE 5 MG Tab PO PRN (07:42)
[2022-02-17] MEDS: Thiamine 100 MG Tab PO SCH (09:57)
[2022-02-17] MEDS: Pantoprazole 40 MG Tab.CR PO SCH (09:58)
[2022-02-17] MEDS: Propranolol 10 MG Tab PO SCH ×2 (09:58→20:14)
[2022-02-17] MEDS: Spironolactone 25 MG Tab PO SCH ×2 (09:58→20:15)
[2022-02-17] MEDS: Lactulose Soln 10 GM/15 ML 30 ML UD Cup PO SCH ×3 (10:00→20:11)
[2022-02-17] MEDS: Cyanocobalamin (Vitamin B12) 1,000 MCG Tab PO SCH (10:00)
[2022-02-17] MEDS: Folic Acid 1 MG Tab PO SCH (10:00)
[2022-02-17] MEDS: Magnesium Oxide 400 MG Tab PO SCH (10:00)
[2022-02-17] MEDS: Citalopram 20 MG Tab PO SCH (10:01)
[2022-02-17] MEDS: prednisoLONE Soln 15 MG/5 ML UD Cup PO SCH (10:01)
[2022-02-17] MEDS: busPIRone 5 MG Tab PO SCH ×2 (10:02→20:14)
[2022-02-17] MEDS ORDERED: Magnesium Oxide 400 MG Tab PO ONE (12:00)
[2022-02-17] MEDS: Fat Emulsion 500 ML IV SCH (14:17)
[2022-02-17] MEDS: Topiramate 25 MG Tab PO SCH ×2 (15:13→20:16)
[2022-02-17] MEDS: QUEtiapine 25 MG Tab PO SCH (20:16)
[2022-02-17] MEDS: Multivitamin Tab PO SCH (20:17)
[2022-02-18] MEDS: oxyCODONE 5 MG Tab PO PRN ×2 (04:44→21:22)
[2022-02-18] MEDS: Insulin Lispro 100 Unit/ML 3 ML KwikPen SUBCUT SCH ×3 (05:31→17:31)
[2022-02-18] MEDS: Thiamine 100 MG Tab PO SCH (10:48)
[2022-02-18] MEDS: Magnesium Oxide 400 MG Tab PO SCH (10:48)
[2022-02-18] MEDS: Pantoprazole 40 MG Tab.CR PO SCH (10:48)
[2022-02-18] MEDS: Spironolactone 25 MG Tab PO SCH ×2 (10:49→21:24)
[2022-02-18] MEDS: busPIRone 5 MG Tab PO SCH ×2 (10:50→21:23)
[2022-02-18] MEDS: Folic Acid 1 MG Tab PO SCH (10:50)
[2022-02-18] MEDS: Cyanocobalamin (Vitamin B12) 1,000 MCG Tab PO SCH (10:50)
[2022-02-18] MEDS: Topiramate 25 MG Tab PO SCH ×3 (10:51→21:23)
[2022-02-18] MEDS: Propranolol 10 MG Tab PO SCH ×2 (10:51→21:21)
[2022-02-18] MEDS: Citalopram 20 MG Tab PO SCH (10:51)
[2022-02-18] MEDS: Lactulose Soln 10 GM/15 ML 30 ML UD Cup PO SCH ×3 (10:53→21:24)
[2022-02-18] MEDS: prednisoLONE Soln 15 MG/5 ML UD Cup PO SCH (10:55)
[2022-02-18] MEDS: AA 5%/Calcium/D20W/Lytes 1,000 ML IV SCH (16:08)
[2022-02-18] MEDS: Multivitamin Tab PO SCH (21:23)
[2022-02-18] MEDS: QUEtiapine 25 MG Tab PO SCH (21:23)
[2022-02-19] MEDS: Insulin Lispro 100 Unit/ML 3 ML KwikPen SUBCUT SCH ×5 (00:17→23:58)
[2022-02-19] MEDS: oxyCODONE 5 MG Tab PO PRN ×3 (10:55→23:59)
[2022-02-19] MEDS: busPIRone 5 MG Tab PO SCH ×2 (10:55→20:12)
[2022-02-19] MEDS: Magnesium Oxide 400 MG Tab PO SCH (10:56)
[2022-02-19] MEDS: Folic Acid 1 MG Tab PO SCH (10:56)
[2022-02-19] MEDS: Pantoprazole 40 MG Tab.CR PO SCH (10:56)
[2022-02-19] MEDS: Cyanocobalamin (Vitamin B12) 1,000 MCG Tab PO SCH (10:57)
[2022-02-19] MEDS: Spironolactone 25 MG Tab PO SCH ×2 (10:57→20:13)
[2022-02-19] MEDS: Citalopram 20 MG Tab PO SCH (10:57)
[2022-02-19] MEDS: Thiamine 100 MG Tab PO SCH (10:58)
[2022-02-19] MEDS: Topiramate 25 MG Tab PO SCH ×3 (10:58→20:13)
[2022-02-19] MEDS: Propranolol 10 MG Tab PO SCH ×2 (11:07→20:11)
[2022-02-19] MEDS: Lactulose Soln 10 GM/15 ML 30 ML UD Cup PO SCH ×3 (16:08→20:14)
[2022-02-19] MEDS: prednisoLONE Soln 15 MG/5 ML UD Cup PO SCH (16:08)
[2022-02-19] MEDS: Multivitamin Tab PO SCH (20:13)
[2022-02-19] MEDS: QUEtiapine 25 MG Tab PO SCH (20:13)
[2022-02-20] MEDS: AA 5%/Calcium/D20W/Lytes 1,000 ML IV SCH ×2 (03:59→23:47)
[2022-02-20] MEDS: Insulin Lispro 100 Unit/ML 3 ML KwikPen SUBCUT SCH ×4 (05:49→22:54)
[2022-02-20] MEDS: Lactulose Soln 10 GM/15 ML 30 ML UD Cup PO SCH ×3 (09:47→20:59)
[2022-02-20] MEDS: busPIRone 5 MG Tab PO SCH ×2 (09:48→20:58)
[2022-02-20] MEDS: Pantoprazole 40 MG Tab.CR PO SCH (09:50)
[2022-02-20] MEDS: Propranolol 10 MG Tab PO SCH ×2 (09:50→20:58)
[2022-02-20] MEDS: Thiamine 100 MG Tab PO SCH (09:50)
[2022-02-20] MEDS: Citalopram 20 MG Tab PO SCH (09:50)
[2022-02-20] MEDS: Magnesium Oxide 400 MG Tab PO SCH (09:52)
[2022-02-20] MEDS: Cyanocobalamin (Vitamin B12) 1,000 MCG Tab PO SCH (09:53)
[2022-02-20] MEDS: Folic Acid 1 MG Tab PO SCH (09:53)
[2022-02-20] MEDS: Spironolactone 25 MG Tab PO SCH ×2 (09:53→20:58)
[2022-02-20] MEDS: prednisoLONE Soln 15 MG/5 ML UD Cup PO SCH (09:54)
[2022-02-20] MEDS: Topiramate 25 MG Tab PO SCH ×3 (09:55→20:58)
[2022-02-20] MEDS: Fat Emulsion 500 ML IV SCH (13:35)
[2022-02-20] MEDS: QUEtiapine 25 MG Tab PO SCH (20:58)
[2022-02-20] MEDS: Multivitamin Tab PO SCH (20:58)
[2022-02-21] MEDS: oxyCODONE 5 MG Tab PO PRN ×2 (02:34→14:54)
[2022-02-21] MEDS: Insulin Lispro 100 Unit/ML 3 ML KwikPen SUBCUT SCH ×4 (06:07→22:38)
[2022-02-21] MEDS: Folic Acid 1 MG Tab PO SCH (08:35)
[2022-02-21] MEDS: Magnesium Oxide 400 MG Tab PO SCH (08:35)
[2022-02-21] MEDS: Topiramate 25 MG Tab PO SCH ×3 (08:35→20:36)
[2022-02-21] MEDS: Thiamine 100 MG Tab PO SCH (08:35)
[2022-02-21] MEDS: Cyanocobalamin (Vitamin B12) 1,000 MCG Tab PO SCH (08:36)
[2022-02-21] MEDS: Spironolactone 25 MG Tab PO SCH ×2 (08:36→20:36)
[2022-02-21] MEDS: Citalopram 20 MG Tab PO SCH (08:36)
[2022-02-21] MEDS: busPIRone 5 MG Tab PO SCH ×2 (08:36→20:36)
[2022-02-21] MEDS: Propranolol 10 MG Tab PO SCH ×2 (08:36→20:37)
[2022-02-21] MEDS: Pantoprazole 40 MG Tab.CR PO SCH (08:36)
[2022-02-21] MEDS: Lactulose Soln 10 GM/15 ML 30 ML UD Cup PO SCH ×3 (08:37→20:39)
[2022-02-21] MEDS: prednisoLONE Soln 15 MG/5 ML UD Cup PO SCH (08:37)
[2022-02-21] MEDS: AA 5%/Calcium/D20W/Lytes 1,000 ML IV SCH (16:46)
[2022-02-21] MEDS: QUEtiapine 25 MG Tab PO SCH (20:36)
[2022-02-21] MEDS: Multivitamin Tab PO SCH (20:36)
[2022-02-21] MEDS: LORazepam 0.5 MG Tab PO PRN (20:49)
[2022-02-21] MEDS ORDERED: Insulin Glargine,Human Rec. Analog 100 Units/ML 3 ML Pen SUBCUT SCH (21:00)
[2022-02-22] MEDS: Insulin Lispro 100 Unit/ML 3 ML KwikPen SUBCUT SCH ×2 (04:32→11:17)
[2022-02-22] MEDS: oxyCODONE 5 MG Tab PO PRN (05:01)
[2022-02-22] MEDS: Magnesium Oxide 400 MG Tab PO SCH (09:03)
[2022-02-22] MEDS: Topiramate 25 MG Tab PO SCH (09:04)
[2022-02-22] MEDS: Citalopram 20 MG Tab PO SCH (09:04)
[2022-02-22] MEDS: Propranolol 10 MG Tab PO SCH (09:04)
[2022-02-22] MEDS: Cyanocobalamin (Vitamin B12) 1,000 MCG Tab PO SCH (09:04)
[2022-02-22] MEDS: Pantoprazole 40 MG Tab.CR PO SCH (09:04)
[2022-02-22] MEDS: Spironolactone 25 MG Tab PO SCH (09:04)
[2022-02-22] MEDS: busPIRone 5 MG Tab PO SCH (09:04)
[2022-02-22] MEDS: Lactulose Soln 10 GM/15 ML 30 ML UD Cup PO SCH (09:04)
[2022-02-22] MEDS: Folic Acid 1 MG Tab PO SCH (09:04)
[2022-02-22] MEDS: Thiamine 100 MG Tab PO SCH (09:04)
[2022-02-22] MEDS: prednisoLONE Soln 15 MG/5 ML UD Cup PO SCH (09:05)
[2022-02-22 10:23] VITALS: BP 112/58; PULSE 77
[2022-02-22] MEDS: AA 5%/Calcium/D20W/Lytes 1,000 ML IV SCH (11:13)
== END 2022-02-22 12:50 | DRG 280 ==
LOC: JD.ED 10:38 → JD.MS 14:06 → JD.OB 01-30 11:47 → JD.ICU 01-31 17:55 → JD.MS 02-02 09:08
PROVIDERS: ADMIT Internal Medicine; ATTEND Internal Medicine
PROC: 02H633Z Insertion of Infusion Device into Right Atrium, Percutaneous Approach (ICD-10-PCS; 2022-02-06)
PROC: 3E0336Z Introduction of Nutritional Substance into Peripheral Vein, Percutaneous Approach (ICD-10-PCS; 2022-02-06)
PROC: 0W9G3ZZ Drainage of Peritoneal Cavity, Percutaneous Approach (ICD-10-PCS; principal; 2022-02-17)
DX: K70.40 Alcoholic hepatic failure without coma (principal); K70.31 Alcoholic cirrhosis of liver with ascites; F10.288 Alcohol dependence with other alcohol-induced disorder; K70.11 Alcoholic hepatitis with ascites; G93.41 Metabolic encephalopathy; E43 Unspecified severe protein-calorie malnutrition; E83.42 Hypomagnesemia; Z20.822 Contact with and (suspected) exposure to COVID-19; D69.6 Thrombocytopenia, unspecified; E88.09 Other disorders of plasma-protein metabolism, not elsewhere classified; F41.9 Anxiety disorder, unspecified; E87.6 Hypokalemia; K21.9 Gastro-esophageal reflux disease without esophagitis; F10.229 Alcohol dependence with intoxication, unspecified; F10.232 Alcohol dependence with withdrawal with perceptual disturbance; E72.20 Disorder of urea cycle metabolism, unspecified; F28 Other psychotic disorder not due to a substance or known physiological condition; F17.200 Nicotine dependence, unspecified, uncomplicated; N30.01 Acute cystitis with hematuria; F41.1 Generalized anxiety disorder; M54.9 Dorsalgia, unspecified; G89.29 Other chronic pain; E83.39 Other disorders of phosphorus metabolism; I10 Essential (primary) hypertension; Z88.5 Allergy status to narcotic agent; Z79.899 Other long term (current) drug therapy
CPT/HCPCS: 0240U; 36415; 36569; 71045; 71045-26; 74177; 74177-26; 76705; 76705-26; 80048; 80053; 80061; 80306; 80307; 81001; 81025; 82140; 82248; 82947; 82977; 83690; 83735; 84100; 85025; 85610; 85730; 86140; 87040; 87086; 87088; 87186; 92523-GN; 94760; 96361; 96374; 96375; 97110-GO; 97110-GP; 97112-GP; 97116-GP; 97162-GP; 97166-GO; 97530-GO; 97530-GP; 97535-GO; 99284; 99285-25; A9270-GY; C1751; J0696; J1170; J1815; J1815-GY; J1885; J2060; J2405; J3411; J3430; J3475; J3480; J3490; J7030; J7050; J7120; Q0167; Q9967; U0002

== ENCOUNTER 2022-03-18 12:22 | Emergency (ER) | payer BC ==
[2022-03-18] MEDS ORDERED: Sodium Chloride 0.9% 10 ML Syringe FLUSH PRN (14:05)
[2022-03-18 14:14] LABS: CORONAVIRUS COVID-19 NAA NEGATIVE (NEGATIVE)
[2022-03-18 14:19] VITALS: BP 99/65; PULSE 74
[2022-03-18] MEDS ORDERED: Naloxone 2 MG/2 ML Syringe IV ONE (16:03)
== END 2022-03-18 18:20 | disposition home or self-care (01) ==
LOC: JD.ED 12:22
DX: F11.920 Opioid use, unspecified with intoxication, uncomplicated (principal); K21.9 Gastro-esophageal reflux disease without esophagitis; I10 Essential (primary) hypertension; Z79.4 Long term (current) use of insulin; Z88.5 Allergy status to narcotic agent; Z79.899 Other long term (current) drug therapy; Z20.822 Contact with and (suspected) exposure to COVID-19
CPT/HCPCS: 0240U; 36415; 70450; 71045; 80053; 80307; 82140; 83605; 83690; 83735; 85007; 85027; 85610; 86140; 87040; 96374; 99284; J2310; J3490

== ENCOUNTER 2022-04-18 16:23 | Emergency (ER) | payer BC ==
[2022-04-18] MEDS: Sodium Chloride 0.9% 10 ML Syringe FLUSH PRN ×2 (17:33→20:29)
[2022-04-18 17:55] LABS: ESTIMATED GFR 97 mL/min (>60)
[2022-04-18] MEDS ORDERED: cefTRIAXone 1 GM in Sodium Chloride 0.9% 100 ML IV ONE (18:57)
[2022-04-18] MEDS ORDERED: HYDROmorphone 0.5 MG/0.5 ML Syringe IVPUSH ONE (19:39)
[2022-04-18] MEDS ORDERED: Iopamidol 612 MG/ML 100 ML Bottle IVPUSH ONE (20:11)
[2022-04-18 20:31] LABS: CORONAVIRUS COVID-19 NAA NEGATIVE (NEGATIVE)
[2022-04-18] MEDS ORDERED: ALPRAZolam 0.25 MG Tab PO ONE (21:13)
[2022-04-18 21:21] VITALS: BP 103/67; PULSE 74
== END 2022-04-18 21:37 | disposition home or self-care (01) ==
LOC: JD.ED 16:23
DX: N30.01 Acute cystitis with hematuria (principal); R74.8 Abnormal levels of other serum enzymes; I10 Essential (primary) hypertension; K21.9 Gastro-esophageal reflux disease without esophagitis; F17.210 Nicotine dependence, cigarettes, uncomplicated; Z79.4 Long term (current) use of insulin; Z88.1 Allergy status to other antibiotic agents; Z88.5 Allergy status to narcotic agent; Z20.822 Contact with and (suspected) exposure to COVID-19
CPT/HCPCS: 0240U; 36415; 70450; 74177; 80053; 80306; 81001; 82140; 83690; 85025; 86140; 87086; 87088; 87186; 96365; 96375; 99284; A9270; J0696; J1170; J3490; Q9967

== ENCOUNTER 2022-09-02 15:10 | Emergency (ER) | payer BC ==
[2022-09-02 15:25] VITALS: PULSE 88
[2022-09-02] MEDS ORDERED: HYDROmorphone 1 MG/ML Syringe IM ONE (16:51)
[2022-09-02] MEDS ORDERED: cefTRIAXone 1 GM, Lidocaine 1% 2.1 ML IM ONE ×2 (16:51)
[2022-09-02 17:46] VITALS: BP 112/78
== END 2022-09-02 17:40 | disposition home or self-care (01) ==
LOC: JD.ED 15:10
DX: L03.311 Cellulitis of abdominal wall (principal); I10 Essential (primary) hypertension; K21.9 Gastro-esophageal reflux disease without esophagitis; Z88.1 Allergy status to other antibiotic agents; Z88.5 Allergy status to narcotic agent; Z88.8 Allergy status to other drugs, medicaments and biological substances; Z79.899 Other long term (current) drug therapy
CPT/HCPCS: 36415; 85025; 86140; 96372; 99284; J0696; J1170; J3490

== ENCOUNTER 2022-09-03 13:58 | Emergency (ER) | payer BC ==
[2022-09-03 14:16] VITALS: BP 120/67; PULSE 92
[2022-09-03] MEDS ORDERED: HYDROmorphone 1 MG/ML Syringe IVPUSH ONE ×2 (15:33→18:32)
[2022-09-03] MEDS ORDERED: Ondansetron 4 MG/2 ML SDV IVPUSH ONE (15:33)
[2022-09-03] MEDS ORDERED: Sodium Chloride 0.9% 1,000 ML IV SCH (15:45)
[2022-09-03] MEDS ORDERED: Bupivacaine 0.5% 10 ML SDV INJECT ONE (15:48)
[2022-09-03] MEDS ORDERED: Sodium Chloride 0.9% 10 ML Syringe FLUSH ONE ×2 (15:57→16:45)
[2022-09-03] MEDS ORDERED: Iopamidol 612 MG/ML 100 ML Bottle IVPUSH ONE (16:45)
== END 2022-09-03 19:00 | disposition home or self-care (01) ==
LOC: JD.ED 13:58
DX: K70.31 Alcoholic cirrhosis of liver with ascites (principal); I10 Essential (primary) hypertension; K21.9 Gastro-esophageal reflux disease without esophagitis; Z87.891 Personal history of nicotine dependence; Z88.1 Allergy status to other antibiotic agents; Z88.5 Allergy status to narcotic agent; Z88.8 Allergy status to other drugs, medicaments and biological substances; Z79.899 Other long term (current) drug therapy
CPT/HCPCS: 36415; 49083; 74177; 80053; 82042; 82150; 82945; 83615; 84157; 85007; 85027; 86140; 87070; 87075; 87205; 89050; 96361; 96374; 96375; 96376; 99284; J1170; J2405; J3490; J7030; Q9967; 49082

== ENCOUNTER 2022-09-09 18:23 | Inpatient (IN) | payer BC ==
[2022-09-09 19:47] LABS: ESTIMATED GFR 114 mL/min (>60)
[2022-09-09] MEDS ORDERED: HYDROmorphone 1 MG/ML Syringe IVPUSH ONE (20:13)
[2022-09-09] MEDS: Sodium Chloride 0.9% 1,000 ML IV SCH (21:30)
[2022-09-09] MEDS ORDERED: Morphine 2 MG/ML SYRINGE IVPUSH PRN (22:17)
[2022-09-09] MEDS ORDERED: Melatonin 3 MG Tab PO PRN (22:25)
[2022-09-09] MEDS ORDERED: hydrALAZINE 20 MG/ML SDV IVPUSH PRN (22:25)
[2022-09-09] MEDS ORDERED: LORazepam 2 MG/ML SDV IV PRN (22:36)
[2022-09-09] MEDS ORDERED: Multivitamin Tab PO ONE (22:36)
[2022-09-09] MEDS ORDERED: Lactulose Soln 10 GM/15 ML 30 ML UD Cup PO PRN (22:42)
[2022-09-09 23:11] LABS: CORONAVIRUS COVID-19 NAA NEGATIVE (NEGATIVE)
[2022-09-09] MEDS: Heparin Sodium 5,000 Units/ML Vial SUBCUT SCH (23:56)
[2022-09-09] MEDS: LORazepam 2 MG/ML SDV IVPUSH PRN (23:57)
[2022-09-10] MEDS: oxyCODONE 5 MG Tab PO PRN ×2 (01:39→06:58)
[2022-09-10] MEDS: Pantoprazole 40 MG Tab.CR PO SCH (06:58)
[2022-09-10] MEDS: Insulin Lispro 100 Unit/ML 3 ML KwikPen SUBCUT SCH ×4 (09:26→20:38)
[2022-09-10] MEDS: Heparin Sodium 5,000 Units/ML Vial SUBCUT SCH ×2 (09:39→20:38)
[2022-09-10] MEDS: Thiamine 200 MG/2 ML MDV IM SCH (09:40)
[2022-09-10] MEDS: LORazepam 2 MG/ML SDV IVPUSH PRN ×3 (09:43→23:38)
[2022-09-10] MEDS: Sodium Chloride 0.9% 1,000 ML IV SCH ×2 (09:47→20:39)
[2022-09-10] MEDS: Nicotine 14 MG/24 Hr Patch TRDERM SCH (09:47)
[2022-09-10] MEDS: Folic Acid 1 MG Tab PO SCH (09:47)
[2022-09-10] MEDS: HYDROmorphone 0.5 MG/0.5 ML Syringe IVPUSH PRN ×3 (10:09→20:36)
[2022-09-10] MEDS: Potassium Chloride 10 MEQ in Premix Bag 1 BAG IV SCH ×3 (12:49→16:44)
[2022-09-10] MEDS ORDERED: ALPRAZolam 0.5 MG Tab PO PRN (17:22)
[2022-09-10] MEDS: Spironolactone 25 MG Tab PO SCH (18:27)
[2022-09-10] MEDS: Propranolol 10 MG Tab PO SCH (20:37)
[2022-09-10] MEDS: Lactulose Soln 10 GM/15 ML 30 ML UD Cup PO SCH (20:38)
[2022-09-10] MEDS: Topiramate 25 MG Tab PO SCH (20:38)
[2022-09-10] MEDS: Ondansetron 4 MG Tab.DIS PO PRN (20:54)
[2022-09-11] MEDS: HYDROmorphone 0.5 MG/0.5 ML Syringe IVPUSH PRN (03:36)
[2022-09-11] MEDS: Pantoprazole 40 MG Tab.CR PO SCH ×2 (03:37→07:47)
[2022-09-11] MEDS: Sodium Chloride 0.9% 1,000 ML IV SCH (05:45)
[2022-09-11] MEDS: oxyCODONE 5 MG Tab PO PRN ×3 (05:46→22:40)
[2022-09-11] MEDS: LORazepam 2 MG/ML SDV IVPUSH PRN (05:47)
[2022-09-11] MEDS: Insulin Lispro 100 Unit/ML 3 ML KwikPen SUBCUT SCH (07:47)
[2022-09-11] MEDS: Thiamine 200 MG/2 ML MDV IM SCH (08:26)
[2022-09-11] MEDS: Heparin Sodium 5,000 Units/ML Vial SUBCUT SCH ×2 (08:26→20:47)
[2022-09-11] MEDS: Folic Acid 1 MG Tab PO SCH (08:27)
[2022-09-11] MEDS: Propranolol 10 MG Tab PO SCH ×2 (08:27→20:47)
[2022-09-11] MEDS: Citalopram 20 MG Tab PO SCH (08:27)
[2022-09-11] MEDS: Topiramate 25 MG Tab PO SCH ×3 (08:27→20:44)
[2022-09-11] MEDS: Spironolactone 25 MG Tab PO SCH (08:27)
[2022-09-11] MEDS: Nicotine 14 MG/24 Hr Patch TRDERM SCH (08:28)
[2022-09-11] MEDS: Lactulose Soln 10 GM/15 ML 30 ML UD Cup PO SCH ×3 (08:28→20:47)
[2022-09-11] MEDS: Cyanocobalamin (Vitamin B12) 1,000 MCG Tab PO SCH (08:28)
[2022-09-11] MEDS ORDERED: Pantoprazole 40 MG Tab.CR PO SCH (09:00)
[2022-09-11] MEDS ORDERED: Lidocaine 1% 10 ML MDV ONE (12:46)
[2022-09-11] MEDS ORDERED: Lidocaine 4% 1 each Patch TOP ONE (14:15)
[2022-09-11] MEDS: Albumin 25% 12.5 GM in Premix Bag 1 BAG IV SCH ×2 (14:39→15:37)
[2022-09-11] MEDS ORDERED: Magnesium Sulfate/Water 2 GM in Premix Bag 1 BAG IV ONE (14:46)
[2022-09-11] MEDS: Ondansetron 4 MG Tab.DIS PO PRN (20:44)
[2022-09-12] MEDS: oxyCODONE 5 MG Tab PO PRN (02:54)
[2022-09-12 04:32] VITALS: PULSE 73
[2022-09-12] MEDS: Pantoprazole 40 MG Tab.CR PO SCH (06:45)
[2022-09-12] MEDS ORDERED: oxyCODONE 5 MG Tab PO PRN (07:54)
[2022-09-12] MEDS ORDERED: LORazepam 1 MG Tab PO ONE (08:15)
[2022-09-12] MEDS: Spironolactone 25 MG Tab PO SCH (08:24)
[2022-09-12] MEDS: Topiramate 25 MG Tab PO SCH (08:24)
[2022-09-12] MEDS: Citalopram 20 MG Tab PO SCH (08:25)
[2022-09-12] MEDS: Propranolol 10 MG Tab PO SCH (08:26)
[2022-09-12] MEDS: Nicotine 14 MG/24 Hr Patch TRDERM SCH (08:29)
[2022-09-12] MEDS: Lactulose Soln 10 GM/15 ML 30 ML UD Cup PO SCH (08:30)
[2022-09-12 08:31] VITALS: BP 97/64
[2022-09-12] MEDS: Cyanocobalamin (Vitamin B12) 1,000 MCG Tab PO SCH (08:35)
[2022-09-12] MEDS: Ondansetron 4 MG Tab.DIS PO PRN (08:43)
[2022-09-12] MEDS ORDERED: Folic Acid 1 MG Tab PO SCH (09:00)
[2022-09-12] MEDS ORDERED: Lidocaine 4% 1 each Patch TOP SCH (09:00)
[2022-09-12] MEDS ORDERED: Potassium Chloride 20 MEQ Tab.ER PO SCH (09:00)
[2022-09-12] MEDS ORDERED: Thiamine 100 MG Tab PO SCH (09:00)
[2022-09-12] MEDS ORDERED: Furosemide 40 MG Tab PO SCH (09:00)
== END 2022-09-12 14:07 | disposition home or self-care (01) | DRG 280 ==
LOC: JD.ED 18:23 → JD.MS 21:42 → OBSVTOIN 09-10 17:54 → JD.MS 09-10 17:55
PROVIDERS: ADMIT Internal Medicine; ATTEND Internal Medicine
PROC: 0W9G3ZZ Drainage of Peritoneal Cavity, Percutaneous Approach (ICD-10-PCS; principal; 2022-09-11)
DX: K70.31 Alcoholic cirrhosis of liver with ascites (principal); K76.6 Portal hypertension; R16.1 Splenomegaly, not elsewhere classified; I85.10 Secondary esophageal varices without bleeding; G89.29 Other chronic pain; E87.6 Hypokalemia; E88.09 Other disorders of plasma-protein metabolism, not elsewhere classified; E72.20 Disorder of urea cycle metabolism, unspecified; E87.1 Hypo-osmolality and hyponatremia; F13.10 Sedative, hypnotic or anxiolytic abuse, uncomplicated; F14.10 Cocaine abuse, uncomplicated; Z20.822 Contact with and (suspected) exposure to COVID-19; I10 Essential (primary) hypertension; F41.9 Anxiety disorder, unspecified; F32.A Depression, unspecified; F10.239 Alcohol dependence with withdrawal, unspecified; E11.9 Type 2 diabetes mellitus without complications; M54.9 Dorsalgia, unspecified; E83.42 Hypomagnesemia; D52.8 Other folate deficiency anemias; K76.82 Hepatic encephalopathy; K72.10 Chronic hepatic failure without coma; K21.9 Gastro-esophageal reflux disease without esophagitis; D69.6 Thrombocytopenia, unspecified; Z79.899 Other long term (current) drug therapy; Z88.8 Allergy status to other drugs, medicaments and biological substances; Z87.440 Personal history of urinary (tract) infections; Z97.3 Presence of spectacles and contact lenses; Z90.3 Acquired absence of stomach [part of]; Z98.890 Other specified postprocedural states; Z98.84 Bariatric surgery status; Z87.891 Personal history of nicotine dependence; Z79.4 Long term (current) use of insulin
CPT/HCPCS: 0241U; 36415; 49083; 80053; 80306; 80307; 81001; 81025; 82140; 82947; 83690; 83735; 83880; 84100; 85025; 85610; 85730; 87040; 94762; 96361; 96365; 96366; 96367; 96372; 96374; 96375; 96376; 97110-GP; 97162-GP; 97166-GO; 97530-GP; 97535-GO; 99284; 99284-25; A9270-GY; G0378; J1170; J1644; J2060; J3411; J3475; J3480; J3490; J7030; P9047

== ENCOUNTER 2022-10-10 09:22 | Emergency (ER) | payer BC ==
[2022-10-10] MEDS ORDERED: HYDROmorphone 1 MG/ML Syringe IVPUSH ONE (11:26)
[2022-10-10] MEDS ORDERED: Ondansetron 4 MG/2 ML SDV IVPUSH ONE (11:36)
[2022-10-10 11:43] LABS: BASOPHILS ABSOLUTE AUTO 0.02 K/mm3 (0.01-0.08); BASOPHILS PERCENT AUTO 0.5 % (0.1-1.2); EOSINOPHILS ABSOLUTE AUTO 0.01 K/mm3 (0.04-0.36); EOSINOPHILS PERCENT AUTO 0.3 (0.7-5.8); HEMATOCRIT 28.7 % (34.1-44.9); HEMOGLOBIN 8.7 gm/dl (11.2-15.7); IMMATURE GRAN ABSOLUTE AUTO 0.01 K/mm3 (0.00-0.10); IMMATURE GRAN PERCENT AUTO 0.3 % (<=1.0); LYMPHOCYTES ABSOLUTE AUTO 0.66 K/mm3 (1.18-3.74); LYMPHOCYTES PERCENT AUTO 16.7 % (19.3-51.7); MEAN CORPUSCULAR HEMOGLOBIN 29.1 pg (25.6-32.2); MEAN CORPUSCULAR HGB CONC 30.3 g/dl (32.2-35.5); MEAN PLATELET VOLUME 10.4 fl (9.4-12.3); MONOCYTES ABSOLUTE AUTO 0.48 K/mm3 (0.24-0.36); MONOCYTES PERCENT AUTO 12.1 % (4.7-12.5); NEUTROPHILS ABSOLUTE AUTO 2.78 K/mm3 (1.56-6.13); NEUTROPHILS PERCENT AUTO 70.1 % (34.0-71.1); RED BLOOD CELL COUNT 2.99 M/mm3 (3.98-5.22); WHITE BLOOD CELL COUNT,WBC 3.96 K/mm3 (3.98-10.04)
[2022-10-10 11:50] LABS: A/G RATIO 0.4 (1-2); ALBUMIN 2.5 g/dl (3.4-5.0); ANION GAP 13.8 (5-15); BILIRUBIN TOTAL 7.6 mg/dL (0.2-1.0); CALCIUM 9.1 mg/dL (8.5-10.1); EST CRCL DRUG DOSING (CG) 124.84 mL/min; POTASSIUM,K 3.8 mEq/L (3.5-5.1)
[2022-10-10 11:52] LABS: CREATININE 0.6 mg/dL (0.55-1.02); PLATELET COUNT,PLT 46 K/mm3 (182-369); PROTEIN TOTAL,TP 8.2 g/dl (6.4-8.2)
[2022-10-10 13:09] LABS: SLIDE REVIEW ABNORMAL SMEAR
[2022-10-10 13:35] LABS: APPEARANCE,URINE CLOUDY (Clear); BILIRUBIN,URINE 3+ (Negative); COLOR,URINE AMBER (Yellow); GLUCOSE,URINE TRACE (Negative); KETONES,URINE 4+ (Negative); LEUKOCYTE ESTERASE,URINE 3+ (Negative); NITRITE,URINE POSITIVE (Negative); OCCULT BLOOD,URINE 1+ (Negative); PROTEIN,URINE 2+ (Negative); UROBILINOGEN,URINE >=8.0 (0.2-1.0)
[2022-10-10 13:54] LABS: RBC,URINE 0-5 /hpf (0-5); WBC,URINE 20-30 /hpf (0-5)
[2022-10-10 13:57] LABS: BACTERIA,URINE MANY /hpf (FEW); CALCIUM OXALATE CRYSTALS,URINE FEW; MUCUS,URINE NOT SEEN /hpf (FEW)
[2022-10-10] MEDS ORDERED: cefTRIAXone 1 GM Vial IM ONE (14:34)
[2022-10-10] MEDS ORDERED: cefTRIAXone 1 GM in Sodium Chloride 0.9% 100 ML IV ONE (15:05)
[2022-10-10] MEDS ORDERED: Acetaminophen/oxyCODONE 325-5 MG Tab PO ONE (16:44)
[2022-10-10] MEDS ORDERED: Albumin 25% 12.5 GM/50 ML BAG IV ONE (17:00)
[2022-10-10 18:57] VITALS: BP 141/93; PULSE 88
== END 2022-10-10 19:00 | disposition home or self-care (01) ==
LOC: JD.ED 09:22 → SUPCPDRO 09:22 → JD.ED 19:00
DX: K70.31 Alcoholic cirrhosis of liver with ascites (principal); N30.01 Acute cystitis with hematuria; I10 Essential (primary) hypertension; K21.9 Gastro-esophageal reflux disease without esophagitis; F17.210 Nicotine dependence, cigarettes, uncomplicated; Z88.5 Allergy status to narcotic agent; Z88.8 Allergy status to other drugs, medicaments and biological substances; Z88.1 Allergy status to other antibiotic agents; Z79.899 Other long term (current) drug therapy
CPT/HCPCS: 36415; 80053; 81001; 83690; 85025; 87086; 87088; 87186; 96365; 96367; 96375; 99284; A9270; J0696; J1170; J2405; J3490; P9047

== ENCOUNTER 2022-11-10 17:24 | Emergency (ER) | payer BC ==
[2022-11-10 19:36] LABS: BASOPHILS ABSOLUTE AUTO 0.06 K/mm3 (0.01-0.08); BASOPHILS PERCENT AUTO 0.5 % (0.1-1.2); EOSINOPHILS ABSOLUTE AUTO 0.03 K/mm3 (0.04-0.36); EOSINOPHILS PERCENT AUTO 0.3 (0.7-5.8); HEMATOCRIT 32.8 % (34.1-44.9); HEMOGLOBIN 10.3 gm/dl (11.2-15.7); IMMATURE GRAN ABSOLUTE AUTO 0.09 K/mm3 (0.00-0.10); IMMATURE GRAN PERCENT AUTO 0.8 % (<=1.0); LYMPHOCYTES ABSOLUTE AUTO 1.84 K/mm3 (1.18-3.74); LYMPHOCYTES PERCENT AUTO 16.2 % (19.3-51.7); MEAN CORPUSCULAR HEMOGLOBIN 27.9 pg (25.6-32.2); MEAN CORPUSCULAR HGB CONC 31.4 g/dl (32.2-35.5); MEAN CORPUSCULAR VOLUME 88.9 fl (79.4-94.8); MONOCYTES ABSOLUTE AUTO 0.71 K/mm3 (0.24-0.36); MONOCYTES PERCENT AUTO 6.2 % (4.7-12.5); NEUTROPHILS ABSOLUTE AUTO 8.65 K/mm3 (1.56-6.13); PLATELET COUNT,PLT 100 K/mm3 (182-369); RED BLOOD CELL COUNT 3.69 M/mm3 (3.98-5.22); WHITE BLOOD CELL COUNT,WBC 11.38 K/mm3 (3.98-10.04)
[2022-11-10 19:59] LABS: INR 1.37; PROTHROMBIN TIME 14.3 SECONDS (9.7-12.0)
[2022-11-10] MEDS ORDERED: LORazepam 2 MG/ML SDV IVPUSH ONE (20:03)
[2022-11-10 20:08] LABS: A/G RATIO 0.4 (1-2); ALBUMIN 2.2 g/dl (3.4-5.0); ANION GAP 18.1 (5-15); BILIRUBIN TOTAL 4.7 mg/dL (0.2-1.0); BUN/CREATININE RATIO 11.7 (14-18); CALCIUM 8.1 mg/dL (8.5-10.1); EST CRCL DRUG DOSING (CG) 114.91 mL/min; ETHANOL BLOOD MEDICAL 0.32 gm% (0.00); POTASSIUM,K 4.1 mEq/L (3.5-5.1); TSH 2.146 uIU/mL (0.358-3.74)
[2022-11-10 20:13] LABS: CREATININE 0.6 mg/dL (0.55-1.02)
[2022-11-10 20:14] LABS: PROTEIN TOTAL,TP 8.2 g/dl (6.4-8.2)
[2022-11-10 21:06] LABS: APPEARANCE,URINE CLEAR (Clear); BILIRUBIN,URINE 2+ (Negative); COLOR,URINE AMBER (Yellow); GLUCOSE,URINE NEGATIVE (Negative); KETONES,URINE 2+ (Negative); LEUKOCYTE ESTERASE,URINE NEGATIVE (Negative); NITRITE,URINE NEGATIVE (Negative); OCCULT BLOOD,URINE NEGATIVE (Negative); PROTEIN,URINE 2+ (Negative)
[2022-11-10 21:12] LABS: RBC,URINE 0-5 /hpf (0-5); WBC,URINE 0-5 /hpf (0-5)
[2022-11-10 21:13] LABS: BACTERIA,URINE MODERATE /hpf (FEW); MUCUS,URINE MANY /hpf (FEW)
[2022-11-10 21:14] LABS: BARBITURATE SCREEN,URINE NEGATIVE (CUTOFF=200); BENZODIAZEPINES SCREEN,URINE NEGATIVE (CUTOFF=150); BUPRENORPHINE SCREEN,URINE NEGATIVE (CUTOFF=10); METHADONE SCREEN, URINE NEGATIVE (CUTOFF=200); METHAMPHETAMINES SCREEN, URINE NEGATIVE (CUTOFF=500); OXYCODONE SCREEN,URINE NEGATIVE (CUT0FF=100); PROPOXYPHENE SCREEN,URINE NEGATIVE (CUTOFF=300); THC SCREEN,URINE 20 NG/ML NEGATIVE (CUTOFF=50)
[2022-11-10 21:18] LABS: AMPHETAMINES SCREEN, URINE NEGATIVE (CUTOFF=500)
[2022-11-11] MEDS ORDERED: LORazepam 1 MG Tab PO ONE ×2 (02:49→06:38)
[2022-11-11 06:25] VITALS: BP 121/73; PULSE 95
== END 2022-11-11 07:00 ==
LOC: JD.ED 17:24
DX: F10.20 Alcohol dependence, uncomplicated (principal); I10 Essential (primary) hypertension; K21.9 Gastro-esophageal reflux disease without esophagitis; Z88.1 Allergy status to other antibiotic agents; Z88.8 Allergy status to other drugs, medicaments and biological substances; Z88.5 Allergy status to narcotic agent; Z79.899 Other long term (current) drug therapy; Y90.1 Blood alcohol level of 20-39 mg/100 ml
CPT/HCPCS: 36415; 80053; 80143; 80179; 80306; 80307; 81001; 82140; 84443; 84703; 85025; 85610; 99285; A9270

== ENCOUNTER 2022-11-12 11:07 | Emergency (ER) | payer BC ==
[2022-11-12] MEDS ORDERED: Sodium Chloride 0.9% 1,000 ML IV STA (11:30)
[2022-11-12] MEDS ORDERED: HYDROmorphone 0.5 MG/0.5 ML Syringe IVPUSH ONE (11:30)
[2022-11-12] MEDS ORDERED: Sodium Chloride 0.9% 10 ML Syringe FLUSH PRN (11:36)
[2022-11-12 11:51] LABS: BASOPHILS ABSOLUTE AUTO 0.02 K/mm3 (0.01-0.08); BASOPHILS PERCENT AUTO 0.2 % (0.1-1.2); EOSINOPHILS ABSOLUTE AUTO 0.19 K/mm3 (0.04-0.36); EOSINOPHILS PERCENT AUTO 1.7 (0.7-5.8); HEMATOCRIT 26.9 % (34.1-44.9); HEMOGLOBIN 8.4 gm/dl (11.2-15.7); IMMATURE GRAN ABSOLUTE AUTO 0.04 K/mm3 (0.00-0.10); IMMATURE GRAN PERCENT AUTO 0.4 % (<=1.0); LYMPHOCYTES ABSOLUTE AUTO 1.28 K/mm3 (1.18-3.74); LYMPHOCYTES PERCENT AUTO 11.5 % (19.3-51.7); MEAN CORPUSCULAR HEMOGLOBIN 28.1 pg (25.6-32.2); MEAN CORPUSCULAR HGB CONC 31.2 g/dl (32.2-35.5); MEAN PLATELET VOLUME 9.4 fl (9.4-12.3); MONOCYTES ABSOLUTE AUTO 0.88 K/mm3 (0.24-0.36); MONOCYTES PERCENT AUTO 7.9 % (4.7-12.5); NEUTROPHILS ABSOLUTE AUTO 8.75 K/mm3 (1.56-6.13); NEUTROPHILS PERCENT AUTO 78.3 % (34.0-71.1); PLATELET COUNT,PLT 68 K/mm3 (182-369); RED BLOOD CELL COUNT 2.99 M/mm3 (3.98-5.22); WHITE BLOOD CELL COUNT,WBC 11.16 K/mm3 (3.98-10.04)
[2022-11-12] MEDS ORDERED: Lidocaine 1% with EPINEPHrine 1:100,000 20 ML MDV INJECT ONE (11:58)
[2022-11-12] MEDS ORDERED: Lidocaine 1% 20 ML MDV ONE (12:05)
[2022-11-12 12:11] LABS: A/G RATIO 0.4 (1-2); ALBUMIN 2.2 g/dl (3.4-5.0); ANION GAP 14.2 (5-15); BILIRUBIN TOTAL 6.3 mg/dL (0.2-1.0); BUN/CREATININE RATIO 5.7 (14-18); CALCIUM 8.3 mg/dL (8.5-10.1); EST CRCL DRUG DOSING (CG) 105.97 mL/min; POTASSIUM,K 3.2 mEq/L (3.5-5.1)
[2022-11-12 12:14] LABS: CREATININE 0.7 mg/dL (0.55-1.02); INR 1.59; PROTHROMBIN TIME 16.4 SECONDS (9.7-12.0)
[2022-11-12 12:37] LABS: SLIDE REVIEW ABNORMAL SMEAR
[2022-11-12 12:56] LABS: APPEARANCE,URINE CLEAR (Clear); BILIRUBIN,URINE NEGATIVE (Negative); COLOR,URINE YELLOW (Yellow); GLUCOSE,URINE NEGATIVE (Negative); KETONES,URINE NEGATIVE (Negative); LEUKOCYTE ESTERASE,URINE NEGATIVE (Negative); NITRITE,URINE NEGATIVE (Negative); OCCULT BLOOD,URINE NEGATIVE (Negative); PH,URINE 7.5 (5.0-8.0); PROTEIN,URINE NEGATIVE (Negative); UROBILINOGEN,URINE 0.2 (0.2-1.0)
[2022-11-12 13:51] VITALS: BP 118/78; PULSE 73
[2022-11-12 15:39] LABS: AMORPHOUS SEDIMENT,URINE FEW /hpf (NOT SEEN); BACTERIA,URINE FEW /hpf (FEW); MUCUS,URINE RARE /hpf (FEW); RBC,URINE 0-5 /hpf (0-5); SQUAMOUS EPITHELIAL CELLS,UR 0-5 /hpf (0-5); WBC,URINE 0-5 /hpf (0-5)
== END 2022-11-12 14:07 | disposition home or self-care (01) ==
LOC: JD.ED 11:07
DX: K70.31 Alcoholic cirrhosis of liver with ascites (principal); F10.939 Alcohol use, unspecified with withdrawal, unspecified; D64.9 Anemia, unspecified; R74.01 Elevation of levels of liver transaminase levels; E88.09 Other disorders of plasma-protein metabolism, not elsewhere classified; I10 Essential (primary) hypertension; K21.9 Gastro-esophageal reflux disease without esophagitis; Z88.1 Allergy status to other antibiotic agents; Z88.5 Allergy status to narcotic agent; Z88.8 Allergy status to other drugs, medicaments and biological substances; Z79.899 Other long term (current) drug therapy
CPT/HCPCS: 36415; 49083; 80053; 81001; 85025; 85610; 96361; 96374; 99284; J1170; J3490; J7030

== ENCOUNTER 2022-11-14 19:42 | Emergency (ER) | payer BC ==
[2022-11-14] MEDS ORDERED: Lidocaine 1% with EPINEPHrine 1:100,000 10 ML MDV INJECT ONE (20:09)
[2022-11-14 20:12] VITALS: PULSE 66
[2022-11-14] MEDS ORDERED: Lidocaine 2% with EPINEPHrine 1:200,000 20 ML SDV ONE (20:14)
[2022-11-14] MEDS ORDERED: Ibuprofen 600 MG Tab PO ONE (20:24)
[2022-11-14] MEDS ORDERED: Lidocaine 2% with EPINEPHrine 1:100,000 20 ML MDV INJECT ONE (21:10)
[2022-11-14 21:45] VITALS: BP 104/61
== END 2022-11-14 21:46 | disposition home or self-care (01) ==
LOC: JD.ED 19:42
DX: L76.22 Postprocedural hemorrhage of skin and subcutaneous tissue following other procedure (principal); K70.31 Alcoholic cirrhosis of liver with ascites; I10 Essential (primary) hypertension; Z88.1 Allergy status to other antibiotic agents; Z88.5 Allergy status to narcotic agent; Z88.8 Allergy status to other drugs, medicaments and biological substances; Z79.899 Other long term (current) drug therapy
CPT/HCPCS: 12001; 99283

== ENCOUNTER 2022-11-25 16:29 | Emergency (ER) | payer BC ==
[2022-11-25] MEDS ORDERED: HYDROmorphone 0.5 MG/0.5 ML Syringe IM ONE (17:02)
[2022-11-25] MEDS ORDERED: Ondansetron 4 MG Tab.DIS PO ONE (17:03)
[2022-11-25 17:54] VITALS: BP 105/63; PULSE 70
== END 2022-11-25 17:45 | disposition home or self-care (01) ==
LOC: JD.ED 16:29
DX: K70.31 Alcoholic cirrhosis of liver with ascites (principal); I10 Essential (primary) hypertension; Z88.1 Allergy status to other antibiotic agents; Z88.5 Allergy status to narcotic agent; Z88.8 Allergy status to other drugs, medicaments and biological substances
CPT/HCPCS: 96372; 99283; A9270; J1170; 99284

== ENCOUNTER 2023-04-01 22:52 | Emergency (ER) | payer BC ==
[2023-04-02 05:00] VITALS: BP 138/74; PULSE 92
== END 2023-04-02 05:34 ==
LOC: JD.ED 22:52
DX: F10.929 Alcohol use, unspecified with intoxication, unspecified (principal); G89.29 Other chronic pain; R45.851 Suicidal ideations; F17.210 Nicotine dependence, cigarettes, uncomplicated; K21.9 Gastro-esophageal reflux disease without esophagitis; Z79.899 Other long term (current) drug therapy; Z88.5 Allergy status to narcotic agent; Z88.6 Allergy status to analgesic agent; Z88.8 Allergy status to other drugs, medicaments and biological substances
CPT/HCPCS: 36415; 80307; 99283; 99285

== ENCOUNTER 2023-04-02 10:38 | Emergency (ER) | payer BC ==
[2023-04-02] MEDS ORDERED: LORazepam 2 MG/ML SDV IVPUSH ONE ×2 (11:21→13:49)
[2023-04-02] MEDS ORDERED: Ondansetron 4 MG/2 ML SDV IVPUSH ONE (11:21)
[2023-04-02] MEDS ORDERED: Thiamine 100 MG Tab PO ONE (11:28)
[2023-04-02] MEDS ORDERED: Folic Acid 1 MG Tab PO ONE (11:28)
[2023-04-02] MEDS ORDERED: Sodium Chloride 0.9% 1,000 ML IV SCH (11:30)
[2023-04-02 11:54] LABS: BARBITURATE SCREEN,URINE NEGATIVE (CUTOFF=200); BENZODIAZEPINES SCREEN,URINE NEGATIVE (CUTOFF=150); BUPRENORPHINE SCREEN,URINE NEGATIVE (CUTOFF=10); METHADONE SCREEN, URINE NEGATIVE (CUTOFF=200); METHAMPHETAMINES SCREEN, URINE NEGATIVE (CUTOFF=500); OXYCODONE SCREEN,URINE NEGATIVE (CUT0FF=100); PROPOXYPHENE SCREEN,URINE NEGATIVE (CUTOFF=300); THC SCREEN,URINE 20 NG/ML NEGATIVE (CUTOFF=50)
[2023-04-02 12:06] LABS: AMPHETAMINES SCREEN, URINE NEGATIVE (CUTOFF=500); APPEARANCE,URINE SLT CLOUDY (Clear); BILIRUBIN,URINE NEGATIVE (Negative); COLOR,URINE YELLOW (Yellow); GLUCOSE,URINE NEGATIVE (Negative); KETONES,URINE TRACE (Negative); LEUKOCYTE ESTERASE,URINE NEGATIVE (Negative); NITRITE,URINE NEGATIVE (Negative); OCCULT BLOOD,URINE NEGATIVE (Negative); PH,URINE 7.5 (5.0-8.0); PROTEIN,URINE TRACE (Negative)
[2023-04-02 12:11] LABS: BASOPHILS ABSOLUTE AUTO 0.1 K/mm3 (0.0-0.2); BASOPHILS PERCENT AUTO 0.9 % (0.0-1.0); EOSINOPHILS PERCENT AUTO 0.7 % (0.0-6.0); HEMATOCRIT 26.6 % (37.0-47.0); HEMOGLOBIN 8.1 gm/dl (12.0-16.0); IMMATURE GRAN ABSOLUTE AUTO 0.03 K/mm3 (0.00-0.05); IMMATURE GRAN PERCENT AUTO 0.5 % (0.0-0.4); LYMPHOCYTES ABSOLUTE AUTO 1.2 K/mm3 (1.0-4.8); LYMPHOCYTES PERCENT AUTO 21.3 % (24.0-44.0); MEAN CORPUSCULAR HEMOGLOBIN 22.1 pg (28.0-32.0); MEAN CORPUSCULAR HGB CONC 30.5 g/dl (32.0-36.0); MEAN CORPUSCULAR VOLUME 72.5 fl (83.0-99.0); MEAN PLATELET VOLUME 8.1 fl (9.4-12.3); MONOCYTES ABSOLUTE AUTO 0.7 K/mm3 (0.0-0.8); MONOCYTES PERCENT AUTO 11.3 % (0.0-8.0); NEUTROPHILS ABSOLUTE AUTO 3.7 K/mm3 (1.8-7.7); NEUTROPHILS PERCENT AUTO 65.3 % (41.0-71.0); PLATELET COUNT,PLT 119 K/mm3 (150-400); RED BLOOD CELL COUNT 3.67 M/mm3 (4.10-5.30); WHITE BLOOD CELL COUNT,WBC 5.73 K/mm3 (3.9-11.3)
[2023-04-02 12:20] LABS: A/G RATIO 0.6 (1-2); ALBUMIN 3.1 g/dl (3.4-5.0); ANION GAP 15.8 (5-15); BILIRUBIN TOTAL 1.2 mg/dL (0.2-1.0); CALCIUM 9.3 mg/dL (8.5-10.1); CREATININE 0.5 mg/dL (0.55-1.02); EST CRCL DRUG DOSING (CG) 148.35 mL/min; POTASSIUM,K 3.8 mEq/L (3.5-5.1); PROTEIN TOTAL,TP 8.5 g/dl (6.4-8.2)
[2023-04-02 12:29] LABS: BACTERIA,URINE MODERATE /hpf (FEW); MUCUS,URINE FEW /hpf (FEW); RBC,URINE 0-5 /hpf (0-5); WBC,URINE 0-5 /hpf (0-5)
[2023-04-02 19:32] VITALS: BP 146/91; PULSE 96
== END 2023-04-02 14:20 | disposition other institution (70) ==
LOC: JD.ED 10:38
DX: F10.129 Alcohol abuse with intoxication, unspecified (principal); K21.9 Gastro-esophageal reflux disease without esophagitis; I10 Essential (primary) hypertension; F17.210 Nicotine dependence, cigarettes, uncomplicated; G89.29 Other chronic pain; R45.851 Suicidal ideations; Z88.5 Allergy status to narcotic agent; Z88.8 Allergy status to other drugs, medicaments and biological substances; Z79.899 Other long term (current) drug therapy; Y90.4 Blood alcohol level of 80-99 mg/100 ml; Z88.6 Allergy status to analgesic agent
CPT/HCPCS: 36415; 80053; 80306; 80307; 81001; 85025; 96361; 96374; 96375; 96376; 99284; 99285; A9270; J2060; J2405; J7030; 99283

== ENCOUNTER 2023-04-04 10:47 | Emergency (ER) | payer BC ==
[2023-04-04] MEDS ORDERED: Sodium Chloride 0.9% 10 ML Syringe FLUSH PRN (13:35)
[2023-04-04] MEDS ORDERED: Iopamidol 612 MG/ML 100 ML Bottle IVPUSH ONE (13:35)
[2023-04-04] MEDS ORDERED: Ibuprofen 800 MG Tab PO ONE (13:41)
[2023-04-04 13:52] LABS: BASOPHILS PERCENT AUTO 0.9 % (0.0-1.0); EOSINOPHILS PERCENT AUTO 0.2 % (0.0-6.0); HEMATOCRIT 27.8 % (37.0-47.0); HEMOGLOBIN 8.4 gm/dl (12.0-16.0); IMMATURE GRAN ABSOLUTE AUTO 0.01 K/mm3 (0.00-0.05); IMMATURE GRAN PERCENT AUTO 0.2 % (0.0-0.4); LYMPHOCYTES ABSOLUTE AUTO 0.7 K/mm3 (1.0-4.8); LYMPHOCYTES PERCENT AUTO 16.1 % (24.0-44.0); MEAN CORPUSCULAR HEMOGLOBIN 23.3 pg (28.0-32.0); MEAN CORPUSCULAR HGB CONC 30.2 g/dl (32.0-36.0); MEAN PLATELET VOLUME 8.8 fl (9.4-12.3); MONOCYTES ABSOLUTE AUTO 0.4 K/mm3 (0.0-0.8); MONOCYTES PERCENT AUTO 8.9 % (0.0-8.0); NEUTROPHILS ABSOLUTE AUTO 3.3 K/mm3 (1.8-7.7); NEUTROPHILS PERCENT AUTO 73.7 % (41.0-71.0); PLATELET COUNT,PLT 83 K/mm3 (150-400); RED BLOOD CELL COUNT 3.61 M/mm3 (4.10-5.30); WHITE BLOOD CELL COUNT,WBC 4.48 K/mm3 (3.9-11.3)
[2023-04-04 14:54] LABS: SLIDE REVIEW ABNORMAL SMEAR
[2023-04-04 17:17] VITALS: BP 119/108; PULSE 66
== END 2023-04-04 16:55 | disposition home or self-care (01) ==
LOC: JD.ED 10:47
DX: K42.9 Umbilical hernia without obstruction or gangrene (principal); K70.11 Alcoholic hepatitis with ascites; F10.20 Alcohol dependence, uncomplicated; I10 Essential (primary) hypertension; F17.210 Nicotine dependence, cigarettes, uncomplicated; Z88.1 Allergy status to other antibiotic agents; Z88.5 Allergy status to narcotic agent; Z88.8 Allergy status to other drugs, medicaments and biological substances; Z79.899 Other long term (current) drug therapy
CPT/HCPCS: 36415; 49083; 74177; 85025; 99284; A9270; J3490; Q9967

== ENCOUNTER 2023-05-11 23:28 | Emergency (ER) | payer BC ==
[2023-05-12] MEDS ORDERED: Acetaminophen/HYDROcodone 325-5 MG Tab PO ONE (00:04)
[2023-05-12 00:20] LABS: BASOPHILS PERCENT AUTO 0.7 % (0.0-1.0); EOSINOPHILS PERCENT AUTO 0.2 % (0.0-6.0); HEMATOCRIT 28.1 % (37.0-47.0); HEMOGLOBIN 8.4 gm/dl (12.0-16.0); IMMATURE GRAN ABSOLUTE AUTO 0.01 K/mm3 (0.00-0.05); IMMATURE GRAN PERCENT AUTO 0.2 % (0.0-0.4); LYMPHOCYTES PERCENT AUTO 22.9 % (24.0-44.0); MEAN CORPUSCULAR HEMOGLOBIN 21.7 pg (28.0-32.0); MEAN CORPUSCULAR HGB CONC 29.9 g/dl (32.0-36.0); MEAN CORPUSCULAR VOLUME 72.6 fl (83.0-99.0); MEAN PLATELET VOLUME 8.8 fl (9.4-12.3); MONOCYTES ABSOLUTE AUTO 0.8 K/mm3 (0.0-0.8); MONOCYTES PERCENT AUTO 16.9 % (0.0-8.0); NEUTROPHILS ABSOLUTE AUTO 2.7 K/mm3 (1.8-7.7); NEUTROPHILS PERCENT AUTO 59.1 % (41.0-71.0); PLATELET COUNT,PLT 84 K/mm3 (150-400); RED BLOOD CELL COUNT 3.87 M/mm3 (4.10-5.30); WHITE BLOOD CELL COUNT,WBC 4.55 K/mm3 (3.9-11.3)
[2023-05-12 00:40] LABS: A/G RATIO 0.6 (1-2); ALBUMIN 2.9 g/dl (3.4-5.0); ANION GAP 15.3 (5-15); BILIRUBIN TOTAL 1.1 mg/dL (0.2-1.0); BUN/CREATININE RATIO 8.6 (14-18); CALCIUM 9.2 mg/dL (8.5-10.1); CREATININE 0.7 mg/dL (0.55-1.02); EST CRCL DRUG DOSING (CG) 105.97 mL/min; POTASSIUM,K 3.3 mEq/L (3.5-5.1); PROTEIN TOTAL,TP 7.4 g/dl (6.4-8.2)
[2023-05-12 00:45] LABS: CORONAVIRUS COVID-19 NAA NEGATIVE (NEGATIVE); INFLUENZA A NAA NEGATIVE (NEGATIVE); RESPIRATORY SYNCYTIAL VIR NAA NEGATIVE (NEGATIVE)
[2023-05-12 00:59] LABS: SLIDE REVIEW ABNORMAL SMEAR
[2023-05-12 02:00] VITALS: BP 155/90; PULSE 65
== END 2023-05-12 02:33 | disposition home or self-care (01) ==
LOC: JD.ED 23:28
DX: R10.84 Generalized abdominal pain (principal); I10 Essential (primary) hypertension; Z88.8 Allergy status to other drugs, medicaments and biological substances; Z88.5 Allergy status to narcotic agent; Z88.1 Allergy status to other antibiotic agents; Z79.899 Other long term (current) drug therapy; Z20.822 Contact with and (suspected) exposure to COVID-19
CPT/HCPCS: 0241U; 36415; 80053; 83690; 85025; 99284; A9270; 99283

== ENCOUNTER 2023-05-19 14:21 | Observation (INO) | payer BC ==
[2023-05-19] MEDS ORDERED: Sodium Chloride 0.9% 10 ML Syringe FLUSH PRN (15:28)
[2023-05-19] MEDS ORDERED: HYDROmorphone 0.5 MG/0.5 ML Syringe IVPUSH ONE ×2 (15:28→18:01)
[2023-05-19] MEDS ORDERED: Sodium Chloride 0.9% 1,000 ML IV STA (15:28)
[2023-05-19] MEDS ORDERED: Ondansetron 4 MG/2 ML SDV IVPUSH ONE (15:28)
[2023-05-19 16:05] LABS: APPEARANCE,URINE SLT CLOUDY (Clear); BILIRUBIN,URINE 1+ (Negative); COLOR,URINE YELLOW (Yellow); GLUCOSE,URINE TRACE (Negative); KETONES,URINE NEGATIVE (Negative); LEUKOCYTE ESTERASE,URINE NEGATIVE (Negative); NITRITE,URINE NEGATIVE (Negative); OCCULT BLOOD,URINE NEGATIVE (Negative); PROTEIN,URINE 1+ (Negative); UROBILINOGEN,URINE >=8.0 (0.2-1.0)
[2023-05-19 16:06] LABS: BASOPHILS ABSOLUTE AUTO 0.1 K/mm3 (0.0-0.2); BASOPHILS PERCENT AUTO 0.9 % (0.0-1.0); EOSINOPHILS ABSOLUTE AUTO 0.1 K/mm3 (0.0-0.4); EOSINOPHILS PERCENT AUTO 0.9 % (0.0-6.0); HEMATOCRIT 36.8 % (37.0-47.0); HEMOGLOBIN 10.9 gm/dl (12.0-16.0); IMMATURE GRAN ABSOLUTE AUTO 0.04 K/mm3 (0.00-0.05); IMMATURE GRAN PERCENT AUTO 0.4 % (0.0-0.4); LYMPHOCYTES ABSOLUTE AUTO 1.6 K/mm3 (1.0-4.8); MEAN CORPUSCULAR HEMOGLOBIN 21.8 pg (28.0-32.0); MEAN CORPUSCULAR HGB CONC 29.6 g/dl (32.0-36.0); MEAN CORPUSCULAR VOLUME 73.7 fl (83.0-99.0); MEAN PLATELET VOLUME 8.7 fl (9.4-12.3); MONOCYTES ABSOLUTE AUTO 0.9 K/mm3 (0.0-0.8); MONOCYTES PERCENT AUTO 9.7 % (0.0-8.0); NEUTROPHILS ABSOLUTE AUTO 6.8 K/mm3 (1.8-7.7); NEUTROPHILS PERCENT AUTO 71.1 % (41.0-71.0); PLATELET COUNT,PLT 135 K/mm3 (150-400); RED BLOOD CELL COUNT 4.99 M/mm3 (4.10-5.30); WHITE BLOOD CELL COUNT,WBC 9.62 K/mm3 (3.9-11.3)
[2023-05-19 16:25] LABS: BACTERIA,URINE MODERATE /hpf (FEW); HYALINE CASTS,URINE 20-30 /lpf (0-5); MUCUS,URINE MODERATE /hpf (FEW)
[2023-05-19 16:38] LABS: A/G RATIO 0.6 (1-2); ALANINE AMINOTRANSFERASE,ALT 12 U/L (14-59); ALBUMIN 3.4 g/dl (3.4-5.0); ALKALINE PHOSPHATASE 118 U/L (46-116); ANION GAP 11.3 (5-15); ASPARTATE AMNIOTRANSFERASE,AST 24 U/L (15-37); BILIRUBIN TOTAL 0.6 mg/dL (0.2-1.0); BLOOD UREA NITROGEN,BUN 11 mg/dL (7-18); BUN/CREATININE RATIO 12.2 (14-18); C-REACTIVE PROTEIN <0.2 mg/dL (<1.0); CALCIUM 9.9 mg/dL (8.5-10.1); CARBON DIOXIDE,CO2 23 mEq/L (21-32); CHLORIDE,CL 104 mEq/L (98-107); CREATININE 0.9 mg/dL (0.55-1.02); EST CRCL DRUG DOSING (CG) 82.42 mL/min; ESTIMATED GFR 84 mL/min (>60); GLUCOSE RANDOM 91 mg/dL (70-99); POTASSIUM,K 4.3 mEq/L (3.5-5.1); PROTEIN TOTAL,TP 8.9 g/dl (6.4-8.2); SODIUM,NA 134 mEq/L (136-145)
[2023-05-19 17:04] LABS: CORONAVIRUS COVID-19 NAA NEGATIVE (NEGATIVE); INFLUENZA A NAA NEGATIVE (NEGATIVE); RESPIRATORY SYNCYTIAL VIR NAA NEGATIVE (NEGATIVE)
[2023-05-19] MEDS ORDERED: Ertapenem 1 GM in Sodium Chloride 0.9% 50 ML IV ONE (18:02)
[2023-05-19] MEDS ORDERED: Lidocaine 1% 8 ML ONE (19:18)
[2023-05-19] MEDS ORDERED: fentaNYL 250 MCG/5 ML SDV ONE (19:19)
[2023-05-19] MEDS ORDERED: Midazolam 1 MG/ML 2 ML SDV ONE (19:19)
[2023-05-19] MEDS ORDERED: Propofol 200 MG/20 ML SDV ONE (19:19)
[2023-05-19] MEDS ORDERED: Succinylcholine 200 MG/10 ML MDV ONE (19:19)
[2023-05-19] MEDS ORDERED: Dexamethasone 4 MG/ML 5 ML MDV ONE (19:20)
[2023-05-19] MEDS ORDERED: Rocuronium 50 MG/5 ML Vial ONE (19:20)
[2023-05-19] MEDS ORDERED: Ondansetron 4 MG/2 ML SDV ONE (19:20)
[2023-05-19] MEDS ORDERED: Bupivacaine 0.5% 30 ML SDV ONE (19:25)
[2023-05-19] MEDS ORDERED: Lidocaine 1% 30 ML SDV ONE (19:25)
[2023-05-19] MEDS ORDERED: EPINEPHrine 1 MG/ML SDV ONE (19:25)
[2023-05-19] MEDS ORDERED: Sugammadex Sodium 200 MG/2 ML VIAL ONE (20:49)
[2023-05-19] MEDS ORDERED: Sodium Chloride 0.9% 1,000 ML ONE (21:10)
[2023-05-19] MEDS ORDERED: Ondansetron 4 MG/2 ML SDV IVPUSH PRN (21:17)
[2023-05-19] MEDS: Lactated Ringers 1,000 ML IV SCH (23:11)
[2023-05-19] MEDS ORDERED: FLU (Flulaval Quad) 2023-24(6MOS UP)/PF 60 MCG/0.5 ML Syringe IM ONE (23:30)
[2023-05-20] MEDS: HYDROmorphone 0.5 MG/0.5 ML Syringe IVPUSH PRN ×5 (02:10→14:03)
[2023-05-20] MEDS: Lactated Ringers 1,000 ML IV SCH ×3 (06:09→21:12)
[2023-05-20] MEDS: Famotidine 20 MG/2 ML SDV IV SCH (08:13)
[2023-05-20] MEDS ORDERED: Polyethylene Glycol 3350 Powder 17 GM Packet PO PRN (08:55)
[2023-05-20] MEDS ORDERED: Loratadine 10 MG Tab PO PRN (08:55)
[2023-05-20] MEDS ORDERED: Psyllium Husk Powder Sugar Free 5.85 GM Packet PO PRN (08:55)
[2023-05-20] MEDS ORDERED: guaiFENesin 600 MG Tab.ER PO PRN (08:55)
[2023-05-20] MEDS ORDERED: cloNIDine 0.1 MG Tab PO PRN (08:55)
[2023-05-20] MEDS ORDERED: diphenhydrAMINE 25 MG Cap PO PRN (08:55)
[2023-05-20] MEDS ORDERED: traZODone 50 MG Tab PO PRN (08:55)
[2023-05-20] MEDS ORDERED: Bismuth Subsalicylate 262 MG/15 ML Susp 236 ML Bottle PO PRN (08:55)
[2023-05-20] MEDS ORDERED: hydrOXYzine HCl 50 MG Tab PO PRN (08:55)
[2023-05-20] MEDS ORDERED: ATOMOXETINE HCL 40 MG PO SCH (09:00)
[2023-05-20] MEDS ORDERED: ACAMPROSATE 333 MG PO SCH (09:00)
[2023-05-20] MEDS ORDERED: Naltrexone 50 MG Tab PO SCH (09:00)
[2023-05-20] MEDS: Docusate Sodium 100 MG Cap PO SCH ×2 (09:30→16:50)
[2023-05-20] MEDS: busPIRone 15 MG Tab PO SCH ×2 (09:30→21:09)
[2023-05-20] MEDS: Topiramate 25 MG Tab PO SCH ×2 (09:30→21:11)
[2023-05-20] MEDS: Citalopram 20 MG Tab PO SCH (09:30)
[2023-05-20] MEDS: Lactulose Soln 10 GM/15 ML 30 ML UD Cup PO SCH ×2 (09:31→21:09)
[2023-05-20] MEDS: Spironolactone 100 MG Tab PO SCH (09:31)
[2023-05-20] MEDS: oxyCODONE ER 20 MG TAB.ER PO SCH (21:10)
[2023-05-21] MEDS: Ibuprofen 200 MG Tab PO PRN ×2 (05:20→16:10)
[2023-05-21] MEDS: Docusate Sodium 100 MG Cap PO SCH ×5 (05:20→21:35)
[2023-05-21] MEDS: Lactated Ringers 1,000 ML IV SCH ×2 (05:21→13:08)
[2023-05-21 05:41] LABS: HEMATOCRIT 31.7 % (37.0-47.0); HEMOGLOBIN 9.5 gm/dl (12.0-16.0); MEAN CORPUSCULAR HEMOGLOBIN 21.9 pg (28.0-32.0); MEAN CORPUSCULAR VOLUME 73.2 fl (83.0-99.0); MEAN PLATELET VOLUME 8.6 fl (9.4-12.3); PLATELET COUNT,PLT 103 K/mm3 (150-400); RED BLOOD CELL COUNT 4.33 M/mm3 (4.10-5.30); WHITE BLOOD CELL COUNT,WBC 11.13 K/mm3 (3.9-11.3)
[2023-05-21 06:03] LABS: A/G RATIO 0.6 (1-2); ALBUMIN 2.9 g/dl (3.4-5.0); BILIRUBIN TOTAL 0.7 mg/dL (0.2-1.0); BUN/CREATININE RATIO 12.9 (14-18); CALCIUM 8.9 mg/dL (8.5-10.1); CREATININE 0.7 mg/dL (0.55-1.02); EST CRCL DRUG DOSING (CG) 102.01 mL/min; PROTEIN TOTAL,TP 7.4 g/dl (6.4-8.2)
[2023-05-21] MEDS ORDERED: Naltrexone 50 MG Tab PO SCH (09:00)
[2023-05-21] MEDS: Spironolactone 100 MG Tab PO SCH (09:03)
[2023-05-21] MEDS: busPIRone 15 MG Tab PO SCH ×2 (09:03→21:33)
[2023-05-21] MEDS: Citalopram 20 MG Tab PO SCH (09:03)
[2023-05-21] MEDS: oxyCODONE ER 20 MG TAB.ER PO SCH (09:03)
[2023-05-21] MEDS: Lactulose Soln 10 GM/15 ML 30 ML UD Cup PO SCH ×2 (09:04→21:30)
[2023-05-21] MEDS: Topiramate 25 MG Tab PO SCH ×2 (09:04→21:35)
[2023-05-21] MEDS: Famotidine 20 MG/2 ML SDV IV SCH (09:05)
[2023-05-21] MEDS ORDERED: Polyethylene Glycol 3350 Powder 17 GM Packet PO PRN (18:41)
[2023-05-21] MEDS: Polyethylene Glycol 3350 Powder 17 GM Packet PO SCH ×2 (21:31→21:32)
[2023-05-21] MEDS: Acetaminophen 325 MG Tab PO PRN (21:34)
[2023-05-21] MEDS: Heparin Sodium 5,000 Units/ML Vial SUBCUT SCH (21:35)
[2023-05-21] MEDS: oxyCODONE 5 MG Tab PO PRN (22:35)
[2023-05-22] MEDS: Heparin Sodium 5,000 Units/ML Vial SUBCUT SCH ×2 (06:51→15:25)
[2023-05-22] MEDS: Lactulose Soln 10 GM/15 ML 30 ML UD Cup PO SCH ×2 (08:35→22:11)
[2023-05-22] MEDS: Topiramate 25 MG Tab PO SCH ×2 (08:36→22:12)
[2023-05-22] MEDS: Famotidine 20 MG/2 ML SDV IV SCH (08:36)
[2023-05-22] MEDS: Citalopram 20 MG Tab PO SCH (08:36)
[2023-05-22] MEDS: busPIRone 15 MG Tab PO SCH ×2 (08:36→22:13)
[2023-05-22] MEDS: Docusate Sodium 100 MG Cap PO SCH ×2 (08:36→22:12)
[2023-05-22] MEDS: Spironolactone 100 MG Tab PO SCH (08:36)
[2023-05-22] MEDS: Polyethylene Glycol 3350 Powder 17 GM Packet PO SCH ×2 (08:37→22:10)
[2023-05-22] MEDS: Acetaminophen 325 MG Tab PO PRN (08:39)
[2023-05-22] MEDS: oxyCODONE 5 MG Tab PO PRN ×3 (09:21→22:31)
[2023-05-22] MEDS ORDERED: Sodium Chloride 0.9% 10 ML Syringe FLUSH ONE ×2 (12:39→12:56)
[2023-05-22] MEDS ORDERED: Iopamidol 612 MG/ML 100 ML Bottle IVPUSH ONE ×2 (12:39→12:56)
[2023-05-22] MEDS: Sodium Chloride 0.9% 1,000 ML IV SCH (13:08)
[2023-05-22 13:15] LABS: BASOPHILS ABSOLUTE AUTO 0.1 K/mm3 (0.0-0.2); BASOPHILS PERCENT AUTO 1.1 % (0.0-1.0); EOSINOPHILS ABSOLUTE AUTO 0.2 K/mm3 (0.0-0.4); EOSINOPHILS PERCENT AUTO 1.9 % (0.0-6.0); HEMATOCRIT 33.4 % (37.0-47.0); HEMOGLOBIN 9.7 gm/dl (12.0-16.0); IMMATURE GRAN ABSOLUTE AUTO 0.06 K/mm3 (0.00-0.05); IMMATURE GRAN PERCENT AUTO 0.7 % (0.0-0.4); LYMPHOCYTES ABSOLUTE AUTO 1.7 K/mm3 (1.0-4.8); LYMPHOCYTES PERCENT AUTO 18.7 % (24.0-44.0); MEAN CORPUSCULAR VOLUME 75.7 fl (83.0-99.0); MEAN PLATELET VOLUME 9.3 fl (9.4-12.3); MONOCYTES ABSOLUTE AUTO 1.2 K/mm3 (0.0-0.8); MONOCYTES PERCENT AUTO 13.9 % (0.0-8.0); NEUTROPHILS ABSOLUTE AUTO 5.7 K/mm3 (1.8-7.7); NEUTROPHILS PERCENT AUTO 63.7 % (41.0-71.0); PLATELET COUNT,PLT 102 K/mm3 (150-400); RED BLOOD CELL COUNT 4.41 M/mm3 (4.10-5.30); WHITE BLOOD CELL COUNT,WBC 8.92 K/mm3 (3.9-11.3)
[2023-05-22 13:34] LABS: A/G RATIO 0.6 (1-2); ALBUMIN 2.7 g/dl (3.4-5.0); ANION GAP 13.1 (5-15); BILIRUBIN TOTAL 0.7 mg/dL (0.2-1.0); BUN/CREATININE RATIO 18.6 (14-18); CALCIUM 9.1 mg/dL (8.5-10.1); CREATININE 0.7 mg/dL (0.55-1.02); EST CRCL DRUG DOSING (CG) 102.01 mL/min; POTASSIUM,K 4.1 mEq/L (3.5-5.1); PROTEIN TOTAL,TP 7.1 g/dl (6.4-8.2)
[2023-05-22 13:40] LABS: INR 1.29; PROTHROMBIN TIME 13.5 SECONDS (9.7-12.0)
[2023-05-22] MEDS ORDERED: fentaNYL 100 MCG/2 ML SDV ONE (14:04)
[2023-05-22] MEDS ORDERED: Midazolam 1 MG/ML 2 ML SDV ONE (14:04)
[2023-05-22] MEDS ORDERED: Ropivacaine 0.5% 5 MG/ML 30 ML SDV ONE (14:47)
[2023-05-22] MEDS ORDERED: dexmedeTOMIDine HCl 200 MCG/2 ML SDV ONE (14:47)
[2023-05-22] MEDS ORDERED: fentaNYL 100 MCG/2 ML SDV IVPUSH PRN (14:49)
[2023-05-22] MEDS ORDERED: HYDROmorphone 0.5 MG/0.5 ML Syringe IVPUSH PRN (14:51)
[2023-05-22] MEDS ORDERED: Naloxone 0.4 MG/ML SDV IVPUSH PRN (14:53)
[2023-05-22] MEDS ORDERED: Ondansetron 4 MG/2 ML SDV IVPUSH PRN (14:54)
[2023-05-22] MEDS ORDERED: Lidocaine 1% 6 ML ONE (15:03)
[2023-05-22] MEDS ORDERED: Lidocaine 1% 30 ML SDV ONE (15:13)
[2023-05-22] MEDS ORDERED: EPINEPHrine 1 MG/ML SDV ONE (15:13)
[2023-05-22] MEDS ORDERED: Bupivacaine 0.5% 30 ML SDV ONE (15:13)
[2023-05-22] MEDS ORDERED: Acetaminophen 325 MG Tab PO PRN ×2 (15:51→16:17)
[2023-05-23] MEDS: oxyCODONE 5 MG Tab PO PRN ×2 (05:00→11:18)
[2023-05-23 06:41] LABS: BASOPHILS ABSOLUTE AUTO 0.1 K/mm3 (0.0-0.2); EOSINOPHILS ABSOLUTE AUTO 0.2 K/mm3 (0.0-0.4); EOSINOPHILS PERCENT AUTO 2.4 % (0.0-6.0); HEMATOCRIT 29.9 % (37.0-47.0); HEMOGLOBIN 8.8 gm/dl (12.0-16.0); IMMATURE GRAN ABSOLUTE AUTO 0.05 K/mm3 (0.00-0.05); IMMATURE GRAN PERCENT AUTO 0.7 % (0.0-0.4); LYMPHOCYTES ABSOLUTE AUTO 1.6 K/mm3 (1.0-4.8); LYMPHOCYTES PERCENT AUTO 22.4 % (24.0-44.0); MEAN CORPUSCULAR HEMOGLOBIN 21.5 pg (28.0-32.0); MEAN CORPUSCULAR HGB CONC 29.4 g/dl (32.0-36.0); MEAN CORPUSCULAR VOLUME 72.9 fl (83.0-99.0); MEAN PLATELET VOLUME 8.5 fl (9.4-12.3); MONOCYTES ABSOLUTE AUTO 0.9 K/mm3 (0.0-0.8); MONOCYTES PERCENT AUTO 12.8 % (0.0-8.0); NEUTROPHILS ABSOLUTE AUTO 4.4 K/mm3 (1.8-7.7); NEUTROPHILS PERCENT AUTO 60.7 % (41.0-71.0); PLATELET COUNT,PLT 104 K/mm3 (150-400)
[2023-05-23 07:11] LABS: A/G RATIO 0.6 (1-2); ALBUMIN 2.6 g/dl (3.4-5.0); ANION GAP 12.7 (5-15); BILIRUBIN TOTAL 0.8 mg/dL (0.2-1.0); BUN/CREATININE RATIO 16.7 (14-18); CALCIUM 9.1 mg/dL (8.5-10.1); CREATININE 0.6 mg/dL (0.55-1.02); EST CRCL DRUG DOSING (CG) 119.01 mL/min; POTASSIUM,K 3.7 mEq/L (3.5-5.1); PROTEIN TOTAL,TP 6.8 g/dl (6.4-8.2)
[2023-05-23] MEDS: Lactulose Soln 10 GM/15 ML 30 ML UD Cup PO SCH (08:36)
[2023-05-23] MEDS: Famotidine 20 MG/2 ML SDV IV SCH (08:36)
[2023-05-23] MEDS: Sodium Chloride 0.9% 1,000 ML IV SCH (08:36)
[2023-05-23] MEDS: Topiramate 25 MG Tab PO SCH (08:37)
[2023-05-23] MEDS: Polyethylene Glycol 3350 Powder 17 GM Packet PO SCH (08:37)
[2023-05-23] MEDS: Citalopram 20 MG Tab PO SCH (08:37)
[2023-05-23] MEDS: busPIRone 15 MG Tab PO SCH (08:37)
[2023-05-23] MEDS: Spironolactone 100 MG Tab PO SCH (08:37)
[2023-05-23] MEDS: Docusate Sodium 100 MG Cap PO SCH (08:37)
[2023-05-23 14:38] VITALS: BP 123/79; PULSE 82
[2023-05-23] MEDS ORDERED: Lactulose Soln 10 GM/15 ML 30 ML UD Cup PO SCH (15:00)
== END 2023-05-23 14:34 | disposition home or self-care (01) ==
LOC: JD.ED 14:21 → JD.SDS 19:07 → JD.MS 22:36 → JD.SDS 05-20 10:11 → JD.MS 05-20 10:12
PROVIDERS: ADMIT Specialist; ATTEND Specialist
DX: K43.6 Other and unspecified ventral hernia with obstruction, without gangrene (principal); F41.9 Anxiety disorder, unspecified; I10 Essential (primary) hypertension; Z87.891 Personal history of nicotine dependence; Z79.899 Other long term (current) drug therapy; Z20.822 Contact with and (suspected) exposure to COVID-19; Z88.8 Allergy status to other drugs, medicaments and biological substances
CPT/HCPCS: 0241U; 36415; 49594; 74018; 74177; 76705; 80053; 81001; 82140; 85025; 85027; 85610; 86140; 94762; 96372; A9270; G0378; J0171; J0330; J1100; J1170; J1335; J1644; J2250; J2405; J2704; J2795; J3010; J3490; J7030; J7120; Q9967; 00790; 99140; 99285

== ENCOUNTER 2023-06-12 11:17 | Emergency (ER) | payer BC ==
[2023-06-12] MEDS ORDERED: Sodium Chloride 0.9% 10 ML Syringe FLUSH PRN (11:40)
[2023-06-12] MEDS ORDERED: Sodium Chloride 0.9% 1,000 ML IV STA ×3 (12:14→15:52)
[2023-06-12 12:47] LABS: APPEARANCE,URINE CLEAR (Clear); BILIRUBIN,URINE 2+ (Negative); COLOR,URINE YELLOW (Yellow); GLUCOSE,URINE NEGATIVE (Negative); KETONES,URINE 4+ (Negative); LEUKOCYTE ESTERASE,URINE NEGATIVE (Negative); NITRITE,URINE NEGATIVE (Negative); OCCULT BLOOD,URINE NEGATIVE (Negative); PH,URINE 6.5 (5.0-8.0); PROTEIN,URINE 2+ (Negative)
[2023-06-12 12:59] LABS: BACTERIA,URINE MODERATE /hpf (FEW); MUCUS,URINE MANY /hpf (FEW); RBC,URINE 0-5 /hpf (0-5); WBC,URINE 0-5 /hpf (0-5)
[2023-06-12 13:25] LABS: BASOPHILS ABSOLUTE AUTO 0.1 K/mm3 (0.0-0.2); BASOPHILS PERCENT AUTO 0.8 % (0.0-1.0); HEMATOCRIT 34.3 % (37.0-47.0); IMMATURE GRAN ABSOLUTE AUTO 0.07 K/mm3 (0.00-0.05); IMMATURE GRAN PERCENT AUTO 1.1 % (0.0-0.4); LYMPHOCYTES ABSOLUTE AUTO 1.4 K/mm3 (1.0-4.8); LYMPHOCYTES PERCENT AUTO 21.8 % (24.0-44.0); MEAN CORPUSCULAR HEMOGLOBIN 25.6 pg (28.0-32.0); MEAN CORPUSCULAR HGB CONC 32.1 g/dl (32.0-36.0); MONOCYTES ABSOLUTE AUTO 0.4 K/mm3 (0.0-0.8); MONOCYTES PERCENT AUTO 6.4 % (0.0-8.0); NEUTROPHILS ABSOLUTE AUTO 4.5 K/mm3 (1.8-7.7); NEUTROPHILS PERCENT AUTO 69.9 % (41.0-71.0); PLATELET COUNT,PLT 49 K/mm3 (150-400); RED BLOOD CELL COUNT 4.29 M/mm3 (4.10-5.30); WHITE BLOOD CELL COUNT,WBC 6.42 K/mm3 (3.9-11.3)
[2023-06-12 13:43] LABS: A/G RATIO 0.7 (1-2); ALANINE AMINOTRANSFERASE,ALT 20 U/L (14-59); ALBUMIN 3.3 g/dl (3.4-5.0); ALKALINE PHOSPHATASE 138 U/L (46-116); ANION GAP 21.4 (5-15); ASPARTATE AMNIOTRANSFERASE,AST 63 U/L (15-37); BILIRUBIN TOTAL 1.6 mg/dL (0.2-1.0); BLOOD UREA NITROGEN,BUN 15 mg/dL (7-18); BUN/CREATININE RATIO 7.5 (14-18); CALCIUM 9.4 mg/dL (8.5-10.1); CARBON DIOXIDE,CO2 20 mEq/L (21-32); CHLORIDE,CL 100 mEq/L (98-107); EST CRCL DRUG DOSING (CG) 37.09 mL/min; ESTIMATED GFR 32 mL/min (>60); GLUCOSE RANDOM 111 mg/dL (70-99); POTASSIUM,K 3.4 mEq/L (3.5-5.1); PROTEIN TOTAL,TP 7.8 g/dl (6.4-8.2); SODIUM,NA 138 mEq/L (136-145)
[2023-06-12 13:45] LABS: SLIDE REVIEW ABNORMAL SMEAR
[2023-06-12 13:57] LABS: C-REACTIVE PROTEIN < 0.2 mg/dL (<1.0)
[2023-06-12] MEDS ORDERED: diphenhydrAMINE 50 MG Cap PO ONE (20:48)
[2023-06-12] MEDS ORDERED: Thiamine 200 MG/2 ML MDV IVPUSH ONE (22:59)
[2023-06-13] MEDS ORDERED: LORazepam 2 MG/ML SDV IVPUSH ONE ×2 (00:51→22:19)
[2023-06-13] MEDS ORDERED: busPIRone 5 MG Tab PO ONE (15:10)
[2023-06-13] MEDS ORDERED: Topiramate 25 MG Tab PO ONE ×2 (15:12→18:47)
[2023-06-13 15:45] LABS: BASOPHILS ABSOLUTE AUTO 0.1 K/mm3 (0.0-0.2); BASOPHILS PERCENT AUTO 0.9 % (0.0-1.0); EOSINOPHILS ABSOLUTE AUTO 0.1 K/mm3 (0.0-0.4); EOSINOPHILS PERCENT AUTO 1.1 % (0.0-6.0); HEMATOCRIT 33.6 % (37.0-47.0); HEMOGLOBIN 10.5 gm/dl (12.0-16.0); IMMATURE GRAN ABSOLUTE AUTO 0.03 K/mm3 (0.00-0.05); IMMATURE GRAN PERCENT AUTO 0.5 % (0.0-0.4); LYMPHOCYTES ABSOLUTE AUTO 1.5 K/mm3 (1.0-4.8); LYMPHOCYTES PERCENT AUTO 26.7 % (24.0-44.0); MEAN CORPUSCULAR HEMOGLOBIN 25.5 pg (28.0-32.0); MEAN CORPUSCULAR HGB CONC 31.3 g/dl (32.0-36.0); MEAN CORPUSCULAR VOLUME 81.8 fl (83.0-99.0); MONOCYTES ABSOLUTE AUTO 0.6 K/mm3 (0.0-0.8); MONOCYTES PERCENT AUTO 11.4 % (0.0-8.0); NEUTROPHILS ABSOLUTE AUTO 3.3 K/mm3 (1.8-7.7); NEUTROPHILS PERCENT AUTO 59.4 % (41.0-71.0); PLATELET COUNT,PLT 48 K/mm3 (150-400); RED BLOOD CELL COUNT 4.11 M/mm3 (4.10-5.30); WHITE BLOOD CELL COUNT,WBC 5.55 K/mm3 (3.9-11.3)
[2023-06-13 16:10] LABS: A/G RATIO 0.7 (1-2); ALBUMIN 3.1 g/dl (3.4-5.0); ANION GAP 13.7 (5-15); BILIRUBIN TOTAL 0.8 mg/dL (0.2-1.0); BUN/CREATININE RATIO 7.3 (14-18); CALCIUM 9.1 mg/dL (8.5-10.1); CREATININE 1.5 mg/dL (0.55-1.02); EST CRCL DRUG DOSING (CG) 49.45 mL/min; POTASSIUM,K 3.7 mEq/L (3.5-5.1); PROTEIN TOTAL,TP 7.6 g/dl (6.4-8.2)
[2023-06-13 17:24] LABS: SLIDE REVIEW ABNORMAL SMEAR
[2023-06-13] MEDS ORDERED: Spironolactone 100 MG Tab PO ONE (18:24)
[2023-06-13] MEDS ORDERED: Citalopram 20 MG Tab PO ONE (18:25)
[2023-06-13] MEDS ORDERED: Lactulose Soln 10 GM/15 ML 30 ML UD Cup PO ONE (18:26)
[2023-06-13] MEDS ORDERED: busPIRone 15 MG Tab PO ONE (18:45)
[2023-06-14] MEDS ORDERED: HYDROmorphone 1 MG/ML Syringe IVPUSH ONE (00:59)
[2023-06-14] MEDS ORDERED: diphenhydrAMINE 50 MG/ML SDV IVPUSH ONE (01:00)
[2023-06-14] MEDS ORDERED: Metoclopramide 10 MG/2 ML SDV IVPUSH ONE (01:00)
[2023-06-14] MEDS ORDERED: Dextrose 5%-Lactated Ringers 1,000 ML IV SCH (01:30)
[2023-06-14 08:59] VITALS: BP 153/99; PULSE 78
== END 2023-06-14 08:52 ==
LOC: JD.ED 11:17
DX: K70.30 Alcoholic cirrhosis of liver without ascites (principal); F10.10 Alcohol abuse, uncomplicated; M79.81 Nontraumatic hematoma of soft tissue; I10 Essential (primary) hypertension; Z79.899 Other long term (current) drug therapy; Z88.6 Allergy status to analgesic agent; Z88.5 Allergy status to narcotic agent; Z88.8 Allergy status to other drugs, medicaments and biological substances
CPT/HCPCS: 36415; 74018; 76705; 80053; 80307; 81001; 82140; 85025; 86140; 96361; 96374; 96375; 96376; 99285; A9270; J1170; J1200; J2060; J2765; J3411; J3490; J7030; J7121; Q0163

== ENCOUNTER 2023-06-16 19:06 | Emergency (ER) | payer BC ==
[2023-06-16] MEDS ORDERED: Acetaminophen 325 MG Tab PO ONE (19:42)
[2023-06-16] MEDS ORDERED: Ibuprofen 400 MG Tab PO ONE (19:44)
[2023-06-16 20:16] VITALS: BP 125/80; PULSE 89
== END 2023-06-16 20:17 ==
LOC: JD.ED 19:06
DX: K91.871 Postprocedural hematoma of a digestive system organ or structure following other procedure (principal); I10 Essential (primary) hypertension; Z79.899 Other long term (current) drug therapy; Z88.5 Allergy status to narcotic agent; Z88.8 Allergy status to other drugs, medicaments and biological substances
CPT/HCPCS: 99283; A9270

== ENCOUNTER 2023-07-12 00:15 | Emergency (ER) | payer BC ==
[2023-07-12] MEDS ORDERED: Sodium Chloride 0.9% 10 ML Syringe FLUSH PRN (00:36)
[2023-07-12 00:57] LABS: APPEARANCE,URINE CLEAR (Clear); BILIRUBIN,URINE 1+ (Negative); COLOR,URINE YELLOW (Yellow); GLUCOSE,URINE NEGATIVE (Negative); KETONES,URINE TRACE (Negative); LEUKOCYTE ESTERASE,URINE NEGATIVE (Negative); NITRITE,URINE NEGATIVE (Negative); OCCULT BLOOD,URINE NEGATIVE (Negative); PH,URINE 6.5 (5.0-8.0); PROTEIN,URINE NEGATIVE (Negative)
[2023-07-12 01:15] LABS: BARBITURATE SCREEN,URINE NEGATIVE (CUTOFF=200); BENZODIAZEPINES SCREEN,URINE NEGATIVE (CUTOFF=150); BUPRENORPHINE SCREEN,URINE NEGATIVE (CUTOFF=10); METHADONE SCREEN, URINE NEGATIVE (CUTOFF=200); METHAMPHETAMINES SCREEN, URINE NEGATIVE (CUTOFF=500); OXYCODONE SCREEN,URINE NEGATIVE (CUT0FF=100); THC SCREEN,URINE 20 NG/ML NEGATIVE (CUTOFF=50)
[2023-07-12 01:16] LABS: BASOPHILS ABSOLUTE AUTO 0.1 K/mm3 (0.0-0.2); BASOPHILS PERCENT AUTO 0.7 % (0.0-1.0); EOSINOPHILS ABSOLUTE AUTO 0.1 K/mm3 (0.0-0.4); EOSINOPHILS PERCENT AUTO 1.7 % (0.0-6.0); HEMATOCRIT 32.9 % (37.0-47.0); HEMOGLOBIN 10.5 gm/dl (12.0-16.0); IMMATURE GRAN ABSOLUTE AUTO 0.03 K/mm3 (0.00-0.05); IMMATURE GRAN PERCENT AUTO 0.4 % (0.0-0.4); LYMPHOCYTES ABSOLUTE AUTO 1.6 K/mm3 (1.0-4.8); MEAN CORPUSCULAR HEMOGLOBIN 25.7 pg (28.0-32.0); MEAN CORPUSCULAR HGB CONC 31.9 g/dl (32.0-36.0); MEAN CORPUSCULAR VOLUME 80.6 fl (83.0-99.0); MEAN PLATELET VOLUME 8.3 fl (9.4-12.3); MONOCYTES ABSOLUTE AUTO 0.8 K/mm3 (0.0-0.8); MONOCYTES PERCENT AUTO 10.2 % (0.0-8.0); PLATELET COUNT,PLT 84 K/mm3 (150-400); RED BLOOD CELL COUNT 4.08 M/mm3 (4.10-5.30); WHITE BLOOD CELL COUNT,WBC 7.52 K/mm3 (3.9-11.3)
[2023-07-12 01:29] LABS: EPITHELIAL CELLS,URINE 0-5 /hpf (0-5); RBC,URINE 0-5 /hpf (0-5); WBC,URINE 0-5 /hpf (0-5)
[2023-07-12 01:30] LABS: BACTERIA,URINE FEW /hpf (FEW); HYALINE CASTS,URINE 0-5 /lpf (0-5); MUCUS,URINE MODERATE /hpf (FEW)
[2023-07-12 01:33] LABS: AMPHETAMINES SCREEN, URINE NEGATIVE (CUTOFF=500)
[2023-07-12 01:49] LABS: PHOSPHORUS 4.7 mg/dL (2.6-4.7)
[2023-07-12 01:53] LABS: A/G RATIO 0.7 (1-2); ALANINE AMINOTRANSFERASE,ALT 28 U/L (14-59); ALBUMIN 3.1 g/dl (3.4-5.0); ALKALINE PHOSPHATASE 127 U/L (46-116); ANION GAP 12.6 (5-15); ASPARTATE AMNIOTRANSFERASE,AST 28 U/L (15-37); BILIRUBIN TOTAL 0.8 mg/dL (0.2-1.0); BLOOD UREA NITROGEN,BUN 12 mg/dL (7-18); BUN/CREATININE RATIO 13.3 (14-18); C-REACTIVE PROTEIN <0.2 mg/dL (<1.0); CALCIUM 9.7 mg/dL (8.5-10.1); CARBON DIOXIDE,CO2 25 mEq/L (21-32); CHLORIDE,CL 106 mEq/L (98-107); CREATINE KINASE,CK 17 U/L (26-192); CREATININE 0.9 mg/dL (0.55-1.02); EST CRCL DRUG DOSING (CG) 82.42 mL/min; ESTIMATED GFR 84 mL/min (>60); GLUCOSE RANDOM 105 mg/dL (70-99); MAGNESIUM 1.6 mg/dL (1.8-2.4); POTASSIUM,K 3.6 mEq/L (3.5-5.1); PROTEIN TOTAL,TP 7.4 g/dl (6.4-8.2); SODIUM,NA 140 mEq/L (136-145)
[2023-07-12 02:13] LABS: CORONAVIRUS COVID-19 NAA NEGATIVE (NEGATIVE); INFLUENZA A NAA NEGATIVE (NEGATIVE); RESPIRATORY SYNCYTIAL VIR NAA NEGATIVE (NEGATIVE)
[2023-07-12 02:15] LABS: SLIDE REVIEW ABNORMAL SMEAR
[2023-07-12 02:35] VITALS: BP 146/90; PULSE 84
== END 2023-07-12 02:21 | disposition home or self-care (01) ==
LOC: JD.ED 00:15
DX: R53.81 Other malaise (principal); K70.40 Alcoholic hepatic failure without coma; K70.31 Alcoholic cirrhosis of liver with ascites; I10 Essential (primary) hypertension; Z79.899 Other long term (current) drug therapy; Z88.5 Allergy status to narcotic agent; Z88.8 Allergy status to other drugs, medicaments and biological substances
CPT/HCPCS: 0241U; 36415; 80053; 80306; 80307; 81001; 81025; 82140; 82550; 83735; 84100; 85025; 86140; 99284; 99282

== ENCOUNTER 2023-07-13 21:05 | Emergency (ER) | payer BC ==
[2023-07-13] MEDS ORDERED: Ondansetron 4 MG/2 ML SDV IVPUSH ONE (21:19)
[2023-07-13] MEDS ORDERED: diphenhydrAMINE 50 MG/ML SDV IVPUSH ONE (21:21)
[2023-07-13] MEDS ORDERED: LORazepam 2 MG/ML SDV IVPUSH ONE (21:21)
[2023-07-13] MEDS: Dextrose 5%-0.9% NaCl 1,000 ML IV SCH (21:56)
[2023-07-13 22:27] LABS: APPEARANCE,URINE SLT CLOUDY (Clear); BILIRUBIN,URINE NEGATIVE (Negative); COLOR,URINE YELLOW (Yellow); GLUCOSE,URINE NEGATIVE (Negative); KETONES,URINE NEGATIVE (Negative); LEUKOCYTE ESTERASE,URINE TRACE (Negative); NITRITE,URINE NEGATIVE (Negative); OCCULT BLOOD,URINE NEGATIVE (Negative); PROTEIN,URINE NEGATIVE (Negative)
[2023-07-13 22:46] LABS: BACTERIA,URINE MODERATE /hpf (FEW); MUCUS,URINE FEW /hpf (FEW); RBC,URINE 0-5 /hpf (0-5)
[2023-07-13 22:47] LABS: AMORPHOUS SEDIMENT,URINE MODERATE /hpf (NOT SEEN)
[2023-07-13] MEDS: Metoclopramide 10 MG/2 ML SDV IVPUSH ONE (22:47)
[2023-07-13] MEDS: HYDROmorphone 1 MG/ML Syringe IVPUSH ONE (22:48)
[2023-07-13 22:51] LABS: BASOPHILS ABSOLUTE AUTO 0.1 K/mm3 (0.0-0.2); BASOPHILS PERCENT AUTO 1.1 % (0.0-1.0); EOSINOPHILS ABSOLUTE AUTO 0.2 K/mm3 (0.0-0.4); EOSINOPHILS PERCENT AUTO 2.4 % (0.0-6.0); HEMOGLOBIN 11.4 gm/dl (12.0-16.0); IMMATURE GRAN ABSOLUTE AUTO 0.03 K/mm3 (0.00-0.05); IMMATURE GRAN PERCENT AUTO 0.4 % (0.0-0.4); LYMPHOCYTES ABSOLUTE AUTO 1.5 K/mm3 (1.0-4.8); MEAN CORPUSCULAR HGB CONC 31.7 g/dl (32.0-36.0); MONOCYTES ABSOLUTE AUTO 0.8 K/mm3 (0.0-0.8); NEUTROPHILS ABSOLUTE AUTO 4.9 K/mm3 (1.8-7.7); NEUTROPHILS PERCENT AUTO 65.1 % (41.0-71.0); PLATELET COUNT,PLT 69 K/mm3 (150-400); RED BLOOD CELL COUNT 4.39 M/mm3 (4.10-5.30); WHITE BLOOD CELL COUNT,WBC 7.56 K/mm3 (3.9-11.3)
[2023-07-13 22:57] LABS: A/G RATIO 0.7 (1-2); ALANINE AMINOTRANSFERASE,ALT 27 U/L (14-59); ALBUMIN 3.2 g/dl (3.4-5.0); ALKALINE PHOSPHATASE 143 U/L (46-116); ANION GAP 13.7 (5-15); ASPARTATE AMNIOTRANSFERASE,AST 29 U/L (15-37); BILIRUBIN TOTAL 0.7 mg/dL (0.2-1.0); BLOOD UREA NITROGEN,BUN 8 mg/dL (7-18); BUN/CREATININE RATIO 11.4 (14-18); C-REACTIVE PROTEIN <0.2 mg/dL (<1.0); CALCIUM 9.2 mg/dL (8.5-10.1); CARBON DIOXIDE,CO2 24 mEq/L (21-32); CHLORIDE,CL 106 mEq/L (98-107); CREATININE 0.7 mg/dL (0.55-1.02); EST CRCL DRUG DOSING (CG) 105.97 mL/min; ESTIMATED GFR 113 mL/min (>60); GLUCOSE RANDOM 117 mg/dL (70-99); MAGNESIUM 1.4 mg/dL (1.8-2.4); POTASSIUM,K 3.7 mEq/L (3.5-5.1); PROTEIN TOTAL,TP 7.8 g/dl (6.4-8.2); SODIUM,NA 140 mEq/L (136-145)
[2023-07-14] MEDS: Magnesium Sulfate/Water 4 GM in Premix Bag 1 BAG IV ONE (00:49)
[2023-07-14] MEDS: LORazepam 2 MG/ML SDV IVPUSH ONE (00:49)
[2023-07-14 05:10] VITALS: BP 142/84; PULSE 79
== END 2023-07-14 07:04 ==
LOC: JD.ED 21:05
DX: G43.909 Migraine, unspecified, not intractable, without status migrainosus (principal); E83.42 Hypomagnesemia; I10 Essential (primary) hypertension; Z79.899 Other long term (current) drug therapy; Z88.5 Allergy status to narcotic agent; Z88.6 Allergy status to analgesic agent; Z88.8 Allergy status to other drugs, medicaments and biological substances
CPT/HCPCS: 36415; 70450; 80053; 81001; 83690; 83735; 85025; 85652; 86140; 96361; 96365; 96366; 96375; 99285; J1170; J2060; J2765; J3475; J7042; 99284

== ENCOUNTER 2024-08-01 16:13 | Emergency (ER) | payer BC, OTHER ==
[2024-08-01 18:18] LABS: APPEARANCE,URINE CLEAR (Clear); BILIRUBIN,URINE 3+ (Negative); COLOR,URINE AMBER (Yellow); GLUCOSE,URINE TRACE (Negative); KETONES,URINE 4+ (Negative); LEUKOCYTE ESTERASE,URINE NEGATIVE (Negative); NITRITE,URINE POSITIVE (Negative); OCCULT BLOOD,URINE TRACE-LYSED (Negative); PROTEIN,URINE 3+ (Negative)
[2024-08-01 18:36] LABS: BACTERIA,URINE MODERATE /hpf (FEW); MUCUS,URINE MANY /hpf (FEW); WBC,URINE 0-5 /hpf (0-5)
[2024-08-01 19:08] LABS: BARBITURATE SCREEN,URINE NEGATIVE (CUTOFF=200); BENZODIAZEPINES SCREEN,URINE NEGATIVE (CUTOFF=150); BUPRENORPHINE SCREEN,URINE NEGATIVE (CUTOFF=10); METHADONE SCREEN, URINE NEGATIVE (CUTOFF=200); METHAMPHETAMINES SCREEN, URINE NEGATIVE (CUTOFF=500); OXYCODONE SCREEN,URINE NEGATIVE (CUT0FF=100); THC SCREEN,URINE 20 NG/ML NEGATIVE (CUTOFF=50)
[2024-08-01] MEDS: Sodium Chloride 0.9% 10 ML Syringe FLUSH ONE (19:14)
[2024-08-01] MEDS: Iopamidol 612 MG/ML 100 ML Bottle IVPUSH ONE (19:14)
[2024-08-01 19:20] LABS: AMPHETAMINES SCREEN, URINE NEGATIVE (CUTOFF=500)
[2024-08-01] MEDS: Sodium Chloride 0.9% 1,000 ML IV STA (19:24)
[2024-08-01] MEDS: Ondansetron 4 MG/2 ML SDV IVPUSH ONE (19:24)
[2024-08-01] MEDS: HYDROmorphone 0.5 MG/0.5 ML Syringe IVPUSH ONE (19:25)
[2024-08-01] MEDS: Sodium Chloride 0.9% 10 ML Syringe FLUSH PRN (19:25)
[2024-08-01 19:29] LABS: BASOPHILS PERCENT AUTO 0.4 % (0.0-1.0); EOSINOPHILS PERCENT AUTO 0.1 % (0.0-6.0); HEMATOCRIT 32.9 % (37.0-47.0); HEMOGLOBIN 10.4 gm/dl (12.0-16.0); IMMATURE GRAN ABSOLUTE AUTO 0.04 K/mm3 (0.00-0.05); IMMATURE GRAN PERCENT AUTO 0.6 % (0.0-0.4); LYMPHOCYTES ABSOLUTE AUTO 0.8 K/mm3 (1.0-4.8); LYMPHOCYTES PERCENT AUTO 10.4 % (24.0-44.0); MEAN CORPUSCULAR HEMOGLOBIN 25.9 pg (28.0-32.0); MEAN CORPUSCULAR HGB CONC 31.6 g/dl (32.0-36.0); MONOCYTES ABSOLUTE AUTO 0.5 K/mm3 (0.0-0.8); MONOCYTES PERCENT AUTO 6.5 % (0.0-8.0); NEUTROPHILS ABSOLUTE AUTO 5.9 K/mm3 (1.8-7.7); PLATELET COUNT,PLT 38 K/mm3 (150-400); RED BLOOD CELL COUNT 4.01 M/mm3 (4.10-5.30)
[2024-08-01 19:46] LABS: INR 1.55
[2024-08-01 19:47] LABS: PTT,PARTIAL THROMBOPLSTIN TIME 29.9 SECONDS (21.7-31.4)
[2024-08-01 20:00] LABS: A/G RATIO 0.6 (1-2); ALBUMIN 3.1 g/dl (3.4-5.0); ANION GAP 19.9 (5-15); BILIRUBIN TOTAL 8.4 mg/dL (0.2-1.0); CALCIUM 8.9 mg/dL (8.5-10.1); EST CRCL DRUG DOSING (CG) 91.81 mL/min; MAGNESIUM 1.1 mg/dL (1.8-2.4); POTASSIUM,K 3.9 mEq/L (3.5-5.1); TSH 2.185 uIU/mL (0.358-3.74)
[2024-08-01] MEDS: cefTRIAXone 1 GM Vial IVPUSH ONE (20:11)
[2024-08-01 20:18] LABS: CREATININE 0.8 mg/dL (0.55-1.02)
[2024-08-01] MEDS: Sodium Chloride 0.9% 500 ML IV ONE (21:44)
[2024-08-01] MEDS: Magnesium Oxide 400 MG Tab PO ONE (21:44)
[2024-08-01] MEDS: Magnesium Sulf/Wat 2 GM/50 mL 2 GM in Premix Bag 1 BAG IV ONE (21:44)
[2024-08-01] MEDS: Ketorolac 15 MG/ML SDV IVPUSH ONE (21:45)
[2024-08-02 02:02] VITALS: BP 119/96; PULSE 86
== END 2024-08-02 02:00 | disposition home or self-care (01) ==
LOC: JD.ED 16:13
DX: N39.0 Urinary tract infection, site not specified (principal); E80.6 Other disorders of bilirubin metabolism; D69.6 Thrombocytopenia, unspecified; E83.42 Hypomagnesemia; E72.20 Disorder of urea cycle metabolism, unspecified; I10 Essential (primary) hypertension; E87.1 Hypo-osmolality and hyponatremia; D64.9 Anemia, unspecified; Z88.5 Allergy status to narcotic agent; Z88.8 Allergy status to other drugs, medicaments and biological substances; Z79.899 Other long term (current) drug therapy
CPT/HCPCS: 36415; 74177; 80053; 80143; 80179; 80306; 80307; 81001; 81025; 82140; 83690; 83735; 84443; 85025; 85610; 85730; 87040; 87086; 96361; 96365; 96366; 96375; 99284; A9270; J0696; J1885; J2405; J3475; J7030; Q9967

== ENCOUNTER 2024-08-24 13:33 | Inpatient (IN) | payer OTHER ==
[2024-08-24 14:52] LABS: APPEARANCE,URINE SLT CLOUDY (Clear); BILIRUBIN,URINE 3+ (Negative); COLOR,URINE AMBER (Yellow); GLUCOSE,URINE TRACE (Negative); KETONES,URINE 3+ (Negative); LEUKOCYTE ESTERASE,URINE 3+ (Negative); NITRITE,URINE POSITIVE (Negative); OCCULT BLOOD,URINE TRACE-INTACT (Negative); PH,URINE 6.5 (5.0-8.0); PROTEIN,URINE 3+ (Negative)
[2024-08-24 14:53] LABS: BASOPHILS ABSOLUTE AUTO 0.1 K/mm3 (0.0-0.2); BASOPHILS PERCENT AUTO 0.4 % (0.0-1.0); EOSINOPHILS ABSOLUTE AUTO 0.1 K/mm3 (0.0-0.4); EOSINOPHILS PERCENT AUTO 0.5 % (0.0-6.0); HEMOGLOBIN 10.2 gm/dl (12.0-16.0); IMMATURE GRAN ABSOLUTE AUTO 0.12 K/mm3 (0.00-0.05); IMMATURE GRAN PERCENT AUTO 0.9 % (0.0-0.4); LYMPHOCYTES ABSOLUTE AUTO 0.8 K/mm3 (1.0-4.8); LYMPHOCYTES PERCENT AUTO 5.5 % (24.0-44.0); MEAN CORPUSCULAR HEMOGLOBIN 28.4 pg (28.0-32.0); MEAN CORPUSCULAR HGB CONC 31.9 g/dl (32.0-36.0); MEAN CORPUSCULAR VOLUME 89.1 fl (83.0-99.0); MONOCYTES ABSOLUTE AUTO 0.6 K/mm3 (0.0-0.8); MONOCYTES PERCENT AUTO 4.1 % (0.0-8.0); NEUTROPHILS ABSOLUTE AUTO 12.5 K/mm3 (1.8-7.7); PLATELET COUNT,PLT 52 K/mm3 (150-400); RED BLOOD CELL COUNT 3.59 M/mm3 (4.10-5.30); WHITE BLOOD CELL COUNT,WBC 14.05 K/mm3 (3.9-11.3)
[2024-08-24] MEDS: Ondansetron 4 MG/2 ML SDV IVPUSH ONE (15:09)
[2024-08-24] MEDS: Ketorolac 30 MG/ML SDV IVPUSH ONE (15:09)
[2024-08-24] MEDS: Sodium Chloride 0.9% 1,000 ML IV STA (15:10)
[2024-08-24] MEDS: Sodium Chloride 0.9% 10 ML Syringe FLUSH PRN (15:10)
[2024-08-24 15:22] LABS: BACTERIA,URINE MODERATE /hpf (FEW); EPITHELIAL CELLS,URINE 0-5 /hpf (0-5); RBC,URINE 0-5 /hpf (0-5); WBC,URINE 0-5 /hpf (0-5)
[2024-08-24 15:23] LABS: MUCUS,URINE MANY /hpf (FEW)
[2024-08-24 15:44] LABS: SLIDE REVIEW ABNORMAL SMEAR
[2024-08-24 15:49] LABS: NEUTROPHILS PERCENT AUTO 88.6 % (41.0-71.0)
[2024-08-24] MEDS: droPERidol 2.5 MG/ML SDV IVPUSH ONE (16:03)
[2024-08-24 16:15] LABS: A/G RATIO 0.5 (1-2); ALBUMIN 2.7 g/dl (3.4-5.0); BILIRUBIN TOTAL 8.2 mg/dL (0.2-1.0); BUN/CREATININE RATIO 6.3 (14-18); C-REACTIVE PROTEIN 2.85 mg/dL (<0.30); CALCIUM 8.1 mg/dL (8.5-10.1); EST CRCL DRUG DOSING (CG) 95.24 mL/min; MAGNESIUM 0.8 mg/dL (1.8-2.4)
[2024-08-24 16:20] LABS: INR 1.63; PROTHROMBIN TIME 16.7 SECONDS (9.7-12.0)
[2024-08-24 16:24] LABS: CREATININE 0.8 mg/dL (0.55-1.02); PROTEIN TOTAL,TP 8.1 g/dl (6.4-8.2)
[2024-08-24 16:48] LABS: LACTIC ACID 3.5 mmol/L (0.4-2.0)
[2024-08-24] MEDS: Iopamidol 612 MG/ML 100 ML Bottle IVPUSH ONE (17:05)
[2024-08-24] MEDS: Sodium Chloride 0.9% 10 ML Syringe FLUSH ONE (17:06)
[2024-08-24] MEDS: Piperacillin/Tazobactam 4.5 GM in Sodium Chloride 0.9% 100 ML IV ONE (17:28)
[2024-08-24] MEDS: Ondansetron 4 MG/2 ML SDV IV PRN (20:59)
[2024-08-24] MEDS: Sodium Chloride 0.9% 1,000 ML IV SCH (20:59)
[2024-08-24] MEDS: traMADol 50 MG Tab PO PRN (21:04)
[2024-08-24] MEDS: cefTRIAXone 2 GM Vial IVPUSH ONE (22:23)
[2024-08-24] MEDS: Magnesium Sulf/Wat 4 GM/50 mL 4 GM in Premix Bag 1 BAG IV ONE (23:06)
[2024-08-25] MEDS: Acetaminophen 325 MG Tab PO PRN (04:23)
[2024-08-25 05:41] LABS: BASOPHILS ABSOLUTE AUTO 0.1 K/mm3 (0.0-0.2); BASOPHILS PERCENT AUTO 0.4 % (0.0-1.0); EOSINOPHILS ABSOLUTE AUTO 0.2 K/mm3 (0.0-0.4); EOSINOPHILS PERCENT AUTO 1.8 % (0.0-6.0); HEMATOCRIT 26.1 % (37.0-47.0); IMMATURE GRAN ABSOLUTE AUTO 0.16 K/mm3 (0.00-0.05); IMMATURE GRAN PERCENT AUTO 1.2 % (0.0-0.4); LYMPHOCYTES ABSOLUTE AUTO 0.9 K/mm3 (1.0-4.8); LYMPHOCYTES PERCENT AUTO 6.8 % (24.0-44.0); MEAN CORPUSCULAR HEMOGLOBIN 28.4 pg (28.0-32.0); MEAN CORPUSCULAR HGB CONC 32.2 g/dl (32.0-36.0); MEAN CORPUSCULAR VOLUME 88.2 fl (83.0-99.0); MEAN PLATELET VOLUME 9.8 fl (9.4-12.3); MONOCYTES ABSOLUTE AUTO 0.9 K/mm3 (0.0-0.8); MONOCYTES PERCENT AUTO 6.7 % (0.0-8.0); NEUTROPHILS ABSOLUTE AUTO 10.9 K/mm3 (1.8-7.7); NEUTROPHILS PERCENT AUTO 83.1 % (41.0-71.0); NRBC ABSOLUTE 0.02 (0.00-0.02); NRBC PERCENT 0.2 % (0.0-0.2); PLATELET COUNT,PLT 65 K/mm3 (150-400); RED BLOOD CELL COUNT 2.96 M/mm3 (4.10-5.30); WHITE BLOOD CELL COUNT,WBC 13.09 K/mm3 (3.9-11.3)
[2024-08-25 05:42] LABS: HEMOGLOBIN 8.4 gm/dl (12.0-16.0)
[2024-08-25 06:03] LABS: A/G RATIO 0.5 (1-2); ALBUMIN 2.4 g/dl (3.4-5.0); ANION GAP 15.4 (5-15); BILIRUBIN TOTAL 6.3 mg/dL (0.2-1.0); BUN/CREATININE RATIO 8.8 (14-18); CALCIUM 7.9 mg/dL (8.5-10.1); CREATININE 0.8 mg/dL (0.55-1.02); EST CRCL DRUG DOSING (CG) 95.24 mL/min; POTASSIUM,K 3.4 mEq/L (3.5-5.1); PROTEIN TOTAL,TP 7.1 g/dl (6.4-8.2)
[2024-08-25 06:07] LABS: SLIDE REVIEW ABNORMAL SMEAR
[2024-08-25] MEDS: cefTRIAXone 2 GM in Sodium Chloride 0.9% 100 ML IV ONE (06:08)
[2024-08-25] MEDS: Phenazopyridine 95 MG Tab PO SCH (09:01)
[2024-08-25] MEDS: Lactulose Soln 10 GM/15 ML 30 ML UD Cup PO SCH (09:01)
[2024-08-25] MEDS: oxyCODONE 5 MG Tab PO PRN (10:10)
[2024-08-25] MEDS ORDERED: cefTRIAXone 1 GM Vial IM SCH (16:30)
[2024-08-25] MEDS: Magnesium Sulfat/D5W 1GM/100ML 1 GM in Premix Bag 1 BAG IV ONE (16:48)
[2024-08-25] MEDS: Potassium Chloride 20 MEQ Tab.ER PO ONE (16:48)
[2024-08-25] MEDS: Famotidine 20 MG/2 ML SDV IVPUSH SCH (20:40)
[2024-08-25] MEDS: cefTRIAXone 1 GM Vial IVPUSH SCH (20:40)
[2024-08-25] MEDS: Melatonin 3 MG Tab PO PRN (20:40)
[2024-08-25] MEDS: LORazepam 2 MG/ML SDV IVPUSH PRN (22:19)
[2024-08-26] MEDS: Acetaminophen 325 MG Tab PO PRN (04:30)
[2024-08-26 04:55] LABS: BASOPHILS ABSOLUTE AUTO 0.1 K/mm3 (0.0-0.2); BASOPHILS PERCENT AUTO 0.6 % (0.0-1.0); EOSINOPHILS ABSOLUTE AUTO 0.3 K/mm3 (0.0-0.4); EOSINOPHILS PERCENT AUTO 2.9 % (0.0-6.0); HEMATOCRIT 26.3 % (37.0-47.0); HEMOGLOBIN 8.3 gm/dl (12.0-16.0); IMMATURE GRAN ABSOLUTE AUTO 0.13 K/mm3 (0.00-0.05); IMMATURE GRAN PERCENT AUTO 1.5 % (0.0-0.4); LYMPHOCYTES ABSOLUTE AUTO 0.8 K/mm3 (1.0-4.8); LYMPHOCYTES PERCENT AUTO 8.9 % (24.0-44.0); MEAN CORPUSCULAR HGB CONC 31.6 g/dl (32.0-36.0); MEAN PLATELET VOLUME 10.1 fl (9.4-12.3); MONOCYTES ABSOLUTE AUTO 0.7 K/mm3 (0.0-0.8); MONOCYTES PERCENT AUTO 8.1 % (0.0-8.0); NEUTROPHILS ABSOLUTE AUTO 6.7 K/mm3 (1.8-7.7); NRBC ABSOLUTE 0.02 (0.00-0.02); NRBC PERCENT 0.2 % (0.0-0.2); PLATELET COUNT,PLT 70 K/mm3 (150-400); RED BLOOD CELL COUNT 2.86 M/mm3 (4.10-5.30); WHITE BLOOD CELL COUNT,WBC 8.56 K/mm3 (3.9-11.3)
[2024-08-26 05:59] LABS: A/G RATIO 0.5 (1-2); ALBUMIN 2.3 g/dl (3.4-5.0); ANION GAP 13.7 (5-15); BILIRUBIN TOTAL 4.9 mg/dL (0.2-1.0); BUN/CREATININE RATIO 6.7 (14-18); C-REACTIVE PROTEIN 3.57 mg/dL (<0.30); CALCIUM 8.2 mg/dL (8.5-10.1); CREATININE 0.6 mg/dL (0.55-1.02); EST CRCL DRUG DOSING (CG) 126.99 mL/min; MAGNESIUM 1.5 mg/dL (1.8-2.4); POTASSIUM,K 3.7 mEq/L (3.5-5.1); PROTEIN TOTAL,TP 7.1 g/dl (6.4-8.2)
[2024-08-26 06:38] LABS: SLIDE REVIEW ABNORMAL SMEAR
[2024-08-26] MEDS: Magnesium Sulf/Wat 4 GM/50 mL 4 GM in Premix Bag 1 BAG IV ONE (08:44)
[2024-08-26 12:07] LABS: FOLIC ACID 5.4 ng/mL (8.6-58.9)
[2024-08-26] MEDS: Potassium Phosphates 30 MMOLE in Sodium Chloride 0.9% 500 ML IV ONE (13:09)
[2024-08-26] MEDS: Lactulose Soln 10 GM/15 ML 30 ML UD Cup PO SCH (13:09)
[2024-08-26] MEDS ORDERED: Sodium Chloride 0.9% 250 ML IV SCH (15:00)
[2024-08-26] MEDS: Folic Acid 1 MG Tab PO SCH (15:55)
[2024-08-26] MEDS: Sodium Ferric Gluconate Cmplex 250 MG in Sodium Chloride 0.9% 100 ML IV ONE (20:35)
[2024-08-27 04:52] LABS: BASOPHILS ABSOLUTE AUTO 0.1 K/mm3 (0.0-0.2); BASOPHILS PERCENT AUTO 0.6 % (0.0-1.0); EOSINOPHILS ABSOLUTE AUTO 0.3 K/mm3 (0.0-0.4); EOSINOPHILS PERCENT AUTO 2.8 % (0.0-6.0); HEMATOCRIT 28.8 % (37.0-47.0); HEMOGLOBIN 8.9 gm/dl (12.0-16.0); IMMATURE GRAN ABSOLUTE AUTO 0.13 K/mm3 (0.00-0.05); IMMATURE GRAN PERCENT AUTO 1.5 % (0.0-0.4); LYMPHOCYTES ABSOLUTE AUTO 0.9 K/mm3 (1.0-4.8); LYMPHOCYTES PERCENT AUTO 10.1 % (24.0-44.0); MEAN CORPUSCULAR HEMOGLOBIN 28.7 pg (28.0-32.0); MEAN CORPUSCULAR HGB CONC 30.9 g/dl (32.0-36.0); MEAN CORPUSCULAR VOLUME 92.9 fl (83.0-99.0); MEAN PLATELET VOLUME 10.9 fl (9.4-12.3); MONOCYTES PERCENT AUTO 11.2 % (0.0-8.0); NEUTROPHILS ABSOLUTE AUTO 6.5 K/mm3 (1.8-7.7); NEUTROPHILS PERCENT AUTO 73.8 % (41.0-71.0); NRBC ABSOLUTE 0.03 (0.00-0.02); NRBC PERCENT 0.3 % (0.0-0.2); PLATELET COUNT,PLT 71 K/mm3 (150-400); WHITE BLOOD CELL COUNT,WBC 8.82 K/mm3 (3.9-11.3)
[2024-08-27 05:40] LABS: A/G RATIO 0.5 (1-2); ALBUMIN 2.3 g/dl (3.4-5.0); ANION GAP 12.9 (5-15); C-REACTIVE PROTEIN 3.48 mg/dL (<0.30); CALCIUM 8.2 mg/dL (8.5-10.1); CREATININE 0.6 mg/dL (0.55-1.02); EST CRCL DRUG DOSING (CG) 126.99 mL/min; MAGNESIUM 1.6 mg/dL (1.8-2.4); PHOSPHORUS 2.6 mg/dL (2.6-4.7); POTASSIUM,K 3.9 mEq/L (3.5-5.1); PROTEIN TOTAL,TP 7.1 g/dl (6.4-8.2)
[2024-08-27 06:49] LABS: SLIDE REVIEW ABNORMAL SMEAR
[2024-08-27] MEDS: Potassium Phosphates 30 MMOLE in Sodium Chloride 0.9% 500 ML IV SCH (10:13)
[2024-08-27] MEDS: Magnesium Sulf/Wat 4 GM/50 mL 4 GM in Premix Bag 1 BAG IV ONE (10:14)
[2024-08-27 16:23] VITALS: BP 124/80; PULSE 93
[2024-08-29 16:47] LABS: VITAMIN B1, WHOLE BLOOD 67 nmol/L (70-180)
== END 2024-08-27 16:37 | disposition home or self-care (01) | DRG 871 ==
LOC: JD.ED 13:33 → JD.MS 19:15 → UNDOADMIN 19:15 → JD.MS 08-26 09:57
PROVIDERS: ADMIT Family Medicine; ATTEND Student in an Organized Health Care Education/Training Program
DX: A40.1 Sepsis due to streptococcus, group B (principal); K72.00 Acute and subacute hepatic failure without coma; E87.20 Acidosis, unspecified; N39.0 Urinary tract infection, site not specified; N12 Tubulo-interstitial nephritis, not specified as acute or chronic; I85.10 Secondary esophageal varices without bleeding; E87.1 Hypo-osmolality and hyponatremia; R65.20 Severe sepsis without septic shock; F17.210 Nicotine dependence, cigarettes, uncomplicated; H54.7 Unspecified visual loss; I10 Essential (primary) hypertension; M06.9 Rheumatoid arthritis, unspecified; E86.0 Dehydration; E83.42 Hypomagnesemia; E88.09 Other disorders of plasma-protein metabolism, not elsewhere classified; D69.6 Thrombocytopenia, unspecified; K70.31 Alcoholic cirrhosis of liver with ascites; F10.20 Alcohol dependence, uncomplicated; K76.82 Hepatic encephalopathy; D50.9 Iron deficiency anemia, unspecified; E80.6 Other disorders of bilirubin metabolism; E87.8 Other disorders of electrolyte and fluid balance, not elsewhere classified; G47.00 Insomnia, unspecified; E87.6 Hypokalemia; E83.39 Other disorders of phosphorus metabolism; Z88.8 Allergy status to other drugs, medicaments and biological substances; Z98.84 Bariatric surgery status; Z98.890 Other specified postprocedural states; Z88.5 Allergy status to narcotic agent; Z79.899 Other long term (current) drug therapy; Z79.1 Long term (current) use of non-steroidal anti-inflammatories (NSAID)
CPT/HCPCS: 36415; 74177; 74177-26; 80053; 80307; 81001; 82140; 82607; 82746; 83540; 83605; 83690; 83735; 84100; 84425; 84466; 85025; 85610; 86140; 87040; 87086; 99285; A9270-GY; J0696; J1790; J1885; J2060; J2405; J2543; J2916; J3475; J3490; J7030; J7040; Q9967

== ENCOUNTER 2024-09-01 17:38 | Inpatient (IN) | payer OTHER ==
[2024-09-01] MEDS ORDERED: Sodium Chloride 0.9% 10 ML Syringe FLUSH PRN (19:34)
[2024-09-01 19:46] LABS: APPEARANCE,URINE CLEAR (Clear); BILIRUBIN,URINE 3+ (Negative); COLOR,URINE YELLOW (Yellow); GLUCOSE,URINE TRACE (Negative); KETONES,URINE TRACE (Negative); LEUKOCYTE ESTERASE,URINE NEGATIVE (Negative); NITRITE,URINE NEGATIVE (Negative); OCCULT BLOOD,URINE TRACE-INTACT (Negative); PROTEIN,URINE 2+ (Negative); UROBILINOGEN,URINE 0.2 (0.2-1.0)
[2024-09-01 19:48] LABS: BACTERIA,URINE FEW /hpf (FEW); MUCUS,URINE MODERATE /hpf (FEW); WBC,URINE 0-5 /hpf (0-5)
[2024-09-01 20:27] LABS: BASOPHILS ABSOLUTE AUTO 0.1 K/mm3 (0.0-0.2); BASOPHILS PERCENT AUTO 0.4 % (0.0-1.0); EOSINOPHILS ABSOLUTE AUTO 0.3 K/mm3 (0.0-0.4); EOSINOPHILS PERCENT AUTO 1.4 % (0.0-6.0); HEMATOCRIT 31.9 % (37.0-47.0); IMMATURE GRAN ABSOLUTE AUTO 0.25 K/mm3 (0.00-0.05); IMMATURE GRAN PERCENT AUTO 1.1 % (0.0-0.4); LYMPHOCYTES ABSOLUTE AUTO 1.8 K/mm3 (1.0-4.8); LYMPHOCYTES PERCENT AUTO 7.9 % (24.0-44.0); MEAN CORPUSCULAR HEMOGLOBIN 29.7 pg (28.0-32.0); MEAN CORPUSCULAR HGB CONC 31.3 g/dl (32.0-36.0); MEAN CORPUSCULAR VOLUME 94.7 fl (83.0-99.0); MEAN PLATELET VOLUME 10.1 fl (9.4-12.3); MONOCYTES ABSOLUTE AUTO 0.9 K/mm3 (0.0-0.8); MONOCYTES PERCENT AUTO 3.8 % (0.0-8.0); NEUTROPHILS ABSOLUTE AUTO 19.8 K/mm3 (1.8-7.7); NEUTROPHILS PERCENT AUTO 85.4 % (41.0-71.0); PLATELET COUNT,PLT 102 K/mm3 (150-400); RED BLOOD CELL COUNT 3.37 M/mm3 (4.10-5.30); WHITE BLOOD CELL COUNT,WBC 23.17 K/mm3 (3.9-11.3)
[2024-09-01] MEDS: Sodium Chloride 0.9% 10 ML Syringe FLUSH ONE (20:29)
[2024-09-01] MEDS: Iopamidol 612 MG/ML 100 ML Bottle IVPUSH ONE (20:29)
[2024-09-01 20:43] LABS: INR 1.62; PROTHROMBIN TIME 16.6 SECONDS (9.7-12.0)
[2024-09-01] MEDS: Sodium Chloride 0.9% 1,000 ML IV ONE (20:54)
[2024-09-01 20:56] LABS: LACTIC ACID 3.8 mmol/L (0.4-2.0)
[2024-09-01 20:57] LABS: A/G RATIO 0.4 (1-2); ALBUMIN 2.4 g/dl (3.4-5.0); ANION GAP 19.2 (5-15); BILIRUBIN TOTAL 5.1 mg/dL (0.2-1.0); BUN/CREATININE RATIO 6.3 (14-18); CALCIUM 8.6 mg/dL (8.5-10.1); EST CRCL DRUG DOSING (CG) 95.24 mL/min; ETHANOL BLOOD MEDICAL 0.2 gm% (0.00); MAGNESIUM 1.3 mg/dL (1.8-2.4)
[2024-09-01 21:00] LABS: CREATININE 0.8 mg/dL (0.55-1.02); PROTEIN TOTAL,TP 7.8 g/dl (6.4-8.2)
[2024-09-01 21:01] LABS: POTASSIUM,K 3.2 mEq/L (3.5-5.1)
[2024-09-01] MEDS: droPERidol 2.5 MG/ML SDV IV ONE (21:22)
[2024-09-01] MEDS: Piperacillin/Tazobactam 4.5 GM in Sodium Chloride 0.9% 100 ML IV ONE (21:23)
[2024-09-01 21:27] LABS: PRO B-TYPE NATRIUR PEPT,BNPPRO 155 pg/mL (0-125)
[2024-09-01 21:29] LABS: HCG QUALITATIVE,SERUM NEGATIVE (NEGATIVE)
[2024-09-01] MEDS: Magnesium Sulf/Wat 4 GM/50 mL 4 GM in Premix Bag 1 BAG IV ONE (22:26)
[2024-09-02] MEDS: Sodium Chloride 0.9% 1,000 ML IV SCH (04:01)
[2024-09-02] MEDS: Acetaminophen 325 MG Tab PO PRN ×2 (04:01→12:03)
[2024-09-02 04:11] LABS: LACTIC ACID 3.1 mmol/L (0.4-2.0)
[2024-09-02 07:37] LABS: LACTIC ACID 2.7 mmol/L (0.4-2.0)
[2024-09-02 07:58] LABS: BASOPHILS ABSOLUTE AUTO 0.1 K/mm3 (0.0-0.2); BASOPHILS PERCENT AUTO 0.4 % (0.0-1.0); EOSINOPHILS ABSOLUTE AUTO 0.3 K/mm3 (0.0-0.4); EOSINOPHILS PERCENT AUTO 1.5 % (0.0-6.0); HEMATOCRIT 30.3 % (37.0-47.0); HEMOGLOBIN 9.4 gm/dl (12.0-16.0); IMMATURE GRAN ABSOLUTE AUTO 0.18 K/mm3 (0.00-0.05); LYMPHOCYTES ABSOLUTE AUTO 1.1 K/mm3 (1.0-4.8); LYMPHOCYTES PERCENT AUTO 6.1 % (24.0-44.0); MEAN CORPUSCULAR VOLUME 93.5 fl (83.0-99.0); MEAN PLATELET VOLUME 9.7 fl (9.4-12.3); MONOCYTES ABSOLUTE AUTO 0.8 K/mm3 (0.0-0.8); MONOCYTES PERCENT AUTO 4.6 % (0.0-8.0); NEUTROPHILS ABSOLUTE AUTO 15.8 K/mm3 (1.8-7.7); NEUTROPHILS PERCENT AUTO 86.4 % (41.0-71.0); PLATELET COUNT,PLT 100 K/mm3 (150-400); RED BLOOD CELL COUNT 3.24 M/mm3 (4.10-5.30); WHITE BLOOD CELL COUNT,WBC 18.22 K/mm3 (3.9-11.3)
[2024-09-02 08:23] LABS: A/G RATIO 0.4 (1-2); ALBUMIN 2.3 g/dl (3.4-5.0); ANION GAP 18.4 (5-15); BILIRUBIN TOTAL 4.7 mg/dL (0.2-1.0); BUN/CREATININE RATIO 6.7 (14-18); CALCIUM 8.2 mg/dL (8.5-10.1); EST CRCL DRUG DOSING (CG) 126.99 mL/min; POTASSIUM,K 3.4 mEq/L (3.5-5.1)
[2024-09-02 08:26] LABS: CREATININE 0.6 mg/dL (0.55-1.02); PROTEIN TOTAL,TP 7.5 g/dl (6.4-8.2)
[2024-09-02] MEDS: Folic Acid 50 MG/10 ML MDV IV SCH (09:41)
[2024-09-02] MEDS: LORazepam 2 MG/ML SDV IV PRN (09:43)
[2024-09-02] MEDS: Thiamine 200 MG/2 ML MDV IVPUSH SCH (09:46)
[2024-09-02] MEDS: Pantoprazole 40 MG Vial IVPUSH SCH (09:47)
[2024-09-02] MEDS: cefTRIAXone 2 GM Vial IVPUSH SCH (09:49)
[2024-09-02 09:52] LABS: SLIDE REVIEW ABNORMAL SMEAR
[2024-09-02] MEDS: Spironolactone 100 MG Tab PO SCH (14:09)
[2024-09-02] MEDS: Furosemide 40 MG Tab PO SCH (14:10)
[2024-09-02] MEDS: oxyCODONE 5 MG Tab PO PRN (14:26)
[2024-09-02] MEDS: Lactulose Soln 10 GM/15 ML 30 ML UD Cup PO SCH (20:19)
[2024-09-03 04:41] LABS: BASOPHILS ABSOLUTE AUTO 0.1 K/mm3 (0.0-0.2); BASOPHILS PERCENT AUTO 0.7 % (0.0-1.0); EOSINOPHILS ABSOLUTE AUTO 0.3 K/mm3 (0.0-0.4); EOSINOPHILS PERCENT AUTO 2.4 % (0.0-6.0); HEMATOCRIT 26.7 % (37.0-47.0); HEMOGLOBIN 8.4 gm/dl (12.0-16.0); IMMATURE GRAN PERCENT AUTO 0.7 % (0.0-0.4); LYMPHOCYTES ABSOLUTE AUTO 1.4 K/mm3 (1.0-4.8); LYMPHOCYTES PERCENT AUTO 9.9 % (24.0-44.0); MEAN CORPUSCULAR HEMOGLOBIN 29.4 pg (28.0-32.0); MEAN CORPUSCULAR HGB CONC 31.5 g/dl (32.0-36.0); MEAN CORPUSCULAR VOLUME 93.4 fl (83.0-99.0); MEAN PLATELET VOLUME 10.5 fl (9.4-12.3); MONOCYTES ABSOLUTE AUTO 0.9 K/mm3 (0.0-0.8); MONOCYTES PERCENT AUTO 6.7 % (0.0-8.0); NEUTROPHILS ABSOLUTE AUTO 10.9 K/mm3 (1.8-7.7); NEUTROPHILS PERCENT AUTO 79.6 % (41.0-71.0); PLATELET COUNT,PLT 92 K/mm3 (150-400); RED BLOOD CELL COUNT 2.86 M/mm3 (4.10-5.30); WHITE BLOOD CELL COUNT,WBC 13.74 K/mm3 (3.9-11.3)
[2024-09-03 05:11] LABS: A/G RATIO 0.4 (1-2); ALBUMIN 2.1 g/dl (3.4-5.0); ANION GAP 13.1 (5-15); BILIRUBIN TOTAL 4.5 mg/dL (0.2-1.0); C-REACTIVE PROTEIN 5.6 mg/dL (<0.30); EST CRCL DRUG DOSING (CG) 126.99 mL/min; POTASSIUM,K 3.1 mEq/L (3.5-5.1)
[2024-09-03 05:17] LABS: CREATININE 0.6 mg/dL (0.55-1.02); PROTEIN TOTAL,TP 6.9 g/dl (6.4-8.2)
[2024-09-03 06:14] LABS: SLIDE REVIEW ABNORMAL SMEAR
[2024-09-03] MEDS: Potassium Chloride 20 MEQ Tab.ER PO ONE (09:36)
[2024-09-03] MEDS: Multivitamin Tab PO SCH (09:36)
[2024-09-03] MEDS: Magnesium Sulf/Wat 4 GM/50 mL 4 GM in Premix Bag 1 BAG IV ONE (09:53)
[2024-09-04 04:35] LABS: BASOPHILS ABSOLUTE AUTO 0.1 K/mm3 (0.0-0.2); BASOPHILS PERCENT AUTO 0.5 % (0.0-1.0); EOSINOPHILS ABSOLUTE AUTO 0.4 K/mm3 (0.0-0.4); EOSINOPHILS PERCENT AUTO 2.4 % (0.0-6.0); HEMATOCRIT 29.9 % (37.0-47.0); HEMOGLOBIN 9.2 gm/dl (12.0-16.0); IMMATURE GRAN ABSOLUTE AUTO 0.27 K/mm3 (0.00-0.05); IMMATURE GRAN PERCENT AUTO 1.9 % (0.0-0.4); LYMPHOCYTES ABSOLUTE AUTO 1.7 K/mm3 (1.0-4.8); LYMPHOCYTES PERCENT AUTO 11.4 % (24.0-44.0); MEAN CORPUSCULAR HGB CONC 30.8 g/dl (32.0-36.0); MEAN CORPUSCULAR VOLUME 97.4 fl (83.0-99.0); MEAN PLATELET VOLUME 10.2 fl (9.4-12.3); MONOCYTES ABSOLUTE AUTO 1.3 K/mm3 (0.0-0.8); MONOCYTES PERCENT AUTO 9.2 % (0.0-8.0); NEUTROPHILS ABSOLUTE AUTO 10.9 K/mm3 (1.8-7.7); NEUTROPHILS PERCENT AUTO 74.6 % (41.0-71.0); NRBC ABSOLUTE 0.02 (0.00-0.02); NRBC PERCENT 0.1 % (0.0-0.2); PLATELET COUNT,PLT 94 K/mm3 (150-400); RED BLOOD CELL COUNT 3.07 M/mm3 (4.10-5.30); WHITE BLOOD CELL COUNT,WBC 14.58 K/mm3 (3.9-11.3)
[2024-09-04 04:54] LABS: A/G RATIO 0.4 (1-2); ALBUMIN 2.2 g/dl (3.4-5.0); BILIRUBIN TOTAL 5.3 mg/dL (0.2-1.0); BUN/CREATININE RATIO 8.6 (14-18); C-REACTIVE PROTEIN 5.95 mg/dL (<0.30); CALCIUM 8.5 mg/dL (8.5-10.1); EST CRCL DRUG DOSING (CG) 108.85 mL/min
[2024-09-04 05:25] LABS: ANION GAP 13.6 (5-15); POTASSIUM,K 3.6 mEq/L (3.5-5.1)
[2024-09-04 05:39] LABS: CREATININE 0.7 mg/dL (0.55-1.02); PROTEIN TOTAL,TP 7.5 g/dl (6.4-8.2)
[2024-09-04] MEDS: Pantoprazole 40 MG Tab.CR PO SCH (06:12)
[2024-09-04 06:24] LABS: SLIDE REVIEW ABNORMAL SMEAR
[2024-09-04] MEDS: Folic Acid 1 MG Tab PO SCH (08:48)
[2024-09-04] MEDS: Thiamine 100 MG Tab PO SCH (08:48)
[2024-09-04] MEDS: Magnesium Sulf/Wat 4 GM/50 mL 4 GM in Premix Bag 1 BAG IV ONE (14:08)
[2024-09-04] MEDS: Ondansetron 4 MG Tab.DIS PO PRN (14:44)
[2024-09-05] MEDS: LORazepam 2 MG/ML SDV IV PRN (00:23)
[2024-09-05 05:28] LABS: A/G RATIO 0.4 (1-2); ALBUMIN 2.1 g/dl (3.4-5.0); ANION GAP 11.6 (5-15); BASOPHILS ABSOLUTE AUTO 0.1 K/mm3 (0.0-0.2); BASOPHILS PERCENT AUTO 0.7 % (0.0-1.0); BILIRUBIN TOTAL 5.5 mg/dL (0.2-1.0); BUN/CREATININE RATIO 5.7 (14-18); CALCIUM 8.6 mg/dL (8.5-10.1); EOSINOPHILS ABSOLUTE AUTO 0.3 K/mm3 (0.0-0.4); EOSINOPHILS PERCENT AUTO 2.3 % (0.0-6.0); EST CRCL DRUG DOSING (CG) 108.85 mL/min; HEMATOCRIT 27.6 % (37.0-47.0); HEMOGLOBIN 8.6 gm/dl (12.0-16.0); IMMATURE GRAN ABSOLUTE AUTO 0.31 K/mm3 (0.00-0.05); IMMATURE GRAN PERCENT AUTO 2.5 % (0.0-0.4); LYMPHOCYTES ABSOLUTE AUTO 1.5 K/mm3 (1.0-4.8); LYMPHOCYTES PERCENT AUTO 11.9 % (24.0-44.0); MAGNESIUM 1.3 mg/dL (1.8-2.4); MEAN CORPUSCULAR HGB CONC 31.2 g/dl (32.0-36.0); MEAN CORPUSCULAR VOLUME 96.2 fl (83.0-99.0); MEAN PLATELET VOLUME 10.2 fl (9.4-12.3); MONOCYTES ABSOLUTE AUTO 1.6 K/mm3 (0.0-0.8); MONOCYTES PERCENT AUTO 13.1 % (0.0-8.0); NEUTROPHILS ABSOLUTE AUTO 8.6 K/mm3 (1.8-7.7); NEUTROPHILS PERCENT AUTO 69.5 % (41.0-71.0); NRBC ABSOLUTE 0.03 (0.00-0.02); NRBC PERCENT 0.2 % (0.0-0.2); PLATELET COUNT,PLT 95 K/mm3 (150-400); POTASSIUM,K 3.6 mEq/L (3.5-5.1); RED BLOOD CELL COUNT 2.87 M/mm3 (4.10-5.30); WHITE BLOOD CELL COUNT,WBC 12.36 K/mm3 (3.9-11.3)
[2024-09-05 05:38] LABS: CREATININE 0.7 mg/dL (0.55-1.02); PROTEIN TOTAL,TP 7.1 g/dl (6.4-8.2)
[2024-09-05 06:48] LABS: SLIDE REVIEW ABNORMAL SMEAR
[2024-09-05] MEDS: Magnesium Sulf/Wat 4 GM/50 mL 4 GM in Premix Bag 1 BAG IV ONE (08:11)
[2024-09-05] MEDS: oxyCODONE 5 MG Tab PO PRN (18:28)
[2024-09-05] MEDS: LORazepam 2 MG/ML SDV IVPUSH ONE (18:39)
[2024-09-05] MEDS: LORazepam 1 MG Tab PO ONE (19:01)
[2024-09-06] MEDS: Magnesium Oxide 400 MG Tab PO SCH (09:19)
[2024-09-06] MEDS: LORazepam 2 MG/ML SDV IVPUSH PRN (09:41)
[2024-09-06 12:01] VITALS: BP 118/68; PULSE 94
== END 2024-09-06 13:01 | disposition home or self-care (01) | DRG 871 ==
LOC: JD.ED 17:38 → JD.MS 09-02 01:27
PROVIDERS: ADMIT Family Medicine; ATTEND Family Medicine
PROC: HZ2ZZZZ Detoxification Services for Substance Abuse Treatment (ICD-10-PCS; principal; 2024-09-02)
PROC: 3E03329 Introduction of Other Anti-infective into Peripheral Vein, Percutaneous Approach (ICD-10-PCS; principal; 2024-09-02)
DX: A41.9 Sepsis, unspecified organism (principal); K65.2 Spontaneous bacterial peritonitis; F10.239 Alcohol dependence with withdrawal, unspecified; E87.29 Other acidosis; R18.8 Other ascites; R65.20 Severe sepsis without septic shock; K72.10 Chronic hepatic failure without coma; H54.7 Unspecified visual loss; K74.60 Unspecified cirrhosis of liver; I10 Essential (primary) hypertension; R56.9 Unspecified convulsions; D64.9 Anemia, unspecified; E83.42 Hypomagnesemia; K29.70 Gastritis, unspecified, without bleeding; E87.6 Hypokalemia; G89.29 Other chronic pain; M54.9 Dorsalgia, unspecified; T73.0XXA Starvation, initial encounter; F17.200 Nicotine dependence, unspecified, uncomplicated; K25.9 Gastric ulcer, unspecified as acute or chronic, without hemorrhage or perforation; Z79.899 Other long term (current) drug therapy; Z98.890 Other specified postprocedural states; Z88.8 Allergy status to other drugs, medicaments and biological substances; X58.XXXA Exposure to other specified factors, initial encounter; Z87.440 Personal history of urinary (tract) infections; Z98.84 Bariatric surgery status
CPT/HCPCS: 36415; 71045; 71045-26; 74177; 74177-26; 76705; 76705-26; 80053; 80307; 81001; 82140; 82550; 83605; 83690; 83735; 83880; 84100; 84703; 85025; 85610; 85730; 86140; 87040; 87428-QW; 94760; 96365; 96366; 96367; 96375; 99284; 99285-25; A9270-GY; J0696; J1790; J2060; J2470; J2543; J3411; J3475; J3490; J7030; Q9967

== ENCOUNTER 2024-09-09 19:51 | Emergency (ER) | payer SELFPAY ==
[2024-09-09 20:46] VITALS: PULSE 88
[2024-09-09 20:49] LABS: BASOPHILS ABSOLUTE AUTO 0.2 K/mm3 (0.0-0.2); BASOPHILS PERCENT AUTO 0.9 % (0.0-1.0); EOSINOPHILS ABSOLUTE AUTO 0.3 K/mm3 (0.0-0.4); EOSINOPHILS PERCENT AUTO 1.4 % (0.0-6.0); HEMATOCRIT 32.8 % (37.0-47.0); IMMATURE GRAN PERCENT AUTO 3.8 % (0.0-0.4); LYMPHOCYTES ABSOLUTE AUTO 2.6 K/mm3 (1.0-4.8); LYMPHOCYTES PERCENT AUTO 12.5 % (24.0-44.0); MEAN CORPUSCULAR HEMOGLOBIN 30.3 pg (28.0-32.0); MEAN CORPUSCULAR HGB CONC 30.5 g/dl (32.0-36.0); MEAN CORPUSCULAR VOLUME 99.4 fl (83.0-99.0); MEAN PLATELET VOLUME 9.5 fl (9.4-12.3); MONOCYTES ABSOLUTE AUTO 1.4 K/mm3 (0.0-0.8); MONOCYTES PERCENT AUTO 6.7 % (0.0-8.0); NEUTROPHILS ABSOLUTE AUTO 15.7 K/mm3 (1.8-7.7); NEUTROPHILS PERCENT AUTO 74.7 % (41.0-71.0); PLATELET COUNT,PLT 172 K/mm3 (150-400); WHITE BLOOD CELL COUNT,WBC 21.02 K/mm3 (3.9-11.3)
[2024-09-09] MEDS: Sodium Chloride 0.9% 1,000 ML IV ONE (21:13)
[2024-09-09 21:18] LABS: INR 1.71; PROTHROMBIN TIME 17.5 SECONDS (9.7-12.0)
[2024-09-09 21:23] LABS: A/G RATIO 0.4 (1-2); ALANINE AMINOTRANSFERASE,ALT 23 U/L (14-59); ALBUMIN 2.1 g/dl (3.4-5.0); ALKALINE PHOSPHATASE 304 U/L (46-116); ANION GAP 13.7 (5-15); ASPARTATE AMNIOTRANSFERASE,AST 103 U/L (15-37); BILIRUBIN TOTAL 4.3 mg/dL (0.2-1.0); BLOOD UREA NITROGEN,BUN 3 mg/dL (7-18); CALCIUM 8.3 mg/dL (8.5-10.1); CARBON DIOXIDE,CO2 22 mEq/L (21-32); CHLORIDE,CL 108 mEq/L (98-107); CREATINE KINASE,CK 20 U/L (26-192); EST CRCL DRUG DOSING (CG) 94.99 mL/min; ESTIMATED GFR 117 mL/min (>60); ETHANOL BLOOD MEDICAL 0.36 gm% (0.00); GLUCOSE RANDOM 124 mg/dL (70-99); LIPASE 21 U/L (16-77); MAGNESIUM 1.5 mg/dL (1.8-2.4); SODIUM,NA 140 mEq/L (136-145)
[2024-09-09 21:29] LABS: ACETAMINOPHEN 0 ug/mL (10-30); TROPONIN I HIGH SENSITIVITY < 4 pg/mL (<=51)
[2024-09-09 21:30] LABS: CREATININE 0.6 mg/dL (0.55-1.02); POTASSIUM,K 3.7 mEq/L (3.5-5.1); PROTEIN TOTAL,TP 7.6 g/dl (6.4-8.2)
[2024-09-09 22:20] LABS: BARBITURATE SCREEN,URINE NEGATIVE (CUTOFF=200); BENZODIAZEPINES SCREEN,URINE PRESUMPTIVE POSITIVE (CUTOFF=150); BUPRENORPHINE SCREEN,URINE NEGATIVE (CUTOFF=10); METHADONE SCREEN, URINE NEGATIVE (CUTOFF=200); METHAMPHETAMINES SCREEN, URINE NEGATIVE (CUTOFF=500); OXYCODONE SCREEN,URINE NEGATIVE (CUT0FF=100); THC SCREEN,URINE 20 NG/ML NEGATIVE (CUTOFF=50)
[2024-09-09 22:28] LABS: AMPHETAMINES SCREEN, URINE NEGATIVE (CUTOFF=500)
[2024-09-09] MEDS: Ondansetron 4 MG/2 ML SDV IVPUSH ONE (22:35)
[2024-09-09] MEDS: LORazepam 2 MG/ML SDV IVPUSH ONE (22:35)
[2024-09-10 00:22] VITALS: BP 112/72
== END 2024-09-10 00:20 | disposition home or self-care (01) ==
LOC: JD.ED 19:51
DX: F10.120 Alcohol abuse with intoxication, uncomplicated (principal); G89.29 Other chronic pain; D72.829 Elevated white blood cell count, unspecified; I10 Essential (primary) hypertension; Z88.8 Allergy status to other drugs, medicaments and biological substances; Z88.5 Allergy status to narcotic agent; Z79.899 Other long term (current) drug therapy; Z87.19 Personal history of other diseases of the digestive system; Z86.19 Personal history of other infectious and parasitic diseases; Y90.9 Presence of alcohol in blood, level not specified
CPT/HCPCS: 36415; 80053; 80143; 80306; 80307; 81025; 82140; 82550; 83690; 83735; 83880; 84484; 85025; 85610; 87040; 93005; 96361; 96374; 96375; 99284; J2060; J2405; J7030; 93010

== ENCOUNTER 2024-09-15 09:36 | Inpatient (IN) | payer OTHER ==
[2024-09-15] MEDS: Iopamidol 612 MG/ML 100 ML Bottle IVPUSH ONE (10:10)
[2024-09-15 10:15] LABS: BASOPHILS ABSOLUTE AUTO 0.1 K/mm3 (0.0-0.2); BASOPHILS PERCENT AUTO 0.3 % (0.0-1.0); EOSINOPHILS ABSOLUTE AUTO 0.2 K/mm3 (0.0-0.4); HEMATOCRIT 32.6 % (37.0-47.0); HEMOGLOBIN 10.4 gm/dl (12.0-16.0); IMMATURE GRAN ABSOLUTE AUTO 0.23 K/mm3 (0.00-0.05); IMMATURE GRAN PERCENT AUTO 1.1 % (0.0-0.4); LYMPHOCYTES ABSOLUTE AUTO 1.1 K/mm3 (1.0-4.8); LYMPHOCYTES PERCENT AUTO 5.2 % (24.0-44.0); MEAN CORPUSCULAR HEMOGLOBIN 30.6 pg (28.0-32.0); MEAN CORPUSCULAR HGB CONC 31.9 g/dl (32.0-36.0); MEAN CORPUSCULAR VOLUME 95.9 fl (83.0-99.0); MEAN PLATELET VOLUME 9.7 fl (9.4-12.3); MONOCYTES ABSOLUTE AUTO 0.8 K/mm3 (0.0-0.8); NEUTROPHILS ABSOLUTE AUTO 18.1 K/mm3 (1.8-7.7); NEUTROPHILS PERCENT AUTO 88.4 % (41.0-71.0); PLATELET COUNT,PLT 114 K/mm3 (150-400); WHITE BLOOD CELL COUNT,WBC 20.47 K/mm3 (3.9-11.3)
[2024-09-15] MEDS: Ondansetron 4 MG/2 ML SDV IVPUSH ONE (10:18)
[2024-09-15] MEDS: HYDROmorphone 0.5 MG/0.5 ML Syringe IVPUSH ONE ×2 (10:18→12:31)
[2024-09-15] MEDS: Sodium Chloride 0.9% 10 ML Syringe FLUSH ONE (10:19)
[2024-09-15 10:34] LABS: HCG QUALITATIVE,SERUM NEGATIVE (NEGATIVE)
[2024-09-15 10:35] LABS: A/G RATIO 0.4 (1-2); ALBUMIN 2.1 g/dl (3.4-5.0); ANION GAP 15.8 (5-15); BILIRUBIN TOTAL 7.7 mg/dL (0.2-1.0); CALCIUM 8.2 mg/dL (8.5-10.1); CREATININE 0.8 mg/dL (0.55-1.02); EST CRCL DRUG DOSING (CG) 95.24 mL/min; MAGNESIUM 0.9 mg/dL (1.8-2.4); POTASSIUM,K 3.8 mEq/L (3.5-5.1); PROTEIN TOTAL,TP 8.1 g/dl (6.4-8.2)
[2024-09-15 10:36] LABS: PRO B-TYPE NATRIUR PEPT,BNPPRO 306 pg/mL (0-125)
[2024-09-15] MEDS: Sodium Chloride 0.9% 10 ML Syringe FLUSH PRN (10:39)
[2024-09-15 10:43] LABS: SLIDE REVIEW ABNORMAL SMEAR
[2024-09-15] MEDS: Magnesium Sulf/Wat 2 GM/50 mL 2 GM/50 ML BAG IV ONE (11:10)
[2024-09-15 11:46] LABS: INR 1.58; PROTHROMBIN TIME 16.3 SECONDS (9.7-12.0)
[2024-09-15] MEDS: cefTRIAXone 2 GM Vial IVPUSH ONE (11:52)
[2024-09-15 12:20] LABS: LACTIC ACID 1.5 mmol/L (0.4-2.0)
[2024-09-15] MEDS: Metoclopramide 10 MG/2 ML SDV IVPUSH ONE (12:35)
[2024-09-15] MEDS: Metoclopramide 10 MG/2 ML SDV ONE (12:39)
[2024-09-15 13:33] LABS: BODY FLUID TYPE PERITONEAL FLUID
[2024-09-15 13:41] LABS: BODY FLUID TYPE PERITONEAL FLUID
[2024-09-15 13:54] LABS: APPEARANCE,BODY FLUID CLEAR; COLOR,BODY FLUID YELLOW; VOLUME BODY FLUID 280 ML; WBC BODY FLUID 259 /uL (0-0)
[2024-09-15 13:55] LABS: MONONUCLEAR, BODY FLUID 34.8 % (0.0-0.0); POLYMORPHONUCLEAR, BODY FLUID 65.3 % (0.0-0.0)
[2024-09-15 15:32] LABS: GLUCOSE,BODY FLUID 125 mg/dL
[2024-09-15 15:33] LABS: AMYLASE,BODY FLUID 57 U/L
[2024-09-15 15:34] LABS: LACTATE DEHYDROGENASE,BODY FL 43 U/L
[2024-09-15] MEDS: HYDROmorphone 1 MG/ML Syringe IVPUSH ONE ×2 (16:36→17:04)
[2024-09-15] MEDS ORDERED: Ondansetron 4 MG/2 ML SDV IV PRN (16:46)
[2024-09-15] MEDS ORDERED: Naloxone 0.4 MG/ML SDV IVPUSH PRN (16:46)
[2024-09-15] MEDS ORDERED: LORazepam 2 MG/ML SDV IV PRN (16:50)
[2024-09-15] MEDS: Thiamine 200 MG/2 ML MDV IVPUSH SCH (17:37)
[2024-09-15] MEDS: Folic Acid 50 MG/10 ML MDV IV SCH (17:38)
[2024-09-15] MEDS: Folic Acid 1 MG Tab PO SCH (17:41)
[2024-09-15] MEDS: Cholestyramine/Sucrose Powder 4 GM Packet PO SCH (18:59)
[2024-09-15] MEDS: oxyCODONE 5 MG Tab PO PRN (19:54)
[2024-09-15] MEDS: traZODone 50 MG Tab PO PRN (21:16)
[2024-09-15] MEDS: hydrOXYzine HCl 25 MG Tab PO PRN (21:16)
[2024-09-16 04:49] LABS: BASOPHILS ABSOLUTE AUTO 0.1 K/mm3 (0.0-0.2); BASOPHILS PERCENT AUTO 0.5 % (0.0-1.0); EOSINOPHILS ABSOLUTE AUTO 0.6 K/mm3 (0.0-0.4); HEMATOCRIT 27.1 % (37.0-47.0); HEMOGLOBIN 8.4 gm/dl (12.0-16.0); IMMATURE GRAN ABSOLUTE AUTO 0.13 K/mm3 (0.00-0.05); IMMATURE GRAN PERCENT AUTO 0.9 % (0.0-0.4); LYMPHOCYTES PERCENT AUTO 6.8 % (24.0-44.0); MEAN CORPUSCULAR HEMOGLOBIN 30.2 pg (28.0-32.0); MEAN CORPUSCULAR VOLUME 97.5 fl (83.0-99.0); MONOCYTES ABSOLUTE AUTO 0.9 K/mm3 (0.0-0.8); MONOCYTES PERCENT AUTO 6.2 % (0.0-8.0); NEUTROPHILS ABSOLUTE AUTO 11.3 K/mm3 (1.8-7.7); NEUTROPHILS PERCENT AUTO 81.6 % (41.0-71.0); PLATELET COUNT,PLT 92 K/mm3 (150-400); RED BLOOD CELL COUNT 2.78 M/mm3 (4.10-5.30); WHITE BLOOD CELL COUNT,WBC 13.88 K/mm3 (3.9-11.3)
[2024-09-16 05:20] LABS: A/G RATIO 0.4 (1-2); ALBUMIN 1.9 g/dl (3.4-5.0); ANION GAP 12.6 (5-15); BILIRUBIN TOTAL 5.3 mg/dL (0.2-1.0); BUN/CREATININE RATIO 7.5 (14-18); CALCIUM 7.6 mg/dL (8.5-10.1); EST CRCL DRUG DOSING (CG) 95.24 mL/min; MAGNESIUM 1.5 mg/dL (1.8-2.4); POTASSIUM,K 3.6 mEq/L (3.5-5.1)
[2024-09-16] MEDS: Pantoprazole 40 MG Tab.CR PO SCH (05:43)
[2024-09-16 05:51] LABS: CREATININE 0.8 mg/dL (0.55-1.02); PROTEIN TOTAL,TP 6.9 g/dl (6.4-8.2)
[2024-09-16 05:54] LABS: SLIDE REVIEW ABNORMAL SMEAR
[2024-09-16] MEDS: Spironolactone 100 MG Tab PO SCH (09:07)
[2024-09-16] MEDS: Furosemide 40 MG Tab PO SCH (09:07)
[2024-09-16] MEDS: Multivitamin Tab PO SCH (09:07)
[2024-09-16 10:55] LABS: PROTEIN,BODY FLUID < 2.0 gm/dl
[2024-09-16] MEDS: Ondansetron 4 MG Tab.DIS PO PRN (11:24)
[2024-09-16] MEDS: LORazepam 1 MG Tab PO PRN (11:24)
[2024-09-16] MEDS: Lactulose Soln 10 GM/15 ML 30 ML UD Cup PO SCH (11:27)
[2024-09-16] MEDS: cefTRIAXone 2 GM Vial IVPUSH SCH (11:48)
[2024-09-16] MEDS: Thiamine 200 MG/2 ML MDV IVPUSH SCH (11:49)
[2024-09-16] MEDS: Magnesium Sulf/Wat 2 GM/50 mL 2 GM in Premix Bag 1 BAG IV ONE ×2 (11:49→12:02)
[2024-09-16] MEDS: Sodium Chloride 0.9% 1,000 ML IV SCH (13:04)
[2024-09-16] MEDS: HYDROmorphone 0.5 MG/0.5 ML Syringe IVPUSH PRN (16:50)
[2024-09-16 17:24] LABS: APPEARANCE,URINE CLEAR (Clear); BILIRUBIN,URINE 3+ (Negative); COLOR,URINE AMBER (Yellow); GLUCOSE,URINE TRACE (Negative); KETONES,URINE 1+ (Negative); LEUKOCYTE ESTERASE,URINE NEGATIVE (Negative); NITRITE,URINE NEGATIVE (Negative); OCCULT BLOOD,URINE NEGATIVE (Negative); PH,URINE 5.5 (5.0-8.0); PROTEIN,URINE 1+ (Negative); UROBILINOGEN,URINE 0.2 (0.2-1.0)
[2024-09-16 17:52] LABS: BACTERIA,URINE MODERATE /hpf (FEW); MUCUS,URINE MANY /hpf (FEW); RBC,URINE 0-5 /hpf (0-5); WBC,URINE 0-5 /hpf (0-5)
[2024-09-17 04:46] LABS: BASOPHILS ABSOLUTE AUTO 0.1 K/mm3 (0.0-0.2); BASOPHILS PERCENT AUTO 0.4 % (0.0-1.0); EOSINOPHILS ABSOLUTE AUTO 0.5 K/mm3 (0.0-0.4); EOSINOPHILS PERCENT AUTO 4.3 % (0.0-6.0); HEMATOCRIT 25.6 % (37.0-47.0); IMMATURE GRAN ABSOLUTE AUTO 0.12 K/mm3 (0.00-0.05); LYMPHOCYTES ABSOLUTE AUTO 1.3 K/mm3 (1.0-4.8); LYMPHOCYTES PERCENT AUTO 10.6 % (24.0-44.0); MEAN CORPUSCULAR HEMOGLOBIN 30.1 pg (28.0-32.0); MEAN CORPUSCULAR HGB CONC 31.3 g/dl (32.0-36.0); MEAN CORPUSCULAR VOLUME 96.2 fl (83.0-99.0); MEAN PLATELET VOLUME 10.7 fl (9.4-12.3); MONOCYTES ABSOLUTE AUTO 0.8 K/mm3 (0.0-0.8); MONOCYTES PERCENT AUTO 7.1 % (0.0-8.0); NEUTROPHILS ABSOLUTE AUTO 9.1 K/mm3 (1.8-7.7); NEUTROPHILS PERCENT AUTO 76.6 % (41.0-71.0); NRBC ABSOLUTE 0.02 (0.00-0.02); NRBC PERCENT 0.2 % (0.0-0.2); PLATELET COUNT,PLT 91 K/mm3 (150-400); RED BLOOD CELL COUNT 2.66 M/mm3 (4.10-5.30); WHITE BLOOD CELL COUNT,WBC 11.83 K/mm3 (3.9-11.3)
[2024-09-17 05:01] LABS: A/G RATIO 0.4 (1-2); ALBUMIN 1.8 g/dl (3.4-5.0); ANION GAP 11.4 (5-15); BILIRUBIN TOTAL 4.7 mg/dL (0.2-1.0); BUN/CREATININE RATIO 7.1 (14-18); CALCIUM 7.5 mg/dL (8.5-10.1); EST CRCL DRUG DOSING (CG) 108.85 mL/min; MAGNESIUM 1.6 mg/dL (1.8-2.4); POTASSIUM,K 3.4 mEq/L (3.5-5.1)
[2024-09-17 05:39] LABS: CREATININE 0.7 mg/dL (0.55-1.02); PROTEIN TOTAL,TP 6.9 g/dl (6.4-8.2)
[2024-09-17 06:01] LABS: SLIDE REVIEW ABNORMAL SMEAR
[2024-09-17] MEDS: Potassium Chloride 20 MEQ Tab.ER PO ONE (08:05)
[2024-09-17] MEDS: Magnesium Sulf/Wat 4 GM/50 mL 4 GM in Premix Bag 1 BAG IV ONE (08:05)
[2024-09-17] MEDS: oxyCODONE 5 MG Tab PO PRN (14:42)
[2024-09-18 04:39] LABS: BASOPHILS ABSOLUTE AUTO 0.1 K/mm3 (0.0-0.2); BASOPHILS PERCENT AUTO 0.5 % (0.0-1.0); EOSINOPHILS ABSOLUTE AUTO 0.4 K/mm3 (0.0-0.4); EOSINOPHILS PERCENT AUTO 3.8 % (0.0-6.0); IMMATURE GRAN ABSOLUTE AUTO 0.12 K/mm3 (0.00-0.05); IMMATURE GRAN PERCENT AUTO 1.2 % (0.0-0.4); LYMPHOCYTES ABSOLUTE AUTO 1.1 K/mm3 (1.0-4.8); LYMPHOCYTES PERCENT AUTO 10.6 % (24.0-44.0); MEAN CORPUSCULAR HEMOGLOBIN 30.3 pg (28.0-32.0); MEAN CORPUSCULAR HGB CONC 30.8 g/dl (32.0-36.0); MEAN CORPUSCULAR VOLUME 98.5 fl (83.0-99.0); MEAN PLATELET VOLUME 10.4 fl (9.4-12.3); MONOCYTES PERCENT AUTO 10.3 % (0.0-8.0); NEUTROPHILS ABSOLUTE AUTO 7.4 K/mm3 (1.8-7.7); NEUTROPHILS PERCENT AUTO 73.6 % (41.0-71.0); NRBC ABSOLUTE 0.02 (0.00-0.02); NRBC PERCENT 0.2 % (0.0-0.2); PLATELET COUNT,PLT 91 K/mm3 (150-400); RED BLOOD CELL COUNT 2.64 M/mm3 (4.10-5.30); WHITE BLOOD CELL COUNT,WBC 10.07 K/mm3 (3.9-11.3)
[2024-09-18 05:40] LABS: A/G RATIO 0.3 (1-2); ALBUMIN 1.7 g/dl (3.4-5.0); ANION GAP 10.6 (5-15); BILIRUBIN TOTAL 4.4 mg/dL (0.2-1.0); BUN/CREATININE RATIO 6.7 (14-18); CALCIUM 7.7 mg/dL (8.5-10.1); EST CRCL DRUG DOSING (CG) 126.99 mL/min; POTASSIUM,K 3.6 mEq/L (3.5-5.1)
[2024-09-18 05:52] LABS: CREATININE 0.6 mg/dL (0.55-1.02); PROTEIN TOTAL,TP 6.7 g/dl (6.4-8.2)
[2024-09-18 06:48] LABS: SLIDE REVIEW ABNORMAL SMEAR
[2024-09-18] MEDS: Acetaminophen 325 MG Tab PO PRN (10:49)
[2024-09-18] MEDS: Magnesium Sulf/Wat 4 GM/50 mL 4 GM in Premix Bag 1 BAG IV ONE (12:58)
[2024-09-19 08:33] VITALS: BP 101/78; PULSE 79
[2024-09-19] MEDS: Thiamine 100 MG Tab PO SCH (09:31)
== END 2024-09-19 14:05 | disposition home or self-care (01) | DRG 433 ==
LOC: JD.ED 09:36 → JD.MS 16:46
PROVIDERS: ADMIT Family Medicine; ATTEND Family Medicine
PROC: 0W9G3ZZ Drainage of Peritoneal Cavity, Percutaneous Approach (ICD-10-PCS; principal; 2024-09-15)
DX: K70.31 Alcoholic cirrhosis of liver with ascites (principal); F10.139 Alcohol abuse with withdrawal, unspecified; K76.6 Portal hypertension; R65.10 Systemic inflammatory response syndrome (SIRS) of non-infectious origin without acute organ dysfunction; K70.40 Alcoholic hepatic failure without coma; H54.7 Unspecified visual loss; I10 Essential (primary) hypertension; M06.9 Rheumatoid arthritis, unspecified; E83.42 Hypomagnesemia; L29.81 Cholestatic pruritus; K76.82 Hepatic encephalopathy; E87.6 Hypokalemia; Z88.5 Allergy status to narcotic agent; Z88.8 Allergy status to other drugs, medicaments and biological substances; Z79.899 Other long term (current) drug therapy; Z98.890 Other specified postprocedural states; Z98.84 Bariatric surgery status
CPT/HCPCS: 36415; 49083; 71045; 71045-26; 74177; 74177-26; 80053; 80143; 80179; 80307; 81001; 82042; 82140; 82150; 82945; 83605; 83615; 83690; 83735; 83880; 84100; 84157; 84484; 84703; 85025; 85610; 86140; 87040; 87070; 87075; 87205; 89050; 93005; 93010; 96365; 96366; 96375; 96376; 99285; 99285-25; A9270-GY; J0696; J1171; J2405; J2765; J3411; J3475; J7030; Q9967

== ENCOUNTER 2024-09-21 12:17 | Emergency (ER) | payer OTHER ==
[2024-09-21 13:37] LABS: BASOPHILS ABSOLUTE AUTO 0.1 K/mm3 (0.0-0.2); BASOPHILS PERCENT AUTO 0.7 % (0.0-1.0); EOSINOPHILS ABSOLUTE AUTO 0.2 K/mm3 (0.0-0.4); EOSINOPHILS PERCENT AUTO 1.3 % (0.0-6.0); HEMATOCRIT 30.7 % (37.0-47.0); IMMATURE GRAN ABSOLUTE AUTO 0.15 K/mm3 (0.00-0.05); IMMATURE GRAN PERCENT AUTO 1.2 % (0.0-0.4); LYMPHOCYTES ABSOLUTE AUTO 1.2 K/mm3 (1.0-4.8); MEAN CORPUSCULAR HEMOGLOBIN 30.5 pg (28.0-32.0); MEAN CORPUSCULAR HGB CONC 31.3 g/dl (32.0-36.0); MEAN CORPUSCULAR VOLUME 97.5 fl (83.0-99.0); MEAN PLATELET VOLUME 10.4 fl (9.4-12.3); MONOCYTES ABSOLUTE AUTO 0.9 K/mm3 (0.0-0.8); MONOCYTES PERCENT AUTO 7.4 % (0.0-8.0); NEUTROPHILS ABSOLUTE AUTO 10.3 K/mm3 (1.8-7.7); NEUTROPHILS PERCENT AUTO 80.4 % (41.0-71.0); NRBC ABSOLUTE 0.02 (0.00-0.02); NRBC PERCENT 0.2 % (0.0-0.2); PLATELET COUNT,PLT 130 K/mm3 (150-400); RED BLOOD CELL COUNT 3.15 M/mm3 (4.10-5.30); WHITE BLOOD CELL COUNT,WBC 12.76 K/mm3 (3.9-11.3)
[2024-09-21 13:40] LABS: HEMOGLOBIN 9.6 gm/dl (12.0-16.0)
[2024-09-21 13:44] LABS: LACTIC ACID 1.2 mmol/L (0.4-2.0)
[2024-09-21 13:48] LABS: A/G RATIO 0.4 (1-2); ALANINE AMINOTRANSFERASE,ALT 16 U/L (14-59); ALKALINE PHOSPHATASE 323 U/L (46-116); ANION GAP 12.7 (5-15); ASPARTATE AMNIOTRANSFERASE,AST 85 U/L (15-37); BILIRUBIN TOTAL 6.3 mg/dL (0.2-1.0); BLOOD UREA NITROGEN,BUN 6 mg/dL (7-18); BUN/CREATININE RATIO 8.6 (14-18); C-REACTIVE PROTEIN 4.32 mg/dL (<0.30); CALCIUM 8.9 mg/dL (8.5-10.1); CARBON DIOXIDE,CO2 24 mEq/L (21-32); CHLORIDE,CL 101 mEq/L (98-107); ESTIMATED GFR 113 mL/min (>60); GLUCOSE RANDOM 116 mg/dL (70-99); POTASSIUM,K 3.7 mEq/L (3.5-5.1); SODIUM,NA 134 mEq/L (136-145)
[2024-09-21 13:50] LABS: CREATININE 0.7 mg/dL (0.55-1.02); PROTEIN TOTAL,TP 7.7 g/dl (6.4-8.2)
[2024-09-21 13:55] LABS: INR 1.54; PROTHROMBIN TIME 15.9 SECONDS (9.7-12.0)
[2024-09-21 14:22] LABS: SLIDE REVIEW ABNORMAL SMEAR
[2024-09-21 14:42] LABS: APPEARANCE,URINE CLEAR (Clear); BILIRUBIN,URINE 1+ (Negative); COLOR,URINE YELLOW (Yellow); GLUCOSE,URINE NEGATIVE (Negative); KETONES,URINE NEGATIVE (Negative); LEUKOCYTE ESTERASE,URINE NEGATIVE (Negative); NITRITE,URINE NEGATIVE (Negative); OCCULT BLOOD,URINE NEGATIVE (Negative); PH,URINE 7.5 (5.0-8.0); PROTEIN,URINE NEGATIVE (Negative); UROBILINOGEN,URINE 0.2 (0.2-1.0)
[2024-09-21] MEDS: droPERidol 2.5 MG/ML SDV IVPUSH ONE (14:58)
[2024-09-21] MEDS: HYDROmorphone 0.5 MG/0.5 ML Syringe IVPUSH ONE (14:58)
[2024-09-21] MEDS: Sodium Chloride 0.9% 10 ML Syringe FLUSH ONE (15:21)
[2024-09-21] MEDS: Iopamidol 612 MG/ML 100 ML Bottle IVPUSH ONE (15:21)
[2024-09-21 18:29] VITALS: BP 109/71; PULSE 75
== END 2024-09-21 16:33 | disposition home or self-care (01) ==
LOC: JD.ED 12:17
DX: K70.31 Alcoholic cirrhosis of liver with ascites (principal); E88.09 Other disorders of plasma-protein metabolism, not elsewhere classified; E80.6 Other disorders of bilirubin metabolism; I10 Essential (primary) hypertension; Z88.5 Allergy status to narcotic agent; Z88.8 Allergy status to other drugs, medicaments and biological substances; Z79.899 Other long term (current) drug therapy
CPT/HCPCS: 36415; 74177; 80053; 80307; 81003; 82140; 83605; 83690; 83880; 85025; 85610; 86140; 96374; 96375; 99285; J1790; Q9967; 99284

== ENCOUNTER 2024-09-27 13:47 | Emergency (ER) | payer OTHER ==
[2024-09-27 15:01] LABS: BASOPHILS ABSOLUTE AUTO 0.1 K/mm3 (0.0-0.2); BASOPHILS PERCENT AUTO 0.6 % (0.0-1.0); EOSINOPHILS ABSOLUTE AUTO 0.1 K/mm3 (0.0-0.4); EOSINOPHILS PERCENT AUTO 1.3 % (0.0-6.0); HEMATOCRIT 33.8 % (37.0-47.0); HEMOGLOBIN 10.3 gm/dl (12.0-16.0); IMMATURE GRAN ABSOLUTE AUTO 0.08 K/mm3 (0.00-0.05); IMMATURE GRAN PERCENT AUTO 0.7 % (0.0-0.4); LYMPHOCYTES ABSOLUTE AUTO 1.4 K/mm3 (1.0-4.8); LYMPHOCYTES PERCENT AUTO 12.2 % (24.0-44.0); MEAN CORPUSCULAR HEMOGLOBIN 30.4 pg (28.0-32.0); MEAN CORPUSCULAR HGB CONC 30.5 g/dl (32.0-36.0); MEAN CORPUSCULAR VOLUME 99.7 fl (83.0-99.0); MEAN PLATELET VOLUME 10.4 fl (9.4-12.3); MONOCYTES ABSOLUTE AUTO 0.9 K/mm3 (0.0-0.8); MONOCYTES PERCENT AUTO 7.6 % (0.0-8.0); NEUTROPHILS ABSOLUTE AUTO 8.7 K/mm3 (1.8-7.7); NEUTROPHILS PERCENT AUTO 77.6 % (41.0-71.0); PLATELET COUNT,PLT 116 K/mm3 (150-400); RED BLOOD CELL COUNT 3.39 M/mm3 (4.10-5.30); WHITE BLOOD CELL COUNT,WBC 11.19 K/mm3 (3.9-11.3)
[2024-09-27] MEDS: Ondansetron 4 MG Tab.DIS PO ONE (15:18)
[2024-09-27] MEDS: HYDROmorphone 1 MG/ML Syringe IM ONE (15:18)
[2024-09-27 15:26] LABS: A/G RATIO 0.4 (1-2); ALBUMIN 2.3 g/dl (3.4-5.0); ANION GAP 11.2 (5-15); BILIRUBIN TOTAL 4.9 mg/dL (0.2-1.0); BUN/CREATININE RATIO 3.8 (14-18); CALCIUM 8.7 mg/dL (8.5-10.1); EST CRCL DRUG DOSING (CG) 95.24 mL/min; MAGNESIUM 1.3 mg/dL (1.8-2.4); POTASSIUM,K 3.2 mEq/L (3.5-5.1)
[2024-09-27 15:35] LABS: CREATININE 0.8 mg/dL (0.55-1.02); PROTEIN TOTAL,TP 8.3 g/dl (6.4-8.2)
[2024-09-27] MEDS: hydrOXYzine HCl 25 MG Tab PO ONE (15:48)
[2024-09-27] MEDS: Ondansetron 4 MG/2 ML SDV IVPUSH ONE (16:51)
[2024-09-27] MEDS: HYDROmorphone 0.5 MG/0.5 ML Syringe IVPUSH ONE ×2 (16:51→18:01)
[2024-09-27 17:11] LABS: APPEARANCE,URINE SLT CLOUDY (Clear); BILIRUBIN,URINE 3+ (Negative); COLOR,URINE ORANGE (Yellow); GLUCOSE,URINE TRACE (Negative); KETONES,URINE 1+ (Negative); LEUKOCYTE ESTERASE,URINE NEGATIVE (Negative); NITRITE,URINE POSITIVE (Negative); OCCULT BLOOD,URINE NEGATIVE (Negative); PH,URINE 6.5 (5.0-8.0); PROTEIN,URINE 2+ (Negative); UROBILINOGEN,URINE >=8.0 (0.2-1.0)
[2024-09-27] MEDS: Sodium Chloride 0.9% 10 ML Syringe FLUSH PRN (17:21)
[2024-09-27 17:30] LABS: BACTERIA,URINE MANY /hpf (FEW); EPITHELIAL CELLS,URINE 0-5 /hpf (0-5); MUCUS,URINE MODERATE /hpf (FEW); RBC,URINE 0-5 /hpf (0-5); WBC,URINE 0-5 /hpf (0-5)
[2024-09-27 17:45] VITALS: BP 101/62; PULSE 69
== END 2024-09-27 18:01 | disposition home or self-care (01) ==
LOC: JD.ED 13:47
DX: K70.11 Alcoholic hepatitis with ascites (principal); F10.10 Alcohol abuse, uncomplicated; N39.0 Urinary tract infection, site not specified; I10 Essential (primary) hypertension; Z98.84 Bariatric surgery status; Z88.5 Allergy status to narcotic agent; Z88.8 Allergy status to other drugs, medicaments and biological substances; Z79.899 Other long term (current) drug therapy; Y90.9 Presence of alcohol in blood, level not specified
CPT/HCPCS: 36415; 80053; 81001; 83690; 83735; 84703; 85025; 96372; 96374; 99284; A9270; J1171

== ENCOUNTER 2024-10-02 11:49 | Emergency (ER) | payer OTHER ==
[2024-10-02] MEDS: Sodium Chloride 0.9% 1,000 ML IV ONE (12:54)
[2024-10-02] MEDS: droPERidol 2.5 MG/ML SDV IV STA (12:54)
[2024-10-02 13:03] LABS: BASOPHILS ABSOLUTE AUTO 0.1 K/mm3 (0.0-0.2); BASOPHILS PERCENT AUTO 0.6 % (0.0-1.0); EOSINOPHILS ABSOLUTE AUTO 0.1 K/mm3 (0.0-0.4); EOSINOPHILS PERCENT AUTO 1.3 % (0.0-6.0); HEMATOCRIT 34.4 % (37.0-47.0); HEMOGLOBIN 10.5 gm/dl (12.0-16.0); IMMATURE GRAN ABSOLUTE AUTO 0.05 K/mm3 (0.00-0.05); IMMATURE GRAN PERCENT AUTO 0.5 % (0.0-0.4); LYMPHOCYTES ABSOLUTE AUTO 1.3 K/mm3 (1.0-4.8); LYMPHOCYTES PERCENT AUTO 12.1 % (24.0-44.0); MEAN CORPUSCULAR HEMOGLOBIN 29.8 pg (28.0-32.0); MEAN CORPUSCULAR HGB CONC 30.5 g/dl (32.0-36.0); MEAN CORPUSCULAR VOLUME 97.7 fl (83.0-99.0); MEAN PLATELET VOLUME 10.7 fl (9.4-12.3); MONOCYTES ABSOLUTE AUTO 0.7 K/mm3 (0.0-0.8); MONOCYTES PERCENT AUTO 6.5 % (0.0-8.0); NEUTROPHILS ABSOLUTE AUTO 8.2 K/mm3 (1.8-7.7); PLATELET COUNT,PLT 136 K/mm3 (150-400); RED BLOOD CELL COUNT 3.52 M/mm3 (4.10-5.30); WHITE BLOOD CELL COUNT,WBC 10.31 K/mm3 (3.9-11.3)
[2024-10-02 13:17] LABS: APPEARANCE,URINE SLT CLOUDY (Clear); BILIRUBIN,URINE 3+ (Negative); COLOR,URINE ORANGE (Yellow); GLUCOSE,URINE TRACE (Negative); KETONES,URINE 1+ (Negative); LEUKOCYTE ESTERASE,URINE NEGATIVE (Negative); NITRITE,URINE NEGATIVE (Negative); OCCULT BLOOD,URINE NEGATIVE (Negative); PROTEIN,URINE 2+ (Negative)
[2024-10-02 13:17] LABS: INR 1.53; PROTHROMBIN TIME 15.8 SECONDS (9.7-12.0)
[2024-10-02 13:21] LABS: A/G RATIO 0.4 (1-2); ALANINE AMINOTRANSFERASE,ALT 17 U/L (14-59); ALBUMIN 2.4 g/dl (3.4-5.0); ALKALINE PHOSPHATASE 237 U/L (46-116); ANION GAP 10.4 (5-15); ASPARTATE AMNIOTRANSFERASE,AST 74 U/L (15-37); BILIRUBIN TOTAL 4.5 mg/dL (0.2-1.0); BLOOD UREA NITROGEN,BUN 4 mg/dL (7-18); CALCIUM 8.7 mg/dL (8.5-10.1); CARBON DIOXIDE,CO2 27 mEq/L (21-32); CHLORIDE,CL 100 mEq/L (98-107); EST CRCL DRUG DOSING (CG) 95.24 mL/min; ESTIMATED GFR 96 mL/min (>60); GLUCOSE RANDOM 117 mg/dL (70-99); LIPASE 39 U/L (16-77); MAGNESIUM 1.4 mg/dL (1.8-2.4); POTASSIUM,K 3.4 mEq/L (3.5-5.1); SODIUM,NA 134 mEq/L (136-145)
[2024-10-02 13:22] LABS: BACTERIA,URINE FEW /hpf (FEW); MUCUS,URINE MANY /hpf (FEW); RBC,URINE 0-5 /hpf (0-5); WBC,URINE 0-5 /hpf (0-5)
[2024-10-02 13:24] LABS: BARBITURATE SCREEN,URINE NEGATIVE (CUTOFF=200); BENZODIAZEPINES SCREEN,URINE PRESUMPTIVE POSITIVE (CUTOFF=150); BUPRENORPHINE SCREEN,URINE NEGATIVE (CUTOFF=10); METHADONE SCREEN, URINE NEGATIVE (CUTOFF=200); METHAMPHETAMINES SCREEN, URINE NEGATIVE (CUTOFF=500); OXYCODONE SCREEN,URINE NEGATIVE (CUT0FF=100); THC SCREEN,URINE 20 NG/ML NEGATIVE (CUTOFF=50)
[2024-10-02 13:26] LABS: AMPHETAMINES SCREEN, URINE NEGATIVE (CUTOFF=500)
[2024-10-02 13:26] LABS: CREATININE 0.8 mg/dL (0.55-1.02); PROTEIN TOTAL,TP 8.4 g/dl (6.4-8.2)
[2024-10-02 13:36] LABS: CREATINE KINASE,CK < 7 U/L (26-192)
[2024-10-02] MEDS: Magnesium Sulfate 2 GM/50 mL 2 GM/50 ML BAG IV ONE (15:06)
[2024-10-02 15:59] VITALS: BP 112/71; PULSE 76
== END 2024-10-02 15:48 | disposition home or self-care (01) ==
LOC: JD.ED 11:49
DX: K74.60 Unspecified cirrhosis of liver (principal); R18.8 Other ascites; E72.20 Disorder of urea cycle metabolism, unspecified; I10 Essential (primary) hypertension; Z87.891 Personal history of nicotine dependence; Z88.5 Allergy status to narcotic agent; Z88.8 Allergy status to other drugs, medicaments and biological substances; Z79.899 Other long term (current) drug therapy; Z87.440 Personal history of urinary (tract) infections
CPT/HCPCS: 36415; 80053; 80306; 80307; 81001; 82140; 82550; 83690; 83735; 85025; 85610; 87428; 96365; 96375; 99284; J1790; J3475; J7030; 99283

== ENCOUNTER 2024-10-24 17:16 | Emergency (ER) | payer OTHER ==
[2024-10-24 17:38] VITALS: BP 129/75; PULSE 76
[2024-10-24] MEDS: Ondansetron 4 MG Tab.DIS PO ONE (17:45)
[2024-10-24 18:08] LABS: APPEARANCE,URINE CLEAR (Clear); BILIRUBIN,URINE NEGATIVE (Negative); COLOR,URINE YELLOW (Yellow); GLUCOSE,URINE NEGATIVE (Negative); KETONES,URINE NEGATIVE (Negative); LEUKOCYTE ESTERASE,URINE TRACE (Negative); NITRITE,URINE NEGATIVE (Negative); OCCULT BLOOD,URINE TRACE-LYSED (Negative); PROTEIN,URINE NEGATIVE (Negative)
[2024-10-24 18:23] LABS: BACTERIA,URINE MODERATE /hpf (FEW); MUCUS,URINE FEW /hpf (FEW)
== END 2024-10-24 18:37 | disposition home or self-care (01) ==
LOC: JD.ED 17:16
DX: F10.129 Alcohol abuse with intoxication, unspecified (principal); F41.9 Anxiety disorder, unspecified; G89.29 Other chronic pain; I10 Essential (primary) hypertension; Z88.5 Allergy status to narcotic agent; Z88.8 Allergy status to other drugs, medicaments and biological substances; Z79.899 Other long term (current) drug therapy
CPT/HCPCS: 81001; 93005; 99284; A9270; 93010; 99283

== ENCOUNTER 2024-10-25 14:20 | Emergency (ER) | payer OTHER ==
[2024-10-25 15:05] LABS: BASOPHILS PERCENT AUTO 0.8 % (0.0-1.0); EOSINOPHILS PERCENT AUTO 0.2 % (0.0-6.0); HEMATOCRIT 31.3 % (37.0-47.0); IMMATURE GRAN ABSOLUTE AUTO 0.01 K/mm3 (0.00-0.05); IMMATURE GRAN PERCENT AUTO 0.2 % (0.0-0.4); LYMPHOCYTES ABSOLUTE AUTO 1.1 K/mm3 (1.0-4.8); LYMPHOCYTES PERCENT AUTO 20.3 % (24.0-44.0); MEAN PLATELET VOLUME 8.5 fl (9.4-12.3); MONOCYTES ABSOLUTE AUTO 0.3 K/mm3 (0.0-0.8); NEUTROPHILS ABSOLUTE AUTO 3.9 K/mm3 (1.8-7.7); NEUTROPHILS PERCENT AUTO 72.5 % (41.0-71.0); RED BLOOD CELL COUNT 3.46 M/mm3 (4.10-5.30); WHITE BLOOD CELL COUNT,WBC 5.31 K/mm3 (3.9-11.3)
[2024-10-25 15:10] LABS: HEMOGLOBIN 9.7 gm/dl (12.0-16.0); MEAN CORPUSCULAR VOLUME 90.5 fl (83.0-99.0); PLATELET COUNT,PLT 49 K/mm3 (150-400)
[2024-10-25 15:14] LABS: BARBITURATE SCREEN,URINE NEGATIVE (CUTOFF=200); BENZODIAZEPINES SCREEN,URINE PRESUMPTIVE POSITIVE (CUTOFF=150); BUPRENORPHINE SCREEN,URINE NEGATIVE (CUTOFF=10); METHADONE SCREEN, URINE NEGATIVE (CUTOFF=200); METHAMPHETAMINES SCREEN, URINE NEGATIVE (CUTOFF=500); OXYCODONE SCREEN,URINE NEGATIVE (CUT0FF=100); THC SCREEN,URINE 20 NG/ML NEGATIVE (CUTOFF=50)
[2024-10-25 15:17] LABS: AMPHETAMINES SCREEN, URINE NEGATIVE (CUTOFF=500)
[2024-10-25 15:29] LABS: A/G RATIO 0.5 (1-2); ALANINE AMINOTRANSFERASE,ALT 15 U/L (14-59); ALBUMIN 2.8 g/dl (3.4-5.0); ALKALINE PHOSPHATASE 230 U/L (46-116); ANION GAP 20.8 (5-15); ASPARTATE AMNIOTRANSFERASE,AST 82 U/L (15-37); BILIRUBIN TOTAL 4.1 mg/dL (0.2-1.0); BLOOD UREA NITROGEN,BUN 4 mg/dL (7-18); CALCIUM 8.5 mg/dL (8.5-10.1); CARBON DIOXIDE,CO2 20 mEq/L (21-32); CHLORIDE,CL 103 mEq/L (98-107); CREATINE KINASE,CK 65 U/L (26-192); ESTIMATED GFR 96 mL/min (>60); GLUCOSE RANDOM 96 mg/dL (70-99); LIPASE 34 U/L (16-77); MAGNESIUM 1.1 mg/dL (1.8-2.4); POTASSIUM,K 3.8 mEq/L (3.5-5.1); SODIUM,NA 140 mEq/L (136-145)
[2024-10-25 15:41] LABS: SLIDE REVIEW ABNORMAL SMEAR
[2024-10-25 15:47] LABS: ACETAMINOPHEN 0 ug/mL (10-30); CREATININE 0.8 mg/dL (0.55-1.02); PROTEIN TOTAL,TP 8.4 g/dl (6.4-8.2)
[2024-10-25] MEDS: Acetaminophen 325 MG Tab PO ONE (16:04)
[2024-10-25] MEDS: Potassium Chloride 20 MEQ Tab.ER PO ONE (16:05)
[2024-10-25] MEDS: Ondansetron 4 MG/2 ML SDV IVPUSH ONE (16:05)
[2024-10-25] MEDS: Thiamine 200 MG/2 ML MDV IVPUSH ONE (16:06)
[2024-10-25] MEDS: Magnesium Sulfate 2 GM/50 mL 2 GM/50 ML BAG IV ONE ×2 (16:06→17:38)
[2024-10-25] MEDS: Sodium Chloride 0.9% 2,000 ML IV ONE (16:06)
[2024-10-25] MEDS: Folic Acid 1 MG Tab PO ONE (16:06)
[2024-10-25 19:46] VITALS: BP 115/80; PULSE 81
== END 2024-10-25 19:39 | disposition other institution (70) ==
LOC: JD.ED 14:20
DX: F10.129 Alcohol abuse with intoxication, unspecified (principal); F41.9 Anxiety disorder, unspecified; E83.42 Hypomagnesemia; I10 Essential (primary) hypertension; Z88.8 Allergy status to other drugs, medicaments and biological substances; Y90.0 Blood alcohol level of less than 20 mg/100 ml
CPT/HCPCS: 36415; 80053; 80143; 80179; 80306; 80307; 81025; 82550; 83690; 83735; 85025; 96365; 96366; 96375; 99285; A9270; J2405; J3411; J3475; J7030

== ENCOUNTER 2024-10-26 15:21 | Emergency (ER) | payer OTHER ==
[2024-10-26] MEDS: LORazepam 2 MG/ML SDV IM ONE (16:02)
[2024-10-26 17:05] VITALS: BP 139/89; PULSE 98
== END 2024-10-26 16:37 | disposition home or self-care (01) ==
LOC: JD.ED 15:21
DX: F10.239 Alcohol dependence with withdrawal, unspecified (principal); F41.9 Anxiety disorder, unspecified; I10 Essential (primary) hypertension; Z79.899 Other long term (current) drug therapy; Z88.8 Allergy status to other drugs, medicaments and biological substances; Z88.5 Allergy status to narcotic agent; Y90.9 Presence of alcohol in blood, level not specified; Z88.6 Allergy status to analgesic agent
CPT/HCPCS: 96372; 99283; J2060

== ENCOUNTER 2024-11-05 14:36 | Emergency (ER) | payer OTHER ==
[2024-11-05 16:25] LABS: HEMATOCRIT 33.3 % (37.0-47.0); HEMOGLOBIN 10.4 gm/dl (12.0-16.0); MEAN CORPUSCULAR HGB CONC 31.2 g/dl (32.0-36.0); MEAN CORPUSCULAR VOLUME 89.5 fl (83.0-99.0); MEAN PLATELET VOLUME 10.8 fl (9.4-12.3); PLATELET COUNT,PLT 48 K/mm3 (150-400); RED BLOOD CELL COUNT 3.72 M/mm3 (4.10-5.30); WHITE BLOOD CELL COUNT,WBC 4.08 K/mm3 (3.9-11.3)
[2024-11-05] MEDS: LORazepam 1 MG Tab PO ONE (16:37)
[2024-11-05 16:53] LABS: A/G RATIO 0.5 (1-2); ALBUMIN 2.9 g/dl (3.4-5.0); ANION GAP 13.6 (5-15); BILIRUBIN TOTAL 4.2 mg/dL (0.2-1.0); BUN/CREATININE RATIO 7.1 (14-18); CALCIUM 9.2 mg/dL (8.5-10.1); EST CRCL DRUG DOSING (CG) 108.85 mL/min; POTASSIUM,K 3.6 mEq/L (3.5-5.1); TSH 1.085 uIU/mL (0.358-3.74)
[2024-11-05] MEDS: Acetaminophen 325 MG Tab PO ONE (17:00)
[2024-11-05 17:04] VITALS: BP 138/88; PULSE 84
[2024-11-05 17:04] LABS: PROTEIN TOTAL,TP 8.8 g/dl (6.4-8.2)
[2024-11-05 17:05] LABS: CREATININE 0.7 mg/dL (0.55-1.02)
[2024-11-05 17:38] LABS: BARBITURATE SCREEN,URINE NEGATIVE (CUTOFF=200); BENZODIAZEPINES SCREEN,URINE PRESUMPTIVE POSITIVE (CUTOFF=150); BUPRENORPHINE SCREEN,URINE NEGATIVE (CUTOFF=10); METHADONE SCREEN, URINE NEGATIVE (CUTOFF=200); METHAMPHETAMINES SCREEN, URINE NEGATIVE (CUTOFF=500); OXYCODONE SCREEN,URINE NEGATIVE (CUT0FF=100); THC SCREEN,URINE 20 NG/ML NEGATIVE (CUTOFF=50)
[2024-11-05 17:43] LABS: BAND PERCENT MAN 0 % (0-10); BASOPHILS PERCENT MAN 0 (0.1-1.2); EOSINOPHILS PERCENT MAN 0 % (0.7-5.8); LYMPHOCYTES % ATYPICAL MANUAL 0 %; LYMPHOCYTES PERCENT MAN 29 % (20-40); MONOCYTES PERCENT MAN 4 % (2-10)
[2024-11-05 17:46] LABS: ANISOCYTOSIS 1+ SLIGHT; OVALOCYTES 1+ SLIGHT; PLATELET COUNT ESTIMATE DECREASED; POIKILOCYTOSIS 1+ SLIGHT
[2024-11-05 17:47] LABS: AMPHETAMINES SCREEN, URINE NEGATIVE (CUTOFF=500)
== END 2024-11-05 18:58 | disposition other institution (70) ==
LOC: JD.ED 14:36
DX: F10.230 Alcohol dependence with withdrawal, uncomplicated (principal); I10 Essential (primary) hypertension; Z88.8 Allergy status to other drugs, medicaments and biological substances; Z79.899 Other long term (current) drug therapy
CPT/HCPCS: 36415; 80053; 80143; 80179; 80306; 80307; 81025; 84443; 85007; 85027; 93005; 99285; A9270; 93010; 99284

== ENCOUNTER 2024-11-14 10:06 | Emergency (ER) | payer OTHER, MEDICAID ==
[2024-11-14] MEDS: Ondansetron 4 MG/2 ML SDV IVPUSH ONE (10:40)
[2024-11-14] MEDS: LORazepam 2 MG/ML SDV IVPUSH ONE (10:40)
[2024-11-14] MEDS: Sodium Chloride 0.9% 2,000 ML IV ONE (10:40)
[2024-11-14 10:53] LABS: BASOPHILS PERCENT AUTO 0.4 % (0.0-1.0); EOSINOPHILS PERCENT AUTO 0.3 % (0.0-6.0); HEMATOCRIT 34.2 % (37.0-47.0); IMMATURE GRAN ABSOLUTE AUTO 0.02 K/mm3 (0.00-0.05); IMMATURE GRAN PERCENT AUTO 0.3 % (0.0-0.4); LYMPHOCYTES ABSOLUTE AUTO 0.7 K/mm3 (1.0-4.8); LYMPHOCYTES PERCENT AUTO 9.3 % (24.0-44.0); MEAN CORPUSCULAR HGB CONC 32.2 g/dl (32.0-36.0); MONOCYTES ABSOLUTE AUTO 0.5 K/mm3 (0.0-0.8); MONOCYTES PERCENT AUTO 6.3 % (0.0-8.0); NEUTROPHILS ABSOLUTE AUTO 5.9 K/mm3 (1.8-7.7); NEUTROPHILS PERCENT AUTO 83.4 % (41.0-71.0); PLATELET COUNT,PLT 44 K/mm3 (150-400); RED BLOOD CELL COUNT 4.07 M/mm3 (4.10-5.30); WHITE BLOOD CELL COUNT,WBC 7.09 K/mm3 (3.9-11.3)
[2024-11-14 11:22] LABS: SLIDE REVIEW ABNORMAL SMEAR
[2024-11-14 11:25] LABS: INR 1.64; PROTHROMBIN TIME 16.8 SECONDS (9.7-12.0)
[2024-11-14 11:35] LABS: A/G RATIO 0.5 (1-2); ALBUMIN 3.1 g/dl (3.4-5.0); ANION GAP 23.7 (5-15); BILIRUBIN TOTAL 8.5 mg/dL (0.2-1.0); BUN/CREATININE RATIO 7.5 (14-18); CALCIUM 9.3 mg/dL (8.5-10.1); EST CRCL DRUG DOSING (CG) 94.3 mL/min
[2024-11-14 11:39] LABS: POTASSIUM,K 3.7 mEq/L (3.5-5.1); PROTEIN TOTAL,TP 8.9 g/dl (6.4-8.2)
[2024-11-14 11:40] LABS: CREATININE 0.8 mg/dL (0.55-1.02)
[2024-11-14 12:23] LABS: BARBITURATE SCREEN,URINE NEGATIVE (CUTOFF=200); BENZODIAZEPINES SCREEN,URINE PRESUMPTIVE POSITIVE (CUTOFF=150); BUPRENORPHINE SCREEN,URINE NEGATIVE (CUTOFF=10); METHADONE SCREEN, URINE NEGATIVE (CUTOFF=200); METHAMPHETAMINES SCREEN, URINE NEGATIVE (CUTOFF=500); OXYCODONE SCREEN,URINE NEGATIVE (CUT0FF=100); THC SCREEN,URINE 20 NG/ML NEGATIVE (CUTOFF=50)
[2024-11-14 12:24] LABS: AMPHETAMINES SCREEN, URINE NEGATIVE (CUTOFF=500)
[2024-11-14] MEDS: Folic Acid 1 MG Tab PO ONE (13:00)
[2024-11-14] MEDS: Multivitamins with Minerals/Folic Acid/Lutein/Zeaxanth Tab PO STA (13:00)
[2024-11-14] MEDS: Thiamine 200 MG/2 ML MDV IVPUSH ONE (13:01)
[2024-11-14] MEDS: Magnesium Sulf/Wat 4 GM/50 mL 4 GM in Premix Bag 1 BAG IV ONE (13:01)
[2024-11-14 15:39] VITALS: BP 143/103; PULSE 81
== END 2024-11-14 15:10 | disposition home or self-care (01) ==
LOC: JD.ED 10:06
DX: K70.30 Alcoholic cirrhosis of liver without ascites (principal); F10.230 Alcohol dependence with withdrawal, uncomplicated; E83.42 Hypomagnesemia; E80.6 Other disorders of bilirubin metabolism; I10 Essential (primary) hypertension; Z88.8 Allergy status to other drugs, medicaments and biological substances; Z88.5 Allergy status to narcotic agent; Z79.899 Other long term (current) drug therapy
CPT/HCPCS: 36415; 80053; 80306; 80307; 82140; 82550; 83690; 83735; 85025; 85610; 96361; 96365; 96366; 96375; 99285; A9270; J2060; J2405; J3411; J3475; J7030; 99284

== ENCOUNTER 2024-12-23 00:36 | Emergency (ER) | payer OTHER, MEDICAID ==
[2024-12-23] MEDS ORDERED: Sodium Chloride 0.9% 10 ML Syringe FLUSH PRN (00:51)
[2024-12-23 01:02] LABS: BASOPHILS ABSOLUTE AUTO 0.1 K/mm3 (0.0-0.2); BASOPHILS PERCENT AUTO 0.9 % (0.0-1.0); EOSINOPHILS ABSOLUTE AUTO 0.0 K/mm3 (0.0-0.4); EOSINOPHILS PERCENT AUTO 0.3 % (0.0-6.0); IMMATURE GRAN ABSOLUTE AUTO 0.05 K/mm3 (0.00-0.05); IMMATURE GRAN PERCENT AUTO 0.8 % (0.0-0.4); LYMPHOCYTES ABSOLUTE AUTO 1.2 K/mm3 (1.0-4.8); LYMPHOCYTES PERCENT AUTO 19.3 % (24.0-44.0); MONOCYTES ABSOLUTE AUTO 0.5 K/mm3 (0.0-0.8); MONOCYTES PERCENT AUTO 7.4 % (0.0-8.0); NEUTROPHILS ABSOLUTE AUTO 4.5 K/mm3 (1.8-7.7); NEUTROPHILS PERCENT AUTO 71.3 % (41.0-71.0); NRBC ABSOLUTE 0.00 (0.00-0.02); NRBC PERCENT 0.0 % (0.0-0.2); PLATELET COUNT,PLT 26 K/mm3 (150-400); RED BLOOD CELL COUNT 3.33 M/mm3 (4.10-5.30); WHITE BLOOD CELL COUNT,WBC 6.33 K/mm3 (3.9-11.3)
[2024-12-23] MEDS: LORazepam 2 MG/ML SDV IVPUSH ONE ×2 (01:05→02:44)
[2024-12-23 01:26] LABS: A/G RATIO 0.5 (1-2); ALANINE AMINOTRANSFERASE,ALT 27.0 U/L (14-59); ASPARTATE AMNIOTRANSFERASE,AST 222.0 U/L (15-37); BILIRUBIN TOTAL 6.9 mg/dL (0.2-1.0); BLOOD UREA NITROGEN,BUN 5.0 mg/dL (7-18); CARBON DIOXIDE,CO2 21.0 mEq/L (21-32); CHLORIDE,CL 102.0 mEq/L (98-107); EST CRCL DRUG DOSING (CG) 156.3 mL/min; ESTIMATED GFR 122.0 mL/min (>60); ETHANOL BLOOD MEDICAL 0.29 gm% (0.00); GLUCOSE RANDOM 105.0 mg/dL (70-99); POTASSIUM,K 3.5 mEq/L (3.5-5.1); SODIUM,NA 138.0 mEq/L (136-145); TROPONIN I HIGH SENSITIVITY 7.0 pg/mL (<=51); TSH 2.899 uIU/mL (0.358-3.74)
[2024-12-23 01:31] LABS: CREATININE 0.5 mg/dL (0.55-1.02); PROTEIN TOTAL,TP 7.9 g/dl (6.4-8.2)
[2024-12-23 02:07] LABS: BUPRENORPHINE SCREEN,URINE NEGATIVE (CUTOFF=10); METHADONE SCREEN, URINE NEGATIVE (CUTOFF=200); METHAMPHETAMINES SCREEN, URINE NEGATIVE (CUTOFF=500); OXYCODONE SCREEN,URINE NEGATIVE (CUT0FF=100); THC SCREEN,URINE 20 NG/ML NEGATIVE (CUTOFF=50)
[2024-12-23 02:29] LABS: AMPHETAMINES SCREEN, URINE NEGATIVE (CUTOFF=500)
[2024-12-23] MEDS: Magnesium Sulf/Wat 4 GM/50 mL 4 GM in Premix Bag 1 BAG IV ONE (02:45)
[2024-12-23 06:03] VITALS: BP 106/72; PULSE 96
== END 2024-12-23 05:40 | disposition home or self-care (01) ==
LOC: JD.ED 00:36
DX: D64.9 Anemia, unspecified (principal); F10.10 Alcohol abuse, uncomplicated; D69.6 Thrombocytopenia, unspecified; Z88.5 Allergy status to narcotic agent; Z88.8 Allergy status to other drugs, medicaments and biological substances; Z79.899 Other long term (current) drug therapy; Z86.59 Personal history of other mental and behavioral disorders; Z86.79 Personal history of other diseases of the circulatory system
CPT/HCPCS: 36415; 71045; 80053; 80306; 80307; 83735; 84443; 84484; 84703; 85025; 93005; 96365; 96366; 96375; 96376; 99285; J2060; J3475; 93010; 99283

== ENCOUNTER 2025-01-04 22:44 | Emergency (ER) | payer OTHER, MEDICAID ==
[2025-01-04] MEDS ORDERED: Sodium Chloride 0.9% 10 ML Syringe FLUSH PRN (23:19)
[2025-01-04] MEDS: LORazepam 2 MG/ML SDV IVPUSH ONE (23:26)
[2025-01-04 23:28] LABS: BASOPHILS ABSOLUTE AUTO 0.1 K/mm3 (0.0-0.2); BASOPHILS PERCENT AUTO 0.6 % (0.0-1.0); EOSINOPHILS ABSOLUTE AUTO 0.1 K/mm3 (0.0-0.4); EOSINOPHILS PERCENT AUTO 0.4 % (0.0-6.0); IMMATURE GRAN ABSOLUTE AUTO 0.31 K/mm3 (0.00-0.05); IMMATURE GRAN PERCENT AUTO 2.2 % (0.0-0.4); LYMPHOCYTES ABSOLUTE AUTO 0.9 K/mm3 (1.0-4.8); LYMPHOCYTES PERCENT AUTO 6.3 % (24.0-44.0); MEAN PLATELET VOLUME 9.4 fl (9.4-12.3); MONOCYTES ABSOLUTE AUTO 1.0 K/mm3 (0.0-0.8); MONOCYTES PERCENT AUTO 6.9 % (0.0-8.0); NEUTROPHILS ABSOLUTE AUTO 12.0 K/mm3 (1.8-7.7); NEUTROPHILS PERCENT AUTO 83.6 % (41.0-71.0); NRBC ABSOLUTE 0.00 (0.00-0.02); NRBC PERCENT 0.0 % (0.0-0.2); PLATELET COUNT,PLT 83 K/mm3 (150-400); RED BLOOD CELL COUNT 3.14 M/mm3 (4.10-5.30); WHITE BLOOD CELL COUNT,WBC 14.40 K/mm3 (3.9-11.3)
[2025-01-04 23:50] LABS: INR 1.88
[2025-01-04] MEDS: Iopamidol 612 MG/ML 100 ML Bottle IVPUSH ONE (23:52)
[2025-01-04] MEDS: Sodium Chloride 0.9% 10 ML Syringe FLUSH PRN (23:52)
[2025-01-05 00:05] LABS: A/G RATIO 0.4 (1-2); BILIRUBIN TOTAL 32.0 mg/dL (0.2-1.0); BLOOD UREA NITROGEN,BUN 5 mg/dL (7-18); CARBON DIOXIDE,CO2 17 mEq/L (21-32); CHLORIDE,CL 94 mEq/L (98-107); ESTIMATED GFR 83 mL/min (>60); ETHANOL BLOOD MEDICAL 0.04 gm% (0.00); SODIUM,NA 133 mEq/L (136-145)
[2025-01-05 00:07] LABS: CREATININE 0.9 mg/dL (0.55-1.02); GLUCOSE RANDOM 103 mg/dL (70-99); POTASSIUM,K 3.8 mEq/L (3.5-5.1)
[2025-01-05 00:08] LABS: ALANINE AMINOTRANSFERASE,ALT 14 U/L (14-59); ASPARTATE AMNIOTRANSFERASE,AST 140 U/L (15-37); PROTEIN TOTAL,TP 8.0 g/dl (6.4-8.2)
[2025-01-05] MEDS: fentaNYL 100 MCG/2 ML SDV IVPUSH ONE (00:32)
[2025-01-05 01:47] LABS: APPEARANCE,URINE TURBID (Clear); GLUCOSE,URINE TRACE (Negative); OCCULT BLOOD,URINE TRACE-INTACT (Negative)
[2025-01-05 01:58] LABS: SQUAMOUS EPITHELIAL CELLS,UR 0-5 /hpf (0-5)
[2025-01-05 03:55] VITALS: BP 128/85; PULSE 80
== END 2025-01-05 03:55 ==
LOC: JD.ED 22:44 → JD.ICU 23:31 → UNDOADMIN 23:31 → JD.ED 01-05 03:55
DX: N39.0 Urinary tract infection, site not specified (principal); M54.9 Dorsalgia, unspecified; K72.90 Hepatic failure, unspecified without coma; E80.6 Other disorders of bilirubin metabolism; D69.6 Thrombocytopenia, unspecified; E83.42 Hypomagnesemia; Z88.5 Allergy status to narcotic agent; Z79.899 Other long term (current) drug therapy; Z88.8 Allergy status to other drugs, medicaments and biological substances; I10 Essential (primary) hypertension
CPT/HCPCS: 36415; 74177; 74177-26; 80053; 80307; 81001; 82140; 83690; 83735; 84703; 85025; 85610; 85730; 96361; 96374; 96375; 99284-25; 99285; J0696; J1171; J2060; J3010; J7030; Q9967